=== PATIENT | female | born 1980 | race Caucasian/White ===

== ENCOUNTER 2020-05-20 09:33 | Outpatient (REF) | payer OTHER, SELFPAY ==
[2020-05-20 09:56] LABS: COVID-19 Test Negative (Negative); IDNOW Serial# 55D5AD1C
== END 2020-05-20 09:34 | disposition home or self-care (01) ==
LOC: HO.EMPCOV 09:33
PROVIDERS: PCP Internal Medicine; Visit Provider Internal Medicine
DX: Z20.828 Contact with and (suspected) exposure to other viral communicable diseases (principal)
CPT/HCPCS: 87635; C9803

== ENCOUNTER 2020-08-03 09:58 | Outpatient (REF) | payer OTHER, SELFPAY ==
[2020-08-03 10:17] LABS: COVID-19 Test Negative (Negative)
== END 2020-08-03 09:59 | disposition home or self-care (01) ==
LOC: HO.EMPCOV 09:58
PROVIDERS: Visit Provider Internal Medicine
DX: Z20.822 Contact with and (suspected) exposure to COVID-19 (principal)
CPT/HCPCS: 36415; 87635; C9803

== ENCOUNTER 2020-12-11 11:00 | Emergency (ER) | payer BC, SELFPAY ==
[2020-12-11 11:22] VITALS: BP 132/82; PULSE 112; RESP 16; TEMP 39.5; O2SAT 98; BMI 22.6
--- NOTE | 2020-12-11 11:26 | ED.GENADULT ---
HPI - General Adult General Chief complaint: General Medical Stated complaint: ?Lyme Disease Time Seen by Provider: 12/11/20 11:05 Source: patient Mode of arrival: ambulatory Limitations: no limitations History of Present Illness HPI narrative: 40-year-old female who presents emergency department for evaluation of fever, chills, dizziness, nausea and a bull's-eye lesion on her left buttocks. 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 The patient did not find a tick on her body. She states that since Saturday (5 days prior to evaluation) she has been experiencing fever, chills, myalgias and arthralgias. She states that she is having pain from her neck all the way to her tailbone. She has had fever ranging from 101-1 103? F. she states that she has had persistent nausea and has vomited once. The patient's noted able thigh lesion on the patient's left buttocks this morning. The patient denied sore throat, chest pain, shortness of breath, cough, frequency, urgency or dysuria. Related Data Previous Rx's Medication Instructions Recorded doxycycline hyclate 100 mg PO Q12H 21 Days #42 tab 12/11/20 ondansetron 4 mg PO Q6-8H PRN #14 tab 12/11/20 Allergies Allergy/AdvReac Type Severity Reaction Status Date / Time No Known Allergies Allergy Unverified 03/24/20 19:14 [No Known Allergies*] Review of Systems Review of Systems: Yes all other systems are reviewed and are negative [facility] Past Medical History [facility] Narrative: Past medical history: Anxiety. Past surgical history: [place] teeth. 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 She denies tobacco use. She drinks 1 glass of wine daily. She denies drug use. Medical History Anxiety Social History Social History Advance Directives: No Advance Directives Information Provided: No Patient : No Physical Exam Vital Signs: Vital Signs: Last Vital Signs Temp 100.4 F 12/11/20 12:28 Pulse 95 12/11/20 12:28 Resp 16 12/11/20 12:28 BP 118/77 12/11/20 12:28 Pulse Ox 99 12/11/20 12:28 Body Mass Index 22.6 Const: General: cooperative and healthy appearing; No in distress Orientation/consciousness: oriented to person and oriented to place HENMT: Head: Yes normal to inspection Ears: hearing grossly normal bilaterally General nose exam: Normal external nose present Eyes: General: appearance normal, both eyes and all related structures Neck: Neck: Yes normal visual inspection and Yes full ROM Chest: Chest palpation & inspection: normal inspection of the chest Resp: Effort & Inspection: normal respiratory effort Auscultation: clear to auscultation bilaterally, no crackles, no rales, no rhonchi and no wheezes Cardio: Rate: tachycardic Rhythm: regular rhythm Heart sounds: S1 normal heart sound present, S2 normal heart sound present and no murmurs GI: Inspection: Yes normal to inspection Palpation (GI): Soft to palpation and Tenderness to palpation present (GI) in the epigastrum ([id number]) Auscultation: normal bowel sounds Skin: Other: Patient's skin is very warm to the touch . She is diaphoretic. There is a bull's-eye lesion noted on the patient's left buttocks area. No other lesions noted. Neuro: General: oriented to person and oriented to place Cognition (Neuro): normal cognition Motor exam (neuro): 5/5 motor strength present throughout Extrem: General: Yes normal to inspection Psych: Appearance: grossly normal Affect: normal affect Thought process: Normal thought process present Thought content: Normal thought content present Course Course Course Narrative: 40-year-old female who presents emergency department for evaluation of fever, chills, myalgias, arthralgias, nausea and Bull's eye llesion on her left buttocks area. Vital signs in the emergency department feel that she was febrile with a temperature of a 103.1? and tachycardic with a pulse of 112. The patient did have Bull's eye lesion noted on her scan. Patient's presentation is consistent with acute Lyme disease. I did order a tick-borne molecular panel, CBC and comprehensive metabolic panel on the patient. Patient was treated with doxycycline 100 mg orally and ibuprofen 600 mg orally. I also believe the patient is very dehydrated has not been able to keep up with her sensible fluid loss from her fevers therefore she was ordered to get normal saline IV x2 L and Zofran 4 mg IV for her nausea. . with The patient will be discharged home with a prescription for doxycycline 100 mg twice a day for 21 days. She was advised to take Tylenol and ibuprofen for fever. Medical Decision Making Lab Data Result diagrams: 12/11/20 11:45 12/11/20 11:45 Labs: Lab Results 12/11/20 12/11/20 Range/Units 11:45 11:45 WBC 6.4 (4.8-10.8) X10*3/uL RBC 4.22 (4.20-5.50) X10*6/uL Hgb 12.7 (12.0-16.0) g/dl Hct 38.5 (37-47) % MCV 91.2 (80-98) fL MCH 30.1 (27.0-33.0) pg MCHC 33.0 (31.0-35.0) g/dl RDW 13.2 (11.0-16.0) % Plt Count 190 (160-400) X10*3/uL MPV 9.0 L (9.4-12.3) fL Immature Gran % (Auto) 0.3 (0.0-0.4) % Neut % (Auto) 86.9 H (45-73) % Lymph % (Auto) 7.4 L (20-40) % [place] % (Auto) 5.2 (2-11) % Eos % (Auto) 0.0 (0-4) % Baso % (Auto) 0.2 (0-2) % Lymph # (Auto) 0.5 L (1.2-4.9) X10*3/uL [place] # (Auto) 0.3 (0.1-1.2) X10*3/uL Eos # (Auto) 0.0 (0.0-0.4) X10*3/uL Baso # (Auto) 0.0 (0.0-0.2) X10*3/uL Abs Immat Gran (auto) 0.02 (0.00-0.03) X10*3/uL Absolute Neuts (auto) 5.6 (2.0-8.3) X10*3/uL Absolute Nucleated RBC 0.000 (0.0-0.012) X10*3/uL Nucleated RBC % (auto) 0.0 (0.0-0.2) /100WBC Smear Tech's Comments VERIFIED Sodium 138 (135-145) mmol/L Potassium 4.0 (3.3-5.1) mmol/L Chloride 102 (96-108) mmol/L Carbon Dioxide 26 (22-29) mmol/L Anion Gap 14 (12-20) BUN 7 L (9-16) mg/dL Creatinine 0.66 (0.5-1.4) mg/dL Estim Creat Clear Calc 103.9 Estimated GFR > 60 Random Glucose 98 (60-115) mg/dL Calcium 8.6 (8.4-10.2) mg/dL Total Bilirubin 0.7 (0.0-1.0) mg/dL AST 58 H (5-31) U/L ALT 88 H (0-31) U/L Alkaline Phosphatase 134 H (39-117) U/L Total Protein 6.3 L (6.5-8.0) g/dL Albumin 3.7 (3.5-5.0) g/dL Discharge Plan Discharge Clinical Impression: Acute Lyme disease, Acute dehydration Fever Qualifiers: Encounter type: initial encounter Instructions: Lyme Disease (ED) Additional Instructions: Your laboratory evaluation was unremarkable except for slight elevation in your AST, ALT and alkaline phosphatase (58, 88 and 137). This is probably related to your dehydration however sometimes Anaplasma can cause a bump in your liver function test. Do not drink alcohol. Do not take Tylenol. You should have repeat liver function test after you complete your doxycycline. I ordered a tick-borne molecular panel which include Lyme disease, Anaplasma, Babesia, Erlichosis and Borrellia. These tests may take 1-2 weeks to come back. Take doxycycline 100 mg twice a day for 21 days. I want you to complete the 21 day course even if the Lyme test is negative Take Zofran (ondansetron) ODT 4 mg, 1 pill dissolved in your mouth every 8 hours as needed for nausea and vomiting. Take ibuprofen 200 mg pills, 3 pills every 6 hours as needed for pain. Follow-up with your doctor in 2 days. Please return to the emergency department if your symptoms get worse or if you develop any symptoms that are concerning to you. Prescriptions: New ondansetron 4 mg tablet,disintegrating 4 mg PO Q6-8H PRN (Reason: nausea and vomiting) Qty: 14 RF: 0 doxycycline hyclate 100 mg tablet 100 mg PO Q12H 21 Days Qty: 42 RF: 0
[2020-12-11] MEDS: Ibuprofen 600 MG TABLET PO (11:47)
[2020-12-11] MEDS: 0.9 % Sodium Chloride 1,000 ML 999 ML IV ×2 (11:49→12:35)
[2020-12-11] MEDS: ondansetron HCL 4 MG/2 ML VIAL IVPUSH (11:55)
[2020-12-11 12:00] LABS: Basophils Percent Auto 0.2 % (0-2); Hematocrit 38.5 % (37-47); Hemoglobin 12.7 g/dl (12.0-16.0); Imm Gran Abs Auto 0.02 X10*3/uL (0.00-0.03); Imm Gran Pct Auto 0.3 % (0.0-0.4); Lymphocytes Absolute Auto 0.5 X10*3/uL (1.2-4.9); Lymphocytes Percent Auto 7.4 % (20-40); MANUAL DIFF FLAG SCAN; Mean Corpuscular Hemoglobin 30.1 pg (27.0-33.0); Mean Corpuscular Volume 91.2 fL (80-98); Monocytes Absolute Auto 0.3 X10*3/uL (0.1-1.2); Monocytes Percent Auto 5.2 % (2-11); Neutrophils Absolute Auto 5.6 X10*3/uL (2.0-8.3); Neutrophils Percent Auto 86.9 % (45-73); Platelet Count 190 X10*3/uL (160-400); Red Blood Count 4.22 X10*6/uL (4.20-5.50); Red Cell Distribution Width 13.2 % (11.0-16.0); SCAN SMEAR FLAG 1; White Blood Count 6.4 X10*3/uL (4.8-10.8)
[2020-12-11 12:17] LABS: SLIDE REVIEW VERIFIED
[2020-12-11 12:28] VITALS: BP 118/77; PULSE 95; RESP 16; TEMP 38; O2SAT 99
[2020-12-11 12:35] LABS: Alanine Aminotransferase 88 U/L (0-31); Albumin Level 3.7 g/dL (3.5-5.0); Alkaline Phosphatase 134 U/L (39-117); Anion Gap 14 (12-20); Aspartate Amino Transferase 58 U/L (5-31); Bilirubin Total 0.7 mg/dL (0.0-1.0); Blood Urea Nitrogen 7 mg/dL (9-16); Calcium 8.6 mg/dL (8.4-10.2); Carbon Dioxide 26 mmol/L (22-29); Chloride 102 mmol/L (96-108); Creatinine Clr Calc Pharmacy 103.9; Estimated Glomerular Filt Rate > 60; Glucose Random 98 mg/dL (60-115); Sodium 138 mmol/L (135-145); Total Protein 6.3 g/dL (6.5-8.0)
[2020-12-11 13:01] VITALS: BP 130/81; PULSE 98; O2SAT 97
[2020-12-12 18:12] LABS: A. Phagocytphilium DNA,RT-PCR NOT DETECTED (NOT DETECTED); Babesia Microti DNA, RT-PCR NOT DETECTED (NOT DETECTED); Borrelia Miyamotoi,DNA RT-PCR NOT DETECTED (NOT DETECTED); E.Chaffeensis DNA RT-PCR NOT DETECTED (NOT DETECTED); Lyme(Borrelia ssp)DNA RT-PCR NOT DETECTED (NOT DETECTED); Source-Tick borne disease EDTA
== END 2020-12-11 13:03 | disposition home or self-care (01) ==
PROVIDERS: Emergency Provider Emergency Medicine Emergency Medical Services; PCP Internal Medicine
DX: A69.20 Lyme disease, unspecified (principal); E86.0 Dehydration; R11.0 Nausea
CPT/HCPCS: 36415; 80053; 85025; 87798; 87801; 96361; 96374; 99284; J2405

== ENCOUNTER 2020-12-19 13:22 | Emergency (ER) | payer BC, SELFPAY ==
--- NOTE | ~2020-12-19 | CT_ITS ---
EXAMINATION: CT HEAD WITHOUT CONTRAST (STROKE PROTOCOL) CLINICAL INFORMATION: Stroke protocol. Right facial numbness. COMPARISON: None TECHNIQUE: Contiguous axial imaging was performed from the skull base to vertex without intravenous administration of contrast. This CT examination was performed using dose optimization techniques as appropriate, variously including the following: *Automated exposure control *Adjustment of mA and/or kV according to patient size (this includes techniques or standardized protocols for targeted exams where dose is matched to indication/reason for exam; i.e. extremities or head) *Use of iterative reconstruction technique DLP: 643 mGy-cm FINDINGS: There is no intracranial hemorrhage, hematoma, or extra-axial fluid collection. The ventricles are normal in size. There is no hydrocephalus, edema, or mass effect. The guevara-white matter differentiation appears symmetric. There is no acute infarct or mass lesion. The calvarium appears intact. There is no pneumocephalus or orbital emphysema. The visualized sinuses and middle ears and mastoid air cells show no significant mucosal thickening. There are no air-fluid levels. CT/CT head for stroke IMPRESSION: No acute intracranial pathology. This critical result was discussed with Dr. Mik Delgado at 1:40 p.M. It was ascertained that the content and urgency of the report was understood at the time of direct communication.
--- NOTE | 2020-12-19 13:26 | ECG_ITS ---
Test Reason : STROKE SYMPTOMS Blood Pressure : / mmHG Vent. Rate : 091 BPM Atrial Rate : 091 BPM P-R Int : 170 ms QRS Dur : 108 ms QT Int : 420 ms P-R-T Axes : 068 063 063 degrees QTc Int : 516 ms Normal sinus rhythm Possible Left atrial enlargement Incomplete right bundle branch block Prolonged QT Abnormal ECG No previous ECGs available Referred By: Demetrius Pete Electronically Signed By:SHIMA MANZANO
[2020-12-19 13:38] VITALS: BP 152/86; PULSE 87; RESP 18; TEMP 36.6; O2SAT 100; BMI 21.7
[2020-12-19 13:44] LABS: Glucose, Whole Blood 119 mg/dL (60-115)
[2020-12-19] MEDS: LORazepam 2 MG/ML VIAL 1 MG IVPUSH (14:00)
[2020-12-19 14:14] LABS: MANUAL DIFF FLAG NO
[2020-12-19 14:18] LABS: Basophils Percent Auto 0.4 % (0-2); Eosinophils Absolute Auto 0.1 X10*3/uL (0.0-0.4); Eosinophils Percent Auto 0.5 % (0-4); Hematocrit 43.7 % (37-47); Hemoglobin 14.7 g/dl (12.0-16.0); Imm Gran Abs Auto 0.12 X10*3/uL (0.00-0.03); Imm Gran Pct Auto 1.3 % (0.0-0.4); Lymphocytes Absolute Auto 2.7 X10*3/uL (1.2-4.9); Lymphocytes Percent Auto 29.5 % (20-40); Mean Corpuscular HGB Conc 33.6 g/dl (31.0-35.0); Mean Corpuscular Hemoglobin 30.1 pg (27.0-33.0); Mean Corpuscular Volume 89.5 fL (80-98); Mean Platelet Volume 8.6 fL (9.4-12.3); Monocytes Absolute Auto 0.5 X10*3/uL (0.1-1.2); Monocytes Percent Auto 5.9 % (2-11); Neutrophils Absolute Auto 5.8 X10*3/uL (2.0-8.3); Neutrophils Percent Auto 62.4 % (45-73); Platelet Count 627 X10*3/uL (160-400); Red Blood Count 4.88 X10*6/uL (4.20-5.50); Red Cell Distribution Width 13.2 % (11.0-16.0); White Blood Count 9.2 X10*3/uL (4.8-10.8)
[2020-12-19 14:25] LABS: INTERNATIONAL NORM RATIO 1.1 (0.9-1.1); Prothrombin Time 12.9 SEC (10.8-13.0)
[2020-12-19 14:27] LABS: Partial Thromboplastin Time 35.6 SEC (24.1-38.0)
[2020-12-19 14:33] LABS: Stroke Lab Use COMPLETE
[2020-12-19 14:52] LABS: Troponin-I High Sensitivity < 3.5 ng/L (<3.5-17.0)
[2020-12-19 15:02] VITALS: BP 140/88; PULSE 82; RESP 16; O2SAT 99
--- NOTE | 2020-12-19 15:05 | PC.NURSE ---
Patient is more relaxed, alert, and able to speak without difficulty. This is a significant improvement than when patient arrived.
[2020-12-19 15:27] LABS: Alanine Aminotransferase 25 U/L (0-31); Albumin Level 4.3 g/dL (3.5-5.0); Alkaline Phosphatase 103 U/L (39-117); Anion Gap 19 (12-20); Aspartate Amino Transferase 20 U/L (5-31); Bilirubin Direct 0.2 mg/dL (0.0-0.5); Bilirubin Total 0.3 mg/dL (0.0-1.0); Blood Urea Nitrogen 13 mg/dL (9-16); Calcium 9.3 mg/dL (8.4-10.2); Carbon Dioxide 20 mmol/L (22-29); Chloride 105 mmol/L (96-108); Creatinine Clr Calc Pharmacy 94.9; Estimated Glomerular Filt Rate > 60; Glucose Random 128 mg/dL (60-115); Magnesium 2.2 mg/dL (1.6-2.6); Phosphorus 1.2 mg/dL (2.7-4.5); Potassium 4.2 mmol/L (3.3-5.1); Sodium 140 mmol/L (135-145); Total Protein 7.4 g/dL (6.5-8.0)
--- NOTE | 2020-12-19 15:49 | ED.GENADULT ---
HPI - General Adult General Chief complaint: General Medical Stated complaint: WEAKNESS/ FACIAL DROOP Time Seen by Provider: 12/19/20 13:26 Source: patient and EMS Mode of arrival: EMS Limitations: no limitations Related Data Previous Rx's Medication Instructions Recorded doxycycline hyclate 100 mg PO Q12H 21 Days #42 tab 12/11/20 ondansetron 4 mg PO Q6-8H PRN #14 tab 12/11/20 lorazepam [Ativan] 1 mg PO TID PRN #10 tab 12/19/20 Allergies Allergy/AdvReac Type Severity Reaction Status Date / Time No Known Allergies Allergy Unverified 03/24/20 19:14 [No Known Allergies*] [facility] Past Medical History Medical History (Updated 12/19/20 @ 16:14 by Demetrius Pete MD) Anxiety Lyme disease Social History Social History Patient Tobacco Use Status: Never used Tobacco Use of substances other than those prescribed or required for medical reasons: No Advance Directives: No Advance Directives Information Provided: No Physical Exam Vital Signs: Vital Signs: Last Vital Signs Temp 98 F 12/19/20 13:38 Pulse 82 12/19/20 15:02 Resp 16 12/19/20 15:02 BP 140/88 H 12/19/20 15:02 Pulse Ox 99 12/19/20 15:02 Body Mass Index 21.7 Medical Decision Making Lab Data Result diagrams: 12/19/20 13:55 12/19/20 13:55 Labs: Lab Results 12/19/20 12/19/20 12/19/20 Range/Units 13:40 13:55 13:55 WBC 9.2 (4.8-10.8) X10*3/uL RBC 4.88 (4.20-5.50) X10*6/uL Hgb 14.7 (12.0-16.0) g/dl Hct 43.7 (37-47) % MCV 89.5 (80-98) fL MCH 30.1 (27.0-33.0) pg MCHC 33.6 (31.0-35.0) g/dl RDW 13.2 (11.0-16.0) % Plt Count 627 H D (160-400) X10*3/uL MPV 8.6 L (9.4-12.3) fL Immature Gran % (Auto) 1.3 H (0.0-0.4) % Neut % (Auto) 62.4 (45-73) % Lymph % (Auto) 29.5 (20-40) % [place] % (Auto) 5.9 (2-11) % Eos % (Auto) 0.5 (0-4) % Baso % (Auto) 0.4 (0-2) % Lymph # (Auto) 2.7 (1.2-4.9) X10*3/uL [place] # (Auto) 0.5 (0.1-1.2) X10*3/uL Eos # (Auto) 0.1 (0.0-0.4) X10*3/uL Baso # (Auto) 0.0 (0.0-0.2) X10*3/uL Abs Immat Gran (auto) 0.12 H (0.00-0.03) X10*3/uL Absolute Neuts (auto) 5.8 (2.0-8.3) X10*3/uL Absolute Nucleated RBC 0.000 (0.0-0.012) X10*3/uL Nucleated RBC % (auto) 0.0 (0.0-0.2) /100WBC PT 12.9 (10.8-13.0) SEC INR 1.1 (0.9-1.1) APTT 35.6 (24.1-38.0) SEC Sodium (135-145) mmol/L Potassium (3.3-5.1) mmol/L Chloride (96-108) mmol/L Carbon Dioxide (22-29) mmol/L Anion Gap (12-20) BUN (9-16) mg/dL Creatinine (0.5-1.4) mg/dL Estim Creat Clear Calc Estimated GFR POC Glucose 119 H (60-115) mg/dL Random Glucose (60-115) mg/dL Calcium (8.4-10.2) mg/dL Phosphorus (2.7-4.5) mg/dL Magnesium (1.6-2.6) mg/dL Total Bilirubin (0.0-1.0) mg/dL Direct Bilirubin (0.0-0.5) mg/dL AST (5-31) U/L ALT (0-31) U/L Alkaline Phosphatase (39-117) U/L Total Creatine Kinase (26-140) U/L Troponin I High Sens (<3.5-17.0) ng/L Total Protein (6.5-8.0) g/dL Albumin (3.5-5.0) g/dL 12/19/20 12/19/20 Range/Units 13:55 13:55 WBC (4.8-10.8) X10*3/uL RBC (4.20-5.50) X10*6/uL Hgb (12.0-16.0) g/dl Hct (37-47) % MCV (80-98) fL MCH (27.0-33.0) pg MCHC (31.0-35.0) g/dl RDW (11.0-16.0) % Plt Count (160-400) X10*3/uL MPV (9.4-12.3) fL Immature Gran % (Auto) (0.0-0.4) % Neut % (Auto) (45-73) % Lymph % (Auto) (20-40) % [place] % (Auto) (2-11) % Eos % (Auto) (0-4) % Baso % (Auto) (0-2) % Lymph # (Auto) (1.2-4.9) X10*3/uL [place] # (Auto) (0.1-1.2) X10*3/uL Eos # (Auto) (0.0-0.4) X10*3/uL Baso # (Auto) (0.0-0.2) X10*3/uL Abs Immat Gran (auto) (0.00-0.03) X10*3/uL Absolute Neuts (auto) (2.0-8.3) X10*3/uL Absolute Nucleated RBC (0.0-0.012) X10*3/uL Nucleated RBC % (auto) (0.0-0.2) /100WBC PT (10.8-13.0) SEC INR (0.9-1.1) APTT (24.1-38.0) SEC Sodium 140 (135-145) mmol/L Potassium 4.2 (3.3-5.1) mmol/L Chloride 105 (96-108) mmol/L Carbon Dioxide 20 L (22-29) mmol/L Anion Gap 19 (12-20) BUN 13 D (9-16) mg/dL Creatinine 0.75 (0.5-1.4) mg/dL Estim Creat Clear Calc 94.9 Estimated GFR > 60 POC Glucose (60-115) mg/dL Random Glucose 128 H (60-115) mg/dL Calcium 9.3 D (8.4-10.2) mg/dL Phosphorus 1.2 L (2.7-4.5) mg/dL Magnesium 2.2 (1.6-2.6) mg/dL Total Bilirubin 0.3 (0.0-1.0) mg/dL Direct Bilirubin 0.2 (0.0-0.5) mg/dL AST 20 D (5-31) U/L ALT 25 (0-31) U/L Alkaline Phosphatase 103 D (39-117) U/L Total Creatine Kinase 49 (26-140) U/L Troponin I High Sens < 3.5 (<3.5-17.0) ng/L Total Protein 7.4 (6.5-8.0) g/dL Albumin 4.3 (3.5-5.0) g/dL Discharge Plan Discharge Clinical Impression: Lozada's palsy, Acute hyperventilation syndrome Patient Disposition: Home, Self-Care Instructions: Lozada Palsy (ED), Hyperventilation (ED) Additional Instructions: Your presentation was consistent with hyperventilation syndrome. You received Ativan (lorazepam) 1 mg IV which improved her symptoms. Your laboratory evaluation was unremarkable. The CT scan of your head was normal. 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 This is caused by Lyme disease which is being treated with doxycycline. You received dexamethasone 10 mg IV. Start the prednisone as prescribed by the urgent care clinic tomorrow morning. If you start to feel numbness in your arms or legs again he feel like you are having another hyperventilation attack, take Ativan (lorazepam) 1 mg every 6 hours as needed. This medication is a benzodiazepine which can be addicting. If your concerned about addiction do not get this medication filled or you can ask the pharmacist for less pills than prescribed. When your at the pharmacy by the natural to her eyedrops to use in your right eye, 2 drops every hour while awake. Purchase a cup eye patch that he can wear over the right eye at night so to not scratch her cornea. Follow-up with your doctor in 2 days. Please return to the emergency department if your symptoms get worse or if you develop any symptoms that are concerning to you. Prescriptions: New lorazepam [Ativan] 1 mg tablet 1 mg PO TID PRN (Reason: anxiety) Qty: 10 RF: 0 No Action ondansetron 4 mg tablet,disintegrating 4 mg PO Q6-8H PRN (Reason: nausea and vomiting) Qty: 14 RF: 0 doxycycline hyclate 100 mg tablet 100 mg PO Q12H 21 Days Qty: 42 RF: 0
[2020-12-19 16:25] VITALS: BP 137/83; PULSE 84; RESP 16; O2SAT 97
--- NOTE | 2020-12-19 16:36 | PC.NURSE ---
Patient peripheral iv removed in both arms and pressure bandages applied. discharge instructions given to pt who verbalized understanding and denies any questions. Pt is ambulatory to exit in no distress with spouse.
== END 2020-12-19 16:38 | disposition home or self-care (01) ==
PROVIDERS: Emergency Provider Emergency Medicine Emergency Medical Services; PCP Internal Medicine
DX: G51.0 Bell's palsy (principal); F45.8 Other somatoform disorders; Z86.19 Personal history of other infectious and parasitic diseases
CPT/HCPCS: 36415; 70450; 80048; 80076; 82550; 82947; 83735; 84100; 84484; 85025; 85610; 85730; 93005; 96374; 96375; 99284; J1100; J2060

== ENCOUNTER → 2020-12-23 10:18 | Outpatient (BNVA) | payer SELFPAY | PROVIDERS: PCP Internal Medicine; Visit Provider Internal Medicine | DX: Z02.79 Encounter for issue of other medical certificate (principal) ==

== ENCOUNTER 2022-04-16 10:24 | Outpatient (REF) | payer BC, SELFPAY ==
--- NOTE | ~2022-04-16 | XR_ITS ---
EXAMINATION: XR CERVICAL SPINE CLINICAL INFORMATION: Neck pain COMPARISON: None TECHNIQUE: 3 views of the cervical spine were obtained. FINDINGS: Bone alignment is normal. No fracture or dislocation is seen. There is mild disc space narrowing and degenerative spondylosis at C5-C6. Prevertebral soft tissues are normal. XR/XR cervical spine 2V IMPRESSION: Mild degenerative changes at C5-C6.
== END 2022-04-16 10:25 | disposition home or self-care (01) ==
LOC: HO.XRAY 10:24
PROVIDERS: PCP Internal Medicine; Visit Provider Psychiatry & Neurology Neurology
DX: M54.2 Cervicalgia (principal)
CPT/HCPCS: 72040

== ENCOUNTER 2022-05-09 09:49 | Day surgery (SDC) | payer BC, SELFPAY ==
--- NOTE | ~2022-05-09 | FL_ITS ---
PROCEDURE: XR LUMBAR PUNCTURE CLINICAL INFORMATION: Seizure. ?Lyme disease. COMPARISON: None TECHNIQUE/FINDINGS: Procedure and risks and benefits including bleeding, infection and headache were discussed with the patient and informed consent was obtained. The patient was positioned in the prone position. The back was prepped and draped in the usual sterile fashion. The skin and soft tissues were anesthetized with 1% lidocaine plain. Using fluoroscopic guidance and a 22-gauge spinal needle, access to the spinal canal at the L3-L4 interlaminar level was obtained. Opening pressure was 12 cm of water. 8 mL of clear CSF fluid was removed and sent for diagnostic studies as requested by the ordering physician. There was no complication. FLUOROSCOPY TIME: 0.3 minutes DOSE: 6.4 mGy. DAP: 0.6 Gy-cm2 SAVED FLUOROSCOPIC IMAGE: 1 FL/FL guided lumbar puncture LP IMPRESSION: Fluoroscopy-guided lumbar puncture.
[2022-05-09 10:07] LABS: MANUAL DIFF FLAG NO
[2022-05-09 10:11] VITALS: BMI 19.7
[2022-05-09 10:11] LABS: Basophils Percent Auto 0.5 % (0-2); Eosinophils Percent Auto 0.3 % (0-4); Hematocrit 43.2 % (37.0-47.0); Hemoglobin 14.2 g/dl (12.0-16.0); Imm Gran Abs Auto 0.02 X10*3/uL (0.00-0.03); Imm Gran Pct Auto 0.3 % (0.0-0.4); Lymphocytes Absolute Auto 0.4 X10*3/uL (1.2-4.9); Lymphocytes Percent Auto 5.7 % (20-40); Mean Corpuscular HGB Conc 32.9 g/dl (31.0-35.0); Mean Corpuscular Hemoglobin 30.3 pg (27.0-33.0); Mean Corpuscular Volume 92.3 fL (80.0-98.0); Mean Platelet Volume 8.9 fL (9.4-12.3); Monocytes Absolute Auto 0.7 X10*3/uL (0.1-1.2); Monocytes Percent Auto 11.8 % (2-11); Neutrophils Percent Auto 81.4 % (45-73); Platelet Count 201 X10*3/uL (160-400); Red Blood Count 4.68 X10*6/uL (4.20-5.50); White Blood Count 6.2 X10*3/uL (4.8-10.8)
[2022-05-09 10:16] LABS: INTERNATIONAL NORM RATIO 1.1 (0.9-1.1); Prothrombin Time 12.2 SEC (10.0-13.1)
[2022-05-09 10:18] LABS: Partial Thromboplastin Time 34.4 SEC (26.0-36.4)
[2022-05-09 10:44] LABS: UPreg QC Valid YES; Urine Pregnancy NEGATIVE (NEGATIVE)
[2022-05-09 12:25] VITALS: BP 142/85; PULSE 86; RESP 15; O2SAT 97
[2022-05-09 12:40] VITALS: BP 141/91; PULSE 86; RESP 16; O2SAT 97
[2022-05-09 13:10] VITALS: BP 144/89; PULSE 85; RESP 16; O2SAT 98
[2022-05-09 13:19] LABS: CSF Appearance Clear, Colorless; CSF Tube # 1
[2022-05-09 13:29] LABS: Glucose CSF 55 mg/dL; Total Protein CSF 36.3 mg/dL (15-45)
[2022-05-09 13:40] VITALS: BP 145/85; PULSE 91; RESP 18; O2SAT 100
[2022-05-09 14:10] VITALS: BP 151/89; PULSE 88; RESP 12; O2SAT 100
[2022-05-09 14:18] LABS: Appearance CSF CLEAR; CSF Tube # 4; Color CSF COLORLESS; Red Blood Cell CSF 0 MM*3; White Blood Cell CSF 0 MM*3
[2022-05-09 14:32] LABS: Cryptococcus neoformans/gattii Not Detected (Not Detect.); Enterovirus Not Detected (Not Detect.); Escherichia coli K1 Not Detected (Not Detect.); Haemophilus influenzae Not Detected (Not Detect.); Herpes simplex virus 1 Not Detected (Not Detect.); Herpes simplex virus 2 Not Detected (Not Detect.); Human herpesvirus 6 Not Detected (Not Detect.); Human parechovirus Not Detected (Not Detect.); Listeria monocytogenes Not Detected (Not Detect.); Neisseria meningitidis Not Detected (Not Detect.); Streptococcus agalactiae Not Detected (Not Detect.); Streptococcus pneumoniae Not Detected (Not Detect.); Varicella zoster virus Not Detected (Not Detect.)
[2022-05-10 19:47] LABS: Lyme (B. burgdorferi) PCR NOT DETECTED (NOT DETECTED)
== END 2022-05-09 15:30 | disposition home or self-care (01) ==
PROVIDERS: Psychiatry & Neurology Neurology; Radiology Diagnostic Radiology; PCP Internal Medicine; Visit Provider Radiology Diagnostic Radiology
PROC: 009U3ZZ Drainage of Spinal Canal, Percutaneous Approach (ICD-10-PCS; CPT 62270; principal; 2022-05-09 11:00)
DX: R56.9 Unspecified convulsions (principal); A69.20 Lyme disease, unspecified; F41.1 Generalized anxiety disorder; Z79.899 Other long term (current) drug therapy; Z88.8 Allergy status to other drugs, medicaments and biological substances
CPT/HCPCS: 36415; 62328; 81025; 82945; 84157; 85025; 85610; 85730; 87015; 87070; 87205; 87476; 87483; 89051

== ENCOUNTER → 2022-07-19 15:39 | Outpatient (BNVA) | payer BC, SELFPAY | PROVIDERS: PCP Internal Medicine; Visit Provider Psychiatry & Neurology Neurology | DX: R56.9 Unspecified convulsions (principal); M54.2 Cervicalgia; G43.109 Migraine with aura, not intractable, without status migrainosus ==

== ENCOUNTER 2022-07-27 10:18 | Outpatient (REF) | payer BC, SELFPAY ==
--- NOTE | ~2022-07-27 | MR_ITS ---
MR CERVICAL SPINE WITHOUT IV CONTRAST CLINICAL INFORMATION: Cervicalgia. COMPARISON: None available. TECHNIQUE: MRI of the cervical spine was obtained using routine sequences without contrast. FINDINGS: Cervical alignment is maintained. The vertebral body heights are preserved. There is mild disc volume loss at C5-C6. The remaining disc volumes are maintained. There is no bone marrow edema. There are no acute fractures. Craniocervical junction is unremarkable. The partially imaged posterior fossa is unremarkable. Cervical arterial flow voids are maintained. No significant extra spinal soft tissue findings. No cord signal changes accounting for artifact. C2-C3: Normal. C3-C4: Normal. C4-C5: Slight annular disc bulge without central canal stenosis. No foraminal stenosis. C5-C6: There is a broad-based central disc extrusion that results in mild to moderate central canal stenosis and mild flattening of the cervical cord. A left lateral disc protrusion at this level that is in part disc osteophyte results in moderate left-sided foraminal stenosis. C6-C7: Small annular disc bulge minimally indents the ventral thecal sac. No foraminal stenosis. C7-T1: Disc contour is normal. No central canal stenosis and no foraminal stenosis. MR/MR cervical spine wo con IMPRESSION: - At C5-C6, there is a broad-based central disc extrusion that results in mild to moderate central canal stenosis and mild flattening of the cervical cord. A left lateral disc protrusion at this level that is in part disc osteophyte results in moderate left-sided foraminal stenosis. - Additional mild spondylitic changes throughout the cervical spine as described.
== END 2022-07-27 10:19 | disposition home or self-care (01) ==
LOC: HO.MRI 10:18
PROVIDERS: PCP Internal Medicine; Visit Provider Psychiatry & Neurology Neurology
DX: M54.2 Cervicalgia (principal)
CPT/HCPCS: 72141

== ENCOUNTER 2022-11-28 12:00 | Outpatient (RCR) | payer BC, SELFPAY ==
[2022-08-21 13:59] VITALS: BP 169/94; PULSE 78; O2SAT 100
== END 2022-11-28 13:26 | disposition home or self-care (01) ==
LOC: HO.PT 12:00
PROVIDERS: PCP Internal Medicine; Visit Provider Nurse Practitioner
DX: M54.2 Cervicalgia (principal)
CPT/HCPCS: 97012; 97014; 97035; 97110; 97112; 97140; 97162; 97530

== ENCOUNTER 2022-12-29 11:23 | Outpatient (REF) | payer BC, SELFPAY ==
[2022-12-29 13:19] LABS: MANUAL DIFF FLAG NO
[2022-12-29 13:21] LABS: Basophils Percent Auto 0.4 % (0-2); Eosinophils Absolute Auto 0.1 X10*3/uL (0.0-0.4); Eosinophils Percent Auto 1.1 % (0-4); Hematocrit 45.1 % (37.0-47.0); Hemoglobin 14.6 g/dl (12.0-16.0); Imm Gran Abs Auto 0.03 X10*3/uL (0.00-0.03); Imm Gran Pct Auto 0.4 % (0.0-0.4); Lymphocytes Percent Auto 27.1 % (20-40); Mean Corpuscular HGB Conc 32.4 g/dl (31.0-35.0); Mean Corpuscular Hemoglobin 29.9 pg (27.0-33.0); Mean Corpuscular Volume 92.2 fL (80.0-98.0); Mean Platelet Volume 9.5 fL (9.4-12.3); Monocytes Absolute Auto 0.4 X10*3/uL (0.1-1.2); Monocytes Percent Auto 5.5 % (2-11); Neutrophils Absolute Auto 4.8 x10*3/uL (2.0-8.3); Neutrophils Percent Auto 65.5 % (45-73); Platelet Count 294 X10*3/uL (160-400); Red Blood Count 4.89 X10*6/uL (4.20-5.50); Red Cell Distribution Width 13.3 % (11.0-16.0); White Blood Count 7.4 X10*3/uL (4.8-10.8)
[2022-12-29 13:34] LABS: Alanine Aminotransferase 13 U/L (0-31); Albumin Level 4.5 g/dL (3.5-5.0); Alkaline Phosphatase 82 U/L (39-117); Aspartate Amino Transferase 19 U/L (5-31); Bilirubin Direct 0.2 mg/dL (0.0-0.5); Bilirubin Total 0.7 mg/dL (0.0-1.0); Total Protein 7.4 g/dL (6.5-8.0)
== END 2022-12-29 11:24 | disposition home or self-care (01) ==
LOC: HO.HMGCLDS 11:23
PROVIDERS: PCP Internal Medicine; Visit Provider Dermatology
DX: B35.1 Tinea unguium (principal)
CPT/HCPCS: 36415; 80076; 85025

== ENCOUNTER 2023-06-05 15:00 | Outpatient (RCR) | payer BC, SELFPAY | END 2023-12-03 14:41 | disposition home or self-care (01) | LOC: HO.OT 15:00 | PROVIDERS: PCP Internal Medicine; Visit Provider Orthopaedic Surgery | DX: Z98.890 Other specified postprocedural states (principal) | CPT/HCPCS: 97033; 97110; 97166 ==

== ENCOUNTER 2023-08-01 09:49 | Outpatient (REF) | payer BC, SELFPAY ==
[2023-08-01 09:59] LABS: MANUAL DIFF FLAG NO
[2023-08-01 10:52] LABS: Basophils Percent Auto 0.5 % (0-2); Eosinophils Absolute Auto 0.1 X10*3/uL (0.0-0.4); Eosinophils Percent Auto 0.8 % (0-4); Hematocrit 44.2 % (37.0-47.0); Imm Gran Abs Auto 0.02 X10*3/uL (0.00-0.03); Imm Gran Pct Auto 0.3 % (0.0-0.4); Lymphocytes Percent Auto 25.4 % (20-40); Mean Corpuscular HGB Conc 31.7 g/dl (31.0-35.0); Mean Corpuscular Hemoglobin 29.7 pg (27.0-33.0); Mean Corpuscular Volume 93.6 fL (80.0-98.0); Mean Platelet Volume 9.4 fL (9.4-12.3); Monocytes Absolute Auto 0.5 X10*3/uL (0.1-1.2); Monocytes Percent Auto 6.7 % (2-11); Neutrophils Absolute Auto 5.2 x10*3/uL (2.0-8.3); Neutrophils Percent Auto 66.3 % (45-73); Platelet Count 252 X10*3/uL (160-400); Red Blood Count 4.72 X10*6/uL (4.20-5.50); Red Cell Distribution Width 12.8 % (11.0-16.0); White Blood Count 7.8 X10*3/uL (4.8-10.8)
[2023-08-01 11:24] LABS: Alanine Aminotransferase 12 U/L (0-31); Albumin Level 4.2 g/dL (3.5-5.0); Alkaline Phosphatase 78 U/L (39-117); Aspartate Amino Transferase 15 U/L (5-31); Bilirubin Direct 0.2 mg/dL (0.0-0.5); Bilirubin Total 0.3 mg/dL (0.0-1.0); Total Protein 7.2 g/dL (6.5-8.0)
== END 2023-08-01 09:50 | disposition home or self-care (01) ==
LOC: HO.LAB 09:49
PROVIDERS: Visit Provider Dermatology
DX: B35.1 Tinea unguium (principal)
CPT/HCPCS: 36415; 80076; 85025

== ENCOUNTER → 2023-12-03 14:36 | Outpatient (RCR) | payer BC, SELFPAY | END | disposition home or self-care (01) | LOC: HO.OT 12-11 08:24 | PROVIDERS: PCP Internal Medicine; Visit Provider Orthopaedic Surgery | DX: S63.591D Other specified sprain of right wrist, subsequent encounter (principal) | CPT/HCPCS: 29125; 97033; 97035; 97110; 97140; 97165; 97530; 97760 ==

== ENCOUNTER 2024-04-25 09:38 | Outpatient (AMB) | payer BC, SELFPAY ==
[2024-04-25 09:59] VITALS: BP 122/80; PULSE 70; TEMP 36.6; O2SAT 97; BMI 22.6
--- NOTE | 2024-04-25 09:59 | MHC.OFFWIV ---
Intake Vital Signs 04/25/24 09:59 Height 5 ft 6 in Weight 140 lb BMI 22.6 BP 122/80 Pulse 70 Pulse Source Pulse Oximeter Temp 97.8 F Temp Source Oral Pulse Oximetry (%) 97 Oxygen Delivery Method Room Air Intake Visit Reasons: Vertigo Patient Tobacco Use Status: Never used Tobacco Allergies bupropion [From Wellbutrin] Allergy (Severe, Verified 07/19/22 15:49) Seizure wellbuterin Allergy (Intermediate, Uncoded 04/16/22 08:11) Seizure HPI HPI Comments History of Present Illness Details Patient is a 43yo F who presents to office with concern vertigo She is currently under management by neuro for chronic lyme (nerve pain and headaches) 3 weeks ago started on cymbalta by neurologist and had nausea which has improved since then Has had head imaging in recent past without significant abnormalities She states hx of vertigo in past after URI illness and improved with rest and zofran (never had to use melizine) Of note she had cobid 3 weeks ago She has had linger congestion since but otherwise feeling better Yesterday did yoga and had one short episode of dizziness (room spinning) Thought was okay but in the middle of the night + onset At rest + nausea and headache Worsening with movement + room spinning No syncope, HT or LOC + vomiting; has used zofran in the past with good relief PFSH Medical History Anxiety Lyme disease Neck pain Surgical History [place] teeth removed Family History Mother Heart disease Father Lung disease, chronic obstructive Social History (Updated 07/19/22 @ 15:55 by Britney Newman) Alcohol intake: current Alcohol intake frequency: holidays/special occasions only Patient Tobacco Use Status: Never used Tobacco Review of Systems Const Denies chills, Denies fever(s) and Reports headache(s) Eyes Denies diplopia ENT Reports vertigo, Reports dizziness, Denies otalgia, Reports headache(s) and Reports nasal congestion Card Denies chest pain, Denies syncope, Denies rapid heart rate and Denies dyspnea Resp Denies cough and Denies dyspnea GI Denies abdominal pain, Reports nausea and Reports vomiting Musc Denies arthralgias Skin/Breast Denies rash Neuro Denies confusion, Reports vertigo, Reports dizziness, Denies syncope, Reports headache(s) and Denies paresthesias Psych Denies confusion Physical Exam Vital Signs: Last Vital Signs Temp 97.8 F 04/25/24 09:59 Pulse 70 04/25/24 09:59 BP 122/80 04/25/24 09:59 Pulse Ox 97 04/25/24 09:59 Oxygen Delivery Method Room Air 04/25/24 09:59 BMI result Body Mass Index 22.6 General: Non-toxic, NAD. Speaking full sentences. Skin: Warm dry throughout Eye: PERRL, EOMI without vertical or rotary nystagmus HENT: Airway patent. Uvula midline. No pharyngeal erythema or edema. No BUSINESS EMPLOYMENT SPECIALIST. Bilateral canals clear. TM non-erythematous, non-bulging. No TM perforation or hemotympanum noted. Respiratory: CTA bilaterally. No wheezes, rales or rhonchi Cardiac: RRR. No murmur Neurology: A/O x 3. CN 2-12 grossly intact. No aphasia or facial droop. Finger to nose tracing equal. Negative pronator drift. Equal strength. Psych: Good mood and affect Const General: No confusion Orientation/consciousness: No confusion Neuro General: No confusion Assessment & Plan Assessment & Plan (1) Vertigo: Code(s): R42 - Dizziness and giddiness Plan: Patient seen and evaluated. No neurological deficit on exam She has had similar events in past and onset during yoga after URI 3 weeks ago Zofran and meclizine ordered Discussed warning signs that warrant ER evaluation Pt not driving and will be monitored at home by family Patient gave verbal understanding and had no additional questions or concerns at time of discharge All questions answered Medications: New ondansetron 4 mg PO Q8H PRN 20 tabs 0RF nausea and vomiting meclizine 12.5 mg PO TID PRN 20 tabs 0RF dizziness Coding Level of Care Code Est Pt Level 3 (85858) Diagnoses Vertigo R42
== END 2024-04-25 10:27 | disposition home or self-care (01) ==
PROVIDERS: PCP Internal Medicine; Visit Provider Physician Assistant
DX: R42 Dizziness and giddiness (principal)

== ENCOUNTER → 2024-04-25 09:38 | Outpatient (BNVA) | payer BC, SELFPAY | PROVIDERS: PCP Internal Medicine ==

== ENCOUNTER 2024-08-03 09:15 | Outpatient (AMB) | payer BC, SELFPAY ==
--- NOTE | 2024-08-03 09:26 | A.OFFVIS_ITS ---
Vital Signs 08/03/24 09:27 Height 5 ft 6 in Weight 151 lb 2 oz BMI 24.4 BP 120/72 Blood Pressure Location Lt brachial Position Sitting Pulse 89 Pulse Source Pulse Oximeter Pulse Oximetry (%) 98 Oxygen Delivery Method Room Air Intake Visit Reasons: Follow Up Intake Note: patient looking to get a sleep study, rheum consult and nerve pain as gotten worse since last seen Allergies bupropion [From Wellbutrin] Allergy (Severe, Verified 08/03/24 09:30) Seizure wellbuterin Allergy (Intermediate, Uncoded 04/16/22 08:11) Seizure Medication List - Last Reconciled 08/03/24 by Vidhya Epstein, LATANYA clotrimazole 10 mg mucous membrane .Five times per day 7 days cyclobenzaprine 5 mg PO DAILY PRN dexamethasone 4 mg PO TID duloxetine 30 mg PO DAILY gabapentin 300 mg PO TID magnesium glycinate 100 mg PO TID magnesium oxide 400 mg PO DAILY meclizine 12.5 mg PO TID PRN mupirocin 2% 1 appl topical TID 5 days ondansetron 4 mg PO Q8H PRN permethrin 5% 1 appl topical Q14D 2 doses propranolol ER 120 mg PO DAILY riboflavin (vitamin B2) 100 mg PO DAILY HPI Comments Details: 44 y/o female to reestablish care for follow up of neuralgias and migraine. Patient was last seen in this office by Dr. Lomeli in 07/27/2022. In the interim, she had been followed by Dr. Verma at [facility], until he left that practice. 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 She was treated with a course of doxycycline at that time. Since she has had right facial neuralgias. Then 2021, she had 2 seizure episodes, which were thought to be due to another bout of acute Lyme infection. She was treated with another course of doxycycline. Brain MRI w/wo, LP-CSF-CSF Lyme PCR at the time was unremarkable. Seizures were managed with levetiracetam 750 mg p.o. b.i.d., which she has since been weaned off of. She was also taken off of bupropion, as it was thought it may have contributed to seizure activity. Since however she has had ongoing right facial and right sided neuralgias, paresthesias and episodes of weakness, as well as migraine headache. She has also had bouts of vertigo, which have increased in intensity and duration more recently. She is also having sleep difficulties. She developed nerve pain following a seizure in 2021. She has right occipital, right neck pinching squeezing sensation, which radiates into the anterior neck into her tongue as a tingling sensation, sometimes into the right ear as a pulling sensation. She also has constatnt burning pain in the right trochlear region distribution. She has had new episodes where the tingling moves into her right chest region. When this is worse, may see a right facial droop. She does have known cervical disc herniations. In Jun 2024, she has a had a burning rash over right SI joint a/w worsening of sciatica type pain. Saw PCP, who did not feel this was HSV/VZV. Now, notes hse was started on dexamethasone prior to rash appearing. She is also prone to headaches- will have 1-2 weeks with headcahe then 1-2 weeks w/o headache.. Has right sided tightness at the anglican sometimes a/w flare-up of her nerve pain, photophobia, phonophobia, nausea- more with the tightness in her neck/throat, irritability, concentration difficulties, activity intolerance. She has positional external spinning vertigo- triggered by doing yoga. She uses meclizine and zofran prn. Has never done vestibular PT. Current tx: Propranolol ER 120mg- also for supine HTN. Riboflavin 400mg qam Mag 400mg qhs Cyclobenzaprine 5mg as needed- can help at times Duloxetine 30mg- started a few months bk- has helped her mood Gabapentin- dulls the pain, but affects her concentration and focus. Naproxen 440mg/500mg at onset of headache. Previous trials: She has had some benefot from right supraorbital and right occipital-cervical steroid injections. She had cervical Botox injections- caused neck weakness- and was not helpful. Sumatriptan 25mg- ineffective. She has never tried amitriptyline, topiramate. She also endorses snoring, excessive daytime sleepiness, sleep difficulties. She is interested in undergoing a HST further evaluate. She is sleeping 10-11 hours per day when she is not in pain. On days when she is not in pain, she can be physically active- as long as she is not bouncing. 05/09/2022, LP showed normal opening pressure of 12 cm H2O, normal CSF studies, negative CSF Lyme PCR. 07/27/2022,MR/MR cervical spine wo con - At C5-C6, there is a broad-based central disc extrusion that resultsin mild to moderate central canal stenosis and mild flattening of thecervical cord. A left lateral disc protrusion at this level that is inpart disc osteophyte results in moderate left-sided foraminal stenosis. - Additional mild spondylitic changes throughout the cervical spine 04/28/2022, brain MRI w/wo contrast, at [facility]: ?Normal MRI of the brain without evidence of an epileptic focus.? Small left nasopharynx Aracelis submucosal T2 hyperintense lesion likely a simple mucous retention cysts. 07/19/2022, HPI per Dr. Lomeli: Mar she was at home , her heard her cry out and found her having generalized tonic clonic movements , gazing towards the right, had fallen off the chair , unresponsive lasting less than a minute. She was drowsy and confused after that. She was awake in 20 min but was very tired. It was around 10-11pm and she was working on her computer. she denies urinary incontinence , tongue biting. she has h/o TMJ tension headaches and since this episode her headaches are almost everyday. In the ER she was loaded with keppra and is on keppra 750mg bid , CT head was normal , routine EEG was normal, her wellbutrin was stopped as it can lower seizure threshold and discharged.she also reports neck pain on her right side since then. she had neck pain intermittently for many years now. she reports that it was a rough week due to her work and her kids , was sleep deprived . In February 2022- she recalls another episode while working on the computer , she felt down and was confused after that - but not witnessed - 4pm at work. 1 1/2 years ago she had Lyme disease - meningitis ? radiculitis- had bells palsy , headaches neck pain. 3 nights ago she started with severe right neck pain , she went to [facility] - says its similar to when she had the lyme ,weird sensation in her right eye, tongue, tingling and numbness in her right fingers and leg.she was treated with toradol Her anxiety have worsened in the past 2 weeks . She reports daily headaches for past 2 weeks - with light and noise sensitivity with nausea, pressure. she has neck pain and tongue tingling . she has an appointment with her behavioral health nurse for reviewing medications. [facility] Medical History (Updated 08/03/24 @ 17:49 by LATANYA Martinez) Depression Rosacea Neck pain Lyme disease Anxiety Surgical History [place] teeth removed Family History Mother Heart disease Father Lung disease, chronic obstructive Social History (Updated 07/19/22 @ 15:55 by Britney Newman) Alcohol intake: current Alcohol intake frequency: holidays/special occasions only Patient Tobacco Use Status: Never used Tobacco Physical Exam Vital Signs: Last Vital Signs Pulse 89 08/03/24 09:27 BP 120/72 08/03/24 09:27 Pulse Ox 98 08/03/24 09:27 Oxygen Delivery Method Room Air 08/03/24 09:27 BMI result Body Mass Index 24.4 Const General: cooperative and no acute distress Orientation/consciousness: patient oriented x3 Resp Effort & Inspection: normal respiratory effort and able to speak in complete sentences Neuro General: patient oriented x3 Cranial nerves: Yes CN's II-XII intact bilaterally Cognition (Neuro): normal cognition Psych Appearance: grossly normal Mental Status: mental status grossly normal Speech and movement: Normal speech and movement present Affect: normal affect Attitude: cooperative Assessment & Plan Assessment & Plan (1) Chronic migraine with aura: Code(s): G43.109 - Migraine with aura, not intractable, without status migrainosus Category: Medical (2) Cervicalgia: Code(s): M54.2 - Cervicalgia Category: Medical (3) Vertigo: Code(s): R42 - Dizziness and giddiness Category: Medical (4) Snoring: Code(s): R06.83 - Snoring Category: Medical (5) Hypersomnia: Code(s): G47.10 - Hypersomnia, unspecified Category: Medical (6) Sleep difficulties: Code(s): G47.9 - Sleep disorder, unspecified Category: Medical Plan For right facial and right-sided paresthesias: Start carbamazepine ER 100 mg p.o. b.i.d. Then in 1 month, CBC, CMP, carbamazepine level We will request pain management consult for trial of right trochlear region nerve block. For vertigo: Will request vestibular eval and treat For sleep difficulties: Patient is advised to undergo HST to assess for sleep apnea. [place] Sleepiness scale- 10. For acute headache treatment: Trial Sumatriptan 100mg tab, 1/2 - 1 tab (50-100mg) at onset of headache, may repeat in 2 hours. Max of 2 tabs (200mg) per 24 hours. May take sumatriptan with OTC Tylenol 650-1,000mg every 4-6 hours, Ibuprofen (liquid gels) 600mg every 6 hours, or Naproxen (liquid gels) 440mg q 12 hrs prn. Potential adverse effects of triptans, include but are not limited to nausea, fatigue, chest tightness/tingling (usually passes within a few minutes), medication overuse headaches. Previous acute migraine medication trials: Sumatriptan 25 mg ineffective Acute migraine medication contraindications: None other For headache prevention medication: Continue magnesium 400 mg q.h.s. Continue propranolol ER 120 mg daily Continue duloxetine 30 mg daily Continue gabapentin- would not increase as it has already negatively affecting her cognition. Start Emgality 120mg/ml auto-injection: Loading dose: 240mg (2 120mg/ml auto-injections) via subcutaneous injection in 2 different sites). Then 30 days after loading dose, start Maintenance dose: 120mg (120mg/ml autoinjector) subcutaneous injection every month. Important considerations: * Emgality will likely require insurance prior authorization prior to receiving it from the pharmacy. * Potential side effects include allergic reaction and injection site reactions. * Emgality injection training educational video is available to view on [email or web address] * Store Emgality in the refrigerator in it's original packaging in order to protect from light. * Remove Emgality at least 1 hour prior to taking the injection. * Emgality can be left out of the fridge for?up to 7 days at a temperature not above 86?F. If either of these conditions are exceeded, then Emgality must be thrown away. * Once Emgality has been stored out of refrigeration, do not place it back in the refrigerator. Previous migraine prevention medication trials: None other Migraine prevention medication contraindications: Would avoid topiramate due to risk for worsening paresthesias. Would avoid adding a TCA in setting of history of seizure activity and patient already on duloxetine. Future considerations, weaning off gabapentin Orders: Orders Carbamazepine Tegretol Today G40.909 - Epilepsy, unspecified, not intractable, without status epilepticus, G43.109 - Migraine with aura, not intractable, without status migrainosus, M54.2 - Cervicalgia Comprehensive Met. 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 To be followed by maintenance dose of 120 mg subcu q.month. 240 mg (2 mL) subcut ONCE 30 days 2 mL 0RF Coding Level of Care Code Est Pt Level 4 (65185) Diagnoses Chronic migraine with aura G43.109 Cervicalgia M54.2 Vertigo R42 Snoring R06.83 Hypersomnia G47.10 Sleep difficulties G47.9
[2024-08-03 09:27] VITALS: BP 120/72; PULSE 89; O2SAT 98; BMI 24.4
--- OUTSIDE RECORDS SUMMARY | 2024-08-03 13:37 | XMS_ITS | Clinical Summary ---
Author Organization [facility] Address [address] [place] [address] Care Team Providers Care Supervisor [employer] Name Role Phone Deisy Dennis MD Primary Care Provider Unavailable Aaliyah Rodriguez MD Unavailable Unavailab le Allergies No known active allergies Social History Tobacco Use Types Packs/Day Years Used Date Smoking Tobacco: Never Smokeless Tobacco: Never Alcohol Use Standard Drinks/Week Comments Yes 0 (1 standard drink = 0.6 oz pur e alcohol) 1-2 drinks per week Sex Assigned at Date Recorded Not on file Plan of Treatment Health Maintenance Due Date Last Done Comments Covid-19 Vaccine (#1) 1978 DTAP/TDAP/TD (1 - Tdap) 1997 CHOLESTEROL SCREENING 1998 CERVICAL CANCER SCREENING 1999 BASELINE HEALTH EXAM 40-64 2018 MAMMOGRAM 2018 INFLUENZA (#1) 2024 BMI CHECK/ADVISE 07/08/2024 PNEUMOCOCCAL VACCINE FOR HIGH RISK PATIENTS (#1) 05/23 Care Teams Supervisor [employer] Relationship Specialty Start Date End Date Paulina-Deisy Pittman MD PCP - General Internal Medicine 01/26/16 Aaliyah Rodriguez MD Internal Medicine 01/26/16
--- OUTSIDE RECORDS SUMMARY | 2024-08-03 13:37 | XMS_ITS | Clinical Summary ---
Author Organization [facility] Address [phone] [facility] [place] [address] Care Team Providers Care Candle Pourer Name Role Phone Deisy Dennis MD Primary Care Prov ider Allergies Active Allergy Reactions Criticality Noted Date Comments Adhesive Tape-Silicones 05/22/2020 Medications Medication Sig Dispensed Refills Start Date End Date Status vit,[id number] (PRENATABS RX) 29 mg iron- 1 mg Tab daily. Active busPIRone (BUSPAR) 10 MG tablet Take 10 mg by mouth 3 (three) times a day. Active doxycycline hyclate (DORYX) 100 MG tablet Take 100 mg by mouth 2 (two) times a day. Active buPROPion (WELLBUTRIN SR) 200 MG SR 12 hr tablet Take 200 mg by mouth 2 (two) times a day. Active Active Problems No known active problems Social History Tobacco Use Types Packs/Day Years Used Date Smoking Tobacco: Never Smokeless Tobacco: Never Alcohol Use Standard Drinks/Week Comments Yes 0 (1 standard drink = 0.6 oz pur e alcohol) Education Answer Date Recorded Are you interested in more education? Not on marilou e 11/02/2022 Are you concerned about learning? Not on file 11/02/2022 No 11/02/2022 No 11/02/2022 Digital Access Answer Date Recorded No 11/30/2022 No 11/30/2022 No 11/30/2022 Reliable internet access at home? Not on file 11/30/2022 Device with a working camera? Not on file Sex and Gender Information Value Date Recorded Sex Assigned at Not on file Gender Identity Not on file Sexual Orientation Not on file Last Filed Vital Signs Vital Sign Reading Time Taken Comments Blood Pressure 136/82 12/19/2020 10:23 AM EDT Pulse 115 12/19/2020 10:23 AM EDT Temperature 36.4 ??C (97.6 ??F) 12/19/2020 10:23 AM E DT Respiratory Rate 16 12/19/2020 10:23 AM EDT Oxygen Saturation 99% 12/19/2020 10:23 AM EDT Inhaled Oxygen Concentration - - Weight 54.4 kg (120 lb) 12/19/2020 10:23 AM EDT Height 167.6 cm (5' 6 ) 12/19/2020 10:23 AM EDT Body Mass Index 19.37 12/19/2020 10:23 AM EDT Plan of Treatment Health Maintenance Due Date Last Done Comments LIPID PANEL 1978 DEPRESSION SCREENING 1990 HEPATITIS B SCREENING 1996 HEPATITIS C SCREENING 1996 HIV ONE-TIME SCREENING (18-65 YEARS) 1996 HEPATITIS B VACCINES (1 of 3 - 19+ 3-dose series) 1997 PAP SMEAR 1999 MAMMOGRAM 2018 COLOGUARD 2023 COLONOSCOPY 2023 COLORECTAL CANCER SCREENING 2023 FIT TEST 2023 FOBT 2023 SIGMOIDOSCOPY 2023 VIRTUAL COLONOSCOPY 2023 INFLUENZA VACCINE (#1) 2024 , 04/10/2019, 04/25/2018, Additional history exists COVID-19 VACCINE ( season) 2024 07/14/2020, 06/23/2020 Adult Td,Tdap Booster 08/20/2028 08/20/2018 SMOKING STATUS SCREENING (Once After 26 Yrs) Completed 12/19/2020 HEPATITIS A VACCINES Aged Out No long er eligible based on patient's age to complete this topic HIB VACCINES Aged Out No longer eligi ble based on patient's age to complete this topic MENINGOCOCCAL VACCINES (ACWY) Aged Out No longer eligible based on patient's age to complete this topic PNEUMOCOCCAL VACCINES (0-49 years) Aged Out No longer eligible based on patient's age to complete this topic Medical Devices Not on file Care Teams Candle Pourer Relationship Specialty Start Date End Date Deisy Dennis MD [address] [place] [phone] PCP - General Internal Medicine 05/22/20 Additional Source Comments The information contained in this document represents components of the legal health record. It is not the complete legal health record.[facility]
== END 2024-08-03 10:48 | disposition home or self-care (01) ==
PROVIDERS: PCP Internal Medicine; Visit Provider Nurse Practitioner Family
DX: G43.109 Migraine with aura, not intractable, without status migrainosus (principal); M54.2 Cervicalgia; R42 Dizziness and giddiness; R06.83 Snoring; G47.10 Hypersomnia, unspecified; G47.9 Sleep disorder, unspecified
CPT/HCPCS: 99214

== ENCOUNTER 2024-08-28 10:10 | Outpatient (AMB) | payer BC, SELFPAY ==
--- NOTE | 2024-08-28 10:11 | A.OFFVIS_ITS ---
Vital Signs 08/28/24 10:12 Height 5 ft 6 in Weight 154 lb BMI 24.9 BP 122/82 Blood Pressure Location Lt brachial Position Sitting Respiration 16 Pulse 80 Pulse Source Pulse Oximeter Pulse Oximetry (%) 99 Oxygen Delivery Method Room Air Intake Visit Reasons: Migraine with aura, not intractable Physician Neonatology Required: No Ginner Helper: Ginner Helper Present Accompanied by: Roderick Phillips Allergies bupropion [From Wellbutrin] Allergy (Severe, Verified 08/28/24 10:13) Seizure Medication List - Last Reconciled 08/28/24 by Zoey Frost LPN carbamazepine ER 100 mg PO BID 30 days cyclobenzaprine 5 mg PO DAILY PRN duloxetine 30 mg PO DAILY gabapentin 300 mg PO TID galcanezumab-gnlm (Emgality Pen) 240 mg (2 mL) subcut ONCE 30 days magnesium oxide 400 mg PO DAILY meclizine 12.5 mg PO TID PRN mupirocin 2% 1 appl topical TID 5 days ondansetron 4 mg PO Q8H PRN propranolol ER 120 mg PO DAILY riboflavin (vitamin B2) 100 mg PO DAILY sumatriptan succinate 50 - 100 mg orally at onset of headache, may repeat in 2 hrs PRN; max 2 tabs per day or 4 tabs/week (may take with naproxen) 30 days HPI HPI Migraine with aura, not intractable: Details: History of Present Illness The patient is a 44-year-old female presenting with chronic facial and headache pain. This began after a Lyme infection in 2019, treated with doxycycline, with symptoms recrudescing in 2021, resulting in two seizure episodes and continued facial neuralgia. [facility] and she reports ongoing right-sided neuralgias and migraines, with recent exacerbation of vertigo and migraine intensity. She experiences migraines 1-2 weeks of each month that are accompanied by photophobia, phonophobia, and nausea and are attempting relief with meclizine, yoga, and positional changes. Following her seizures, she has struggled with sleep, enduring consistent neck pain and a notable squeezing sensation radiating anteriorly, with additional associated sensations involving the ear and tongue. Evaluations, including a 2022 MRI, identified disc herniation and stenosis in the cervical spine. Her sciatica continues bilaterally. Neurological treatment has recently included magnesium, propranolol, and Emgality, which provided some initial relief, but cold exposure intensifies her headaches. Despite current pharmaceutical regimens, including cyclobenzaprine, duloxetine, gabapentin, and naproxen, her symptom management requires ongoing evaluation. Pain Description - Chronic right-sided facial pain initiating post-2020 Lyme infection - Migraine headaches occur 1-2 weeks per month, concentrated on the right rastafari - Pain associated with photophobia, phonophobia, nausea - Persistent right occipital and neck pain radiating to the mouth and tongue with squeezing sensation - Ear tugging and tongue tingling noted - Sciatica-linked pain in the right sacroiliac joint - Headache and eye symptoms intensified during cold exposure - Relieved by meclizine, yoga, and positional manoeuvres; worsened by cold Physical Exam Appears afebrile. Alert and oriented. Mood and affect appropriate. Follows and participates in conversation appropriately. Respiratory effort is unlabored. Able to transition from sit to stand unassisted. Ambulates with bilaterally normal heel strike and toe off. Able to stand and walk on toes and heels. Results - Imaging: MRI (2022) indicates broad-based C5-6 disc herniation, mild to moderate temporal stenosis, left lateral disc perfusion, disc-osteophyte complex, moderate left-sided foramina stenosis, mild spondylotic changes in cervical spine Pain Management - Affect: Noted headache and eye symptoms increased with cold exposure; impacts work and thought clarity - Analgesia: Using cyclobenzaprine, duloxetine, gabapentin, naproxen, propranolol, magnesium, and Emgality; current pain levels vary from 1-4/10 - Adverse Effects: Reports tolerability concerns with sumatriptan - Activities of Daily Living: Pain affects functionality; impairs work as a PA, especially during exacerbations - Aberrant Drug Related Behaviors: None reported [facility] Medical History (Updated 09/01/24 @ 14:11 by Marck Orantes MD) Depression Rosacea Neck pain Lyme disease Anxiety Surgical History Aydlett teeth removed Family History Mother Heart disease Father Lung disease, chronic obstructive Social History (Updated 07/19/22 @ 15:55 by Britney Newman) Alcohol intake: current Alcohol intake frequency: holidays/special occasions only Patient Tobacco Use Status: Never used Tobacco Physical Exam Vital Signs: Last Vital Signs Pulse 80 08/28/24 10:12 Resp 16 08/28/24 10:12 BP 122/82 08/28/24 10:12 Pulse Ox 99 08/28/24 10:12 Oxygen Delivery Method Room Air 08/28/24 10:12 BMI result Body Mass Index 24.9 Office Procedures Nerve Block Details: Right supraorbital, supratrochlear, greater occipital nerve blocks After obtaining written consent, pre-procedure blood pressure and heart rate were stable and recorded in the nursing record. The patient was in the sitting position. The skin overlying the target supraorbital and supratrochlear nerve was prepped with alcohol. A 27 gauge 1.5 in needle was used. The needle was placed on the right supraorbital nerve and supratrochlear nerves. Aspiration was negative for heme and synovial fluid. 0.5 cc of 0.5% bupivacaine was used for each nerve. The skin was cleansed and hemostasis was ensured. Then the needle was advanced to the right LIO and 2 mL bupivacaine 0.5% was injected.The patient tolerated the procedure well and no complications were encountered. Following the procedure the patient's vital signs were stable. The patient was discharged home in good condition with post-procedural instructions. Time Out: Immediately prior to the procedure, the following was verbally confirmed that there is a signed consent form and that the correct patient, planned procedure, site and side are consistent with documentation and that necessary equipment and/or blood products are available prior to the start of the case. 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 Repetition of blocks could be monthly. Cervical medial branch PNS is a future possibility if neck pain persists. I advised maintaining her medication regime as we monitor responses and directed scheduling assistance for subsequent procedures. Reassessment is set for one month. Patient was informed and verbally consented to the use of an ambient scribe for clinic note documentation during this visit. Discussion Notes During the visit, I discussed the potential and rationale for nerve blocks, citing their role in managing chronic facial pain. I clarified procedural d etails, avoiding steroids on the face to prevent adverse side effects such as skin atrophy and scarring. I highlighted the opportunity for repetitive monthly nerve blocks if beneficial, especially during symptom-prone colder months and advised continued medication as prescribed by her neurologist. I mentioned peripheral nerve stimulation as a possible future step for her neck pain pending response evaluation. The patient was instructed on scheduling further interventions in alignment with pain flares and was receptive to treatment approach. Patient Instructions - Continue current medications as prescribed. - Monitor symptoms and schedule monthly nerve blocks if effective. - Return for follow-up in 1 month. - Use meclizine, yoga, and positional changes for managing vertigo. - Contact our office for worsening symptoms or questions about procedures. Coding Level of Care Code New Pt Level 4 (88329) Diagnoses 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 Chronic migraine with aura G43.109 Neck pain M54.2 Headache R51.9 CPT Codes Nerve Block - Nerve Block 8: [id number] Peripheral Nerve Block ([id number]) Nerve Block - CPT: 45388-Yqtazqa Occipital ([id number])
[2024-08-28 10:12] VITALS: BP 122/82; PULSE 80; RESP 16; O2SAT 99; BMI 24.9
--- OUTSIDE RECORDS SUMMARY | 2024-08-28 10:53 | XMS_ITS | Clinical Summary ---
Author Organization [facility] Address [phone] Formerly [facility] [email or web address] [address] Care Team Providers Care Dry Goods Inspector Name Role Phone Deisy Dennis MD Primary Care Prov ider Allergies Active Allergy Reactions Criticality Noted Date Comments Adhesive Tape-Silicones 05/22/2020 Medications Medication Sig Dispensed Refills Start Date End Date Status vit,[id number] (PRENATABS RX) 29 mg iron- 1 mg [...] Medical Devices Not on file Care Teams Dry Goods Inspector Relationship Specialty Start Date End Date Deisy Dennis MD [address] [place] [id number] PCP - General Internal Medicine 05/22/20 Additional Source Comments The information contained in this document represents components of the legal health record. It is not the complete legal health record.[facility]
--- OUTSIDE RECORDS SUMMARY | 2024-08-28 10:53 | XMS_ITS | Clinical Summary ---
Author Organization [facility] Address [address] [place] [address] Care Team Providers Care Plating Tank Operator Apprentice Name Role Phone Deisy Dennis MD Primary [...] HIGH RISK PATIENTS (#1) 05/23 Care Teams Plating Tank Operator Apprentice Relationship Specialty Start Date End Date Paulina-Deisy Pittman MD PCP - General Internal Medicine 01/26/16 Aaliyah Rodriguez MD Internal Medicine 01/26/16
--- OUTSIDE RECORDS SUMMARY | 2024-08-28 10:54 | XMS_ITS | Data Portability ---
Author Organization [facility], Main Office Address [address] [place] [address] Care Team Providers Care Senior Vice President Name Role Phone KARON NICK Branch Rental Manager GEOVANNY SANTORO Urologist [phone] GABY TRUJILLO Primary Care Provider BETTIE MIRANDA Referring Provider [phone] Assessment No assessment recorded. Plan of Treatment Reminders Order Date Submit Date Provider Last Modified By Organization Details Last Modified Time Details Appointments TELEHE ALTH15 2024 02:45P Elmo TRUJILLO MD Not available Not available Not available Lab bacter ial vagino sis + vagini tis panel, vagina l 2023 024 CHERRI [facility], [address], [place], [address], 06/24/2024 12:06:19 RPR (rapid plasma reagin ), serum 2023 024 CHERRI [facility], [address] [place], [address], 06/18/2024 10:06:17 CBC w/ auto diff 2023 024 CHERRI [facility], [address] [place], [address], 06/18/2024 10:06:13 BMP, serum or plasma 2023 024 CHERRI [facility], [address] [place], [address], 06/18/2024 10:06:14 TSH, ultra- sensit america, serum 2023 024 CHERRI [facility], [address], [place], [address], 06/18/2024 10:06:19 HIV 1 + 2, meanin gful use set 2023 024 [facility], [address] [facility], [facility] [address], [place], [address], 06/18/2024 10:06:19 vitami n B12, serum 2023 024 CHERRI [facility], [address], [place], [address], 06/18/2024 10:06:22 folate , serum 2023 024 CHERRI [facility], [address], [place], [address], 06/18/2024 10:06:16 erythr ocyte sedime ntatio n rate by dony gren method 2023 024 CHERRI [facility], [address], [place], [address], 06/18/2024 10:06:21 lipid panel, serum 2023 024 CHERRI [facility], [address], [place], [address], 06/18/2024 10:06:15 vitami n D, 25-hyd fabienne, total, serum 2023 024 [facility], [address] [facility], [facility] [address], [place], [address], 06/18/2024 10:06:18 Hepati tis C IgG Ab, qual, serum 2023 024 [facility], [address] [facility], [address], [place], [address], 06/18/2024 10:06:15 Referral psychi atrist referr al - Medica tion consul tation with Joel Lovett MD 2023 024 [email or web address] Joel Lovett MD, [address] [facility], [place], [address], 05/21/2024 09:51:[address] referr al 2023 024 [facility], [address] [place], [address], 04/21/2024 14:47:25 Procedures colono scopy screen ing (PROC) 2023 024 [email or web address] In-Office Order, Internal Use Only DO Not Attach Compendium DO Not Attach Compendium, Do Not Delete/merge, [id number] 04/23/2024 14:16:13 Surgeries None record ed. Imaging None record ed. Medication Orders flucon azole 200 mg tablet 2023 024 CHERRI [facility], [address] [place], [address], 06/19/2024 15:40:31 Metrog el Vagina l 0.75 % (37.5 mg/5 gram) 2023 024 [email or web address] [facility], [address] [place], [address], 06/19/2024 15:41:16 duloxe gudelia 30 mg capsul e,felipe yed releas e 2023 024 [facility], [address] [place], [address], 04/23/2024 12:43:57 duloxe gudelia 30 mg capsul e,felipe yed releas e 2023 024 [email or web address] [facility], [address] [facility] [address], [facility], [place], [address], 04/28/2024 08:40:06 Patient TargetsNo targets recorded. Patient Instructions Encounter Date Encounter Id Patient Instructions Last Modified By Organization Details Last Modified Time 04/02/2024 [id number] learning about stress pmadden Not available 04/02/2024 14:10:58 Mental Health Information pmadden Not available 04/02/2024 14:10:58 Patient will follow up and keep appointment as scheduled. 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) [address] [facility], [place], [address], 06/18/2024 10:06:13 06/16/20 24 06/17/2024 CBC WITH DIFFE RENTI AL/PL ATELE T RBC 4.95 x10e6 /uL 3.77-5 .28 normal Not Available [facility] ([facility]) [address] [facility], [place], [address], 06/18/2024 10:06:13 06/16/20 24 06/17/2024 CBC WITH DIFFE RENTI AL/PL ATELE T hemoglobin 14.9 g/dL 11.1-1 5.9 normal Not Available [facility] ([facility]) [address] [facility], [place], [address], 06/18/2024 10:06:13 06/16/20 24 06/17/2024 CBC WITH DIFFE RENTI AL/PL ATELE T hematocrit 46.4 % 34.0-4 6.6 normal Not Available [facility] ([facility]) [address] [place], [address], 06/18/2024 10:06:13 06/16/20 24 06/17/2024 CBC WITH DIFFE RENTI AL/PL ATELE T MCV 94 fL 79-97 normal Not Available [facility] ([facility]) [address] [place], [address], 06/18/2024 10:06:13 06/16/20 24 06/17/2024 CBC WITH DIFFE RENTI AL/PL ATELE T MCH 30.1 pg 26.6-3 3.0 normal Not Available [facility] ([facility]) [address] [place], [address], 06/18/2024 10:06:13 06/16/20 24 06/17/2024 CBC WITH DIFFE RENTI AL/PL ATELE T MCHC 32.1 g/dL 31.5-3 5.7 normal Not Available [facility] ([facility]) [address] [facility], [place], [address], 06/18/2024 10:06:13 06/16/20 24 06/17/2024 CBC WITH DIFFE RENTI AL/PL ATELE T RDW 12.8 % 11.7-1 5.4 Not Available [facility] ([facility]) [address] [facility], [place], [address], 06/18/2024 10:06:13 06/16/20 24 06/17/2024 CBC WITH DIFFE RENTI AL/PL ATELE T platelets 284 x10e3 /uL 150-45 0 normal Not Available [facility] ([facility]) [address] [facility], [place], [address], 06/18/2024 10:06:13 06/16/20 24 06/17/2024 CBC WITH DIFFE RENTI AL/PL ATELE T neutrophils 68 % not estab. normal Not Available [facility] ([facility]) [address] [facility], [place], [address], 06/18/2024 10:06:13 06/16/20 24 06/17/2024 CBC WITH DIFFE RENTI AL/PL ATELE T lymphs 21 % not estab. normal Not Available [facility] ([facility]) [address] [facility], [place], [address], 06/18/2024 10:06:13 06/16/20 24 06/17/2024 CBC WITH DIFFE RENTI AL/PL ATELE T monocytes 9 % not estab. normal Not Available [facility] ([facility]) [address] [place], [address], 06/18/2024 10:06:13 06/16/20 24 06/17/2024 CBC WITH DIFFE RENTI AL/PL ATELE T eos 1 % not estab. normal Not Available [facility] ([facility]) [address] [place], [address], 06/18/2024 10:06:13 06/16/20 24 06/17/2024 CBC WITH DIFFE RENTI AL/PL ATELE T basos 1 % not estab. normal Not Available [facility] ([facility]) [address] [facility], [place], [address], 06/18/2024 10:06:13 06/16/20 24 06/17/2024 CBC WITH DIFFE RENTI AL/PL ATELE T immature cells [employer] Not Available [facility] ([facility]) [address] [facility], [place], [address], 06/18/2024 10:06:13 06/16/20 24 06/17/2024 CBC WITH DIFFE RENTI AL/PL ATELE T neutrophils (absolute) 2.9 x10e3 /uL 1.4-7. 0 normal Not Available [facility] ([facility]) [address] [facility], [place], [address], 06/18/2024 10:06:13 06/16/20 24 06/17/2024 CBC WITH DIFFE RENTI AL/PL ATELE T lymphs (absolute) 0.9 x10e3 /uL 0.7-3. 1 normal Not Available [facility] ([facility]) [address] [facility], [place], [address], 06/18/2024 10:06:13 06/16/20 24 06/17/2024 CBC WITH DIFFE RENTI AL/PL ATELE T monocytes(ab solute) 0.4 x10e3 /uL 0.1-0. 9 normal Not Available [facility] ([facility]) [address] [place], [address], 06/18/2024 10:06:13 06/16/20 24 06/17/2024 CBC WITH DIFFE RENTI AL/PL ATELE T eos (absolute) 0.1 x10e3 /uL 0.0-0. 4 normal Not Available [facility] ([facility]) [address] [facility], [place], [address], 06/18/2024 10:06:13 06/16/20 24 06/17/2024 CBC WITH DIFFE RENTI AL/PL ATELE T baso (absolute) 0.0 x10e3 /uL 0.0-0. 2 normal Not Available [facility] ([facility]) [address] [facility], [place], [address], 06/18/2024 10:06:13 06/16/20 24 06/17/2024 CBC WITH DIFFE RENTI AL/PL ATELE T immature granulocytes 0 % not estab. Not Available [facility] ([facility]) [address] [facility], [place], [address], 06/18/2024 10:06:13 06/16/20 24 06/17/2024 CBC WITH DIFFE RENTI AL/PL ATELE T immature grans (abs) 0.0 x10e3 /uL 0.0-0. 1 Not Available [facility] ([facility]) [address] [facility], [place], [address], 06/18/2024 10:06:13 06/16/20 24 06/17/2024 CBC WITH DIFFE RENTI AL/PL ATELE T NRBC [employer] Not Available [facility] ([facility]) [address] [place], [address], 06/18/2024 10:06:13 06/16/20 24 06/17/2024 CBC WITH DIFFE RENTI AL/PL ATELE T hematology comments: [employer] Not Available [facility] ([facility]) [address] [place], [address], 06/18/2024 10:06:13 06/16/20 24 06/18/2024 BASIC METAB OLIC PANEL (8) glucose 101 mg/dL 70-99 above high normal Not Available [facility] ([facility]) [address] [place], [address], 06/18/2024 10:06:14 06/16/20 24 06/18/2024 BASIC METAB OLIC PANEL (8) BUN 15 mg/dL 6-24 normal Not Available [facility] ([facility]) [address] [facility] [place], [address], 06/18/2024 10:06:14 06/16/20 24 06/18/2024 BASIC METAB OLIC PANEL (8) creatinine 0.74 mg/dL 0.57-1 .00 normal Not Available [facility] ([facility]) [address] [facility] [place], [address], 06/18/2024 10:06:14 06/16/20 24 06/18/2024 BASIC METAB OLIC PANEL (8) eGFR 101 mL/mi n/1.7 3 >59 normal Not Available [facility] ([facility]) [address] [facility], [place], [address], 06/18/2024 10:06:14 06/16/20 24 06/18/2024 BASIC METAB OLIC PANEL (8) BUN/creatini ne ratio 20 9-23 normal Not Available [facility] ([facility]) [address] [facility], [place], [address], 06/18/2024 10:06:14 06/16/20 24 06/18/2024 BASIC METAB OLIC PANEL (8) sodium 140 mmol/ L 134-14 4 normal Not Available [facility] ([facility]) [address] [facility] [place], [address], 06/18/2024 10:06:14 06/16/20 24 06/18/2024 BASIC METAB OLIC PANEL (8) potassium 4.2 mmol/ L 3.5-5. 2 normal Not Available [facility] ([facility]) [address] [place], [address], 06/18/2024 10:06:14 06/16/20 24 06/18/2024 BASIC METAB OLIC PANEL (8) chloride 100 mmol/ L 96-106 normal Not Available [facility] ([facility]) [address] [facility] [place], [address], 06/18/2024 10:06:14 06/16/20 24 06/18/2024 BASIC METAB OLIC PANEL (8) carbon dioxide, total 27 mmol/ L 20-29 normal Not Available [facility] ([facility]) [address] [facility] [place], [address], 06/18/2024 10:06:14 06/16/20 24 06/18/2024 BASIC METAB OLIC PANEL (8) calcium 9.1 mg/dL 8.7-10 .2 normal Not Available [facility] ([facility]) [address] [facility] [place], [address], 06/18/2024 10:06:14 06/16/20 24 06/18/2024 LIPID PANEL cholesterol, total 150 mg/dL 100-19 9 normal Not Available [facility] ([facility]) [address] [facility] [place], [address], 06/18/2024 10:06:15 06/16/20 24 06/18/2024 LIPID PANEL triglyceride s 103 mg/dL 0-149 normal Not Available [facility] ([facility]) [address] [facility] [place], [address], 06/18/2024 10:06:15 06/16/20 24 06/18/2024 LIPID PANEL HDL cholesterol 55 mg/dL >39 normal Not Available [facility]) [address] [facility] [place], [address], 06/18/2024 10:06:15 06/16/20 24 06/18/2024 LIPID PANEL VLDL cholesterol robyn 19 mg/dL 5-40 Not Available [facility] ([facility]) [address] [facility] [place], [address], 06/18/2024 10:06:15 06/16/20 24 06/18/2024 LIPID PANEL LDL chol calc ([facility]) 76 mg/dL 0-99 Not Available [facility]) [address] [facility], [place], [address], 06/18/2024 10:06:15 06/16/20 24 06/18/2024 LIPID PANEL LDL calc comment: [employer] Not Available [facility]) [address] [facility], [place], [address], 06/18/2024 10:06:15 06/16/20 24 06/18/2024 HCV ANTIB JOSE DE JESUS RFX TO QUANT PCR HCV Ab Non Reacti ve non reacti ve Not Available [facility] ([facility]) [address] [facility], [place], [address], 06/18/2024 10:06:15 06/16/20 24 06/18/2024 HCV ANTIB JOSE DE JESUS RFX TO QUANT PCR interpretati on: Commen t Not infec facundo with HCV unles s early or acute infec tion is suspe cted (whic h may be delay ed in an immun ocomp romis ed indiv idual ), or other evide nce exist s to indic ate HCV infec tion. Not Available [facility] ([facility]) [address] [facility], [place], [address], 06/18/2024 10:06:15 06/16/20 24 06/17/2024 FOLAT E (FOLI C ACID) , SERUM folate (folic acid), serum 16.7 NG/mL >3.0 normal A serum folat e blake ntrat ion of less than 3.1 ng/mL is consi dered to repre sent clini robyn defic iency . Not Available [facility] ([facility]) [address] [facility], [place], [address], 06/18/2024 10:06:16 06/16/20 24 06/17/2024 RPR, RFX QN RPR/C ONFIR M TP RPR Non Reacti ve non reacti ve Not Available [facility] ([facility]) [address] [facility], [place], [address], 06/18/2024 10:06:17 06/16/20 24 06/17/2024 VITAM IN D, 25-HY DROXY vitamin D, 25-hydroxy 48.8 NG/mL 30.0-1 00.0 Vitam in D defic iency has been defin ed by the Insti tute of Medic ine and an Endoc rine Socie ty pract ice guide line as a level of serum 25-OH vitam in D less than 20 ng/mL (1,2) . The Endoc rine Socie ty went on to furth er defin e vitam in D insuf ficie ncy as a level betwe en 21 and 29 ng/mL (2). 1. IOM (Inst itute of Medic ine). 2009. Todd ry refer ence intak es for calci um and D. Wilberto cleaning [place]: The Natio nal [facility] Press . 2. Mayank cano MF, Michelle courtney [place], Marcus off-F errar i HUERTA, et al. Evalu ation , treat ment, and preve ntion of vitam in D defic iency : an Endoc rine Socie ty clini robyn pract ice guide line. JCEM. 2010; 96(7) :1911 -30. Not Available [facility] ([facility]) [address] [facility], [place], [address], 06/18/2024 10:06:18 06/16/20 24 06/17/2024 HIV AB/P2 4 AG WITH REFLE X HIV Ab/P24 Ag screen Non Reacti ve non reacti ve HIV-1 /HIV- 2 antib odies and HIV-1 p24 antig en were NOT detec facundo. There is no labor atory evide nce of HIV infec tion. HIV Negat ameriac Not Available [facility] ([facility]) [address] [facility], [place], [address], 06/18/2024 10:06:19 06/16/20 24 06/18/2024 TSH RFX ON ABNOR MAL TO FREE T4 TSH 1.180 uIU/m L 0.450- 4.500 normal Not Available [facility] ([facility]) [address] [facility], [place], [address], 06/18/2024 10:06:19 06/16/20 24 06/17/2024 SEDIM ENTAT ION RATE- WESTE RGREN sedimentatio n rate-westerg allison 9 mm/HR 0-32 normal Not Available [facility] ([facility]) [address] [facility], [place], [address], 06/18/2024 10:06:21 06/16/20 24 06/17/2024 VITAM IN B12 vitamin B12 578 pg/mL 232-12 45 normal Not Available [facility] ([facility]) [address] [facility], [place], [address], 06/18/2024 10:06:22 06/19/20 24 06/20/2024 NUSWA B BV SRI+C AND6+ CT/GC /T... atopobium vaginae Low - 0 score Not Available [facility] ([facility]) [address] [facility], [place], [address], 06/24/2024 12:06:19 06/19/20 24 06/20/2024 NUSWA B BV SRI+C AND6+ CT/GC /T... bvab 2 Low - 0 score Not Available [facility] ([facility]) [address] [place], [address], 06/24/2024 12:06:19 06/19/20 24 06/20/2024 NUSWA B BV SRI+C AND6+ CT/GC /T... megasphaera 1 Low - 0 score Calcu late total score by jackie esquivel the 3 indiv idual bacte rial vagin osjennifer (BV) kristine r score s toget her. Total score is inter prete d as follo ws: Total score 0-1: Indic ates the absen ce of BV. Total score 2: Indet ermin ate for BV. Addit ional clini robyn data shoul d be evalu ated to estab riky a diagn osis. Total score 3-6: Indic ates the prese nce of BV. Not Available [facility] ([facility]) [address] [facility], [place], [address], 06/24/2024 12:06:19 06/19/2006/20/2024 NUSWA B BV SRI+C AND6+ CT/GC /T... nilton albicans, SRI Negati ve negati ve Not Available [facility] ([facility]) [address] [facility], [place], [address], 06/24/2024 12:06:19 06/19/2006/20/2024 NUSWA B BV SRI+C AND6+ CT/GC /T... nilton glabrata, SRI Negati ve negati ve Not Available [facility] ([facility]) [address] [facility], [place], [address], 06/24/2024 12:06:19 06/19/2006/20/2024 NUSWA B BV SRI+C AND6+ CT/GC /T... C parapsilosis /tropicalis Negati ve negati ve This assay does not diffe renti ate C. tropi calis and C. parap ajit is. Not Available [facility] ([facility]) [address] [place], [address], 06/24/2024 12:06:19 06/19/2006/20/2024 NUSWA B BV SRI+C AND6+ CT/GC /T... nilton lusitaniae, SRI Negati ve negati ve Not Available [facility] ([facility]) [address] [place], [address], 06/24/2024 12:06:19 06/19/2006/20/2024 NUSWA B BV SRI+C AND6+ CT/GC /T... nilton krusei, SRI Negati ve negati ve Not Available [facility] ([facility]) [address] [place], [address], 06/24/2024 12:06:19 06/19/2006/21/2024 NUSWA B BV SRI+C AND6+ CT/GC /T... hsv 1 SRI Negati ve negati ve Not Available [facility] ([facility]) [address] [place], [address], 06/24/2024 12:06:19 06/19/2006/21/2024 NUSWA B BV SRI+C AND6+ CT/GC /T... hsv 2 SRI Negati ve negati ve Not Available [facility] ([facility]) [address] [place], [address], 06/24/2024 12:06:19 06/19/2006/24/2024 NUSWA B BV SRI+C AND6+ CT/GC /T... trich vag by SRI Negati ve negati ve Not Available [facility] ([facility]) [address] [place], [address], 06/24/2024 12:06:19 06/19/2006/24/2024 NUSWA B BV SRI+C AND6+ CT/GC /T... chlamydia trachomatis, SRI Negati ve negati ve Not Available [facility] ([facility]) [address] [place], [address], 06/24/2024 12:06:19 06/19/2006/24/2024 NUSWA B BV SRI+C AND6+ CT/GC /T... neisseria gonorrhoeae, SRI Negati ve negati ve Not Available [facility] ([facility]) [address] [place], [address], 06/24/2024 12:06:19 Result Notes None recorded. Problems Name Problem SNOMED Code Status Onset Date Resolution Date Notes Provider Name and Address Organization Details Recorded Time Allergic rhinitis 04710130 Completed 201001/19/2014 RECORDED 10/28/19 11 1:57PM BY FER ANTHONY MA, ANNOTATI ON/ADDEN DUM Not Available [facility] 4 15:27:43 Backache [id number] Completed 201201/19/2014 IMPRESSI ON: CHRONIC, MILD. MAY PURSUE CHIRO CARE. NO RED FLAG SXS OF CONCERN. ; RECORDED 10/24/19 13 9:14AM BY RIANNA CHAVIRA MA, ANNOTATI ON/ADDEN DUM Not Available [facility] 4 15:27:44 Contrace ption care manageme nt Completed 201101/19/2014 IMPRESSI ON: PT TO CONSIDER CHANGING TO LOWER DOSE HORMONE PILL. WILL LET ME KNOW, HAPPY TO FAX TO THE PHARMACY FOR HER.; RECORDED 02/08/20 12 10:43AM BY YAZMIN GAMBLE MA, ANNOTATI ON/ADDEN DUM Not Available [facility] 4 15:27:44 Dysuria [id number] Completed 201101/19/2014 RECORDED 02/08/20 12 10:43AM BY YAZMIN GAMBLE MA, ANNOTATI ON/ADDEN DUM Yvette bernabe [facility] 8 14:01:36 Follow-u p encounte r Completed 201201/19/2014 RECORDED 03/05/20 13 8:58AM BY YAZMIN GAMBLE MA, ANNOTATI ON/ADDEN DUM Not Available [facility] 4 15:27:44 Malaise and fatigue [id number] Completed 10/31/2017 Yvette bernabe [facility] 8 14:01:24 Malaise and fatigue [id number] Completed 201101/19/2014 IMPRESSI ON: DOING WELL ON MEDICATI ON. WILL TRY TO TAKE IN THE AMS TO AVOID EARLY DAY H/. ALSO DOING BETTER WITH REG EXERCISE WHICH I ENCOURAG ED HER TO CONTINUE . WILL TOUCH BASE IN THE NEXT 3-4 MONTHS RE PROGRESS .; RECORDED 02/08/20 12 10:43AM BY YAZMIN GAMBLE MA, ANNOTATI ON/ADDEN DUM Yvette bernabe, [facility] 8 14:01:24 Influenz a vaccine needed [id number] Completed 200701/19/2014 RECORDED 05/26/20 08 9:46AM BY NEIL COOPER, OFFICE VISIT Not Available [facility] 4 15:27:44 General examinat ion of patient Completed 200801/19/2014 RESOLVED DATE: 11/23/19 09; RECORDED 11/23/19 09 2:02PM BY TARA ANTHONY, TIFFANIE ON/ADDEN DUM Not Available [facility] 4 15:27:44 Well child [id number] Completed 201101/19/2014 RECORDED 02/08/20 12 10:43AM BY YAZMIN GAMBLE MA, ANNOTATI ON/ADDEN DUM Not Available [facility] 4 15:27:45 Psychoge orly headache [id number] Completed 200801/19/2014 RECORDED 11/23/19 09 2:02PM BY TARA ANTHONY, MEGANATI ON/ADDEN DUM Not Available [facility] 4 15:27:45 Hyperlip idemia [id number] Completed 201101/19/2014 RECORDED 02/08/20 12 11:23AM BY ALFREDO LOAIZA PA-C, MEGANATI ON/ADDEN DUM Not Available [facility] 4 15:27:45 Neck pain [id number] Completed 10/31/2017 Kiki bernabe [facility] 1 15:24:44 Administ ration of bacteria l and viral vaccine Completed 200701/19/2014 RECORDED 06/02/20 08 11:14AM BY LATANYA PATIÑO, HISTORIC AL SUMMARY Not Available [facility] 4 15:27:45 Non-neop lastic nevus [id number] Completed 201201/19/2014 STORY: MAINLY OVER BACK, FOLLOWED BY RU MATA DERM ANNUALLY .; RECORDED 10/24/19 13 9:14AM BY RIANNA CHAVIRA MA, ANNOTATI ON/ADDEN DUM Not Available [facility] 4 15:27:45 Patient status finding [id number] Completed 201201/19/2014 RECORDED 05/21/20 13 2:38PM BY YAZMIN GAMBLE MA, ANNOTATI ON/ADDEN DUM Yvette bernabe MA - [facility] 8 14:01:20 Noninfla mmatory disorder of the vagina 53312982 Completed 201101/19/2014 IMPRESSI ON: UNLIKELY STD, [place] TOPICALL Y FOR YEAST, IF POSITIVE FOR GARDNERE LLA WILL CALL AND TREAT, ALREADY TOOK 2 DIFLUCAN ; RECORDED 02/08/20 12 10:43AM BY YAZMIN GAMBLE MA, ANNOTATI ON/ADDEN DUM Not Available [facility] 4 15:27:46 Atypical squamous cells of undeterm ined signific ance on vaginal Papanico laou smear 353071360 Completed 201101/19/2014 RECORDED 02/08/20 12 10:42AM BY YAZMIN GAMBLE MA, ANNOTATI ON/ADDEN DUM Not Available [facility] 4 15:27:46 Cellulit is of digit 69373112 Completed 201201/19/2014 IMPRESSI ON: START ABX, WARM SOAKS, IBU FOR DAY AND PAIN MED AT NIGHT. MONITOR CLOSELY, CALL OFFICE FOR WORSENIN G/PRN; RECORDED 03/05/20 13 8:58AM BY YAZMIN GAMBLE MA, ANNOTATI ON/ADDEN DUM Not Available [facility] 4 15:27:46 Adult health examinat ion Completed 201201/19/2014 RECORDED 05/21/20 13 2:38PM BY YAZMIN GAMBLE MA, ANNOTATI ON/ADDEN DUM Not Available [facility] 4 15:27:46 Seborrhe ic dermatit is 32603127 Completed 201201/19/2014 RECORDED 07/30/19 13 1:17AM BY FER ANTHONY MA, ANNOTATI ON/ADDEN DUM Not Available [facility] 4 15:27:46 Breast finding [id number] Completed 200801/19/2014 RECORDED 02/09/20 09 9:10AM BY FER ANTHONY MA, ANNOTATI ON/ADDEN DUM Not Available [facility] 4 15:27:46 Administ ration of diphther ia, pertussi s, and tetanus vaccine Completed 201201/19/2014 RECORDED 03/05/20 13 8:58AM BY YAZMIN GAMBLE MA, TIFFANIE ON/ADDEN DUM Not Available [facility] 4 15:27:46 Temporom andibula r joint disorder 67223966 Active Rachel Kohler MA null, [facility] 1 09:34:16 Urinary tract infectio us disease 25943140 Completed 10/31/2017 Yvette bernabe, [facility] 8 14:01:39 Allergic rhinitis 36655390 Completed 201002/15/2014 RECORDED 10/28/19 11 1:57PM BY FER ANTHONY MA, ANNOTATI ON/ADDEN DUM Not Available [facility] 4 06:27:20 Anxiety state 986697734 Completed 201302/15/2014 IMPRESSI ON: NEVER TRIED SERTRALI NE WILL START AT 25MG AND INCREASE TO 50MG; RECORDED 12/19/19 14 2:56PM BY YAZMIN GAMBLE MA, ANNOTATI ON/ADDEN DUM GABY TRUJILLO MD [address] [facility] [address], [place], [address] , [facility] 4 17:46:47 Backache [id number] Completed 201202/15/2014 IMPRESSI ON: CHRONIC, MILD. MAY PURSUE CHIRO CARE. NO RED FLAG SXS OF CONCERN. ; RECORDED 10/24/19 13 9:14AM BY RIANNA CHAVIRA MA, ANNOTATI ON/ADDEN DUM Not Available [facility] 4 06:27:20 Contact dermatit is 80849132 [facility] 09:34:16 Contrace ption care manageme nt Completed 201102/15/2014 IMPRESSI ON: PT TO CONSIDER CHANGING TO LOWER DOSE HORMONE PILL. WILL LET ME KNOW, HAPPY TO FAX TO THE PHARMACY FOR HER.; RECORDED 02/08/20 12 10:43AM BY YAZMIN GAMBLE MA, ANNOTATI ON/ADDEN DUM Not Available [facility] 4 06:27:20 Dysuria 26093454 Completed 201102/15/2014 RECORDED 02/08/20 12 10:43AM BY YAZMIN GAMBLE MA, ANNOTATI ON/ADDEN DUM [facility] 8 14:01:36 Follow-u p encounte r Completed 201202/15/2014 RECORDED 03/05/20 13 8:58AM BY YAZMIN GAMBLE MA, ANNOTATI ON/ADDEN DUM Not Available [facility] 4 06:27:21 Influenz a vaccine needed [id number] 06 Completed 200702/15/2014 RECORDED 05/26/20 08 9:46AM BY NEIL COOPER, OFFICE VISIT Not Available [facility] 4 06:27:21 General examinat ion of patient Completed 200802/15/2014 RESOLVED DATE: 11/23/19 09; RECORDED 11/23/19 09 2:02PM BY TARA ANTHONY, MEGANATI ON/ADDEN DUM Not Available [facility] 4 06:27:21 Well child 163881708 Completed 201102/15/2014 RECORDED 02/08/20 12 10:43AM BY YAZMIN GAMBLE MA, ANNOTATI ON/ADDEN DUM Not Available [facility] 4 06:27:21 Psychoge orly headache 79963972 Completed 200802/15/2014 RECORDED 11/23/19 09 2:02PM BY MEGAN GALINDOATI ON/ADDEN DUM Not Available [facility] 4 06:27:21 Hyperlip idemia 26355166 Completed 201102/15/2014 RECORDED 02/08/20 12 11:23AM BY ALFREDO LOAIZA PA-C, ANNOTATI ON/ADDEN DUM Not Available [facility] 4 06:27:21 Neck pain 84599392 Completed 201302/15/2014 IMPRESSI ON: CHRONIC, PT IS INTEREST ED IN PT, SHE WILL MAKE APPT; RECORDED 12/19/19 14 2:56PM BY YAZMIN GAMBLE MA, TIFFANIE ON/ADDEN DUM Kiki bernabe MA [facility] 1 15:24:44 Administ ration of bacteria l and viral vaccine Completed 200702/15/2014 RECORDED 06/02/20 08 11:14AM BY LASHAE WARNER, LATANYA, HISTORIC AL SUMMARY Not Available [facility] 4 06:27:21 Non-neop lastic nevus 680690450 Completed 201202/15/2014 STORY: MAINLY OVER BACK, FOLLOWED BY RU MATA DERM ANNUALLY .; RECORDED 10/24/19 13 9:14AM BY RIANNA CHAVIRA MA, TIFFANIE ON/ADDEN DUM Not Available [facility] 4 06:27:21 Patient status finding [id number] Completed 10/31/2017 Yvette bernabe [facility] 8 14:01:20 Noninfla mmatory disorder of the vagina 33187461 Completed 201102/15/2014 IMPRESSI ON: UNLIKELY STD, TX TOPICALL Y FOR YEAST, IF POSITIVE FOR GARDNERE LLA WILL CALL AND TREAT, ALREADY TOOK 2 DIFLUCAN ; RECORDED 02/08/20 12 10:43AM BY YAZMIN GAMBLE MA, ANNOTATI ON/ADDEN DUM Not Available [facility] 4 06:27:21 Otitis media 30641168 Completed 10/31/2017 Yvette Bigby MA null, [facility] 8 14:01:32 Atypical squamous cells of undeterm ined signific ance on vaginal Papanico laou smear 312509003 Completed 201102/15/2014 RECORDED 02/08/20 12 10:42AM BY YAZMIN GAMBLE MA, TIFFANIE ON/ADDEN DUM Not Available [facility] 4 06:27:21 Cellulit is of digit 89941567 Completed 201202/15/2014 IMPRESSI ON: START ABX, WARM SOAKS, IBU FOR DAY AND PAIN MED AT NIGHT. MONITOR CLOSELY, CALL OFFICE FOR WORSENIN G/PRN; RECORDED 03/05/20 13 8:58AM BY YAZMIN GAMBLE MA, TIFFANIE ON/ADDEN DUM Not Available [facility] 4 06:27:21 Adult health examinat ion Completed 201202/15/2014 RECORDED 05/21/20 13 2:38PM BY YAZMIN GAMBLE MA, TIFFANIE ON/ADDEN DUM Not Available [facility] 4 06:27:21 Seborrhe ic dermatit is 62388352 Completed 201202/15/2014 RECORDED 07/30/19 13 1:17AM BY FER ANTHONY MA, TIFFANIE ON/ADDEN DUM Not Available [facility] 4 06:27:21 Breast finding 632013333 Completed 200802/15/2014 RECORDED 02/09/20 09 9:10AM BY FER ANTHONY MA, TIFFANIE ON/ADDEN DUM Not Available [facility] 4 06:27:21 Administ ration of diphther ia, pertussi s, and tetanus vaccine Completed 201202/15/2014 RECORDED 03/05/20 13 8:58AM BY YAZMIN GAMBLE MA, TIFFANIE ON/ADDEN DUM Not Available [facility] 4 06:27:21 Urinary tract infectio us disease 74612026 Completed 201302/15/2014 RECORDED 12/19/19 14 2:56PM BY YAZMIN GAMBLE MA, ANNOTATI ON/ADDEN DUM Yvette bernabe, [facility] 8 14:01:39 Dysuria 03692459 Completed 10/31/2017 Yvette bernabe, [facility] 8 14:01:36 Anxiety 40977759 Active RADHA Diop, [facility] 1 09:34:16 Otitis externa 3050228 Completed 10/31/2017 Yvette bernabe, [facility] 8 14:01:43 Acute vaginiti s 80086560 Completed 04/22/2024 Santino Herman [facility] [address], [place], [address] , [facility] 4 15:40:42 Suspecte d COVID-19 924980837 Completed 12/14/2020 Removal Reason: Problem added by user [email or web address] from the COVID-19 watch flag Silva Mcguire [facility], [facility] 1 11:41:37 Neck pain 84041842 Active 2020 Kiki boyle [facility] 1 15:24:44 Seizure disorder 775961903 Active 2022 Nova Cavazos [facility] 3 00:22:31 Elevated blood-pr essure reading without diagnosi s of hyperten chi 359994857 Completed 202204/23/2024 GABY TRUJILLO MD [address], [place], [address] , [facility] 4 10:42:18 Chronic pain syndrome 746269467 Active 2023 aJc Rabago PA-C [address], [place], [address] , [facility] 4 14:14:36 Major depressi ve disorder 124139369 Active 2023 Jac Rabago PA-C [address], [place], [address] , [facility] 4 14:14:51 History of Lyme disease 170585015 Active 2023 Jac Rabago PA-C [address], [place], [address] , [facility] 4 14:16:35 Vitamin D deficien cy 84150714 Active 2023 GABY TRUJILLO MD [address], [place], [address] , [facility] 4 10:41:52 Candidia sis of vagina 08775971 Active 2023 WILL Rasmussen [address] [facility] [address], [place], [address] , [facility] 4 15:39:31 Acute vaginiti s 97548723 Active 2023 WILL Rasmussen [address], [place], [address] , [facility] 4 15:40:42 Candidia sis of mouth 67975813 Active 2023 WILL Rasmussen [address] [facility] [address], [place], [address] , [facility] 4 15:57:51 Problem Notes None recorded. Procedures Surgical History Date Name Laterality Status Provider Name and Address Organization Details Recorded Time 3 injection of facet joint completed Kacy Salamanca [facility] 02/01/2023 11:39:25 4 Date of Last Pap Smear completed Rachel Kohler MA [facility] 04/01/2014 12:57:30 Imaging Results None recorded. Procedure Notes None recorded. Medical Equipment None Reported. Allergies Allergen ID Allergen Name Allergen Category Reaction Reaction Severity Criticality Documentation Date Start Date Code Code System Note Provider Name and Address Organization Details Recorded Time 07426 Wellbutri n medicatio n seizure severe unabletoasse ss 04/03/20222021 79703 RxNorm belie celestino to have contr ibute d to new onset grand mal seizu re - if other cause found , this charles rgy can be d/c Gertrude Mcdaniels RN [facility], [place] - [facility] 2 14:59:40 Medications Name Sig Start Date Stop Date Status Note LastModified by Organization Details LastModified Time neomycin/ polymyxin /hc 1 % soln 09/20 completed Not Available Not Available Not Available ketoconaz ole 2 % sham 09/20 completed Not Available Not Available Not Available fluconazo le 150 mg tabs 09/20 completed Not Available Not Available Not Available hyophen 81.6 mg tabs 09/20 completed Not Available Not Available Not Available cyclobenz aprine hcl 10 mg tabs 09/20 completed Not Available Not Available Not Available naltrexon e hcl 50 mg tabs 09/20 completed Not Available Not Available Not Available clomiphen e citrate 50 mg tabs 09/20 completed Not Available Not Available Not Available fluconazo le 100 mg tabs 09/20 completed Not Available Not Available Not Available nitrofura ntoin macrocrys tals 100 mg caps 09/20 completed Not Available Not Available Not Available cyclobenz aprine 10 mg tablet Take 1 tablet as needed by oral route at bedtime for 30 days. 07/13 completed Not Available Not Available Not Available dicloxaci llin 500 mg capsule 10/31 completed Not Available Not Available Not Available clotrimaz ole 10 mg brandi active Not Available Not Available Not Available neomycin- polymyxin -hydrocor t 3.5 mg/mL-10, 000 unit/mL-1 % ear solution 09/20 completed Not Available Not Available Not Available doxycycli ne hyclate 100 mg capsule 1 CAPSULE BY MOUTH 2 TIMES A DAY,X21 DAYS 07/13 completed Not Available Not Available Not Available ketoconaz ole 2 % shampoo SHAMPOO 2-3 TIMES A WEEK FOR MAINTENA NCE. active Not Available Not Available No t Available tizanidin e 2 mg tablet Take 1 tablet twice a day by oral route as needed for 15 days. 04/02 completed Not Available Not Available Not Available Prenatabs Rx 29 mg iron-1 mg tablet TAKE 1 TABLET BY MOUTH EVERY DAY 12/25 completed Not Available Not Available Not Available azithromy kristian 250 mg tablet 10/31 completed Not Available Not Available Not Available fluconazo le 150 mg tablet PLEASE SEE ATTACHED FOR DETAILED DIRECTIO NS 04/02 completed Not Available Not Available Not Available citalopra m 10 mg tablet DAILY 11/05 completed RECORDED 11/06/19 14 2:47PM BY RACHEL KOHLER, ANNOTATI ON/MEGHNA AMARO; Not Available Not Available Not Available fluconazo le 200 mg tablet Take 1 tablet every day by oral route as directed for 7 days. active Not Available Not Available No t Available atovaquon e 250 mg-progua nil 100 mg tablet active Not Available Not Available No t Available metronida zole 0.75 % (37.5 mg/5 gram) vaginal gel Insert 1 applicat orful every day by vaginal route as directed for 5 days. active Not Available Not Available No t Available prednison e 20 mg tablet Take 3 tablets by oral route. 12/27 completed 1 po qd Not Available Not Available Not Available sertralin e 100 mg tablet DAILY 2013 active RECORDED 12/20/19 14 12:14PM BY KIKI Sanchez MD, OFFICE VISIT; Not Available Not Available Not Available permethri n 5 % topical cream PLEASE SEE ATTACHED FOR DETAILED DIRECTIO NS 04/02 completed Not Available Not Available Not Available meclizine 12.5 mg tablet as needed active Not Available Not Available No t Available ciproflox acin 250 mg tablet BID 05/31 completed RECORDED 11/06/19 14 2:44PM BY EMILY Elmore MD, MEDICATI ON AUTO-JUNI CTIVATIO N; Not Available Not Available Not Available ciproflox acin 500 mg tablet active Not Available Not Available No t Available sulfameth oxazole 800 mg-trimet hoprim 160 mg tablet TWO TIMES DAILY active Not Available Not Available No t Available BuSpar 5 mg tablet Take 1 tablet every day by oral route. 04/03 completed Not Available Not Available Not Available bupropion HCl SR 100 mg tablet,12 hr sustained -release TAKE 2 TABLETS BY MOUTH EVERY DAY 12/26 completed Not Available Not Available Not Available Macrobid 100 mg capsule NEEDED active RECORDED 11/06/19 14 2:47PM BY RACHEL KOHLER ANNOTMERVIN ON/MEGHNA AMARO;SHE GOT IT FROM HER UROLOGIS T Not Available Not Available Not Available terconazo le 80 mg vaginal supposito ry active Not Available Not Available Not Available terbinafi ne HCl 250 mg tablet TAKE ONE TABLET BY MOUTH ONCE DAILY FOR 90 DAYS. REPEAT LABS IN 6 WEEKS. 04/02 completed Not Available Not Available Not Available amoxicill in 875 mg tablet BID 12/29 completed RECORDED 01/02/20 14 3:45PM BY KIKI Sanchez MD, MEDICATI ON AUTO-JUNI CTIVATIO N; Not Available Not Available Not Available benzonata te 100 mg capsule TAKE 1 CAPSULE BY MOUTH 2 TIMES A DAY NEEDED FOR COUGH 04/02 completed Not Available Not Available Not Available rizatript an 10 mg disintegr ating tablet TAKE 1 TABLET BY MOUTH EVERY DAY 04/02 completed Not Available Not Available Not Available doxycycli ne monohydra te 100 mg capsule 100 mg twice a day by oral route. 06/02 completed Not Available Not Available Not Available cephalexi n 500 mg capsule 2 TIMES PER DAY 10/30 completed RECORDED 10/31/19 13 1:52PM BY ALFREDO LOAIZA, PAChiaraC, MEDICATI ON AUTO-JUNI CTIVATIO N; Not Available Not Available Not Available erythromy kristian 5 mg/gram (0.5 %) eye ointment APPLY 1 CM RIBBON INTO THE LOWER CONJUNCT IVAL SAC(S) IN THE AFFECTED EYE(S) BY OPHTHALM IC ROUTE 3 TIMES PER DAY 10/31 completed Not Available Not Available Not Available nitrofura ntoin macrocrys ben 100 mg capsule active Not Available Not Available Not Available dexametha sone 4 mg tablet Take 1 tablet 3 times a day by oral route for 6 days. 06/19 completed Not Available Not Available Not Available buspirone 10 mg tablet TAKE 1 TABLET BY MOUTH THREE TIMES A DAY 04/02 completed Not Available Not Available Not Available olopatadi ne 0.1 % eye drops BID 11/19 completed RECORDED 12/28/19 10 11:48AM BY ALFREDO LOAIZA PA-C, MEDICATI ON AUTO-JUNI CTIVATIO N;ONE DROP IN BOTH EYES AT LEAST 6 HOURS APART. Not Available Not Available Not Available indometha kristian 25 mg capsule Take 1 capsule as needed by oral route for 10 days. 04/02 completed Not Available Not Available Not Available gabapenti n 300 mg capsule 3 CAPSULE BY MOUTH TWICE A DAY active Not Available Not Available No t Available sertralin e 25 mg tablet Take 1 tablet every day by oral route as directed for 30 days. 12/14 completed Not Available Not Available Not Available levetirac etam 750 mg tablet Take 1 tablet twice a day by oral route for 90 days. 07/13 completed Not Available Not Available Not Available mupirocin 2 % topical ointment 1 APPL TOPICALL Y 3 TIMES A DAY FOR CELLULIT IS FOR 5 DAYS 04/02 completed Not Available Not Available Not Available gabapenti n 100 mg capsule TAKE 1-3 CAPSULES BY MOUTH DAILY AT BEDTIME 11/16 completed Not Available Not Available Not Available propranol ol ER 120 mg capsule,2 4 hr,extend ed release TAKE 1 CAPSULE BY MOUTH EVERY DAY active Not Available Not Available No t Available lorazepam 1 mg tablet Take 1 tablet 3 times a day by oral route as needed for 3 days. 12/25 completed prn Not Available Not Available Not Available ondansetr on 4 mg disintegr ating tablet TAKE ONE TABLET BY MOUTH EVERY 6-8 HOURS NEEDED FOR NAUSEA AND VOMITING active Not Available Not Available No t Available sertralin e 50 mg tablet DAILY active Not Available Not Available Not Available metronida zole 0.75 % topical gel active Not Available Not Available Not Available doxycycli ne hyclate 100 mg tablet Take 1 tablet twice a day by oral route. 12/25 completed Not Available Not Available Not Available Ortho Tri-Cycle n (28) 0.18 mg(7)/0.2 15 mg(7)/0.2 5 mg(7)-35 mcg tablet DAILY 02/08 completed RECORDED 02/09/20 09 10:19AM BY FER ANTHONY MA, OFFICE VISIT; Not Available Not Available Not Available buspirone 15 mg tablet TAKE 1 TABLET BY MOUTH EVERY DAY IN THE MORNING 04/02 completed Not Available Not Available Not Available oxycodone 5 mg tablet TAKE 1 TABLET BY MOUTH EVERY 4 HOURS NEEDED FOR SEVERE PAIN 04/02 completed Not Available Not Available Not Available bupropion HCl SR 200 mg tablet,12 hr sustained -release Take 1 tablet every day by oral route. 06/19 completed Not Available Not Available Not Available azithromy kristian 500 mg tablet active Not Available Not Available No t Available Ortho Tri-Cycle n LO (28) 0.18 mg/0.215 mg/0.25 mg-25 mcg tablet DAILY 02/07 completed RECORDED 02/08/20 12 10:45AM BY YAZMIN GAMBLE MA, OFFICE VISIT; Not Available Not Available Not Available cyclobenz aprine 5 mg tablet TAKE 1 TABLET BY MOUTH EVERY DAY WITH SUPPER - rare prn active Not Available Not Available No t Available bupropion HCl XL 300 mg 24 hr tablet, extended release Take 1 tablet every day by oral route. 04/03 completed Not Available Not Available Not Available duloxetin e 30 mg capsule,d elayed release TAKE 1 CAPSULE BY MOUTH EVERY DAY active Not Available Not Available No t Available biotin one po daily 12/14 completed Not Available Not Available Not Available riboflavi n (vitamin B2) 400 mg 1 po qd active Not Available Not Available No t Available Vitamin D active Not Available Not Nelda ilable Not Available 2 tabs daily po 12/14 completed Not Available Not Available Not Available fexofenad ine NEEDED 09/30 completed RECORDED 10/01/19 12 9:37AM BY TIFFANIE CHOW ON/MEGHNA AMARO; Not Available Not Available Not Available Calcium + D take 1 tab daily po 12/25 completed Not Available Not Available Not Available Culturell e Digestive Health 10 billion cell-200 mg sprinkle capsule 1 capsule every day by oral route. 12/25 completed Not Available Not Available Not Available cranberry extract 200 mg capsule DAILY active RECORDED 11/06/19 14 2:47PM BY TIFFANIE DIOP ON/ADDEN DUM; Not Available Not Available Not Available DHA 200 mg capsule Take 1 capsule every day by oral route as directed . 12/14 completed Not Available Not Available Not Available Sofia Allergy 60 mg tablet DAILY active RECORDED 11/06/19 14 2:47PM BY TIFFANIE DIOP ON/ADDEN DUM; Not Available Not Available Not Available magnesium 400 mg (as magnesium oxide) capsule Take 1 capsule every day by oral route. active Not Available Not Available No t Available Vicodin 5 mg-300 mg tablet EVERY 6 HOURS NEEDED 10/30 completed RECORDED 10/31/19 13 1:52PM BY ALFREDO LOAIZA PA-C, MEDICATI ON AUTO-JUNI CTIVATIO N; Not Available Not Available Not Available d-mannose oral powder Take 2 g every day by oral route. 09/20 completed Not Available Not Available Not Available Fluzone 45 mcg (15 mcg x 3)/0.5 mL intramusc ular suspensio n active Not Available Not Available Not Available Flucelvax Quad (PF) 60 mcg (15 mcg x 4)/0.5 mL IM syringe 10/31 completed Not Available Not Available Not Available Flowflex COVID-19 Antigen Home Test kit FOLLOW INSTRUCT IONS INCLUDED WITH THE PACKAGE. 11/16 completed Not Available Not Available Not Available Vitals Date Recorded Body height Body mass index (BMI) Body weight Oxygen saturation Oxygen saturation in Arterial blood by Pulse oximetry Heart rate Body temperature Systolic blood pressure Diastolic blood pressure Provider Name and Address Organization Details Last Updated DateTime 4 170.18 cm 22.3 kg/m2 05182.2 2 g 99 % 99 % 72 /min 98 [degF] 123 mm[Hg] 73 mm[Hg] Rachel Kohler MA [facility] 4 13:26:10 Date Recorded Body height Body mass index (BMI) Body weight Oxygen saturation Oxygen saturation in Arterial blood by Pulse oximetry Heart rate Body temperature Systolic blood pressure Diastolic blood pressure Provider Name and Address Organization Details Last Updated DateTime 4 170.18 cm 21.7 kg/m2 32358.5 5 g 99 % 99 % 67 /min 97.6 [degF] 112 mm[Hg] 67 mm[Hg] Rachel Kohler MA [facility] 4 10:30:23 Date Recorded Body height Body mass index (BMI) Body weight Heart rate Oxygen saturation Oxygen saturation in Arterial blood by Pulse oximetry Body temperature Systolic blood pressure Diastolic blood pressure Provider Name and Address Organization Details Last Updated DateTime 4 170.18 cm 21.9 kg/m2 56936.9 3 g 62 /min 100 % 100 % 97.8 [degF] 107 mm[Hg] 68 mm[Hg] Chandra mackay MA [facility] 4 09:43:03 Date Recorded Body height Body mass index (BMI) Body weight Heart rate Oxygen saturation Oxygen saturation in Arterial blood by Pulse oximetry Body temperature Systolic blood pressure Diastolic blood pressure Provider Name and Address Organization Details Last Updated DateTime 4 170.18 cm 22.7 kg/m2 54503.8 9 g 76 /min 98 % 98 % 98.3 [degF] 125 mm[Hg] 74 mm[Hg] Danielle Novoa MA [facility] 4 09:46:42 Date Recorded Body height Body mass index (BMI) Body weight Oxygen saturation Oxygen saturation in Arterial blood by Pulse oximetry Heart rate Body temperature Systolic blood pressure Diastolic blood pressure Provider Name and Address Organization Details Last Updated DateTime 4 170.18 cm 22.7 kg/m2 91101.8 9 g 100 % 100 % 75 /min 98.3 [degF] 126 mm[Hg] 80 mm[Hg] Rachel Kohler MA [facility] 4 15:30:03 Social History Question Answer Notes LastModified by Organizat ion Details LastModified Time Tobacco Smoking Status Never Smoker RADHA Diop [facility] 02/18/2014 13:45:04 Do You Have An Advance Directive? No [email or web address] Information not available 05/11/2022 What Is Your Level Of Alcohol Consumption? Occasional [email or web address] Information not available 02/18/2014 Animal Exposure? Yes Information not available 05/11/2022 Do You Wear A Helmet When Biking? Yes [email or web address] Information not available 05/11/2022 Is Blood Transfusion Acceptable In An Emergency? Yes Information not available 04/01/2014 What Is Your Level Of Caffeine Consumption? Occasional Every Other Day, Coffee X 1 Information not available 09/20/2016 How Much Tobacco Do You Chew? None Information not available 04/01/2014 Are You Currently Employed? Yes [email or web address] Information not available 02/18/2014 What Type Of Diet Are You Following? REGULAR [email or web address] Information not available 02/18/2014 Which Illicit Or Recreational Drugs Have You Used? 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 No [email or web address] Information not available 05/11/2022 How Many Days In The Past Year Have You Had A Heavy Drinking Consumption (4+ Female, 5+ Male)? 10 [email or web address] Information not available 05/11/2022 Are There Any Guns Present In Your Home? No [email or web address] Information not available 05/11/2022 What Is Your Home Situation? Other [email or web address] Information not available 05/11/2022 Legally Blind In One Or Both Eyes? No [email or web address] Information not available 05/11/2022 Do You Take Precautions To Prevent Distracted Driving? Yes [email or web address] Information not available 04/23/2024 How Often Do You Need To Have Someone Help You When You Read Instructions, Pamphlets, Or Other Written Material From Your Doctor Or Pharmacy? Never Information not available 09/20/2016 Have You Served In The ? No Information not available 09/20/2016 Marital Status Domestic Partner [email or web address] Information not available 05/11/2022 Total Number Of Stairs In Home 14 [email or web address] Information not available 05/11/2022 How Many Children Do You Have? 2 Information not available 06/19/2024 Do You Use Protection During Sex? No Information not available 04/01/2014 Difficulty Reading? No [email or web address] Information not available 05/11/2022 What Is Your Relationship Status? Clayton snider Information not available 06/19/2024 Seat Belts Used Routinely Yes [email or web address] Information not available 05/11/2022 Are You Sexually Active? Yes [email or web address] Information not available 04/01/2014 Are You Passively Exposed To Smoke? No Information not available 09/20/2016 How Much Tobacco Do You Smoke? No Information not available 09/20/2016 What Types Of Sporting Activities Do You Participate In? Running, Hiking, Kayaking, Rock Climbing [email or web address] Information not available 05/11/2022 Do You Use Any Illicit Or Recreational Drugs? No [email or web address] Information not available 05/11/2022 Do You Use Sunscreen Routinely? Yes [email or web address] Information not available 02/18/2014 Sex: Unknown Functional Status Question Answer Note LastModified by Organizat ion Details LastModified Time Do you have difficulty walking or climbing stairs? No Information not available 05/11/2022 Difficulty driving at night? No [email or web address] Information not available 05/11/2022 Are you able to walk? YESWOREST [email or web address] Information not available 08/10/2022 Are you able to care for yourself? Yes [email or web address] Information not available 02/18/2014 Do you have difficulty dressing or bathing? No [email or web address] Information not available 05/11/2022 What is your exercise level? Moderate treadmill 1-2/week Information not available 09/20/2016 Mental Status Question Answer Note LastModified by Organization D etails LastModified Time Do you have difficulty concentrating, remembering or making decisions? Yes [email or web address] Information no t available 05/11/2022 Family History Relationship Description Onset Age of this Age Resolved Age Notes LastModified by Organization Details LastModified Time Maternal Grandmother Hypertensive disorder [email or web address] Not available 2014 10:22:50 Maternal Grandmother Obesity 75 abolcun Not available 2014 10:22:50 Maternal Grandmother Diabetes mellitus 70 75 abolcun Not available 2014 10:22:50 Father Alcohol abuse 40 [email or web address] Not available 2014 10:22:50 Father Anxiety disorder [email or web address] Not available 2016 11:39:58 Father Interstitial lung disease Not available 09:46:25 Father Cerebrovascu lar accident [email or web address] Not available 10:32:40 Mother Heart disease 65 [email or web address] Not available 2014 10:22:50 Mother Myocardial infarction [email or web address] Not available 10/2021 09:46:25 Mother Coronary atherosclero sis [email or web address] Not available 05/11 09:46:25 Brother Obesity [email or web address] Not available 09/20/2016 11:40:32 Sister Obesity [email or web address] Not available 0 09/20/2016 11:40:35 Medical History Condition Response Gout N Other N Kidney Stones N Blood Diseases N Hyperthyroidism N Breast Cancer N Hypothyroidism N Lung Disease N Depression Y COPD N Defects or Inherited Disease N Anesthesia Complications N Headaches/Migraines Y Anxiety Disorder Y Varicose Veins N Obesity N Vision or Eye Problems N Arthritis N Head Injury/Concussion N Infertility N Polyps N Congenital Anomalies N Acid Reflux (GERD) N Cancer N Stroke N ADHD N Endometriosis N High Cholesterol N Liver Disease N Fibromyalgia N Kidney Disease N Heart Problems N Ear or Hearing Problems N Hospitalizations N Thyroid Problems N GI Problems N Acne N Eating Disorder N Skin Problems Y Anemia N Constipation N Bladder Problems Y Mental Illness N Diabetes N Ovarian Cancer N Blood Transfusions N Seizures/Epilepsy N Tuberculosis N AIDS/HIV N Congestive Heart Failure (CHF) N Eczema N Abuse/Domestic Violence N Diverticulitis N Asthma N Allergies Y Reflux/GERD N Hepatitis N Pulmonary Embolism N Hypertension N Chicken Pox N Autism Spectrum Disorder (ASD) N Osteoporosis N Gynecological History Statement/Question Response Abnormal Pap Y Flow Light 03/08/2014 STIs/STDs N HPV Vaccine N Duration of Flow (days) 3 Age at Menarche 10 Current Control Method None Age at First Child 35 Frequency of Cycle (Q days) 21 Sexually Active? Y Menses Monthly N Date of Last Pap Smear 07/08/2013 Sexual Problems? Y LMP Unknown Desired Control Method N/A Obstetrics History GPAL:G 1 P 1 0 0 1 Type Value Full Term 1 Living 1 Total 1 Immunizations Vaccine Type Date Status Note Provider Nam e and Address Organization Details Recorded Time Influenza, high-dose, trivalent, PF 4 completed Not Available [facility] 12/19/2020 20:02:54 Influenza, split virus, trivalent, preservative 6 completed Gertrude Mcdaniels RN null, [facility] 04/03/2022 15:18:11 COVID-19, mRNA, LNP-S, PF, 30 mcg/0.3 mL dose 1 completed Rianna Chavira MA null, [facility] 04/11/2022 12:54:47 Influenza, split virus, quadrivalent, preservative 1 completed RADHA Diop, [facility] 06/19/2021 14:49:17 COVID-19, mRNA, LNP-S, PF, 30 mcg/0.3 mL dose 0 completed RADHA Diop, [facility] 06/19/2021 14:50:39 COVID-19, mRNA, LNP-S, PF, 30 mcg/0.3 mL dose 1 completed RADHA Diop, [facility] 06/19/2021 14:51:22 Influenza, MDCK, quadrivalent, PF 7 completed Gertrude Mcdaniels RN null, [facility] 04/03/2022 15:18:10 Influenza, split virus, quadrivalent, PF 8 completed Gertrude Mcdaniels RN null, [facility] 04/03/2022 15:18:10 Influenza, split virus, quadrivalent, PF 9 completed Gertrude Mcdaniels RN null, [facility] 04/03/2022 15:18:10 Influenza, split virus, quadrivalent, PF 1 completed Gertrude Mcdaniels RN null, [facility] 04/03/2022 15:18:10 Tdap 9 completed Gertrude Mcdaniels RN null, [facility] 04/03/2022 15:18:10 Influenza, split virus, quadrivalent, PF 0 completed Gertrude Mcdaniels RN null, [facility] 04/03/2022 15:18:11 Influenza, split virus, quadrivalent, PF 2 completed Rachel Kohler RADHA bernabe, [facility] 08/10/2022 10:14:13 influenza, unspecified formulation 2 completed Rachel Kohler RADHA bernabe, [facility] 08/10/2022 10:20:47 COVID-19, mRNA, LNP-S, bivalent, PF, 50 mcg/0.5 mL or 25mcg/0.25 mL dose 3 completed RADHA Jansen, [facility] 11/16/2022 11:24:09 COVID-19, mRNA, LNP-S, PF, prasanth-sucrose, 30 mcg/0.3 mL 4 completed Rachel Kohler RADHA bernabe, [facility] 04/02/2024 13:26:29 COVID-19, mRNA, LNP-S, PF, 50 mcg/0.5 mL 3 completed Rachel Kohler RADHA florecita, [facility] 04/02/2024 13:26:29 Influenza, split virus, quadrivalent, PF 3 completed RADHA Diop, [facility] 04/02/2024 13:26:29 Influenza, split virus, trivalent, PF 4 completed RADHA Jansen, [facility] 05/26/2024 09:46:11 Tdap 6 completed Not Available [facility] 12/19/2020 20:02:54 Influenza, split virus, trivalent, preservative 8 completed Not Available [facility] 12/19/2020 20:02:54 Tdap 3 completed Not Available [facility] 12/19/2020 20:02:54 Influenza, split virus, trivalent, preservative 3 completed Not Available [facility] 12/19/2020 20:02:54 Past Encounters Encounter ID Performer Location Encounter Start Date Encounter Closed Date Diagnosis/Indication Diagnosis SNOMED-CT Code Diagnosis ICD10 Code Diagnosis Note [id number] [facility] [address] [facility],[address] [place] [address] 12/30/2006 00:00:00 [id number] [facility] [address] [facility],[address] [place] [address] 05/06/2007 00:00:00 [id number] [facility] [address] [facility],[address] [place] [address] 05/20/2007 00:00:00 [id number] [facility] [address] [facility],[address] [place] [address] 05/26/2008 00:00:00 [id number] [facility] [address] [facility],[address] [place] [address] 11/22/2008 00:00:00 [id number] [facility] [address] [facility],[address] [place] [address] 02/08/2009 00:00:00 [id number] [facility] [address] [facility],[address] [place] [address] 07/28/2009 00:00:00 [id number] [facility] [address] [facility],[address] [place] [address] 10/20/2009 00:00:00 [id number] [facility] [address] [facility],[address] [place] [address] 01/28/2010 00:00:00 [id number] [facility] [address] [facility],[address] [place] [address] 10/27/2010 00:00:00 [id number] [facility] [address] [facility],[address] [place] [address] 11/28/2010 00:00:00 [id number] [facility] [address] [facility],[address] [place], [place] [address] 02/08/2012 00:00:00 [id number] [facility] [address] [facility],[address] [place], [place] [address] 10/23/2012 00:00:00 [id number] [facility] [address] [facility],[address] [place], [place] [address] 11/05/2013 00:00:00 [id number] [facility] [address] [place] [address],[address] [place], [place] [address] 12/19/2013 00:00:00 [id number] Main Office [address] [address] [place] [address] 02/18/2014 13:31:24 02/18/2014 14:23:02 Urinary tract infectious disease [id number] see hx multiple UTI's, unclear if there could be an element of interstiti al cystitis. Pt green et up appt [facility] urologist, hydrate, void after intercours e and gather her urine culture and sensitivit ies so she can show to urology to help if going to go on preventive med. PT to call if feels more ill, if any abdominal pain needs to do a test, no concern now for ectopic Dysuria [id number] Tiki McCoy Main Office [address] [address] [place] [address] 04/01/2014 12:52:55 04/01/2014 13:38:04 Adult health examination [id number] pap smear is utd, pt is active, eats well, pt will start a one a day vitamin. Urinary tr act infectious disease 39311294 having workup for recurrent UTI, stresse to pt hydration is so important, followup with urology Anxiety 65847887 pt feel s so well on zoloft 50mg, it really helpps, has sexual side effects, pt is trying to get so will not change to wellbutrin . Pt will call civil design specialist and discuss meds for anxiety [id number] Eber Leger Main Office [address] [address] [place] [address] 10/14/2014 10:12:14 10/14/2014 11:06:31 Neck pain 95801170 chronic problem and looking for a referral to a specialist . Otitis externa 7998351 p marianne on the left. Currently no signs of infection. Possible eustachion tube dysfunctio n. Already using a nasal spray and has Sudafed at home. The symptoms are manageable and she wanted to be sure that she had cleared the infection. [id number] Kiki Chet boyle Main Office [address] [facility] [address] [place] [address] 09/20/2016 11:00:09 09/20/2016 12:06:43 Adult health examination 804255865 Z00.00 HM UTD, flu vaccine in march, TDAP in 2015, pap UTD. Doing well. Anxiety 46353266 F41.9 Mild anxiety disorder, JERICA shows mild anxiety. Discussed sertraline which is safe with breastfeed ing, she is still a bit uncomforta ble with taking it while breastfeed ing. She would like the prescripti on and will call back for f/u in 1 month for recheck if she does decide to start med. SSRIs discussed with patient. Impacted cerumen 6114040 6 H61.22 Left, lavaged. [id number] Carol Johnson Main Office [address] [facility] [address] [place] [address] 12/14/2020 15:02:43 12/14/2020 15:56:04 Suspected Lyme disease 602549869 Z03.89 Pt appears to have lyme disease clinically , although test neg in ED, will repeat tests in 2 week, finish doxycyclin e . Rest, hydration, call if not continuing to improve, ED if worse with back pain or headache. Labs today Spasm of m uscle of lower back [id number] 0536249 M62.830 Rest, try flexeril, call or ED if acutely worse or focal neuro sx. Likely muscle spasm [id number] Main Office [address] [facility] [address] [place] [address] 12/26/2020 09:29:27 12/26/2020 10:11:22 Lyme disease 78134599 A69.20 Pt has been taking doxycyclin e and is finally starting to improve; will continue for another week. 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 Mild neck discomfort , back pain better. 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 will refer to PT for therapy to help with muscle tension HUERTA and pt to come in for a PE in a month with /Nova Neck pain 71481244 M54.2 see above [id number] Nova Cavazos Main Office [address] [place] [address] 04/03/2022 14:32:14 04/03/2022 15:13:13 [id number] Nova Masoncelia Main Office [address] [place] [address] 04/11/2022 09:14:26 04/11/2022 14:07:10 Seizure disorder 899944322 G40.909 New onset, see discharge summary. Pt is on Keppra 750 mg bid, no further seizures. She has followup with neurology at the seizure clinic on 05/22/22 and will get a second opinion with Dr Lomeli on Saturday. An MRI has been ordered by seizure clinic and pt is waiting for a date. EEG was normal in the hospital but may need longer one, TBD by neuro. Call if any breakthrou gh seizures, stay off wellbutrin . Call or ED if any changes. Shw ill need to be cleared by neurology for RTW and driving. Fatigue 18802013 R53.83 feeling achy in neck with fatigue? lyme again, will do testing for this. Discussed possibilit y positive might be related to old lyme from last year, pt wants to do test. Might be related to side effect coming off of wellbutrin and stress. Anxiety 00851313 F41.9 Huerta med prescriber Dee Ocampo, has appt upcoming to discuss meds. Suggested counseling . [id number] Onva Dirk Main Office [address] [place] [address] 05/11/2022 09:45:56 05/11/2022 15:50:55 Seizure disorder 548773674 G40.909 New onset Pt is on Keppra 750 mg bid, no further seizures. She had followup with neurology at the seizure clinic on 05/22/22 and had a second opinion An MRI has been ordered by seizure clinic and pt is waiting for a date. EEG was normal in the hospital but may need longer one, TBD by neuro. Call if any breakthrou gh seizures, stay off wellbutrin . Call or ED if any changes. She will need to be cleared by neurology for RTW and driving. History of Lyme disease 175047075 Z86.19 ? new infection vs reactivati on, put on doxycyclin e, has followup planned Neuralgia 73251434 M79.2 Korey try adding at night, call if not helping [id number] Nova Dirk Main Office [address] [place] [address] 07/13/2022 13:48:30 07/13/2022 15:14:10 Headache 97857577 R51.9 on gabapentin 300 mg tid, will be getting right occipital nerve injection soon, has in person visit with headache specialist at in 2 weeks. Neck pain 90473839 M54.2 Try PT consider MRI if not better. Short term followup Stretching an heat, meds as listed Seizure disorder 3302282 02 G40.909 Pt is off Keppra 750 mg bid, no further seizures. She had followup with neurology at the seizure clinic on 05/22/22 and had a second opinion. Awaiting notes. An MRI has been ordered by seizure clinic and pt is waiting for a date. She will need to be cleared by neurology for RTW and driving. [id number] Carol Johnson Main Office [address] [address] 08/10/2022 10:05:49 08/10/2022 11:41:46 Adult health examination 810871792 Z00.00 Pt in good general health. He sees the dentist and will see eye provider to followup on eye pain. HCM screenings up to date, Tdap up to date, had covid and flu vaccines Diet is balanced, see history for lifestyle choices Anxiety state 811167142 F41.1 ok on current meds, will check into counseling /family counseling , likely needs to be on additional meds other than buspar Neck pain 48683190 M54.2 MRi done bulging disc C5-6, could consider EDSI with [facility], starting PT next week for this Seizure disorder 2608135 02 G40.909 Pt is off Keppra 750 mg bid, no further seizures. She had followup with neurology at the seizure clinic on 05/22/22 and had a second opinion. Awaiting notes. An MRI has been ordered by seizure clinic and pt is waiting for a date. She will need to be cleared by neurology for driving, will likely resume in 2 months Cervico-oc cipital neuralgia 40266823 M54.81 will be getting injection through [facility] Major depr essive disorder 996027225 F32.9 see above, doing will try tapping, try to reach out for counseling and kids evaluation at school History of Lyme disease 070112740 Z86.19 Treated for this x2 , has been discharged from infectious disease provider. Pain of right eye 175417 6242 33758 H57.11 Due to ongoing pain , will have her see opthamolog y [id number] Nova Cavazos Main Office [address] [facility] [address] [facility] [place] [address] 09/07/2022 10:03:40 09/10/2022 10:43:56 Essential hypertension 24659946 I10 Pt likely has some hypertensi on now, she will start treatment and monitor BP, call with readings next week Chronic da rolly headache 6436372637 00167 R51.9 Headache since seizure disorder, has had negative imaging and only temporary relief with otc meds. ? if this is related to blood pressure. She had some occipital nerve injections which were of limited help. Pain of right eye 306915 7665 27315 H57.11 Has continued posterior eye pain with negative evaluation s, Elevated blood-pressure reading without diagnosis of hypertension 335856508 R03.0 Pt does not have a history of HTN but readings lately elevated consistent ly. She would like to try BB to see if this helps for BP and possibly headache prevention . Will monitor her blood pressure and symptoms closely Neck pain 76702343 M54.2 Acute pain with elevate blood pressure, pt is concerned about a issue with blood vessels in the head and neck causing the triad of neck pain, headache and eye pain. Will do CTA of head and neck [id number] Nova Cavazos Main Office [address] [place] [address] 11/16/2022 10:48:45 11/16/2022 14:56:30 Chronic daily headache 4470319724 19706 R51.9 better now with BB, will continue Pain of right eye 716037 0928 93463 H57.11 eye pain better, nomral exams Neck pain 03816892 M54.2 Having EDSI upcoming, better. We were going to do a CTA of head and neck but she decided against it for now. Call if anyworseni ng. 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 WE will check U/A and culture and treat per results. PT. is advised to increase hydration. [id number] Jac Rabago PA-C Main Office [address] [place] [address] 04/02/2024 13:12:50 04/02/2024 14:15:22 Chronic pain syndrome 923450730 G89.4 chronic pain - huerta, R eye, back, RLE - fol by neuro - cont f/u c them, had mri, pending repeat lumbar punctureco nt gbn as dirsee below Major depr essive disorder 856008360 F32.1 mod dep on phq - ? has psychosoma tic c/o aboveconsi cathy trial of duloxetine - start c 30mg qd - if tolerates but no sig improvemen t then increase to 60mg qd History of Lyme disease 900190553 Z86.2021 - had meningitis - [facility] - seen by ID, never seen by rheum = will get eval Anxiety 51120316 F41.9 stopped buspar acutely recently - was rx'd by [facility] - discharged , no longer sees themsee aboveno see therapist - consider it [id number] GABY TRUJILLO MD Main Office [address] [facility] [address] [facility] [address] 04/23/2024 10:23:44 04/23/2024 11:10:41 Chronic pain syndrome 690566133 G89.4 - pt has chronic headaches and has right sided eye pain- MRI of the brain and orbit 02/2024: No acute intracrani al pathology or abnormal enhancemen t.- lumbar puncture completed -> negative- pt has been following with neurology, last seen on 02/06/2024> please note that patient does not follow-up consistent ly, per patient sees as needed - c/w duloxetine ER 30mg and gabapentin 900mg BID (pt stopped herself on this medication ) Major depr essive disorder 926431643 F32.1 - PHQ-9 score of 13- pt was started on duloxetine ER 30mg QD -> there has been improvemen t on the medication , will hold increase at this time until memory testing is done- concerned that memory problems and inattentio n are more due to depression and anxiety- pt referred to psychiatry - denies SI/HI- maribel esquivel provided History of Lyme disease 376415453 Z86. - pt has been referred to infectious disease Anxiety 54427545 F41.9 - JERICA-7 score of 14- pt stopped buspar- pt was previously following with psych- pt is currently on duloxetine 30mg QD and propanolol ER 120mg> has noticed some improvemen t with the duloxetine (started on 04/02/2024) > not change at this time- maribel esquivel provided- RTC in 4 weeks Seizure disorder 3226652 02 G40.909 - occurred 2 years ago while on the wellbutrin - after seizures patient developed chronic pain- pt is currently off all seizures meds, was on keppra 750mg BID Adult heal th examination [id number] Z00.00 Health Maintenanc e FemaleA) Patient was counseled on healthy diet, exercise and nutrition due to BMI of 21.7 B) ScreeningL ast Mammogram: start at age 50 stop at 72Date: 01/14/2024 Result: BIRADS-2Ne xt: 01/2025 Last Pap smear: start at age 21 to age 65Date: Results : ???Next: pt had it this year, will request Last Colonoscop y: start at age 45-75Date: Result: Next: ordered Last DEXA scan:Date: due at 63Result: ??? C) Vaccines:I nfluenza: 03/31/2024T dAP: 08/20/2018Z oren: due at 69UBW50: due at 55BXIX22: due at 13RIP31:PC V15:COVID: 06/23/2020 , 07/14/2020, 04/05/2021, 10/08/2022, 04/11/2023, 03/31/2024 D) Routine blood work orderedE) Updated patient's history RTC in one year for annual exam or sooner if any acute complaints Screening for malignant neoplasm of cervix 252991919 Z12.4 Screening for malignant neoplasm of colon 567961902 Z12.11 Fatigue 75557809 R53.83 Hyperlipidemia 46518573 E78.5 HIV screening 204824230 Z11.4 Hepatitis C screening 41 4274967 Z11.59 Vitamin D deficiency 347 39142 E55.9 Memory impairment 209407 006 R41.3 - pt concerned about her memory loss- has spoke to neurology about this however per patient her concerns were dismissed- MRI completed and was normal- blood work ordered- feel as symptoms are more due to mood/anxie ty compoment- RTC in 3 weeks for memory impairment Venereal d isease screening 375060184 Z11.3 Z72.89 F03.90 [id number] GABY TRUJILLO MD Main Office [address] [facility] [place]N [address] 05/16/2024 09:35:35 05/16/2024 10:04:05 Memory impairment [id number] R41.3 - 6CIT score of 2 and MOCA score of 25- at this time patient overall did well on her testing and will not require further neuropsych testing- has spoke to neurology about this however per patient her concerns were dismissed- blood work ordered, not yet completed- feel as symptoms are more due to mood/anxie ty compoment which are improving on duloxetine Chronic pain syndrome 37 0462737 G89.4 - pt has chronic headaches and has right sided eye pain- MRI of the brain and orbit 02/2024: No acute intracrani al pathology or abnormal enhancemen t.- lumbar puncture completed -> negative- pt has been following with neurology, last seen on 02/06/2024> please note that patient does not follow-up consistent ly, per patient sees as needed - c/w duloxetine ER 30mg> for now will hold gabapentin 900mg BID as patient titrated herself off and overall is doing better Major depr essive disorder 055929443 F32.1 - pt was started on duloxetine ER 30mg QD -> there has been improvemen t on the medication , will hold increase at this time until memory testing is done- concerned that memory problems and inattentio n are more due to depression and anxiety- pt referred to psychiatry - denies SI/HI- maribel roman [id number] Deana Rabago PA-C Main Office [address] [facility] [address] [facility] [place] [address] 05/26/2024 09:27:32 05/26/2024 10:15:01 Localized eruption of skin 036426307 R21 Non infectious rash, ore looking like possibly inflammato ry in nature and is now resolving. Pt. has planned bone marrow procedure. NO contraindi cation is present to proceed in terms of this rash. [id number] WILL Rasmussen Main Office [address] [facility] [address] [facility] [place] [address] 06/19/2024 15:18:59 06/19/2024 15:53:24 Candidiasis of vagina 92159909 B37.31 will tx with fluconazol e once daily x 7 days due to vaginitis and thrush. She declined pelvic exam today as she has her 2 children with her. She self swabbed for vaginitis. Acute vaginitis 68842164 N76.0 metrogel as directed x 5 days, will confirm via vaginitis swab Candidiasis of mouth 797 34755 B37.0 has been using clotrimazo le troches with some relief but sx continue Health Concerns Section Related Observation LastModified by Organization Detai ls LastModified Time None Recorded Concern Status LastModified by Organization Details LastModified Time None Recorded Advance Directives Directive N: Payers Encounter Date Sequence Insurance Name Policy Number Policy Garcia Covered Member ID Garcia Member ID Guarantor Name 04/02/2024 1 [place] [id number] Clayton Slaughterest [id number] Tania Rivest 04/23/2024 1 [place] [id number] Clayton Bellamy Rivest [id number] Tania Rivest 05/16/2024 1 [place] [id number] Clayton Bellamy Rivest [id number] Tania Rivest 05/26/2024 1 [place] [id number] lCayton Bellamy Rivest [id number] Tania Rivest 06/19/2024 1 [place] [id number] Clayton Bellamy Rivest [id number] Tania Esquivel Notes Date Note Type Note Provider Name and Address Organization Details Recorded Time 04/02/2024 text/html Pt is currently dealing with right eye pain,right scalp,back pain and down right leg. 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 reviewed last neuro note 8..24 - printed/handed to pt Jac Rabago PA-C [address] [address], [place], [address], [facility] 04/02/2024 14:17:19 04/23/2024 text/html Tania Esquivel is a 43 year old F who presented to the clinic for her annual exam. Complaints: memory problems, inattention Is not using ASA.OTC/Herbal supplements use: magnesium, b2, bone, vitamin D Gynecologic HistoryPatient's last menstrual period was about two week agoMenstrual cycle lasts 3 days, without spotting/clothsMenstru al cycle: irregularSexually active: yesContraception: noneDenies cysts, stds, fibroids, abnormal pap smear Obstetric HistoryGravida: 2Para: 2AB: 0Livin (vaginal)Complications : hemorrhage Drug use: neverEtoh use: will drink more heavily in some time, currently not drinkingtobacco use: neverspf/derm: Dental: every yearEye: every 6 months (wears eye glasses)Diet: tries to limit meatActivity: none GABY TRUJILLO MD [address], [address], [facility] 04/23/2024 12:53:26 05/16/2024 text/html Tania Esquivel is a 43 year old F who presented to the clinic concerns of memory loss. Patient has been having this problem for a few months now. Pt does follow with neurology however per patient not taking concerns seriously. Based on patient's evaluation from 04/23/2024 believe memory problems are more likely due to uncontrolled mood. GABY TRUJILLO MD [address], [address], [facility] 05/16/2024 11:04:13 05/26/2024 text/html 44 year old fema le with past h/o Lymes disease and chronic pain syndrome c/o inflammation in her sacrum and R. SI area ongoing for few weeks. Now reports several day onset of flat erythematous rash in the same area that is affected by pain and inflammation. Pt took pictures of rash when appeared initially and was deep red, irregular confluent patches in the R. upper buttock/sacral area. Today rash is still there but is faint and sensitive to touch only. Pt. denies fever, chills, vesicular presentation. Deana Rabago PA-C [address] [address], [place], [address], [facility] 05/26/2024 10:29:45 06/19/2024 text/html Generic HPI TemplateReported bypatient.Notes:Patikamran leavitt was on dexamethasone for SI joint pain. Developed thrush and is taking clotrimazole but she also has sx of vaginitis now, itching, discharge. denies urinary sx. Santino Herman [facility] [address] [address], [place], [address], [facility] 06/19/2024 15:58:29 OBGyn Episode No OBEpisode recorded.
== END 2024-08-28 10:40 | disposition home or self-care (01) ==
PROVIDERS: PCP Internal Medicine; Referring Provider Nurse Practitioner Family; Visit Provider Internal Medicine
DX: H49.10 Fourth [trochlear] nerve palsy, unspecified eye (principal); G43.109 Migraine with aura, not intractable, without status migrainosus; M54.2 Cervicalgia; R51.9 Headache, unspecified
CPT/HCPCS: 64400; 64405; 99204

== ENCOUNTER → 2024-08-28 10:10 | Outpatient (BNVA) | payer BC, SELFPAY | PROVIDERS: PCP Internal Medicine; Referring Provider Nurse Practitioner Family; Visit Provider Internal Medicine | DX: G43.109 Migraine with aura, not intractable, without status migrainosus (principal); M54.2 Cervicalgia; H49.10 Fourth [trochlear] nerve palsy, unspecified eye | CPT/HCPCS: 64400; 64405; J0665 ==

== ENCOUNTER 2024-09-01 12:34 | Outpatient (REF) | payer BC, SELFPAY ==
[2024-09-01 12:44] LABS: MANUAL DIFF FLAG NO
[2024-09-01 13:00] LABS: Basophils Absolute Auto 0.1 X10*3/uL (0.0-0.2); Basophils Percent Auto 0.5 % (0-2); Eosinophils Absolute Auto 0.1 X10*3/uL (0.0-0.4); Eosinophils Percent Auto 1.3 % (0-4); Hematocrit 43.8 % (37.0-47.0); Hemoglobin 14.6 g/dl (12.0-16.0); Imm Gran Abs Auto 0.04 X10*3/uL (0.00-0.03); Imm Gran Pct Auto 0.4 % (0.0-0.4); Lymphocytes Absolute Auto 2.5 X10*3/uL (1.2-4.9); Lymphocytes Percent Auto 24.5 % (20-40); Mean Corpuscular HGB Conc 33.3 g/dl (31.0-35.0); Mean Corpuscular Hemoglobin 30.4 pg (27.0-33.0); Mean Corpuscular Volume 91.1 fL (80.0-98.0); Mean Platelet Volume 8.9 fL (9.4-12.3); Monocytes Absolute Auto 0.6 X10*3/uL (0.1-1.2); Neutrophils Absolute Auto 6.8 x10*3/uL (2.0-8.3); Neutrophils Percent Auto 67.3 % (45-73); Platelet Count 261 X10*3/uL (160-400); Red Blood Count 4.81 X10*6/uL (4.20-5.50); Red Cell Distribution Width 12.8 % (11.0-16.0); White Blood Count 10.1 X10*3/uL (4.8-10.8)
[2024-09-01 13:31] LABS: Carbamazepine Tegretol 4.1 mcg/mL (5.0-12.0)
[2024-09-01 13:35] LABS: Alanine Aminotransferase 16 U/L (0-31); Albumin Level 4.2 g/dL (3.5-5.0); Alkaline Phosphatase 111 U/L (39-117); Anion Gap 11 (12-20); Aspartate Amino Transferase 23 U/L (5-31); Bilirubin Total 0.2 mg/dL (0.0-1.0); Blood Urea Nitrogen 17 mg/dL (9-16); Calcium 8.9 mg/dL (8.4-10.2); Carbon Dioxide 28 mmol/L (22-29); Chloride 104 mmol/L (96-108); Estimated Glomerular Filt Rate > 60; Glucose Random 110 mg/dL (60-115); Potassium 4.2 mmol/L (3.3-5.1); Sodium 139 mmol/L (135-145); Total Protein 7.7 g/dL (6.5-8.0)
--- OUTSIDE RECORDS SUMMARY | 2024-09-01 15:15 | XMS_ITS | Encounter Summary ---
Author Organization [facility]ly [facility] Address [address] [place] [address] Care Team Providers Care Operator And Truck Driver Name Role Phone Deisy Dennis MD Primary Care Provider Unavailable Aaliyah Rodriguez MD Unavailable Unavailab le Encounter Details Date Type Department Care Team Description 02/20/2016 Release of Information Medical Records [address] [place] [id number] Abstract, Provider Social History Tobacco Use Types Packs/Day Years Used Date Smoking Tobacco: Never Alcohol Use Standard Drinks/Week Comments Yes 0 (1 standard drink = 0.6 oz pur e alcohol) 1-2 drinks per week Sex Assigned at Date Recorded Not on file documented as of this encounter Plan of Treatment Not on file documented as of this encounter Visit Diagnoses Not on filedocumented in this encounter Care Teams Operator And Truck Driver Relationship Specialty Start Date End Date Deisy Dennis MD PCP - General Internal Medicine 01/26/16 Aaliyah Rodriguez MD Internal Medicine 01/26/16 documented as of this encounter
--- OUTSIDE RECORDS SUMMARY | 2024-09-01 15:15 | XMS_ITS | Data Portability ---
Author Organization [facility], Main Office Address [address] [facility] [address] [place] [id number] Care Team Providers Care Lot Technician Name Role Phone KARON NICK International Representative GEOVANNY SANTORO Urologist [phone] GABY TRUJILLO Primary Care Provider BETTIE MIRANDA Referring Provider [phone] Assessment No assessment recorded. Plan of Treatment Reminders Order Date Submit Date Provider Last Modified By Organization Details Last Modified Time Details Appointments TELEHE ALTH15 2024 10:00A Elmo TRUJILLO MD Not available Not available Not available Lab bacter ial vagino sis + vagini tis panel, vagina l 2023 024 [facility] (Centralized Electronic Ordering - All Locations), Patient Can Go To The Location Of Their Choice, [id number] 06/24/2024 12:06:19 RPR (rapid plasma reagin ), serum 2023 024 [facility], [address] [place], [address], 06/18/2024 10:06:17 CBC w/ auto diff 2023 024 [facility], [address] [place], [address], 06/18/2024 10:06:13 BMP, serum or plasma 2023 024 [facility], [address] [place], [address], 06/18/2024 10:06:14 TSH, ultra- sensit america, serum 2023 [facility], [address], [place], [address], 06/18/2024 10:06:19 HIV 1 + 2, meanin gful use set 2023 [facility] (Centralized Electronic Ordering - All Locations), Patient Can Go To The Location Of Their Choice, 06/18/2024 10:06:19 vitami n B12, serum 2023 [facility], [address], [place], [address], 06/18/2024 10:06:22 folate , serum 2023 [facility], [address], [place], [address], 06/18/2024 10:06:16 erythr ocyte sedime ntatio n rate by dony gren method 2023 024 [facility], [address], [place], [address], 06/18/2024 10:06:21 lipid panel, serum 2023 [facility], [address], [place], [address], 06/18/2024 10:06:15 vitami n D, 25-hyd fabienne, total, serum 2023 [facility] (Centralized Electronic Ordering - All Locations), Patient Can Go To The Location Of Their Choice, 06/18/2024 10:06:18 Hepati tis C IgG Ab, qual, serum 2023 024 [facility] (Centralized Electronic Ordering - All Locations), Patient Can Go To The Location Of Their Choice, 06/18/2024 10:06:15 Referral psychi atrist referr al - Medica tion consul tation with Joel Lovett MD 2023 024 dee Lovett MD, [address] [place], [address], 05/21/2024 09:51:[address] referr al 2023 024 [facility], [address] [place], [address], 04/21/2024 14:47:25 Procedures colono scopy screen ing (PROC) 2023 024 In-Office Order, Internal Use Only DO Not Attach Compendium DO Not Attach Compendium, Do Not Delete/merge, [id number] 04/23/2024 14:16:13 Surgeries None record ed. Imaging None record ed. Medication Orders flucon azole 200 mg tablet 2023 024 [id number], [address] [place], [address], 06/19/2024 15:40:31 Metrog el Vagina l 0.75 % (37.5 mg/5 gram) 2023 024 [email or web address] [facility], [address] [place], [address], 06/19/2024 15:41:16 duloxe gudelia 30 mg capsul e,felipe yed releas e 2023 024 [facility], [address] [place], [address], 04/23/2024 12:43:57 duloxe gudelia 30 mg capsul e,felipe yed releas e 2023 024 [email or web address] [facility], [address] [facility] [place], [address], 04/28/2024 08:40:06 Patient TargetsNo targets recorded. Patient Instructions Encounter Date Encounter Id Patient Instructions Last Modified By Organization Details Last Modified Time 04/02/2024 [id number] learning about stress pmadden Not available 04/02/2024 14:10:58 Mental Health Information pmadden Not available 04/02/2024 14:10:58 Patient will follow up and keep appointment as scheduled. pmadden Not available 04/02/2024 13:58:03 04/23/2024 [id number] medical record request* Not available 05/04/2024 10:33:33 HIV testing: car e instructions Not available 04/23/2024 11:00:30 learning about stress Not available 04/23/2024 11:00:30 Mental Health Information Not available 04/23/2024 11:00:31 epilepsy: care instructions Not available 04/23/2024 11:00:31 05/16/2024 [id number] Preventing Depression From Coming Back: Care Instructions Not available 05/16/2024 10:00:50 06/19/2024 [id number] To call or retur n for worsening or concerns [email or web address] Not available 06/19/2024 15:43:27 Reason for Referral Pre [employer] Referral for History of Lyme disease Referring [...] 3.4-10 .8 normal Not Available [facility] ([facility]) [address] [facility], [place], [address], 06/18/2024 10:06:13 06/16/20 24 06/17/2024 CBC WITH DIFFE RENTI AL/PL ATELE T RBC 4.95 x10e6 /uL 3.77-5 .28 normal Not Available [facility] ([facility]) [address] [facility], [place], [address], 06/18/2024 10:06:13 06/16/20 24 06/17/2024 CBC WITH DIFFE RENTI AL/PL ATELE T hemoglobin 14.9 g/dL 11.1-1 5.9 normal Not Available [facility] ([facility]) [address] [place], [address], 06/18/2024 10:06:13 06/16/20 24 06/17/2024 CBC WITH DIFFE RENTI AL/PL ATELE T hematocrit 46.4 % 34.0-4 6.6 normal Not Available [facility] ([facility]) [address] [facility], [place], [address], 06/18/2024 10:06:13 06/16/20 24 06/17/2024 CBC WITH DIFFE RENTI AL/PL ATELE T MCV 94 fL 79-97 normal Not Available [facility] ([facility]) [address] [place], [address], 06/18/2024 10:06:13 06/16/20 24 06/17/2024 CBC WITH DIFFE RENTI AL/PL ATELE T MCH 30.1 pg 26.6-3 3.0 normal Not Available [facility] ([facility]) [address] [place], [address], 06/18/2024 10:06:13 06/16/20 24 06/17/2024 CBC WITH DIFFE RENTI AL/PL ATELE T MCHC 32.1 g/dL 31.5-3 5.7 normal Not Available [facility] ([facility]) [address] [place], [address], 06/18/2024 10:06:13 06/16/20 24 06/17/2024 CBC WITH DIFFE RENTI AL/PL ATELE T RDW 12.8 % 11.7-1 5.4 Not Available [facility] ([facility]) [address] [facility], [place], [address], 06/18/2024 10:06:13 06/16/20 24 06/17/2024 CBC WITH DIFFE RENTI AL/PL ATELE T platelets 284 x10e3 /uL 150-45 0 normal Not Available [facility] ([facility]) [address] [facility], [place], [address], 06/18/2024 10:06:13 06/16/20 24 06/17/2024 CBC WITH DIFFE RENTI AL/PL ATELE T neutrophils 68 % not estab. normal Not Available [facility] ([facility]) [address] [facility], [place], [address], 06/18/2024 10:06:13 06/16/20 24 06/17/2024 CBC WITH DIFFE RENTI AL/PL ATELE T lymphs 21 % not estab. normal Not Available [facility] ([facility]) [address] [facility], [place], [address], 06/18/2024 10:06:13 06/16/20 24 06/17/2024 CBC WITH DIFFE RENTI AL/PL ATELE T monocytes 9 % not estab. normal Not Available [facility] ([facility]) [address] [facility], [place], [address], 06/18/2024 10:06:13 06/16/20 24 06/17/2024 CBC WITH DIFFE RENTI AL/PL ATELE T eos 1 % not estab. normal Not Available [facility] ([facility]) [address] [facility], [place], [address], 06/18/2024 10:06:13 06/16/20 24 06/17/2024 CBC WITH DIFFE RENTI AL/PL ATELE T basos 1 % not estab. normal Not Available [facility] ([facility]) [address] [place], [address], 06/18/2024 10:06:13 06/16/20 24 06/17/2024 CBC WITH DIFFE RENTI AL/PL ATELE T immature cells SECOND WATCH SERGEANT Not Available [facility]) [address] [place], [address], 06/18/2024 10:06:13 06/16/20 24 06/17/2024 CBC WITH DIFFE RENTI AL/PL ATELE T neutrophils (absolute) 2.9 x10e3 /uL 1.4-7. 0 normal Not Available [facility] ([facility]) [address] [place], [address], 06/18/2024 10:06:13 06/16/20 24 06/17/2024 CBC WITH DIFFE RENTI AL/PL ATELE T lymphs (absolute) 0.9 x10e3 /uL 0.7-3. 1 normal Not Available [facility] ([facility]) [address] [place], [address], 06/18/2024 10:06:13 06/16/20 24 06/17/2024 CBC WITH DIFFE RENTI AL/PL ATELE T monocytes(ab solute) 0.4 x10e3 /uL 0.1-0. 9 normal Not Available [facility] ([facility]) [address] [place], [address], 06/18/2024 10:06:13 06/16/20 24 06/17/2024 CBC WITH DIFFE RENTI AL/PL ATELE T eos (absolute) 0.1 x10e3 /uL 0.0-0. 4 normal Not Available [facility] ([facility]) [address] [place], [address], 06/18/2024 10:06:13 06/16/20 24 06/17/2024 CBC WITH DIFFE RENTI AL/PL ATELE T baso (absolute) 0.0 x10e3 /uL 0.0-0. 2 normal Not Available [facility] ([facility]) [address] [facility], [place], [address], 06/18/2024 10:06:13 06/16/20 24 06/17/2024 CBC WITH DIFFE RENTI AL/PL ATELE T immature granulocytes 0 % not estab. Not Available [facility] ([facility]) [address] [facility], [place], [address], 06/18/2024 10:06:13 06/16/20 24 06/17/2024 CBC WITH DIFFE RENTI AL/PL ATELE T immature grans (abs) 0.0 x10e3 /uL 0.0-0. 1 Not Available [facility] ([facility]) [address] [facility], [place], [address], 06/18/2024 10:06:13 06/16/20 24 06/17/2024 CBC WITH DIFFE RENTI AL/PL ATELE T NRBC SECOND WATCH SERGEANT Not Available [facility] ([facility]) [address] [facility], [place], [address], 06/18/2024 10:06:13 06/16/20 24 06/17/2024 CBC WITH DIFFE RENTI AL/PL ATELE T hematology comments: SECOND WATCH SERGEANT Not Available [facility] ([facility]) [address] [facility], [place], [address], 06/18/2024 10:06:13 06/16/20 24 06/18/2024 BASIC METAB OLIC PANEL (8) glucose 101 mg/dL 70-99 above high normal Not Available [facility] ([facility]) [address] [place], [address], 06/18/2024 10:06:14 12/10/20 24 06/18/2024 BASIC METAB OLIC PANEL (8) BUN 15 mg/dL 6-24 normal Not Available [facility] ([facility]) [address] [place], [address], 06/18/2024 10:06:14 06/16/20 24 06/18/2024 BASIC METAB OLIC PANEL (8) creatinine 0.74 mg/dL 0.57-1 .00 normal Not Available [facility] ([facility]) [address] [place], [address], 06/18/2024 10:06:14 06/16/20 24 06/18/2024 BASIC METAB OLIC PANEL (8) eGFR 101 mL/mi n/1.7 3 >59 normal Not Available [facility] ([facility]) [address] [facility], [place], [address], 06/18/2024 10:06:14 06/16/20 24 06/18/2024 BASIC METAB OLIC PANEL (8) BUN/creatini ne ratio 20 9-23 normal Not Available [facility] ([facility]) [address] [place], [address], 06/18/2024 10:06:14 06/16/20 24 06/18/2024 BASIC METAB OLIC PANEL (8) sodium 140 mmol/ L 134-14 4 normal Not Available [facility] ([facility]) [address] [place], [address], 06/18/2024 10:06:14 06/16/20 24 06/18/2024 BASIC METAB OLIC PANEL (8) potassium 4.2 mmol/ L 3.5-5. 2 normal Not Available [facility] ([facility]) [address] [place], [address], 06/18/2024 10:06:14 06/16/20 24 06/18/2024 BASIC METAB OLIC PANEL (8) chloride 100 mmol/ L 96-106 normal Not Available [facility] ([facility]) [address] [place], [address], 06/18/2024 10:06:14 06/16/20 24 06/18/2024 BASIC METAB OLIC PANEL (8) carbon dioxide, total 27 mmol/ L 20-29 normal Not Available [facility] ([facility]) [address] [place], [address], 06/18/2024 10:06:14 06/16/20 24 06/18/2024 BASIC METAB OLIC PANEL (8) calcium 9.1 mg/dL 8.7-10 .2 normal Not Available [facility] ([facility]) [address] [place], [address], 06/18/2024 10:06:14 06/16/20 24 06/18/2024 LIPID PANEL cholesterol, total 150 mg/dL 100-19 9 normal Not Available [facility] ([facility]) [address] [place], [address], 06/18/2024 10:06:15 06/16/20 24 06/18/2024 LIPID PANEL triglyceride s 103 mg/dL 0-149 normal Not Available [facility] ([facility]) [address] [place], [address], 06/18/2024 10:06:15 06/16/20 24 06/18/2024 LIPID PANEL HDL cholesterol 55 mg/dL >39 normal Not Available [facility]) [address] [place], [address], 06/18/2024 10:06:15 06/16/20 24 06/18/2024 LIPID PANEL VLDL cholesterol robyn 19 mg/dL 5-40 Not Available [facility] ([facility]) [address] [place], [address], 06/18/2024 10:06:15 06/16/20 24 06/18/2024 LIPID PANEL LDL chol calc ([facility]) 76 mg/dL 0-99 Not Available [facility]) [address] [facility], [place], [address], 06/18/2024 10:06:15 06/16/20 24 06/18/2024 LIPID PANEL LDL calc comment: SECOND WATCH SERGEANT Not Available [facility] ([facility]) [address] [facility], [place], [address], 06/18/2024 10:06:15 06/16/20 24 06/18/2024 HCV ANTIB JOSE DE JESUS RFX TO QUANT PCR HCV Ab Non Reacti ve non reacti ve Not Available [facility] ([facility]) [address] [facility], [place], [address], 06/18/2024 10:06:15 06/16/20 24 06/18/2024 HCV ANTIB [...] HCV infec tion. Not Available [facility] ([facility]) [address] [facility], [place], [address], 06/18/2024 10:06:15 06/16/20 24 06/17/2024 FOLAT E (FOLI C ACID) , SERUM folate (folic acid), serum 16.7 NG/mL >3.0 normal A serum folat e blake ntrat ion of less than 3.1 ng/mL is consi dered to repre sent clini robyn defic iency . Not Available [facility] ([facility]) [address] [facility], [place], [address], 06/18/2024 10:06:16 06/16/20 24 06/17/2024 RPR, RFX QN RPR/C ONFIR M TP RPR Non Reacti ve non reacti ve Not Available [facility] ([facility]) [address] [facility], [place], [address], 06/18/2024 10:06:17 06/16/20 24 06/17/2024 VITAM IN [...] 1. IOM (Inst itute of Medic ine). 2010. Dieta ry refer ence intak es for calci um and D. Wilberto cleaning [place]: [facility] . 2. Mayank cano MF, Michelle courtney [place], Marcus off-F errar i HUERTA, et al. Evalu ation , treat ment, and preve ntion of vitam in D defic iency : an Endoc rine Socie ty clini robyn pract ice guide line. JCEM. 2010; 96(7) :1911 -30. Not Available [facility] ([facility]) [address] [facility], [place], [address], 06/18/2024 10:06:18 06/16/20 24 06/17/2024 HIV AB/P2 4 AG WITH REFLE X HIV Ab/P24 Ag screen Non Reacti ve non reacti ve HIV-1 /HIV- 2 antib odies and HIV-1 p24 antig en were NOT detec facundo. There is no labor atory evide nce of HIV infec tion. HIV Negat america Not Available [facility] ([facility]) [address] [facility], [place], [address], 06/18/2024 10:06:19 06/16/20 24 06/18/2024 TSH RFX ON ABNOR MAL TO FREE T4 TSH 1.180 uIU/m L 0.450- 4.500 normal Not Available [facility] ([facility]) [address] [facility], [place], [address], 06/18/2024 10:06:19 06/16/20 24 06/17/2024 SEDIM ENTAT ION RATE- WESTE RGREN sedimentatio n rate-westerg allison 9 mm/HR 0-32 normal Not Available [facility] ([facility]) [address] [facility], [place], [address], 06/18/2024 10:06:21 06/16/20 24 06/17/2024 VITAM IN B12 vitamin B12 578 pg/mL 232-12 45 normal Not Available [facility] ([facility]) [address] [facility], [place], [address], 06/18/2024 10:06:22 06/19/20 24 06/20/2024 NUSWA B BV SRI+C AND6+ CT/GC /T... atopobium vaginae Low - 0 score Not Available [facility] ([facility]) [address] [facility], [place], [address], 06/24/2024 12:06:19 06/19/20 24 06/20/2024 NUSWA B BV SRI+C AND6+ CT/GC /T... bvab 2 Low - 0 score Not Available [facility] ([facility]) [address] [place], [address], 06/24/2024 12:06:19 06/19/20 24 06/20/2024 NUSWA B BV SRI+C AND6+ CT/GC /T... megasphaera 1 Low - 0 score Calcu late total score by jackie esquivel the 3 indiv idual bacte rial vagin osis (BV) marke r score s toget her. Total score is inter prete d as follo ws: Total score 0-1: Indic ates the absen ce of BV. Total score 2: Indet ositoin ate for BV. Addit ional clini robyn data alejandrinaul d be evalu ated to marco a stoddard. Total score 3-6: Indic ates the prese nce of BV. Not Available [facility] ([facility]) [address] [place], [address], 06/24/2024 12:06:19 06/19/20 24 06/20/2024 NUSWA B BV SRI+C AND6+ CT/GC /T... nilton albicans, SRI Negati ve negati ve Not Available [facility] ([facility]) [address] [place], [address], 06/24/2024 12:06:19 06/19/20 24 06/20/2024 NUSWA B BV SRI+C AND6+ CT/GC /T... nilton glabrata, SRI Negati ve negati ve Not Available [facility] ([facility]) [address] [place], [address], 06/24/2024 12:06:19 06/19/20 24 06/20/2024 NUSWA B BV SRI+C AND6+ CT/GC /T... C parapsilosis /tropicalis Negati ve negati ve This assay does not diffe renti ate C. tropi calis and C. parap ajit is. Not Available [facility] ([facility]) [address] [place], [address], 06/24/2024 12:06:19 06/19/20 24 06/20/2024 NUSWA B BV SRI+C AND6+ CT/GC /T... nilton lusitaniae, SRI Negati ve negati ve Not Available [facility] ([facility]) [address] [place], [address], 06/24/2024 12:06:19 06/19/20 24 06/20/2024 NUSWA B BV SRI+C AND6+ CT/GC /T... nilton krusei, SRI Negati ve negati ve Not Available [facility] ([facility]) [address] [place], [address], 06/24/2024 12:06:19 06/19/20 24 06/21/2024 NUSWA B BV SRI+C AND6+ CT/GC /T... hsv 1 SRI Negati ve negati ve Not Available [facility] ([facility]) [address] [place], [address], 06/24/2024 12:06:19 06/19/2006/21/2024 NUSWA B BV SRI+C AND6+ CT/GC /T... hsv 2 SRI Negati ve negati ve Not Available [facility] ([facility]) [address] [place], [address], 06/24/2024 12:06:19 06/19/20 24 06/24/2024 NUSWA B BV SRI+C AND6+ CT/GC /T... trich vag by SRI Negati ve negati ve Not Available [facility] ([facility]) [address] [place], [address], 06/24/2024 12:06:19 06/19/20 24 06/24/2024 NUSWA B BV SRI+C AND6+ CT/GC /T... chlamydia trachomatis, SRI Negati ve negati ve Not Available [facility] ([facility]) [address] [place], [address], 06/24/2024 12:06:19 06/19/20 24 06/24/2024 NUSWA B BV SRI+C AND6+ CT/GC /T... neisseria gonorrhoeae, SRI Negati ve negati ve Not Available [facility] ([facility]) [address] [place], [address], 06/24/2024 12:06:19 Result Notes None recorded. Problems Name Problem SNOMED Code Status Onset Date Resolution Date Notes Provider Name and Address Organization Details Recorded Time Allergic rhinitis 69577949 Completed 201001/19/2014 RECORDED 10/28/19 11 1:57PM BY FER ANTHONY MA, ANNOTATI ON/ADDEN DUM Not Available [facility] 4 15:27:43 Backache [id number] Completed 201201/19/2014 IMPRESSI ON: CHRONIC, MILD. MAY PURSUE CHIRO CARE. NO RED FLAG SXS OF CONCERN. ; RECORDED 10/24/19 13 9:14AM BY RIANNA CHAVIRA MA, ANNOTATI ON/ADDEN DUM Not Available [facility] 4 15:27:44 Contrace ption care manageme nt Completed 201101/19/2014 IMPRESSI ON: PT TO CONSIDER CHANGING TO LOWER DOSE HORMONE PILL. WILL LET ME KNOW, HAPPY TO FAX TO THE PHARMACY FOR HER.; RECORDED 02/08/20 12 10:43AM BY YAZMIN GAMBLE MA, ANNOTATI ON/ADDEN DUM Not Available [facility] 4 15:27:44 Dysuria [id number] Completed 201101/19/2014 RECORDED 02/08/20 12 10:43AM BY YAZMIN GAMBLE MA, ANNOTATI ON/ADDEN DUM Yvette bernabe [facility] 8 14:01:36 Follow-u p encounte r Completed 201201/19/2014 RECORDED 03/05/20 13 8:58AM BY YAZMIN GAMBLE MA, ANNOTATI ON/ADDEN DUM Not Available [facility] 4 15:27:44 Malaise and fatigue [id number] [facility] Malaise and fatigue 597073288 Completed 201101/19/2014 IMPRESSI ON: DOING WELL ON MEDICATI ON. WILL TRY TO TAKE IN THE AMS TO AVOID EARLY DAY H/. ALSO DOING BETTER WITH REG EXERCISE WHICH I ENCOURAG ED HER TO CONTINUE . WILL TOUCH BASE IN THE NEXT 3-4 MONTHS RE PROGRESS .; RECORDED 02/08/20 12 10:43AM BY YAZMIN GAMBLE MA, TIFFANIE ON/ADDEN DUM Yvette bernabe [facility] 8 14:01:24 Influenz a vaccine needed [id number] 06 Completed 200701/19/2014 RECORDED 05/26/20 08 9:46AM BY NEIL COOPER, OFFICE VISIT Not Available [facility] 4 15:27:44 General examinat ion of patient Completed 200801/19/2014 RESOLVED DATE: 11/23/19 09; RECORDED 11/23/19 09 2:02PM BY TARA ANTHONY, TIFFANIE ON/ADDEN DUM Not Available [facility] 4 15:27:44 Well child [id number] Completed 201101/19/2014 RECORDED 02/08/20 12 10:43AM BY YAZMIN GAMBLE MA, TIFFANIE ON/ADDEN DUM Not Available [facility] 4 15:27:45 Psychoge orly headache [id number] Completed 200801/19/2014 RECORDED 11/23/19 09 2:02PM BY TIFFANIE GALINDO ON/ADDEN DUM Not Available [facility] 4 15:27:45 Hyperlip idemia 44264453 Completed 201101/19/2014 RECORDED 02/08/20 12 11:23AM BY ALFREDO LOAIZA PA-C, TIFFANIE ON/ADDEN DUM Not Available [facility] 4 15:27:45 Neck pain [id number] Completed 10/31/2017 Kiki bernabe [facility] 1 15:24:44 Administ ration of bacteria l and viral vaccine Completed 200701/19/2014 RECORDED 06/02/20 08 11:14AM BY LATANYA PATIÑO, HISTORIC AL SUMMARY Not Available [facility] 4 15:27:45 Non-neop lastic nevus [id number] Completed 201201/19/2014 STORY: MAINLY OVER BACK, FOLLOWED BY NEW ADOLFO DERM ANNUALLY .; RECORDED 10/24/19 13 9:14AM BY RIANNA CHAVIRA MA, ANNOTATI ON/ADDEN DUM Not Available [facility] 4 15:27:45 Patient status finding [id number] Completed 201201/19/2014 RECORDED 05/21/20 13 2:38PM BY YAZMIN GAMBLE MA, ANNOTATI ON/ADDEN DUM Yvette bernabe MA [facility] 8 14:01:20 Noninfla mmatory disorder of the vagina [id number] Completed 201101/19/2014 IMPRESSI ON: UNLIKELY STD, TX TOPICALL Y FOR YEAST, IF POSITIVE FOR GARDNERE LLA WILL CALL AND TREAT, ALREADY TOOK 2 DIFLUCAN ; RECORDED 02/08/20 12 10:43AM BY YAZMIN GAMBLE MA, TIFFANIE ON/ADDEN DUM Not Available [facility] 4 15:27:46 Atypical squamous cells of undeterm ined signific ance on vaginal Papanico laou smear [id number] Completed 201101/19/2014 RECORDED 02/08/20 12 10:42AM BY YAZMIN GAMBLE MA, ANNOTATI ON/ADDEN DUM Not Available [facility] 4 15:27:46 Cellulit is of digit [id number] Completed 201201/19/2014 IMPRESSI ON: START ABX, WARM SOAKS, IBU FOR DAY AND PAIN MED AT NIGHT. MONITOR CLOSELY, CALL OFFICE FOR WORSENIN G/PRN; RECORDED 03/05/20 13 8:58AM BY YAZMIN GAMBLE MA, ANNOTATI ON/ADDEN DUM Not Available [facility] 4 15:27:46 Adult health examinat ion Completed 201201/19/2014 RECORDED 05/21/20 13 2:38PM BY YAZMIN GAMBLE MA, ANNOTATI ON/ADDEN DUM Not Available [facility] 4 15:27:46 Seborrhe ic dermatit is [id number] Completed 201201/19/2014 RECORDED 07/30/19 13 1:17AM BY FER ANTHONY MA, ANNOTATI ON/ADDEN DUM Not Available [facility] 4 15:27:46 Breast finding [id number] Completed 200801/19/2014 RECORDED 02/09/20 09 9:10AM BY FER ANTHONY MA, ANNOTATI ON/ADDEN DUM Not Available [facility] 4 15:27:46 Administ ration of diphther ia, pertussi s, and tetanus vaccine Completed 201201/19/2014 RECORDED 03/05/20 13 8:58AM BY YAZMIN GAMBLE MA, ANNOTATI ON/ADDEN DUM Not Available [facility] 4 15:27:46 Temporom andibula r joint disorder 98304793 Active RADHA Diop, [facility] 1 09:34:16 Urinary tract infectio us disease [id number] Completed 10/31/2017 Yvette bernabe, [facility] 8 14:01:39 Allergic rhinitis [id number] Completed 201002/15/2014 RECORDED 10/28/19 11 1:57PM BY FER ANTHONY MA, ANNOTATI ON/ADDEN DUM Not Available [facility] 4 06:27:20 Anxiety state [id number] Completed 201302/15/2014 IMPRESSI ON: NEVER TRIED SERTRALI NE WILL START AT 25MG AND INCREASE TO 50MG; RECORDED 12/19/19 14 2:56PM BY YAZMIN GAMBLE MA, ANNOTATI ON/ADDEN DUM GABY TRUJILLO MD [address], [place], [address] , [facility] [place] 4 17:46:47 Backache 859940550 Completed 201202/15/2014 IMPRESSI ON: CHRONIC, MILD. MAY PURSUE CHIRO CARE. NO RED FLAG SXS OF CONCERN. ; RECORDED 10/24/19 13 9:14AM BY RIANNA CHAVIRA MA, ANNOTATI ON/ADDEN DUM Not Available [facility] 4 06:27:20 Contact dermatit is 06931306 Active RADHA Diop, [facility] 1 09:34:16 Contrace ption care manageme nt Completed 201102/15/2014 IMPRESSI ON: PT TO CONSIDER CHANGING TO LOWER DOSE HORMONE PILL. WILL LET ME KNOW, HAPPY TO FAX TO THE PHARMACY FOR HER.; RECORDED 02/08/20 12 10:43AM BY YAZMIN GAMBLE MA, TIFFANIE ON/ADDEN DUM Not Available [facility] 4 06:27:20 Dysuria 96442489 Completed 201102/15/2014 RECORDED 02/08/20 12 10:43AM BY YAZMIN GAMBLE MA, ANNOTATI ON/ADDEN DUM Yvette bernabe, [facility] 8 14:01:36 Follow-u p encounte r Completed 201202/15/2014 RECORDED 03/05/20 13 8:58AM BY YAZMIN GAMBLE MA, ANNOTATI ON/ADDEN DUM Not Available [facility] 4 06:27:21 Influenz a vaccine needed [id number] 06 Completed 200702/15/2014 RECORDED 05/26/20 08 9:46AM BY NEIL COOPER, OFFICE VISIT Not Available [facility] 4 06:27:21 General examinat ion of patient Completed 200802/15/2014 RESOLVED DATE: 11/23/19 09; RECORDED 11/23/19 09 2:02PM BY TIFFANIE GALINDO ON/ADDEN DUM Not Available [facility] 4 06:27:21 Well child 398946900 Completed 201102/15/2014 RECORDED 02/08/20 12 10:43AM BY YAZMIN GAMBLE MA, ANNOTATI ON/ADDEN DUM Not Available [facility] 4 06:27:21 Psychoge orly headache 50063458 Completed 200802/15/2014 RECORDED 11/23/19 09 2:02PM BY TIFFANIE GALINDO ON/ADDEN DUM Not Available [facility] 4 06:27:21 Hyperlip idemia 48562269 Completed 201102/15/2014 RECORDED 02/08/20 12 11:23AM BY ALFREDO LOAIZA PA-C, MEGANATI ON/ADDEN DUM Not Available [facility] 4 06:27:21 Neck pain 84231658 Completed 201302/15/2014 IMPRESSI ON: CHRONIC, PT IS INTEREST ED IN PT, SHE WILL MAKE APPT; RECORDED 12/19/19 14 2:56PM BY YAZMIN GAMBLE MA, TIFFANIE ON/ADDEN DUM Kiki Chet bernabe [facility] 1 15:24:44 Administ ration of bacteria l and viral vaccine Completed 200702/15/2014 RECORDED 06/02/20 08 11:14AM BY LASHAE WARNER, [employer] SALES REPRESENTATIVE, HISTORIC AL SUMMARY Not Available [facility] 4 06:27:21 Non-neop lastic nevus 417167071 Completed 201202/15/2014 STORY: MAINLY OVER BACK, FOLLOWED BY [facility] ADOLFO DERM ANNUALLY .; RECORDED 10/24/19 13 9:14AM BY RIANNA CHAVIRA MA, TIFFANIE ON/ADDEN DUM Not Available [facility] 4 06:27:21 Patient status finding [id number] Completed 10/31/2017 Yvette bernabe [facility] 8 14:01:20 Noninfla mmatory disorder of the vagina 87891336 Completed 201102/15/2014 IMPRESSI ON: UNLIKELY STD, TX TOPICALL Y FOR YEAST, IF POSITIVE FOR GARDNERE LLA WILL CALL AND TREAT, ALREADY TOOK 2 DIFLUCAN ; RECORDED 02/08/20 12 10:43AM BY YAZMIN GAMBLE MA, ANNOTATI ON/ADDEN DUM Not Available [facility] 4 06:27:21 Otitis media 54611962 Completed 10/31/2017 Yvette bernabe [facility] 8 14:01:32 Atypical squamous cells of undeterm ined signific ance on vaginal Papanico laou smear 713023145 Completed 201102/15/2014 RECORDED 02/08/20 12 10:42AM BY YAZMIN GAMBLE MA, TIFFANIE ON/ADDEN DUM Not Available [facility] 4 06:27:21 Cellulit is of digit 34754713 Completed 201202/15/2014 IMPRESSI ON: START ABX, WARM SOAKS, IBU FOR DAY AND PAIN MED AT NIGHT. MONITOR CLOSELY, CALL OFFICE FOR WORSENIN G/PRN; RECORDED 03/05/20 13 8:58AM BY YAZMIN GAMBLE MA, TIFFANIE ON/ADDEN DUM Not Available [facility] 4 06:27:21 Adult health examinat ion Completed 201202/15/2014 RECORDED 05/21/20 13 2:38PM BY YAZMIN GAMBLE MA, TIFFANIE ON/ADDEN DUM Not Available [facility] 4 06:27:21 Seborrhe ic dermatit is 76333636 Completed 201202/15/2014 RECORDED 07/30/19 13 1:17AM BY FER ANTHONY MA, TIFFANIE ON/ADDEN DUM Not Available [facility] 4 06:27:21 Breast finding 584679106 Completed 200802/15/2014 RECORDED 02/09/20 09 9:10AM BY FER ANTHONY MA, MEGANATI ON/ADDEN DUM Not Available [facility] 4 06:27:21 Administ ration of diphther ia, pertussi s, and tetanus vaccine Completed 201202/15/2014 RECORDED 03/05/20 13 8:58AM BY YAZMIN GAMBLE MA, TIFFANIE ON/ADDEN DUM Not Available [facility] 4 06:27:21 Urinary tract infectio us disease 64248788 Completed 201302/15/2014 RECORDED 12/19/19 14 2:56PM BY YAZMIN GAMBLE MA, TIFFANIE ON/ADDEN DUM Yvette bernabe [place] - [facility] 8 14:01:39 Dysuria 65915154 Completed 10/31/2017 Yvette Yip MA null, [facility] 8 14:01:36 Anxiety 51736841 Active Rachel Kohler MA null, [facility] 1 09:34:16 Otitis externa 0066847 Completed 10/31/2017 Yvette Yip MA null, [facility] 8 14:01:43 Acute vaginiti s 30891507 Completed 04/22/2024 Santino Herman [facility] [address], [place], [address] , [facility] 4 15:40:42 Suspecte d COVID-19 929633236 Completed 12/14/2020 Removal Reason: Problem added by user [email or web address] 5 from the COVID-19 watch flag Silva Mcguire [facility], [facility] 1 11:41:37 Neck pain 54892127 Active 2020 Kiki boyle [facility], [facility] 1 15:24:44 Seizure disorder 806578003 Active 2022 Nova Cavazos [facility], [facility] 3 00:22:31 Elevated blood-pr essure reading without diagnosi s of hyperten chi 190702307 Completed 202204/23/2024 GABY TRUJILLO MD [address], [place], [address] , [facility] 4 10:42:18 Chronic pain syndrome 944868496 Active 2023 Jac Rabago PA-C [address], [place], [address] , [facility] 4 14:14:36 Major depressi ve disorder 157021465 Active 2023 Jac Rabago PA-C [address] [address], [place], [address] , [facility] 4 14:14:51 History of Lyme disease 519729121 Active 2023 Jac Rabago PA-C [address], [place], [address] , [facility] 4 14:16:35 Vitamin D deficien cy 07897595 Active 2023 GABY TRUJILLO MD [address], [place], [address] , [facility] 4 10:41:52 Candidia sis of vagina 72983088 Active 2023 Santino Herman [facility] [address] [address], [place], [address] , [facility] 4 15:39:31 Acute vaginiti s 35593652 Active 2023 Santino Herman [facility] [address], [place], [address] , [facility] 4 15:40:42 Candidia sis of mouth 34894415 Active 2023 Santino Herman [facility] [address] [address], [place], [address] , [facility] 4 15:57:51 Problem Notes None recorded. Procedures Surgical History Date Name Laterality Status Provider Name and Address Organization Details Recorded Time 3 injection of facet joint completed Kacy Salamanca [facility] 02/01/2023 11:39:25 4 Date of Last Pap Smear completed Rachel Kohler MA [facility] 04/01/2014 12:57:30 Imaging Results None recorded. Procedure Notes None recorded. Medical Equipment None Reported. Allergies Allergen ID Allergen Name Allergen Category Reaction Reaction Severity Criticality Documentation Date Start Date Code Code System Note Provider Name and Address Organization Details Recorded Time 17814 Wellbutri n medicatio n seizure severe unabletoasse ss 04/03/20222021 00980 RxNorm belie celestino to have contr ibute d to new onset grand mal seizu re - if other cause found , this charles rgy can be d/c Gertrude Mcdaniels RN [facility], [place] - [facility] 14:59:40 Medications Name Sig Start Date Stop [...] RECORDED 11/06/19 14 2:47PM BY RACHEL KOHLER ANNOTATI ON/CARMENLEONARDO PREM;SHE GOT IT FROM HER UROLOGIS T Not [...] RECORDED 10/31/19 13 1:52PM BY ALFREDO LOAIZA, PA-C, MEDICATI ON AUTO-JUNI CTIVATIO N; Not [...] TAKE 1 CAPSULE BY MOUTH EVERY DAY 2024 active Not Available Not Available Not Avai lable lorazepam 1 mg tablet Take 1 tablet [...] TAKE 1 CAPSULE BY MOUTH EVERY DAY 2024 active Not Available Not Available Not Avai lable biotin one po daily 12/14 completed Not Available Not Available Not Available riboflavi n (vitamin B2) 400 mg 1 po qd active Not Available Not Available No t Available Vitamin D active Not Available Not Nelda ilable Not Available 2 tabs daily po 12/14 completed Not Available Not Available Not Available fexofenad ine NEEDED 09/30 completed RECORDED 10/01/19 12 9:37AM BY TIFFANIE CHOW/MEGHNA AMARO; Not Available Not Available Not Available [...] Updated DateTime 4 170.18 cm 22.3 kg/m2 63288.2 2 g 99 % 99 % 72 /min 98 [degF] 123 mm[Hg] 73 mm[Hg] Rachel Kohler MA [facility] 4 13:26:10 Date Recorded Body height Body mass index (BMI) Body weight Oxygen saturation Oxygen saturation in Arterial blood by Pulse oximetry Heart rate Body temperature Systolic blood pressure Diastolic blood pressure Provider Name and Address Organization Details Last Updated DateTime 4 170.18 cm 21.7 kg/m2 89957.5 5 g 99 % 99 % 67 /min 97.6 [degF] 112 mm[Hg] 67 mm[Hg] Rachel Kohler MA [facility] 4 10:30:23 Date Recorded Body height Body mass index (BMI) Body weight Heart rate Oxygen saturation Oxygen saturation in Arterial blood by Pulse oximetry Body temperature Systolic blood pressure Diastolic blood pressure Provider Name and Address Organization Details Last Updated DateTime 4 170.18 cm 21.9 kg/m2 57979.9 3 g 62 /min 100 % 100 % 97.8 [degF] 107 mm[Hg] 68 mm[Hg] Chandra mackay MA [facility] 4 09:43:03 Date Recorded Body height Body mass index (BMI) Body weight Heart rate Oxygen saturation Oxygen saturation in Arterial blood by Pulse oximetry Body temperature Systolic blood pressure Diastolic blood pressure Provider Name and Address Organization Details Last Updated DateTime 4 170.18 cm 22.7 kg/m2 48660.8 9 g 76 /min 98 % 98 % 98.3 [degF] 125 mm[Hg] 74 mm[Hg] Danielle Novoa MA [facility] 4 09:46:42 Date Recorded Body height Body mass index (BMI) Body weight Oxygen saturation Oxygen saturation in Arterial blood by Pulse oximetry Heart rate Body temperature Systolic blood pressure Diastolic blood pressure Provider Name and Address Organization Details Last Updated DateTime 4 170.18 cm 22.7 kg/m2 29099.8 9 g 100 % 100 % 75 /min 98.3 [degF] 126 mm[Hg] 80 mm[Hg] Rachel Kohler MA [facility] 4 15:30:03 Social History Question Answer Notes LastModified by Organizat ion Details LastModified Time Tobacco Smoking Status Never Smoker RADHA Diop [facility] 02/18/2014 13:45:04 Do You Have An Advance Directive? No [email or web address] Information not available 05/11/2022 What Is Your Level Of Alcohol Consumption? Occasional Information not available 02/18/2014 Animal Exposure? Yes [email or web address] Information not available 05/11/2022 Do You Wear A Helmet When Biking? Yes [email or web address] Information not available 05/11/2022 Is Blood Transfusion Acceptable In An Emergency? Yes [email or web address] Information not available 04/01/2014 What Is Your Level Of Caffeine Consumption? Occasional Every Other Day, Coffee X 1 Information not available 09/20/2016 How Much Tobacco Do You Chew? None [email or web address] Information not available 04/01/2014 Are You Currently Employed? Yes [email or web address] Information not available 02/18/2014 What Type Of Diet Are You Following? REGULAR [email or web address] Information not available 02/18/2014 Which Illicit Or Recreational Drugs Have You Used? 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 No [email or web address] Information not available 05/11/2022 How Many Days In The Past Year Have You Had A Heavy Drinking Consumption (4+ Female, 5+ Male)? 10 [email or web address] Information not available 05/11/2022 Are There Any Guns Present In Your Home? No [email or web address] Information not available 05/11/2022 What Is Your Home Situation? Other [email or web address] Information not available 05/11/2022 Legally Blind In One Or Both Eyes? No [email or web address] Information not available 05/11/2022 Do You Take Precautions To Prevent Distracted Driving? Yes [email or web address] Information not available 04/23/2024 How Often Do You Need To Have Someone Help You When You Read Instructions, Pamphlets, Or Other Written Material From Your Doctor Or Pharmacy? Never Information not available 09/20/2016 Have You Served In The ? No Information not available 09/20/2016 Marital Status Domestic Partner Information not available 05/11/2022 Total Number Of Stairs In Home 14 [email or web address] Information not available 05/11/2022 How Many Children Do You Have? 2 Information not available 06/19/2024 Do You Use Protection During Sex? No [email or web address] Information not available 04/01/2014 Difficulty Reading? No [email or web address] Information not available 05/11/2022 What Is Your Relationship Status? Clayton snider Information not available 06/19/2024 Seat Belts Used Routinely Yes [email or web address] Information not available 05/11/2022 Are You Sexually Active? Yes [email or web address] Information not available 04/01/2014 Are You Passively Exposed To Smoke? No Information not available 09/20/2016 How Much Tobacco Do You Smoke? No Information not available 09/20/2016 What Types Of Sporting Activities Do You Participate In? Running, Hiking, Kayaking, Rock Climbing [email or web address] Information not available 05/11/2022 Do You Use Any Illicit Or Recreational Drugs? No [email or web address] Information not available 05/11/2022 Do You Use Sunscreen Routinely? Yes [email or web address] Information not available 02/18/2014 Sex: Unknown Functional Status Question Answer Note LastModified by Organizat ion Details LastModified Time Do you have difficulty walking or climbing stairs? No [email or web address] Information not available 05/11/2022 Difficulty driving at night? No [email or web address] Information not available 05/11/2022 Are you able to walk? YESWOREST [email or web address] Information not available 08/10/2022 Are you able to care for yourself? Yes [email or web address] Information not available 02/18/2014 Do you have difficulty dressing or bathing? No [email or web address] Information not available 05/11/2022 What is your exercise level? Moderate treadmill 1-2/week Information not available 09/20/2016 Mental Status Question Answer Note LastModified by Organization D etails LastModified Time Do you have difficulty concentrating, remembering or making decisions? Yes [email or web address] Information no t available 05/11/2022 Family History [...] available 2016 11:39:58 Father Interstitial lung disease [email or web address] Not available 09:46:25 Father Cerebrovascu lar accident [email or web address] Not available 10:32:40 Mother Heart disease 65 abolcun Not available 2014 10:22:50 Mother Myocardial infarction [email or web address] Not available 10/2021 09:46:25 Mother Coronary atherosclero sis [email or web address] Not available 05/11 09:46:25 Brother Obesity [email or web address] Not available 09/20/2016 11:40:32 Sister Obesity [email or web address] Not available 0 09/20/2016 11:40:35 Medical History Condition Response Other N Gout N Kidney Stones N Blood Diseases N Hyperthyroidism N Breast Cancer N Hypothyroidism N Lung Disease N COPD N Depression Y Defects or Inherited Disease N Anesthesia Complications N Headaches/Migraines Y Varicose Veins N Anxiety Disorder Y Obesity N Vision or Eye Problems N [...] N Bladder Problems Y Mental Illness N Ovarian Cancer N Diabetes N Blood Transfusions N Seizures/Epilepsy N Tuberculosis N AIDS/HIV N Congestive Heart Failure (CHF) N Eczema N Diverticulitis N Abuse/Domestic Violence N Asthma N Allergies Y Reflux/GERD N [...] high-dose, trivalent, PF 4 completed Not Available [facility] 12/19/2020 20:02:54 Influenza, split virus, trivalent, preservative 6 completed Gertrude Mcdaniels RN null, [facility] 04/03/2022 15:18:11 COVID-19, mRNA, LNP-S, PF, 30 mcg/0.3 mL dose 1 completed Rianna Chavira MA null, [facility] 04/11/2022 12:54:47 Influenza, split virus, quadrivalent, preservative 1 completed RADAH Diop, [facility] 06/19/2021 14:49:17 COVID-19, mRNA, LNP-S, PF, 30 mcg/0.3 mL dose 0 completed RADHA Diop, [facility] 06/19/2021 14:50:39 COVID-19, mRNA, LNP-S, PF, 30 mcg/0.3 mL dose 1 completed RADHA Diop, [facility] 06/19/2021 14:51:22 Influenza, MDCK, quadrivalent, PF 7 completed Gertrude Mcdaniels RN null, [facility] 04/03/2022 15:18:10 Influenza, split virus, quadrivalent, PF 8 completed Gertrude Mcdaniels RN null, [facility] 04/03/2022 15:18:10 Influenza, split virus, quadrivalent, PF 9 completed Gertrude Mcdaniels RN null, [facility] 04/03/2022 15:18:10 Influenza, split virus, quadrivalent, PF 1 completed Gertrude Mcdaniels RN null, [facility] 04/03/2022 15:18:10 Tdap 9 completed Gertrude Mcdaniels RN null, [facility] 04/03/2022 15:18:10 Influenza, split virus, quadrivalent, PF 0 completed Gertrude Mcdaniels RN null, [facility] 04/03/2022 15:18:11 Influenza, split virus, quadrivalent, PF 2 completed RADHA Diop, [facility] 08/10/2022 10:14:13 influenza, unspecified formulation 2 completed RADHA Diop, [facility] 08/10/2022 10:20:47 COVID-19, mRNA, LNP-S, bivalent, PF, 50 mcg/0.5 mL or 25mcg/0.25 mL dose 3 completed RADHA Jansen, [facility] 11/16/2022 11:24:09 COVID-19, mRNA, LNP-S, PF, prasanth-sucrose, 30 mcg/0.3 mL 4 completed RADHA Diop, [facility] 04/02/2024 13:26:29 COVID-19, mRNA, LNP-S, PF, 50 mcg/0.5 mL 3 completed RADHA Diop, [facility] 04/02/2024 13:26:29 Influenza, split virus, quadrivalent, PF 3 completed RADHA Diop, [facility] 04/02/2024 13:26:29 Influenza, split virus, trivalent, PF 4 completed RADHA Jansen, [facility] 05/26/2024 09:46:11 Tdap 6 completed Not Available [facility] 12/19/2020 20:02:54 Influenza, split virus, trivalent, preservative 8 completed Not Available [facility] 12/19/2020 20:02:54 Tdap 3 completed Not Available [facility] 12/19/2020 20:02:54 Influenza, split virus, trivalent, preservative 3 completed Not Available [facility] 12/19/2020 20:02:54 Past Encounters Encounter ID Performer Location Encounter Start Date Encounter Closed Date Diagnosis/Indication Diagnosis SNOMED-CT Code Diagnosis ICD10 Code Diagnosis Note [id number] [facility] erce [address] [place] [address] 12/30/2006 00:00:00 [id number] auto[facility] erce [address] [facility] [place] [address] 05/06/2007 00:00:00 [id number] [facility] erce [address] [facility] [place] [address] 05/20/2007 00:00:00 [id number] [facility] erce [address] [facility] [place] [address] 05/26/2008 00:00:00 [id number] [facility] [facility] [address] [facility] [place] [address] 11/22/2008 00:00:00 [id number] auto[employer] erce [address] [facility] [place] [address] 02/08/2009 00:00:00 [id number] auto[employer] erce [address] [facility] [place] [address] 07/28/2009 00:00:00 [id number] [employer] erce [address] [facility] [place] [address] 10/20/2009 00:00:00 [id number] auto[employer] erce [address] [facility] [place] [address] 01/28/2010 00:00:00 [id number] [employer] [facility]ce [address] [facility] [place] [address] 10/27/2010 00:00:00 [id number] auto[employer] erce [address] [facility] [place] [address] 11/28/2010 00:00:00 [id number] [facility] [address] [facility] [place]ita cal[place]ón, RADHA [address] 02/08/2012 00:00:00 [id number] [facility] [facility]ce [address] [facility] [place], [place] [address] 10/23/2012 00:00:00 [id number] [facility] erce [address] [facility] [place], [place] [address] 11/05/2013 00:00:00 [id number] [employer]ce [address] [facility] [place], [place] [address] 12/19/2013 00:00:00 [id number] Main Office [address] [place] [address] [place] [address] 02/18/2014 13:31:24 02/18/2014 14:23:02 Urinary tract infectious disease 37490855 see hx multiple UTI's, unclear if there could be an element of interstiti al cystitis. Pt green et up appt [facility] urologist, hydrate, void after intercours e and gather her urine culture and sensitivit ies so she can show to urology to help if going to go on preventive med. PT to call if feels more ill, if any abdominal pain needs to do a test, no concern now for ectopic Dysuria 02522715 [id number] Tiki Cortés Main Office [address] [address] [place] [address] 04/01/2014 12:52:55 04/01/2014 13:38:04 Adult health examination 947492129 pap smear is utd, pt is active, eats well, pt will start a one a day vitamin. Urinary tr act infectious disease 13959310 having workup for recurrent UTI, stresse to pt hydration is so important, followup with urology Anxiety 25346780 pt feel s so well on zoloft 50mg, it really helpps, has sexual side effects, pt is trying to get so will not change to wellbutrin . 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 Otitis externa 7052982 p marianne on the left. Currently no signs of infection. Possible eustachion tube dysfunctio n. Already using a nasal spray and has Sudafed at home. The symptoms are manageable and she wanted to be sure that she had cleared the infection. [id number] Kiki Chet boyle Main Office [address] [facility] [address] [place] [address] 09/20/2016 11:00:09 09/20/2016 12:06:43 Adult health examination 551828038 Z00.00 HM UTD, flu vaccine in march, TDAP in 2015, pap UTD. Doing well. Anxiety 25490666 F41.9 Mild anxiety disorder, EJRICA shows mild anxiety. Discussed sertraline which is safe with breastfeed ing, she is still a bit uncomforta ble with taking it while breastfeed ing. She would like the prescripti on and will call back for f/u in 1 month for recheck if she does decide to start med. SSRIs discussed with patient. Impacted cerumen 1884899 6 H61.22 Left, lavaged. [id number] Carolstaci Johnson Main Office [address] [facility] [address] [place] [address] 12/14/2020 15:02:43 12/14/2020 15:56:04 Suspected Lyme disease 720543626 Z03.89 Pt appears to have lyme disease clinically , although test neg in ED, will repeat tests in 2 week, finish doxycyclin e . Rest, hydration, call if not continuing to improve, ED if worse with back pain or headache. Labs today Spasm of m uscle of lower back [id number] M62.830 Rest, try flexeril, call or ED if acutely worse or focal neuro sx. Likely muscle spasm [id number] Main Office [address] [facility] [address] [place] [address] 12/26/2020 09:29:27 12/26/2020 10:11:22 Lyme disease 20322876 A69.20 Pt has been taking doxycyclin e and is finally starting to improve; will continue for another week. 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 Mild neck discomfort , back pain better. 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 will refer to PT for therapy to help with muscle tension HUERTA and pt to come in for a PE in a month with /Nova Neck pain 92907826 M54.2 see above [id number] Nova Mcgheeapefaheem Main Office [address] [place], [place] [address] 04/03/2022 14:32:14 04/03/2022 15:13:13 [id number] Nova Marlonustapent Main Office [address] [place], [place] [address] 04/11/2022 09:14:26 04/11/2022 14:07:10 Seizure disorder [id number] G40.909 New onset, see discharge summary. Pt [...] by neurology for RTW and driving. Fatigue 16165155 R53.83 feeling achy in neck with fatigue? lyme again, will do testing for this. Discussed possibilit y positive might be related to old lyme from last year, pt wants to do test. Might be related to side effect coming off of wellbutrin and stress. Anxiety 27484298 F41.9 Huerta med prescriber Dee Ocampo, has appt upcoming to discuss meds. Suggested counseling . [id number] Nova Dirk Main Office [address] [address] [place] [address] 05/11/2022 09:45:56 05/11/2022 15:50:55 Seizure disorder 086595182 G40.909 New onset Pt is on Keppra [...] RTW and driving. History of Lyme disease 177554021 Z86.19 ? new infection vs reactivati on, put on doxycyclin e, has followup planned Neuralgia 31789237 M79.2 Korey try adding at night, call if not helping [id number] Nova Masoncelia Main Office [address] [address] [facility] [place] [address] 07/13/2022 13:48:30 07/13/2022 15:14:10 Headache 50189705 R51.9 on gabapentin 300 mg tid, will be getting right occipital nerve injection soon, has in person visit with headache specialist at in 2 weeks. Neck pain 30365796 M54.2 Try PT consider MRI if not better. Short term followup Stretching an heat, meds as listed Seizure disorder 9399494 02 G40.909 Pt is off Keppra 750 mg bid, no further seizures. She had followup with neurology at the seizure clinic on 05/22/22 and had a second opinion. Awaiting notes. An MRI has been ordered by seizure clinic and pt is waiting for a date. She will need to be cleared by neurology for RTW and driving. [id number] Carol Johnson Main Office [address] [place] [address] 08/10/2022 10:05:49 08/10/2022 11:41:46 Adult health examination 096898755 Z00.00 Pt in good general health. He sees the dentist and will see eye provider to followup on eye pain. HCM screenings up to date, Tdap up to date, had covid and flu vaccines Diet is balanced, see history for lifestyle choices Anxiety state 621754637 F41.1 ok on current meds, will check into counseling /family counseling , likely needs to be on additional meds other than buspar Neck pain 24270344 M54.2 MRi done bulging disc C5-6, could consider EDSI with [facility], starting PT next week for this Seizure disorder 6255230 02 G40.909 Pt is off Keppra 750 [...] resume in 2 months Cervico-oc cipital neuralgia 59339340 M54.81 will be getting injection through [facility] Major depr essive disorder 467921565 F32.9 see above, doing will try tapping, try to reach out for counseling and kids evaluation at school History of Lyme disease 408667177 Z86.19 Treated for this x2 , has been discharged from infectious disease provider. Pain of right eye 220585 6045 59548 H57.11 Due to ongoing pain , will have her see opthamolog y [id number] Nova Cavazos Main Office [address] [facility] [address] [facility] [place] [address] 09/07/2022 10:03:40 09/10/2022 10:43:56 Essential hypertension 97592178 I10 Pt likely has some hypertensi on now, she will start treatment and monitor BP, call with readings next week Chronic da rolly headache 8037412989 17995 R51.9 Headache since seizure disorder, has had negative imaging and only temporary relief with otc meds. ? if this is related to blood pressure. She had some occipital nerve injections which were of limited help. Pain of right eye 104478 4151 83022 H57.11 Has continued posterior eye pain with negative evaluation s, Elevated blood-pressure reading without diagnosis of hypertension 456240876 R03.0 Pt does not have a history of HTN but readings lately elevated consistent ly. She would like to try BB to see if this helps for BP and possibly headache prevention . Will monitor her blood pressure and symptoms closely Neck pain 13671454 M54.2 Acute pain with elevate blood pressure, pt is concerned about a issue with blood vessels in the head and neck causing the triad of neck pain, headache and eye pain. Will do CTA of head and neck [id number] Nova Dirk Main Office [address] [place] [address] 11/16/2022 10:48:45 11/16/2022 14:56:30 Chronic daily headache 9296911063 97658 R51.9 better now with BB, will continue Pain of right eye 036741 1821 57283 H57.11 eye pain better, nomral exams Neck pain 69998485 M54.2 Having EDSI upcoming, better. We were going to do a CTA of head and neck but she decided against it for now. Call if anyworseni ng. Essential hypertension 28295222 I10 Pt doing well on current treatment with propranolo l, no changes, pulse > 60, BP good [id number] Deana Rabago PA-C [facility] [address] [place] [address] 12/10/2022 09:37:47 12/10/2022 10:52:51 Dysuria-frequency syndrome 3094361 R30.0 Pt with past h/o interstiti al cystitis. WE will check U/A and culture and treat per results. PT. is advised to increase hydration. [id number] Jac Rabago PA-C Main Office [address] [place] [address] 04/02/2024 13:12:50 04/02/2024 14:15:22 Chronic pain syndrome 404744372 G89.4 chronic pain - huerta, R eye, back, RLE - fol by neuro - cont f/u c them, had mri, pending repeat lumbar punctureco nt gbn as dirsee below Major depr essive disorder 082857398 F32.1 mod dep on phq - ? has psychosoma tic c/o aboveconsi cathy trial of duloxetine - start c 30mg qd - if tolerates but no sig improvemen t then increase to 60mg qd History of Lyme disease 800009062 Z86.2021 - had meningitis - [facility] - seen by ID, never seen by rheum = will get eval Anxiety 37894335 F41.9 stopped buspar acutely recently - was rx'd by [facility] - discharged , no longer sees themsee aboveno see therapist - consider it [id number] GABY TRUJILLO MD Main Office [address] [facility] [address] [place] [address] 04/23/2024 10:23:44 04/23/2024 11:10:41 Chronic pain syndrome 317729673 G89.4 - pt has chronic headaches and [...] this medication ) Major depr essive disorder 989918475 F32.1 - PHQ-9 score of 13- pt was started on duloxetine ER 30mg QD -> there has been improvemen t on the medication , will hold increase at this time until memory testing is done- concerned that memory problems and inattentio n are more due to depression and anxiety- pt referred to psychiatry - [facility] SI/HI- maribel esquivel provided History of Lyme disease 495183254 Z86. - pt has been referred to infectious disease Anxiety 08402911 F41.9 - JERICA-7 score of 14- pt stopped buspar- pt was previously following with psych- pt is currently on duloxetine 30mg QD and propanolol ER 120mg> has noticed some improvemen t with the duloxetine (started on 04/02/2024) > not change at this time- maribel esquivel provided- RTC in 4 weeks Seizure disorder 2473569 02 G40.909 - occurred 2 years ago while on the wellbutrin - after seizures patient developed chronic pain- pt is currently off all seizures meds, was on keppra 750mg BID Adult heal th examination 009642841 Z00.00 Health Maintenanc e FemaleA) Patient was [...] nfluenza: 03/31/2024T dAP: 08/20/2018Z oren: due at 97TUZ56: due at 16EATI87: due at 70HID21:PC V15:COVID: 06/23/2020 , 07/14/2020, 04/05/2021, 10/08/2022, 04/11/2023, 03/31/2024 D) Routine blood work orderedE) Updated patient's history RTC in one year for annual exam or sooner if any acute complaints Screening for malignant neoplasm of cervix 215328141 Z12.4 Screening for malignant neoplasm of colon 671974180 Z12.11 Fatigue 50043027 R53.83 Hyperlipidemia 69329459 E78.5 HIV screening 998650179 Z11.4 Hepatitis C screening 41 5710423 Z11.59 Vitamin D deficiency 347 18018 E55.9 Memory impairment 673492 006 R41.3 - pt concerned about her memory loss- has spoke to neurology about this however per patient her concerns were dismissed- MRI completed and was normal- blood work ordered- feel as symptoms are more due to mood/anxie ty compoment- RTC in 3 weeks for memory impairment Venereal d isease screening 100067706 Z11.3 Z72.89 F03.90 [id number] GABY TRUJILLO MD Main Office [address] [facility] [address] [facility] [place] [address] 05/16/2024 09:35:35 05/16/2024 10:04:05 Memory impairment 524633071 R41.3 - 6CIT score of 2 and [...] improving on duloxetine Chronic pain syndrome 37 0949976 G89.4 - pt has chronic headaches and [...] is doing better Major depr essive disorder 357423845 F32.1 - pt was started on duloxetine ER 30mg QD -> there has been improvemen t on the medication , will hold increase at this time until memory testing is done- concerned that memory problems and inattentio n are more due to depression and anxiety- pt referred to psychiatry - denies SI/HI- maribel roman [id number] Deana Rabago PA-C Main Office [address] [facility] [address] [place] [address] 05/26/2024 09:27:32 05/26/2024 10:15:01 Localized eruption of skin 468266102 R21 Non infectious rash, ore looking like possibly inflammato ry in nature and is now resolving. Pt. has planned bone marrow procedure. NO contraindi cation is present to proceed in terms of this rash. [id number] WILL Rasmussen Main Office [address] [facility] [address] [place] [address] 06/19/2024 15:18:59 06/19/2024 15:53:24 Candidiasis of vagina 65357302 B37.31 will tx with fluconazol e once daily x 7 days due to vaginitis and thrush. She declined pelvic exam today as she has her 2 children with her. She self swabbed for vaginitis. Acute vaginitis 95983449 N76.0 metrogel as directed x 5 days, will confirm via vaginitis swab Candidiasis of mouth 79 85755 B37.0 has been using clotrimazo le troches [...] Guarantor Name 04/02/2024 1 [place] [id number] Clayton Slaughterest [id number] 85 Tania Rivqasim 04/23/2024 1 [place] [id number] Clayton Slaughterest [id number] 85 Tania Rivest 05/16/2024 1 [place] [id number] Clayton Bellamy Rivest [id number] 85 Tania Rivest 05/26/2024 1 [place] [id number] Clayton Bellamy Rivest [id number] 85 Tania Rivest 06/19/2024 1 [place] [id number] Clayton Slaughterest [id number] 85 Tania Esquivel Notes Date Note Type [...] has made mistakes. reviewed last neuro note 8.1.24 - printed/handed to pt Jac Rabago PA-C [address] [address], [place], [address], [facility] 04/02/2024 14:17:19 04/23/2024 text/html Tania Esquivel is [...] limit meatActivity: none GABY TRUJILLO MD [address], [address], [facility] 04/23/2024 12:53:26 05/16/2024 text/html Tania Esquivel is [...] to uncontrolled mood. GABY TRUJILLO MD [address] [address], [place], [address], [facility] 05/16/2024 11:04:13 05/26/2024 text/html 44 year old [...] chills, vesicular presentation. Deana Rabago PA-C [address] [address], [place], [address], [facility] 05/26/2024 10:29:45 06/19/2024 text/html Generic HPI TemplateReported bypatient.Notes:Patien tree was on dexamethasone for SI joint pain. Developed thrush and is taking clotrimazole but she also has sx of vaginitis now, itching, discharge. denies urinary sx. Santino Herman, [facility] [address] [address], [place], [address], [facility] 06/19/2024 15:58:29 OBGyn Episode No OBEpisode recorded.
--- OUTSIDE RECORDS SUMMARY | 2024-09-01 15:15 | XMS_ITS | Clinical Summary ---
Author Organization [facility] Address [address] [place] [address] Care Team Providers Care Technical Applications Specialist Name Role Phone Deisy Dennis MD Primary [...] HIGH RISK PATIENTS (#1) 05/23 Care Teams Technical Applications Specialist Relationship Specialty Start Date End Date Paulina-Deisy Pittman MD PCP - General Internal Medicine 01/26/16 Aaliyah Rodriguez MD Internal Medicine 01/26/16
--- OUTSIDE RECORDS SUMMARY | 2024-09-01 15:15 | XMS_ITS | Encounter Summary ---
Author Organization [facility] Address [address] [place] [address] Care Team Providers Care Outdoor Pursuits Instructor Name Role Phone Deisy Dennis MD Primary Care Provider Unavailable Aaliyah Rodriguez MD Unavailable Unavailab le Encounter Details Date Type Department Care Team Description 04/10/2023 Orders Only Medical Records [address] [place] [id number] Abstract, Provider Social History Tobacco Use Types Packs/Day Years Used Date Smoking Tobacco: Never Smokeless Tobacco: Never Alcohol Use Standard Drinks/Week Comments Yes 0 (1 standard drink = 0.6 oz pur e alcohol) 1-2 drinks per week Sex Assigned at Date Recorded Not on file documented as of this encounter Plan of Treatment Not on file documented as of this encounter Procedures Procedure Name Priority Date/Time Associated Diagnosis Comments OUTSIDE PLAIN FILM Routine 03/20/2023 documented in this encounter Results * OUTSIDE PLAIN FILM (03/20/2023) Provider Abstract RADIOLOGY documented in this encounter Visit Diagnoses Not on filedocumented in this encounter Care Teams Outdoor Pursuits Instructor Relationship Specialty Start Date End Date Deisy Dennis MD PCP - General Internal Medicine 01/26/16 Aaliyah Rodriguez MD Internal Medicine 01/26/16 documented as of this encounter
--- OUTSIDE RECORDS SUMMARY | 2024-09-01 15:15 | XMS_ITS | Clinical Summary ---
Author Organization [facility] Address [phone] [facility] [place] [address] Care Team Providers Care Gas Engineer Name Role Phone Deisy Dennis MD Primary Care Prov ider Allergies Active Allergy Reactions Criticality Noted Date Comments Adhesive Tape-Silicones 05/22/2020 Medications Medication Sig Dispensed Refills Start Date End Date Status vit,twiq27-qbzg-kxrfa (PRENATABS RX) 29 mg iron- 1 mg [...] Medical Devices Not on file Care Teams Gas Engineer Relationship Specialty Start Date End Date Deisy Dennis MD [address] [place] [phone] PCP - General Internal Medicine 05/22/20 Additional Source Comments The information contained in this document represents components of the legal health record. It is not the complete legal health record.[facility]
== END 2024-09-01 12:35 | disposition home or self-care (01) ==
LOC: HO.LAB 12:34
PROVIDERS: PCP Student in an Organized Health Care Education/Training Program; Visit Provider Nurse Practitioner Family
DX: G43.109 Migraine with aura, not intractable, without status migrainosus (principal); M54.2 Cervicalgia; G40.909 Epilepsy, unspecified, not intractable, without status epilepticus
CPT/HCPCS: 36415; 80053; 80156; 85025

== ENCOUNTER 2024-09-21 09:31 | Outpatient (AMB) | payer BC, SELFPAY ==
[2024-09-21 09:46] VITALS: BP 132/64; PULSE 76; RESP 16; O2SAT 100; BMI 24.4
--- NOTE | 2024-09-21 09:46 | MHC.OFFVIS ---
Vital Signs 09/21/24 09:46 Height 5 ft 6 in Weight 151 lb BMI 24.4 BP 132/64 Blood Pressure Location Lt brachial Position Sitting Respiration 16 Pulse 76 Pulse Source Pulse Oximeter Pulse Oximetry (%) 100 Oxygen Delivery Method Room Air Intake Visit Reasons: 1 month fu Dog Handler Or Trainer Required: No Medical Detail Representative: Medical Detail Representative Present Accompanied by: Roderick Phillips Allergies bupropion [From Wellbutrin] Allergy (Severe, Verified 09/21/24 09:47) Seizure Medication List - Last Reconciled 09/21/24 by Zoey Frost LPN carbamazepine ER 100 mg PO BID 30 days cyclobenzaprine 5 mg PO DAILY PRN duloxetine 30 mg PO DAILY gabapentin 300 mg PO TID galcanezumab-gnlm (Emgality Pen) 240 mg (2 mL) subcut ONCE 30 days magnesium oxide 400 mg PO DAILY meclizine 12.5 mg PO TID PRN mupirocin 2% 1 appl topical TID 5 days ondansetron 4 mg PO Q8H PRN propranolol ER 120 mg PO DAILY riboflavin (vitamin B2) 100 mg PO DAILY sumatriptan succinate 50 - 100 mg orally at onset of headache, may repeat in 2 hrs PRN; max 2 tabs per day or 4 tabs/week (may take with naproxen) 30 days HPI HPI 1 month fu: Details: History of Present Illness The patient is a 44-year-old female presenting with a follow-up visit after a supraorbital and supratrochlear blocks with bupivacaine, conducted a month prior, for management of chronic migraines. The neuroplasty provided partial relief that lasted for several hours post-treatment, but the headache returned to baseline the following day, and she continues to experience severe headaches daily. To manage the pain, the patient utilizes sumatriptan almost daily. During the visit, the patient expressed interest in optimizing the effectiveness of nerve block placement to better target the headache area, specifically increasing numbness around the nerve sites while minimizing ocular involvement. The patient also reported symptoms suggestive of possible right sacroiliac joint pain and is currently undergoing treatment for right-sided pain related to neck issues, which might be contributing to her shoulder discomfort. Her ongoing medication regimen includes gabapentin, although feedback on its efficacy was not detailed. Pain Description - Onset and Timing: Daily migraines, worsens by end of day - Quality and Character: Severe and frequent, requiring daily sumatriptan - Primary Location: Head, specifically around the supraorbital and supratrochlear areas - Exacerbating Factors: Duration of the day and work-related stressors - Relieving Factors: Initial nerve block, sumatriptan, additional nerve anesthetics consideration - Areas of Radiation: Not explicitly detailed Physical Exam - Appears afebrile. - Alert and oriented. - Mood and affect appropriate. - Follows and participates in conversation appropriately. - Respiratory effort is unlabored. - Able to transition from sit to stand unassisted. - Ambulates with bilaterally normal heel strike and toe off. - Able to stand and walk on toes and heels. Results Pain Management - Affect: Patient reports constant sharma with debilitating migraine pain impacting daily function - Analgesia: Current medication includes sumatriptan almost daily and gabapentin, seeking further nerve block adjustments - Adverse Effects: No specific adverse effects discussed - Activities of Daily Living: Migraines significantly affect daily life; the patient attempts work and normal activities despite discomfort - Aberrant Drug-Related Behaviors: None reported [facility] Medical History (Updated 09/01/24 @ 14:11 by Marck Orantes MD) Depression Rosacea Neck pain Lyme disease Anxiety Surgical History Keatchie teeth removed Family History Mother Heart disease Father Lung disease, chronic obstructive Social History (Updated 07/19/22 @ 15:55 by Britney Newman) Alcohol intake: current Alcohol intake frequency: holidays/special occasions only Patient Tobacco Use Status: Never used Tobacco Physical Exam Vital Signs: Last Vital Signs Pulse 76 09/21/24 09:46 Resp 16 09/21/24 09:46 BP 132/64 09/21/24 09:46 Pulse Ox 100 09/21/24 09:46 Oxygen Delivery Method Room Air 09/21/24 09:46 BMI result Body Mass Index 24.4 Assessment & Plan Assessment & Plan (1) Headache: Code(s): R51.9 - Headache, unspecified Category: Medical (2) Benign paroxysmal vertigo, unspecified ear: Code(s): H81.10 - Benign paroxysmal vertigo, unspecified ear Category: Medical Plan Plan For the chronic migraines, I discussed repeating the nerve block procedure with potential adjustments to better target pain relief without affecting visual areas. The patient should monitor the effectiveness and note any patterns in the headache's occurrence. Sumatriptan usage was noted, and her medication regimen may need further evaluation. I briefly discussed emerging therapeutics for neuropathic pain, though not yet available. Regarding possible sacroiliac joint involvement and shoulder pain, I advised continuing physical therapy and will consider additional interventions based on response and future assessments of the patient's progress. Patient was informed and verbally consented to the use of an ambient scribe for clinic note documentation during this visit. Discussion Notes During this visit, I discussed with the patient the options and potential adjustments for repeated nerve blocks to address chronic migraine pain. We talked about the benefits and risks associated with modifying the procedure to achieve better numbness in the targeted areas. I also reviewed potential future options for neuropathic pain that may become available but are not currently approved. The patient agreed with our current plan and seemed to understand the need for ongoing evaluation. Patient Instructions - Continue current use of sumatriptan for migraine relief as needed. - Document occurrences and effectiveness of migraines and pain relief. - Attend all scheduled physical therapy sessions for the shoulder and possible sacroiliac joint pain. - Plan a follow-up visit in one month to assess pain management progress and consider further intervention options. - Consider alternative migraine therapies once they become available and approved. Coding Level of Care Code Est Pt Level 3 (42373) Diagnoses Headache R51.9 Benign paroxysmal vertigo, unspecified ear H81.10
== END 2024-09-21 09:57 | disposition home or self-care (01) ==
LOC: HO.PMC 09:32
PROVIDERS: PCP Internal Medicine; Visit Provider Internal Medicine
DX: R51.9 Headache, unspecified (principal); H81.10 Benign paroxysmal vertigo, unspecified ear
CPT/HCPCS: 99213

== ENCOUNTER → 2024-09-24 15:00 | Outpatient (REF) | payer BC, SELFPAY | LOC: HO.SL 15:00 | PROVIDERS: PCP Student in an Organized Health Care Education/Training Program; Visit Provider Nurse Practitioner Family | DX: R06.83 Snoring (principal); G47.10 Hypersomnia, unspecified; G47.9 Sleep disorder, unspecified | CPT/HCPCS: 95806 ==

== ENCOUNTER 2024-10-14 12:03 | Outpatient (RCR) | payer BC, SELFPAY ==
--- NOTE | 2024-09-01 11:15 | MHC.PT.EP ---
[facility] [place] Office [place] Office [place] Office [address] [place] [address] [phone] F: [phone] F: [phone] F: [phone] F: [phone] Physical Therapy Plan of Care Date of Evaluation: 08/31/24 Date of Surgery: Diagnosis: Benign paroxysmal vertigo, unspecified ear Vestibular eval Assessment: Pt is a pleasant and motivated 44yo F who presents to PT with dizziness. Upon assessment, pt tested negative for B posterior canal BPPV and B horizontal canal BPPV. She had mild increase in symptoms with smooth pursuit and VOR assessment. She had decreased balance with eyes closed on airex and (+) Fukada test. She scored on on DGI assessment. Her signs and symptoms may be consistent with vestibular hypofunction and may also have a cervicogenic component as well. She is an excellent candidate for skilled PT in order to address current impairments to maximize function and management of symptoms. She is recommended to be seen 2x/week for 4 weeks and will be reassessed Frequency and Duration: The patient will be seen 2x/week for 4 weeks Short Term Goals: Pt will be I with HEP to promote self management of symptoms Pt will demonstrate improvements in postural awareness throughout the day Pt will demonstrate ability to get in/out of bed without dizziness or instability [facility] Goals: Pt will ambulate > 100' with intermittent head turns without dizziness or instability safely and independently Pt will demonstrate ability to ascend/descend 1 flight of stairs with reciprocal pattern without UE support without dizziness or instability Pt will return to yoga routine without dizziness or instability Pt will demonstrate improvements in function as evidenced by improvement of DGI of at least 3 points Treatment Plan: Modalities to reduce pain, spasms and effusion. Manual therapy to restore motion and function. Therapeutic exercise to improve strength and flexibility. Neuromuscular re-education for posture and balance. Therapeutic activities to return to functional activities of daily living. Electronically signed by: Ana Chang, PT, DPT Please sign and return to therapist. Thank you for your referral.
--- NOTE | 2024-12-29 17:43 | MHC.PT.DC ---
[facility] [place] Office [place] Office [place] Office [address] Dunia Rey [address] [phone] F: [phone] F: [phone] F: [phone] F: [phone] Physical Therapy Discharge Report Diagnosis: Benign paroxysmal vertigo, unspecified ear Vestibular eval Date of Surgery: Date of Evaluation: 08/31/24 Date of Discharge: 12/29/24 Treatments to Date: 13 Cancellations to Date: No Shows to Date: Discharge Status: Discharge Summary: Pt was seen for skilled PT from 08/31/24-10/14/24. Her last attended appointment was 10/14/24. She cancelled her last scheduled PT appointment. She has been D/C from this PT POC Electronically signed by: Ana Chang, PT, DPT Please sign and return to therapist. Thank you for your referral.
== END 2024-12-29 17:42 | disposition home or self-care (01) ==
LOC: HO.PT 12:03
PROVIDERS: PCP Student in an Organized Health Care Education/Training Program; Visit Provider Nurse Practitioner Family
DX: H81.10 Benign paroxysmal vertigo, unspecified ear (principal)
CPT/HCPCS: 97110; 97112; 97140; 97161

== ENCOUNTER 2024-11-18 09:21 | Outpatient (AMB) | payer BC, SELFPAY ==
--- NOTE | 2024-11-18 09:22 | MHC.OFFVIS ---
Vital Signs 11/18/24 09:23 Height 5 ft 6 in Weight 146 lb BMI 23.6 BP 167/89 H Blood Pressure Location Lt brachial Position Sitting Respiration 16 Pulse 129 H Pulse Source Pulse Oximeter Pulse Oximetry (%) 100 Intake Visit Reasons: 1 MONTH FOLLOW UP/missed on 11/09 Tooling Supervisor Required: No Customer Account Coordinator: Customer Account Coordinator Present Accompanied by: Roderick Phillips Allergies bupropion [From Wellbutrin] Allergy (Severe, Verified 11/18/24 09:24) Seizure Medication List - Last Reconciled 11/18/24 by Zoey Frost LPN carbamazepine ER 200 mg PO BID cyclobenzaprine 5 mg PO DAILY PRN duloxetine 60 mg PO DAILY galcanezumab-gnlm (Emgality Pen) 120 mg subcut ONCE 30 days magnesium oxide 400 mg PO DAILY meclizine 12.5 mg PO TID PRN mupirocin 2% 1 appl topical TID 5 days ondansetron 4 mg PO Q8H PRN riboflavin (vitamin B2) 100 mg PO DAILY sumatriptan succinate 50 - 100 mg orally at onset of headache, may repeat in 2 hrs PRN; max 2 tabs per day or 4 tabs/week (may take with naproxen) 30 days HPI HPI 1 MONTH FOLLOW UP/missed on 11/09: Details: History of Present Illness The patient is a 44-year-old female presenting with chronic migraines. Previous interventions, including supraorbital and supertrochlear nerve blocks, have yielded some reduction in eye sensitivity, although migraines continue to persist, aggravated by bright lights. Recently, the patient encountered an episode of pink eye, compounding her symptoms. Concurrently, she reports chronic issues with the right sacroiliac joint following Lyme disease treatment, characterized by intermittent burning pain, inflammation, and sensitivity, especially after physical exertion like jogging. These symptoms have led to modified activity patterns and management through yoga and ice application. Pain Description - Onset and Timing: Intermittent - Quality and Character: Burning and sensitivity in the sacroiliac joint; reduced eye sensitivity yet persistent migraines - Primary Location: Right sacroiliac joint; eye discomfort - Areas of Radiation: Right buttock - Exacerbating Factors: Physical activity, bright lights - Relieving Factors: Yoga, ice packs, supraorbital nerve blocks - Interference: Affects daily function and eye sensitivity Physical Exam - Appears afebrile. - Alert and oriented. - Mood and affect appropriate. - Follows and participates in conversation appropriately. - Respiratory effort is unlabored. - Able to transition from sit to stand unassisted. - Ambulates with bilaterally normal heel strike and toe off. - Able to stand and walk on toes and heels. - Right SIJ TTP; provocation +ve Results Pain Management - Affect: Chronic migraines and sacroiliac joint pain affect daily activities and mood. - Analgesia: Supraorbital blocks have provided partial relief. - Adverse Effects: Previously experienced constipation with anti-migraine medication (Ubrelvy). - Activities of Daily Living: Jogging exacerbates sacroiliac pain; bright lights worsen migraines. - Aberrant Drug Related Behaviors: None reported. [facility] Medical History (Updated 11/18/24 @ 09:54 by Marck Orantes MD) Depression Rosacea Neck pain Lyme disease Anxiety Surgical History [place] teeth removed Family History Mother Heart disease Father Lung disease, chronic obstructive Social History (Updated 07/19/22 @ 15:[address] [facility]) Alcohol intake: current Alcohol intake frequency: holidays/special occasions only Patient Tobacco Use Status: Never used Tobacco Physical Exam Vital Signs: Last Vital Signs Pulse 129 H 11/18/24 09:23 Resp 16 11/18/24 09:23 BP 167/89 H 11/18/24 09:23 Pulse Ox 100 11/18/24 09:23 BMI result Body Mass Index 23.6 Office Procedures Nerve Block Details: Right supraorbital, supratrochlear nerve blocks After obtaining written consent, pre-procedure blood pressure and heart rate were stable and recorded in the nursing record. The patient was in the sitting position. The skin overlying the target supraorbital and supratrochlear nerve was prepped with alcohol. A 27 gauge 1.5 in needle was used. The needle was placed on the right supraorbital nerve and supratrochlear nerves. Aspiration was negative for heme and synovial fluid. 0.5 cc of 0.5% bupivacaine was used for each nerve. The skin was cleansed and hemostasis was ensured. The patient tolerated the procedure well and no complications were encountered. Following the procedure the patient's vital signs were stable. The patient was discharged home in good condition with post-procedural instructions. Time Out: Immediately prior to the procedure, the following was verbally confirmed that there is a signed consent form and that the correct patient, planned procedure, site and side are consistent with documentation and that necessary equipment and/or blood products are available prior to the start of the case. 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 - Scheduled follow-up for further diagnostic procedures and potential sacroiliac joint interventions. Patient was informed and verbally consented to the use of an ambient scribe for clinic note documentation during this visit. Discussion Notes I discussed with the patient the upcoming diagnostic injection for the right sacroiliac joint and explained its purpose to confirm the source of pain. We evaluated the potential benefits of the procedure against the minimal risks involved. The patient expressed interest in proceeding with this [id number] approach to determine the efficacy of injections in relieving her discomfort. Follow-up is scheduled for , and if the procedure doesn't alleviate pain, advanced imaging with an MRI may be considered. The nerve blocks administered today aim to address the migraine by reducing eye and head sensitivity, with the patient showing a clear understanding of the expected outcomes and signs of improvement to monitor. Patient Instructions - Return for scheduled follow-up on for the next step in sacroiliac joint evaluation. - Continue using yoga and ice packs as needed to manage joint pain. - Monitor migraine symptoms and report any changes. - Avoid activities that trigger migraines, like exposure to bright lights. - Contact healthcare provider if there is any worsening of pain or new symptoms occur. 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
[2024-11-18 09:23] VITALS: BP 167/89; PULSE 129; RESP 16; O2SAT 100; BMI 23.6
--- OUTSIDE RECORDS SUMMARY | 2024-11-18 09:53 | XMS_ITS | Encounter Summary ---
Author Organization [facility] Address [address] [place] [address] Care Team Providers Care Staff Development Manager Name Role Phone Deisy Dennis MD Primary Care Provider Unavailable Aaliyah Rodriguez MD Unavailable Unavailab le Encounter Details Date Type Department Care Team Description 02/20/2016 Release of Information Medical Records [address] [place] [id number] Abstract, Provider Social History Tobacco Use Types [...] on filedocumented in this encounter Care Teams Staff Development Manager Relationship Specialty Start Date End Date Deisy Dennis MD PCP - General Internal Medicine 01/26/16 Aaliyah Rodriguez MD Internal Medicine 01/26/16 documented as of this encounter
--- OUTSIDE RECORDS SUMMARY | 2024-11-18 09:53 | XMS_ITS | Data Portability ---
Author Organization [facility], Main Office Address [address] [place] [address] Care Team Providers Care Game Designer/Creative Director Name Role Phone KARON NICK Freelance Copywriter GEOVANNY SANTORO Urologist IVY SANDOVAL Primary Care Provider BETTIE ULLOA Referring Provider [phone] Assessment Encounter Date Assessment Date Assessment LastModified by Organization Details LastModified Time 09/22/2024 09/22/2024 This service was provided using telemedicine. Patient consented to telephone visit Patient was located in the [facility]. Provider was located in the office. No other persons participated in the telemedicine visit except for the patient unless otherwise indicated here. {{}} Total time of visit was 20 minutes. Not available 09/22/2024 08:51:39 Plan of Treatment Reminders Order Date Submit Date Provider Last Modified By Organization Details Last Modified Time Details Appointments FOLLOW UP 30MIN 2024 09:30A Elmo SANDOVAL MD Not available Not available Not available Lab bacterial vaginosis + vaginitis panel, vaginal 2023 024 CHERRI [facility] (Centralized Electronic Ordering - All Locations), Patient Can Go To The Location Of Their Choice, [id number] 06/24/2024 12:06:19 Referral vascular surgeon referral 2024 025 devora [facility], [address] , [place] [address], [place], [address], 11/04/2024 10:43:22 rheumatol ogist referral 2024 025 [facility], [address] , [place], [address], 10/09/2024 10:40:55 Procedures None recorded. Surgeries None recorded. Imaging None recorded. Medication Orders cephalexi n 500 mg capsule 2024 025 [email or web address] [facility], [address] , [facility], [place], [address], 10/21/2024 15:03:35 propranol ol ER 80 mg capsule,2 4 hr,extend ed release 2024 025 [email or web address] [facility], [address], [facility], [place], [address], 11/04/2024 14:26:25 duloxetin e 60 mg capsule,d elayed release 2024 025 [facility], [address], [facility], [place], [address], 09/22/2024 08:59:55 ondansetr on 4 mg disintegr ating tablet 2024 025 [facility], [address], [facility], [place], [address], 10/09/2024 05:01:09 atomoxeti ne 40 mg capsule 2024 025 [facility], [address], [facility], [place], [address], 10/15/2024 12:03:07 fluconazo le 200 mg tablet 2023 025 [facility], [address], [facility], [place], [address], 09/22/2024 08:29:27 Metrogel Vaginal 0.75 % (37.5 mg/5 gram) 2023 025 [facility], [address], [place], [address], 09/22/2024 08:31:12 Patient TargetsNo targets recorded. Patient Instructions Encounter Date Encounter Id Patient Instructions Last Modified By Organization Details Last Modified Time 05/16/2024 [id number] Preventing Depression From Coming Back: Care Instructions Not available 05/16/2024 10:00:50 06/19/2024 [id number] To call or retur n for worsening or concerns [email or web address] Not available 06/19/2024 15:43:27 09/22/2024 [id number] epilepsy: care instructions Not available 09/22/2024 08:57:37 learning about stress Not available 09/22/2024 08:57:37 Mental Health Information Not available 09/22/2024 08:57:37 10/08/2024 [id number] [email or web address]: care instructions [email or web address] Not available 10/21/2024 15:03:35 Medications (OTC , herbal therapies, supplements) reviewed and reconciled with patient and or caregiver, including potential side effects, drug interactions, instructions, and the consequences of not taking medication. Reviewed potential barriers to medication adherence, such as side effects from medication or cost of medication. [email or web address] Not available 10/09/2024 09:31:56 Reason for Referral Reference Library Assistant Referral for Raynaud's phenomenon Referring Physician: Jac Rabago, Internal Medicine, Encounter Date: 10/08/2024 Vascular Surgeon Referral fo r Chilblains Referring Physician: Jac Rabago, Internal Medicine, Encounter Date: 10/08/2024 Results Created Date Observation Date Name Description Value Unit Range Abnormal Flag Note LastModifiedBy Organization Detail LastModifiedTime 06/16/20 24 06/17/2024 CBC WITH DIFFE RENTI AL/PL ATELE T WBC 4.3 x10e3 /uL 3.4-10 .8 normal Not Available [facility] ([facility]) [address], [place], [address], 06/18/2024 10:06:13 06/16/20 24 06/17/2024 CBC WITH DIFFE RENTI AL/PL ATELE T RBC 4.95 x10e6 /uL 3.77-5 .28 normal Not Available [facility] ([facility]) [address], [place], [address], 06/18/2024 10:06:13 06/16/20 24 06/17/2024 CBC WITH DIFFE RENTI AL/PL ATELE T hemoglobin 14.9 g/dL 11.1-1 5.9 normal Not Available [facility] ([facility]) [address], [place], [address], 06/18/2024 10:06:13 06/16/20 24 06/17/2024 CBC WITH DIFFE RENTI AL/PL ATELE T hematocrit 46.4 % 34.0-4 6.6 normal Not Available [facility] ([facility]) [address] [place], [address], 06/18/2024 10:06:13 06/16/20 24 06/17/2024 CBC WITH DIFFE RENTI AL/PL ATELE T MCV 94 fL 79-97 normal Not Available [facility] ([facility]) [address] [place], [address], 06/18/2024 10:06:13 06/16/20 24 06/17/2024 CBC WITH DIFFE RENTI AL/PL ATELE T MCH 30.1 pg 26.6-3 3.0 normal Not Available [facility] ([facility]) [address] [place], [address], 06/18/2024 10:06:13 06/16/20 24 06/17/2024 CBC WITH DIFFE RENTI AL/PL ATELE T MCHC 32.1 g/dL 31.5-3 5.7 normal Not Available [facility] ([facility]) [address], [place], [address], 06/18/2024 10:06:13 06/16/20 24 06/17/2024 CBC WITH DIFFE RENTI AL/PL ATELE T RDW 12.8 % 11.7-1 5.4 Not Available [facility] ([facility]) [address], [place], [address], 06/18/2024 10:06:13 06/16/20 24 06/17/2024 CBC WITH DIFFE RENTI AL/PL ATELE T platelets 284 x10e3 /uL 150-45 0 normal Not Available [facility] ([facility]) [address], [place], [address], 06/18/2024 10:06:13 06/16/20 24 06/17/2024 CBC WITH DIFFE RENTI AL/PL ATELE T neutrophils 68 % not estab. normal Not Available [facility] ([facility]) [address], [place], [address], 06/18/2024 10:06:13 06/16/20 24 06/17/2024 CBC WITH DIFFE RENTI AL/PL ATELE T lymphs 21 % not estab. normal Not Available [facility] ([facility]) [address], [place], [address], 06/18/2024 10:06:13 06/16/20 24 06/17/2024 CBC WITH DIFFE RENTI AL/PL ATELE T monocytes 9 % not estab. normal Not Available [facility] ([facility]) [address], [place], [address], 06/18/2024 10:06:13 06/16/20 24 06/17/2024 CBC WITH DIFFE RENTI AL/PL ATELE T eos 1 % not estab. normal Not Available [facility] ([facility]) [address], [place], [address], 06/18/2024 10:06:13 06/16/20 24 06/17/2024 CBC WITH DIFFE RENTI AL/PL ATELE T basos 1 % not estab. normal Not Available [facility] ([facility]) [address], [place], [address], 06/18/2024 10:06:13 06/16/20 24 06/17/2024 CBC WITH DIFFE RENTI AL/PL ATELE T immature cells PASSENGER COACH DRIVER Not Available [facility] ([facility]) [address] [place], [address], 06/18/2024 10:06:13 06/16/20 24 06/17/2024 CBC WITH DIFFE RENTI AL/PL ATELE T neutrophils (absolute) 2.9 x10e3 /uL 1.4-7. 0 normal Not Available [facility] ([facility]) [address] [place], [address], 06/18/2024 10:06:13 06/16/20 24 06/17/2024 CBC WITH DIFFE RENTI AL/PL ATELE T lymphs (absolute) 0.9 x10e3 /uL 0.7-3. 1 normal Not Available [facility] ([facility]) [address] [place], [address], 06/18/2024 10:06:13 06/16/20 24 06/17/2024 CBC WITH DIFFE RENTI AL/PL ATELE T monocytes(ab solute) 0.4 x10e3 /uL 0.1-0. 9 normal Not Available [facility] ([facility]) [address] [place], [address], 06/18/2024 10:06:13 06/16/20 24 06/17/2024 CBC WITH DIFFE RENTI AL/PL ATELE T eos (absolute) 0.1 x10e3 /uL 0.0-0. 4 normal Not Available [facility] ([facility]) [address], [place], [address], 06/18/2024 10:06:13 06/16/20 24 06/17/2024 CBC WITH DIFFE RENTI AL/PL ATELE T baso (absolute) 0.0 x10e3 /uL 0.0-0. 2 normal Not Available [facility] ([facility]) [address], [place], [address], 06/18/2024 10:06:13 06/16/20 24 06/17/2024 CBC WITH DIFFE RENTI AL/PL ATELE T immature granulocytes 0 % not estab. Not Available [facility] ([facility]) [address], [place], [address], 06/18/2024 10:06:13 06/16/20 24 06/17/2024 CBC WITH DIFFE RENTI AL/PL ATELE T immature grans (abs) 0.0 x10e3 /uL 0.0-0. 1 Not Available [facility] ([facility]) [address], [place], [address], 06/18/2024 10:06:13 06/16/20 24 06/17/2024 CBC WITH DIFFE RENTI AL/PL ATELE T NRBC PASSENGER COACH DRIVER Not Available [facility] ([facility]) [address], [place], [address], 06/18/2024 10:06:13 06/16/20 24 06/17/2024 CBC WITH DIFFE RENTI AL/PL ATELE T hematology comments: PASSENGER COACH DRIVER Not Available [facility] ([facility]) [address], [place], [address], 06/18/2024 10:06:13 06/16/20 24 06/18/2024 BASIC METAB OLIC PANEL (8) glucose 101 mg/dL 70-99 above high normal Not Available [facility] ([facility]) [address], [place], [address], 06/18/2024 10:06:14 06/16/20 24 06/18/2024 BASIC METAB OLIC PANEL (8) BUN 15 mg/dL 6-24 normal Not Available [facility] ([facility]) [address], [place], [address], 06/18/2024 10:06:14 06/16/20 24 06/18/2024 BASIC METAB OLIC PANEL (8) creatinine 0.74 mg/dL 0.57-1 .00 normal Not Available [facility] ([facility]) [address], [place], [address], 06/18/2024 10:06:14 06/16/20 24 06/18/2024 BASIC METAB OLIC PANEL (8) eGFR 101 mL/mi n/1.7 3 >59 normal Not Available [facility] ([facility]) [address] [place], [address], 06/18/2024 10:06:14 06/16/20 24 06/18/2024 BASIC METAB OLIC PANEL (8) BUN/creatini ne ratio 20 9-23 normal Not Available [facility] ([facility]) [address] [place], [address], 06/18/2024 10:06:14 06/16/20 24 06/18/2024 BASIC METAB OLIC PANEL (8) sodium 140 mmol/ L 134-14 4 normal Not Available [facility] ([facility]) [address] [place], [address], 06/18/2024 10:06:14 06/16/20 24 06/18/2024 BASIC METAB OLIC PANEL (8) potassium 4.2 mmol/ L 3.5-5. 2 normal Not Available [facility] ([facility]) [address] [place], [address], 06/18/2024 10:06:14 06/16/20 24 06/18/2024 BASIC METAB OLIC PANEL (8) chloride 100 mmol/ L 96-106 normal Not Available [facility] ([facility]) [address] [place], [address], 06/18/2024 10:06:14 06/16/20 24 06/18/2024 BASIC METAB OLIC PANEL (8) carbon dioxide, total 27 mmol/ L 20-29 normal Not Available [facility] ([facility]) [address] [place], [address], 06/18/2024 10:06:14 06/16/20 24 06/18/2024 BASIC METAB OLIC PANEL (8) calcium 9.1 mg/dL 8.7-10 .2 normal Not Available [facility] ([facility]) [address] [place], [address], 06/18/2024 10:06:14 06/16/20 24 06/18/2024 LIPID PANEL cholesterol, total 150 mg/dL 100-19 9 normal Not Available [facility] ([facility]) [address] [place], [address], 06/18/2024 10:06:15 06/16/20 24 06/18/2024 LIPID PANEL triglyceride s 103 mg/dL 0-149 normal Not Available [facility] ([facility]) [address] [place], [address], 06/18/2024 10:06:15 06/16/20 24 06/18/2024 LIPID PANEL HDL cholesterol 55 mg/dL >39 normal Not Available [facility] ([facility]) [address] [place], [address], 06/18/2024 10:06:15 06/16/20 24 06/18/2024 LIPID PANEL VLDL cholesterol robyn 19 mg/dL 5-40 Not Available [facility] ([facility]) [address] [place], [address], 06/18/2024 10:06:15 06/16/20 24 06/18/2024 LIPID PANEL LDL chol calc ([facility]) 76 mg/dL 0-99 Not Available [facility] ([facility]) [address], [place], [address], 06/18/2024 10:06:15 06/16/20 24 06/18/2024 LIPID PANEL LDL calc comment: PASSENGER COACH DRIVER Not Available [facility] ([facility]) [address], [place], [address], 06/18/2024 10:06:15 06/16/20 24 06/18/2024 HCV ANTIB JOSE DE JESUS RFX TO QUANT PCR HCV Ab Non Reacti ve non reacti ve Not Available [facility] ([facility]) [address], [place], [address], 06/18/2024 10:06:15 06/16/20 24 06/18/2024 HCV ANTIB JOSE DE JESUS RFX TO QUANT PCR interpretati on: Commen t Not infec facundo with HCV unles s early or acute infec tion is suspe cted (whic h may be delay ed in an immun ocomp romis ed indiv idual ), or other evide nce exist s to indic ate HCV infec tion. Not Available [facility] ([facility]) [address], [place], [address], 06/18/2024 10:06:15 06/16/20 24 06/17/2024 FOLAT E (FOLI C ACID) , SERUM folate (folic acid), serum 16.7 NG/mL >3.0 normal A serum folat e blake ntrat ion of less than 3.1 ng/mL is consi dered to repre sent clini robyn defic iency . Not Available [facility] ([facility]) [address], [place], [address], 06/18/2024 10:06:16 06/16/20 24 06/17/2024 RPR, RFX QN RPR/C ONFIR M TP RPR Non Reacti ve non reacti ve Not Available [facility] ([facility]) [address], [place], [address], 06/18/2024 10:06:17 06/16/20 24 06/17/2024 VITAM IN [...] Medic ine). 2009. Todd ry refer ence dev es for calci um and D. Wilberto cleaning [place]: [facility] Press . 2. Mayank cano [place], Michelle courtney [place], Marcus off-F errar i HUERTA, et al. Evalu ation , treat ment, and preve ntion of vitam in D defic iency : an Endoc rine Socie ty clini robyn pract ice guide line. JCEM. 2010; 96(7) :1911 -30. Not Available [facility] ([facility]) [address], [place], [address], 06/18/2024 10:06:18 06/16/2006/17/2024 HIV AB/P2 4 AG WITH REFLE X HIV Ab/P24 Ag screen Non Reacti ve non reacti ve HIV-1 /HIV- 2 antib odies and HIV-1 p24 antig en were NOT detec facundo. There is no labor atory evide nce of HIV infec tion. HIV Negat [place] Not Available [facility] ([facility]) [address], [place], [address], 06/18/2024 10:06:19 06/16/20 24 06/18/2024 TSH RFX ON ABNOR MAL TO FREE T4 TSH 1.180 uIU/m L 0.450- 4.500 normal Not Available [facility] ([facility]) [address], [place], [address], 06/18/2024 10:06:19 06/16/20 24 06/17/2024 SEDIM ENTAT ION RATE- WESTE RGREN sedimentatio n rate-westerg allison 9 mm/HR 0-32 normal Not Available [facility] ([facility]) [address], [place], [address], 06/18/2024 10:06:21 06/16/20 24 06/17/2024 VITAM IN B12 vitamin B12 578 pg/mL 232-12 45 normal Not Available [facility] ([facility]) [address], [place], [address], 06/18/2024 10:06:22 06/19/20 24 06/20/2024 NUSWA B BV SRI+C AND6+ CT/GC /T... atopobium vaginae Low - 0 score Not Available [facility] ([facility]) [address], [place], [address], 06/24/2024 12:06:19 06/19/20 24 06/20/2024 NUSWA B BV SRI+C AND6+ CT/GC /T... bvab 2 Low - 0 score Not Available [facility] ([facility]) [address], [place], [address], 06/24/2024 12:06:19 06/19/20 24 06/20/2024 NUSWA B [...] prese nce of BV. Not Available [facility] ([facility]) [address], [place], [address], 06/24/2024 12:06:19 06/19/2006/20/2024 NUSWA B BV SRI+C AND6+ CT/GC /T... nilton albicans, SRI Negati ve negati ve Not Available [facility] ([facility]) [address], [place], [address], 06/24/2024 12:06:19 06/19/2006/20/2024 NUSWA B BV SRI+C AND6+ CT/GC /T... nilton glabrata, SRI Negati ve negati ve Not Available [facility] ([facility]) [address], [place], [address], 06/24/2024 12:06:19 06/19/2006/20/2024 NUSWA B BV SRI+C AND6+ CT/GC /T... C parapsilosis /tropicalis Negati ve negati ve This assay does not diffe renti ate C. tropi calis and C. parap jait is. Not Available [facility] ([facility]) [address], [place], [address], 06/24/2024 12:06:19 06/19/2006/20/2024 NUSWA B BV SRI+C AND6+ CT/GC /T... nilton lusitaniae, SRI Negati ve negati ve Not Available [facility] ([facility]) [address] [place], [address], 06/24/2024 12:06:19 06/19/2006/20/2024 NUSWA B BV SRI+C AND6+ CT/GC /T... nilton krusei, SRI Negati ve negati ve Not Available [facility] ([facility]) [address], [place], [address], 06/24/2024 12:06:19 06/19/2006/21/2024 NUSWA B BV SRI+C AND6+ CT/GC /T... hsv 1 SRI Negati ve negati ve Not Available [facility] ([facility]) [address] [place], [address], 06/24/2024 12:06:19 06/19/2006/21/2024 NUSWA B BV SRI+C AND6+ CT/GC /T... hsv 2 SRI Negati ve negati ve Not Available [facility] ([facility]) [address], [place], [address], 06/24/2024 12:06:19 06/19/20 24 06/24/2024 NUSWA B BV SRI+C AND6+ CT/GC /T... trich vag by SRI Negati ve negati ve Not Available [facility] ([facility]) [address] [place], [address], 06/24/2024 12:06:19 06/19/2006/24/2024 NUSWA B BV SRI+C AND6+ CT/GC /T... chlamydia trachomatis, SRI Negati ve negati ve Not Available [facility] ([facility]) [address] [place], [address], 06/24/2024 12:06:19 06/19/20 24 06/24/2024 NUSWA B BV SRI+C AND6+ CT/GC /T... neisseria gonorrhoeae, SRI Negati ve negati ve Not Available [facility] ([facility]) [address] [place], [address], 06/24/2024 12:06:19 Result Notes None recorded. Problems Name Problem SNOMED Code Status Onset Date Resolution Date Notes Provider Name and Address Organization Details Recorded Time Allergic rhinitis [id number] Completed 201001/19/2014 RECORDED 10/28/19 11 1:57PM BY FER ANTHONY MA, ANNOTATI ON/ADDEN DUM Not Available [facility] 4 15:27:43 Backache [id number] Completed 201201/19/2014 IMPRESSI ON: CHRONIC, MILD. MAY PURSUE CHIRO CARE. NO RED FLAG SXS OF CONCERN. ; RECORDED 10/24/19 13 9:14AM BY ZENAIDA MUIR MA, ANNOTATI ON/ADDEN DUM Not Available [facility] 4 15:27:44 Contrace ption care manageme nt Completed 201101/19/2014 IMPRESSI ON: PT TO CONSIDER CHANGING TO LOWER DOSE HORMONE PILL. WILL LET ME KNOW, HAPPY TO FAX TO THE PHARMACY FOR HER.; RECORDED 02/08/20 12 10:43AM BY YAZMIN GAMBLE MA, ANNOTATI ON/ADDEN DUM Not Available [facility] 4 15:27:44 Dysuria [id number] Completed 201101/19/2014 RECORDED 02/08/20 12 10:43AM BY YAZMIN GAMBLE MA, ANNOTATI ON/ADDEN DUM Yvette bernabe [facility] 8 14:01:36 Follow-u p encounte r Completed 201201/19/2014 RECORDED 03/05/20 13 8:58AM BY YAZMIN GAMBLE MA, ANNOTATI ON/ADDEN DUM Not Available [facility] 4 15:27:44 Malaise and fatigue [id number] Completed 10/31/2017 Yvette bernabe [facility] 8 14:01:24 Malaise and fatigue [id number] Completed 201101/19/2014 IMPRESSI ON: DOING WELL ON MEDICATI ON. WILL TRY TO TAKE IN THE AMS TO AVOID EARLY DAY H/. ALSO DOING BETTER WITH REG EXERCISE WHICH I ENCOURAG ED HER TO CONTINUE . WILL TOUCH BASE IN THE NEXT 3-4 MONTHS RE PROGRESS .; RECORDED 02/08/20 12 10:43AM BY YAZMIN GAMBLE MA, MEGANATI ON/ADDEN DUM Yvette bernabe, [facility] 8 14:01:24 Influenz a vaccine needed [id number] Completed 200701/19/2014 RECORDED 05/26/20 08 9:46AM BY NEIL COOPER, OFFICE VISIT Not Available [facility] 4 15:27:44 General examinat ion of patient Completed 200801/19/2014 RESOLVED DATE: 11/23/19 09; RECORDED 11/23/19 09 2:02PM BY TARA ANTHONY, TIFFANIE ON/ADDEN DUM Not Available [facility] 4 15:27:44 Well child [id number] Completed 201101/19/2014 RECORDED 02/08/20 12 10:43AM BY YAZMIN GAMBLE MA, ANNOTATI ON/ADDEN DUM Not Available [facility] 4 15:27:45 Psychoge orly headache [id number] Completed 200801/19/2014 RECORDED 11/23/19 09 2:02PM BY TARA ANTHONY, MEGANATI ON/ADDEN DUM Not Available [facility] 4 15:27:45 Hyperlip idemia [id number] Completed 201101/19/2014 RECORDED 02/08/20 12 11:23AM BY ALFREDO LOAIZA PA-C, MEGANATI ON/ADDEN DUM Not Available [facility] 4 15:27:45 Neck pain [id number] Completed 10/31/2017 Kiki bernabe [facility] 1 15:24:44 Administ ration of bacteria l and viral vaccine Completed 200701/19/2014 RECORDED 06/02/20 08 11:14AM BY LATANYA PATIÑO, HISTORIC AL SUMMARY Not Available [facility] 4 15:27:45 Non-neop lastic nevus [id number] Completed 201201/19/2014 STORY: MAINLY OVER BACK, FOLLOWED BY NEW ADOLFO DERM ANNUALLY .; RECORDED 10/24/19 13 9:14AM BY ZENAIDA MUIR MA, ANNOTATI ON/ADDEN DUM Not Available [facility] 4 15:27:45 Patient status finding [id number] Completed 201201/19/2014 RECORDED 05/21/20 13 2:38PM BY YAZMIN GAMBLE MA, ANNOTATI ON/ADDEN DUM Yvette bernabe MA - [facility] 8 14:01:20 Noninfla mmatory disorder of the vagina [id number] Completed 201101/19/2014 IMPRESSI ON: UNLIKELY STD, TX TOPICALL Y FOR YEAST, IF POSITIVE FOR GARDNERE LLA WILL CALL AND TREAT, ALREADY TOOK 2 DIFLUCAN ; RECORDED 02/08/20 12 10:43AM BY YAZMIN GAMBLE MA, ANNOTATI ON/ADDEN DUM Not Available [facility] 4 15:27:46 Atypical squamous cells of undeterm ined signific ance on vaginal Papanico laou smear [id number] Completed 201101/19/2014 RECORDED 02/08/20 12 10:42AM BY YAZMIN GAMBLE MA, ANNOTATI ON/ADDEN DUM Not Available [facility] 4 15:27:46 Cellulit is of digit 04100039 Completed 201201/19/2014 IMPRESSI ON: START ABX, WARM SOAKS, IBU FOR DAY AND PAIN MED AT NIGHT. MONITOR CLOSELY, CALL OFFICE FOR WORSENIN G/PRN; RECORDED 03/05/20 13 8:58AM BY YAZMIN GAMBLE MA, ANNOTATI ON/ADDEN DUM Not Available [facility] 4 15:27:46 Adult health examinat ion Completed 201201/19/2014 RECORDED 05/21/20 13 2:38PM BY YAZMIN GAMBLE MA, ANNOTATI ON/ADDEN DUM Not Available [facility] 4 15:27:46 Seborrhe ic dermatit is 68703056 Completed 201201/19/2014 RECORDED 07/30/19 13 1:17AM BY FER ANTHONY MA, ANNOTATI ON/ADDEN DUM Not Available [facility] 4 15:27:46 Breast finding [id number] Completed 200801/19/2014 RECORDED 02/09/20 09 9:10AM BY FER ANTHONY MA, ANNOTATI ON/ADDEN DUM Not Available [facility] 4 15:27:46 Administ ration of diphther ia, pertussi s, and tetanus vaccine Completed 201201/19/2014 RECORDED 03/05/20 13 8:58AM BY YAZMIN GAMBLE MA, ANNOTATI ON/ADDEN DUM Not Available [facility] 4 15:27:46 Temporom andibula r joint disorder 34616726 Active [facility] 1 09:34:16 Urinary tract infectio us disease 91308379 Completed 10/31/2017 Yvette Yip [facility], [facility] 8 14:01:39 Allergic rhinitis 63914045 Completed 201002/15/2014 RECORDED 10/28/19 11 1:57PM BY FER ANTHONY MA, ANNOTATI ON/ADDEN DUM Not Available [facility] 4 06:27:20 Anxiety state 318461977 Completed 201302/15/2014 IMPRESSI ON: NEVER TRIED SERTRALI NE WILL START AT 25MG AND INCREASE TO 50MG; RECORDED 12/19/19 14 2:56PM BY YAZMIN GAMBLE MA, ANNOTATI ON/ADDEN DUM IVY SANDOVAL MD [address], [place], [address] , [facility] 4 17:46:47 Backache 428502705 Completed 201202/15/2014 IMPRESSI ON: CHRONIC, MILD. MAY PURSUE CHIRO CARE. NO RED FLAG SXS OF CONCERN. ; RECORDED 10/24/19 13 9:14AM BY ZENAIDA MUIR MA, MEGANATI ON/ADDEN DUM Not Available [facility] 4 06:27:20 Contact dermatit is 54957321 Active Rachel Kohler MA [facility] 1 09:34:16 Contrace ption care manageme nt Completed 201102/15/2014 IMPRESSI ON: PT TO CONSIDER CHANGING TO LOWER DOSE HORMONE PILL. WILL LET ME KNOW, HAPPY TO FAX TO THE PHARMACY FOR HER.; RECORDED 02/08/20 12 10:43AM BY YAZMIN GAMBLE MA, TIFFANIE ON/ADDEN DUM Not Available [facility] 4 06:27:20 Dysuria 80868809 Completed 201102/15/2014 RECORDED 02/08/20 12 10:43AM BY YAZMIN GAMBLE MA, TIFFANIE ON/ADDEN DUM Yvette Yip MA [facility] 8 14:01:36 Follow-u p encounte r Completed 201202/15/2014 RECORDED 03/05/20 13 8:58AM BY YAZMIN GAMBLE MA, MEGANATI ON/ADDEN DUM Not Available [facility] 4 06:27:21 Influenz a vaccine needed [id number] 06 Completed 200702/15/2014 RECORDED 05/26/20 08 9:46AM BY NEIL COOPER, OFFICE VISIT Not Available [facility] 4 06:27:21 General examinat ion of patient Completed 200802/15/2014 RESOLVED DATE: 11/23/19 09; RECORDED 11/23/19 09 2:02PM BY TIFFANIE GALINDO ON/ADDEN DUM Not Available [facility] 4 06:27:21 Well child 336170296 Completed 201102/15/2014 RECORDED 02/08/20 12 10:43AM BY YAZMIN GAMBLE MA, ANNOTATI ON/ADDEN DUM Not Available [facility] 4 06:27:21 Psychoge orly headache 49171205 Completed 200802/15/2014 RECORDED 11/23/19 09 2:02PM BY MEGAN GALINDOATI ON/ADDEN DUM Not Available [facility] 4 06:27:21 Hyperlip idemia 85098078 Completed 201102/15/2014 RECORDED 02/08/20 12 11:23AM BY ALFREDO LOAIZA PA-C, ANNOTATI ON/ADDEN DUM Not Available [facility] 4 06:27:21 Neck pain 22783008 Completed 201302/15/2014 IMPRESSI ON: CHRONIC, PT IS INTEREST ED IN PT, SHE WILL MAKE APPT; RECORDED 12/19/19 14 2:56PM BY YAZMIN GAMBLE MA, TIFFANIE ON/ADDEN DUM Kiki bernabe [facility] 1 15:24:44 Administ ration of bacteria l and viral vaccine Completed 200702/15/2014 RECORDED 06/02/20 08 11:14AM BY LASHAE WARNER, LATANYA, HISTORIC AL SUMMARY Not Available [facility] 4 06:27:21 Non-neop lastic nevus 499003329 Completed 201202/15/2014 STORY: MAINLY OVER BACK, FOLLOWED BY RU ADOLFO DERM ANNUALLY .; RECORDED 10/24/19 13 9:14AM BY ZENAIDA MUIR MA, TIFFANIE ON/ADDEN DUM Not Available [facility] 4 06:27:21 Patient status finding [id number] Completed 10/31/2017 Yvette bernabe [facility] 8 14:01:20 Noninfla mmatory disorder of the vagina 27708776 Completed 201102/15/2014 IMPRESSI ON: UNLIKELY STD, TX TOPICALL Y FOR YEAST, IF POSITIVE FOR GARDNERE LLA WILL CALL AND TREAT, ALREADY TOOK 2 DIFLUCAN ; RECORDED 02/08/20 12 10:43AM BY YAZMIN GAMBLE MA, ANNOTATI ON/ADDEN DUM Not Available [facility] 4 06:27:21 Otitis media 25757252 Completed 10/31/2017 Yvette bernabe [facility] 8 14:01:32 Atypical squamous cells of undeterm ined signific ance on vaginal Papanico laou smear 200031916 Completed 201102/15/2014 RECORDED 02/08/20 12 10:42AM BY YAZMIN GAMBLE MA, TIFFANIE ON/ADDEN DUM Not Available [facility] 4 06:27:21 Cellulit is of digit 11954892 Completed 201202/15/2014 IMPRESSI ON: START ABX, WARM SOAKS, IBU FOR DAY AND PAIN MED AT NIGHT. MONITOR CLOSELY, CALL OFFICE FOR WORSENIN G/PRN; RECORDED 03/05/20 13 8:58AM BY YAZMIN GAMBLE MA, TIFFANIE ON/ADDEN DUM Not Available [facility] 4 06:27:21 Adult health examinat ion Completed 201202/15/2014 RECORDED 05/21/20 13 2:38PM BY YAZMIN GAMBLE MA, TIFFANIE ON/ADDEN DUM Not Available [facility] 4 06:27:21 Seborrhe ic dermatit is 86777628 Completed 201202/15/2014 RECORDED 07/30/19 13 1:17AM BY FER ANTHONY MA, TIFFANIE ON/ADDEN DUM Not Available [facility] 4 06:27:21 Breast finding [id number] Completed 200802/15/2014 RECORDED 02/09/20 09 9:10AM BY FER ANTHONY MA, ANNOTATI ON/ADDEN DUM Not Available [facility] 4 06:27:21 Administ ration of diphther ia, pertussi s, and tetanus vaccine Completed 201202/15/2014 RECORDED 03/05/20 13 8:58AM BY YAZMIN GAMBLE MA, ANNOTMERVIN ON/ADDEN DUM Not Available [facility] 4 06:27:21 Urinary tract infectio us disease 92929070 Completed 201302/15/2014 RECORDED 12/19/19 14 2:56PM BY YAZMIN GAMBLE MA, TIFFANIE ON/ADDEN DUM Yvette Bigby MA null, [facility] 8 14:01:39 Dysuria 41066800 Completed 10/31/2017 Yvette bernabe, [facility] 8 14:01:36 Anxiety 78549912 Active RADHA Diop, [facility] 1 09:34:16 Otitis externa 3778864 Completed 10/31/2017 Yvette bernabe, [facility] 8 14:01:43 Acute vaginiti s 90156264 Completed 04/22/2024 [facility]ino [facility] [address], [place], [address] , [facility] 4 15:40:42 Suspecte d COVID-19 629983237 Completed 12/14/2020 Removal Reason: Problem added by user [email or web address] 5 from the COVID-19 watch flag Silva [facility], [facility] 1 11:41:37 Neck pain 40408864 Active 2020 Kiki boyle [facility] 1 15:24:44 Seizure disorder 682897018 Active 2022 Nova Cavazos [facility] 3 00:22:31 Elevated blood-pr essure reading without diagnosi s of hyperten chi 898937317 Completed 202204/23/2024 IVY SANDOVAL MD [address], [place], [address] , [facility] 4 10:42:18 Chronic pain syndrome 228917471 Active 2023 Jac Rabago PA-C [address], [place], [address] , [facility] 4 14:14:36 Major depressi ve disorder 785142948 Active 2023 Jac Rabago PA-C [address], [place], [address] , [facility] 4 14:14:51 History of Lyme disease 673332614 Active 2023 Jac Rabago PA-C [address], [place], [address] , [facility] 4 14:16:35 Vitamin D deficien cy 10994955 Active 2023 IVY SANDOVAL MD [address], [place], [address] , [facility] 4 10:41:52 Candidia sis of vagina 88788070 Active 2023 WILL Rasmussen [address], [place], [address] , [facility] 4 15:39:31 Acute vaginiti s 35881792 Active 2023 WILL Rasmussen [address], [place], [address] , [facility] 4 15:40:42 Candidia sis of mouth 36799086 Active 2023 WILL Rasmussen [address], [place], [address] , [facility] 4 15:57:51 Problem Notes None recorded. Procedures Surgical History Date Name Laterality Status Provider Name and Address Organization Details Recorded Time 3 injection of facet joint completed Kacy Salamanca [facility] 02/01/2023 11:39:25 4 Date of Last Pap Smear completed Rachel Kohler MA [facility] 04/01/2014 12:57:30 Imaging Results None recorded. Procedure Notes None recorded. Medical Equipment None Reported. Allergies Allergen ID Allergen Name Allergen Category Reaction Reaction Severity Criticality Documentation Date Start Date Code Code System Note Provider Name and Address Organization Details Recorded Time 93358 Wellbutri n medicatio n seizure severe unabletoasse ss 04/03/20222021 48522 RxNorm belie celestino to have contr ibute d to new onset grand mal seizu re - if other cause found , this charles rgy can be d/c Gertrude Mcdaniels RN [facility] [place] - [facility] 2 14:59:40 Medications Name Sig Start Date [...] Not Available clotrimaz ole 10 mg brandi 09/22 completed Not Available Not Available Not Available neomycin- [...] 14 2:47PM BY RACHEL KOHLER, ANNOTATI ON/MEGHNA DUM; Not Available Not Available Not Available sumatript an 100 mg tablet PLEASE SEE ATTACHED FOR DETAILED DIRECTIO NS active Not Available Not Available No t Available fluconazo le 200 mg tablet Take 1 tablet every day by oral route as directed for 7 days. 09/22 completed Not Available Not Available Not Available atovaquon e 250 mg-progua nil 100 mg tablet active Not Available Not Available No t Available metronida zole 0.75 % (37.5 mg/5 gram) vaginal gel Insert 1 applicat orful every day by vaginal route as directed for 5 days. 09/22 completed Not Available Not Available Not Available prednison e 20 mg tablet Take [...] Available Not Available meclizine 12.5 mg tablet TAKE 1 TABLET BY MOUTH THREE TIMES A DAY NEEDED FOR DIZZINES S active Not Available Not Available No t Available ciproflox acin 250 mg tablet BID 05/31 completed RECORDED 11/06/19 14 2:44PM BY ANDREA Elmore MD, MEDICATI ON AUTO-JUNI CTIVATIO N; [...] active RECORDED 11/06/19 14 2:47PM BY RACHEL KOHLER, ANNOTATI ON/MEGHNA AMARO;SHE GOT IT FROM HER UROLOGIS [...] Not Available cephalexi n 500 mg capsule Take 1 capsule every 6 hours by oral route for 5 days. 10/20 completed Not Available Not Available Not Available erythromy [...] completed RECORDED 12/28/19 10 11:48AM BY ALFREDO LOAIZA, RACHAEL, MEDICATI ON AUTO-JUNI CTIVATIO N;ONE DROP IN BOTH EYES AT LEAST 6 HOURS APART. Not Available Not Available Not Available propranol ol ER 80 mg capsule,2 4 hr,extend ed release TAKE 1 CAPSULE BY MOUTH EVERY DAY 2024 active Not Available Not Available Not Avai lable indometha kristian 25 mg capsule Take 1 capsule as needed by oral route for 10 days. 04/02 completed Not Available Not Available Not Available gabapenti n 300 mg capsule 3 CAPSULE BY MOUTH TWICE A DAY 09/22 completed Not Available Not Available Not Available sertralin e 25 mg tablet Take [...] TAKE 1 CAPSULE BY MOUTH EVERY DAY 10/09 completed Not Available Not Available Not Available lorazepam 1 mg tablet Take 1 tablet 3 times a day by oral route as needed for 3 days. 12/25 completed prn Not Available Not Available Not Available ondansetr on 4 mg disintegr ating tablet Place 1 tablet every 8 hours by translin gual route as needed for 10 days, for dizzines s, motion sickness . 10/09 completed Not Available Not Available Not Available sertralin e 50 mg tablet DAILY active Not Available Not Available Not Available metronida zole 0.75 % topical gel 09/22 completed Not Available Not Available Not Available doxycycli ne hyclate 100 mg tablet Take 1 tablet twice a day by oral route. 12/25 completed Not Available Not Available Not Available Ortho Tri-Cycle n (28) 0.18 mg(7)/0.2 15mg(7)/0 .25 mg(7)-0.0 35 mg tablet DAILY 02/08 completed RECORDED 02/09/20 09 [...] VISIT; Not Available Not Available Not Available atomoxeti ne 40 mg capsule TAKE 1 CAPSULE BY MOUTH EVERY DAY 2024 active Not Available Not Available Not Avai lable cyclobenz aprine 5 mg tablet TAKE 1 [...] TAKE 1 CAPSULE BY MOUTH EVERY DAY 10/08 completed Not Available Not Available Not Available duloxetin e 60 mg capsule,d elayed release TAKE 1 CAPSULE BY MOUTH EVERY DAY FOR 90 DAYS active Not Available Not Available No t Available carbamaze pine ER 100 mg capsule,e xtended release [id number] r TAKE 1 CAPSULE ORALLY 2 TIMES A DAY FOR 30 DAYS active Not Available Not Available No t [...] RECORDED 10/01/19 12 9:37AM BY TIFFANIE CHOW ON/ADDEN DUM; Not Available Not Available Not Available Calcium [...] Not Available Not Available Not Available Fluzone 4039-8958 45 mcg (15 mcg x 3)/0.5 mL intramusc ular suspensio n active Not Available Not Available Not Available Flucelvax Quad 4185-2394 (PF) 60 mcg (15 mcg x 4)/0.5 mL IM syringe 10/31 completed Not Available Not Available Not Available Emgality Pen 120 mg/mL subcutane ous pen injector INJECT THE CONTENTS ONCE MONTHLY active Not Available Not Available No t Available Flowflex COVID-19 Antigen Home Test kit [...] Updated DateTime 4 170.18 cm 21.9 kg/m2 47725.9 3 g 62 /min 100 % 100 % 97.8 [degF] 107 mm[Hg] 68 mm[Hg] Chandra mackay MA [facility] 4 09:43:03 Date Recorded Body height Body mass index (BMI) Body weight Heart rate Oxygen saturation Oxygen saturation in Arterial blood by Pulse oximetry Body temperature Systolic blood pressure Diastolic blood pressure Provider Name and Address Organization Details Last Updated DateTime 4 170.18 cm 22.7 kg/m2 40744.8 9 g 76 /min 98 % 98 % 98.3 [degF] 125 mm[Hg] 74 mm[Hg] Danielle Novoa MA [facility] 4 09:46:42 Date Recorded Body height Body mass index (BMI) Body weight Oxygen saturation Oxygen saturation in Arterial blood by Pulse oximetry Heart rate Body temperature Systolic blood pressure Diastolic blood pressure Provider Name and Address Organization Details Last Updated DateTime 4 170.18 cm 22.7 kg/m2 51482.8 9 g 100 % 100 % 75 /min 98.3 [degF] 126 mm[Hg] 80 mm[Hg] Rachel Kohler MA [facility] 4 15:30:03 Date Recorded Body height Provider Name an d Address Organization Details Last Updated DateTime 09/22/2024 170.18 cm Rachel Kohler MA [facility] 09/22/2024 08:28:38 Date Recorded Body height Body mass index (BMI) Body weight Heart rate Oxygen saturation Oxygen saturation in Arterial blood by Pulse oximetry Body temperature Systolic blood pressure Diastolic blood pressure Provider Name and Address Organization Details Last Updated DateTime 5 170.18 cm 23 kg/m2 62091.0 8 g 72 /min 96 % 96 % 98.2 [degF] 121 mm[Hg] 74 mm[Hg] Briseida Nguyen LPN [facility] 5 15:09:49 Social History Question Answer Notes LastModified by Organizat ion Details LastModified Time Tobacco Smoking Status Never Smoker RADHA Diop, [facility] 02/18/2014 13:45:04 Do You Have An Advance Directive? No [email or web address] Information not available 05/11/2022 Animal Exposure? Yes Information not available 05/11/2022 Do You Wear A Helmet When Biking? Yes [email or web address] Information not available 05/11/2022 Is Blood Transfusion Acceptable In An Emergency? Yes Information not available 04/01/2014 What Is Your Level Of Caffeine Consumption? Occasional Every Other Day, Coffee X 1 Information not available 09/20/2016 How Much Tobacco Do You Chew? None [email or web address] Information not available 04/01/2014 What Type Of Diet Are You Following? REGULAR [email or web address] Information not available 02/18/2014 Which Illicit Or Recreational Drugs Have You Used? NONE Information not available 09/20/2016 Education Post Graduate [email or web address] Information not available 05/11/2022 Have There Been Any Changes To Your Family Or Social Situation? No [email or web address] Information not available 05/11/2022 How Many Days In The Past Year Have You Had A Heavy Drinking Consumption (4+ Female, 5+ Male)? 10 [email or web address] Information not available 05/11/2022 Are There Any Guns Present In Your Home? No [email or web address] Information not available 05/11/2022 What Is Your Home Situation? Other [email or web address] Information not available 05/11/2022 Legally Blind In One Or Both Eyes? No [email or web address] Information not available 05/11/2022 Do You Take Precautions To Prevent Distracted Driving? Yes [email or web address] Information not available 04/23/2024 How Often Do You Need To Have Someone Help You When You Read Instructions, Pamphlets, Or Other Written Material From Your Doctor Or Pharmacy? Never Information not available 09/20/2016 Have You Served In The ? No Information not available 09/20/2016 Marital Status Domestic Partner Information not available 05/11/2022 Total Number Of Stairs In Home 14 [email or web address] Information not available 05/11/2022 How Many Children Do You Have? 2 Information not available 06/19/2024 Do You Use Protection During Sex? No [email or web address] Information not available 04/01/2014 Difficulty Reading? No [email or web address] Information not available 05/11/2022 What Is Your Relationship Status? [place] Information not available 06/19/2024 Seat Belts Used Routinely Yes [email or web address] Information not available 05/11/2022 Are You Sexually Active? Yes [email or web address] Information not available 04/01/2014 Are You Passively Exposed To Smoke? No Information not available 09/20/2016 How Much Tobacco Do You Smoke? No Information not available 09/20/2016 What Types Of Sporting Activities Do You Participate In? Running, Hiking, Kayaking, Rock Climbing [email or web address] Information not available 05/11/2022 Do You Use Sunscreen Routinely? Yes [email or web address] Information not available 02/18/2014 Do You Have Difficulty Walking Or Climbing Stairs? No [email or web address] Information not available 05/11/2022 Sex: Unknown Functional Status Question Answer Note LastModified by Organizat ion Details LastModified Time Do you use any illicit or recreational drugs? No [email or web address] Information not available 05/11/2022 What is your level of alcohol consumption? Occasional Information not available 02/18/2014 Are you currently employed? Yes [email or web address] Information not available 02/18/2014 Difficulty driving at night? No [email or web address] Information not available 05/11/2022 Are you able to walk? YESWOREST [email or web address] Information not available 08/10/2022 Are you able to care for yourself? 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 No [email or web address] Information not available 05/11/2022 What is your exercise level? Moderate treadmill 1-2/week Information not available 09/20/2016 Mental Status Question Answer Note LastModified by Organization D etails LastModified Time Do you have difficulty concentrating, remembering or making decisions? Yes [email or web address] Information no t available 05/11/2022 Family History Relationship Description Onset Age of this Age Resolved Age Notes LastModified by Organization Details LastModified Time Maternal Grandmother Hypertensive disorder [email or web address] Not available 2014 10:22:50 Maternal Grandmother Obesity 75 abolcun Not available 2014 10:22:50 Maternal Grandmother Diabetes mellitus 70 75 abolcun Not available 2014 10:22:50 Father Harmful pattern of use of alcohol 40 abolcun Not available 2014 10:22:50 Father Anxiety disorder [email or web address] Not available 2016 11:39:58 Father Interstitial lung disease [email or web address] Not available 09:46:25 Father Cerebrovascu lar accident [email or web address] Not available 10:32:40 Mother Heart disease 65 abolcun Not available 2014 10:22:50 Mother Myocardial infarction [email or web address] Not available 10/2021 09:46:25 Mother Coronary atherosclero sis [email or web address] Not available 05/11 09:46:25 Brother Obesity [email or web address] Not available 09/20/2016 11:40:32 Sister Obesity [email or web address] Not available 0 09/20/2016 11:40:35 Medical History Condition Response Other N Gout N Kidney Stones N Blood Diseases N Hyperthyroidism N Breast Cancer N Depression Y COPD N Lung Disease N Hypothyroidism N Defects or Inherited Disease N Anesthesia Complications N Headaches/Migraines Y Varicose Veins N Anxiety Disorder Y Obesity N Vision or Eye Problems N Arthritis N Head Injury/Concussion N Polyps N Infertility N Congenital Anomalies N Acid Reflux (GERD) [...] high-dose, trivalent, PF 4 completed Not Available [facility] 12/19/2020 20:02:54 Influenza, split virus, trivalent, preservative 6 completed SARTHAK Ching, [facility] 04/03/2022 15:18:11 COVID-19, mRNA, LNP-S, PF, 30 mcg/0.3 mL dose 1 completed RADHA Rosa, [facility] 04/11/2022 12:54:47 Influenza, split virus, quadrivalent, preservative 1 completed RADHA Diop [facility] 06/19/2021 14:49:17 COVID-19, mRNA, LNP-S, PF, 30 mcg/0.3 mL dose 0 completed RADHA Diop [facility] 06/19/2021 14:50:39 COVID-19, mRNA, LNP-S, PF, 30 mcg/0.3 mL dose 1 [facility] 14:51:22 Influenza, MDCK, quadrivalent, PF 7 completed SARTHAK Ching, [facility] 04/03/2022 15:18:10 Influenza, split virus, quadrivalent, PF 8 completed Gertrude Mcdaniels RN null, [facility] 04/03/2022 15:18:10 Influenza, split virus, quadrivalent, PF 9 completed Gertrude Mcdaniels RN null, [facility] 04/03/2022 15:18:10 Influenza, split virus, quadrivalent, PF 1 completed Gertrude Mcdaniels RN null, [facility] 04/03/2022 15:18:10 Tdap 9 completed Gertrude Mcdaniels RN null, [facility] 04/03/2022 15:18:10 Influenza, split virus, quadrivalent, PF 0 completed Gertrude Mcdaniels RN null, [facility] 04/03/2022 15:18:11 Influenza, split virus, quadrivalent, PF 2 completed RADHA Diop, [facility] 08/10/2022 10:14:13 influenza, unspecified formulation 2 completed RADHA Diop, [facility] 08/10/2022 10:20:47 COVID-19, mRNA, LNP-S, bivalent, PF, 50 mcg/0.5 mL or 25mcg/0.25 mL dose 3 completed RADHA Jansen, [facility] 11/16/2022 11:24:09 COVID-19, mRNA, LNP-S, PF, prasanth-sucrose, 30 mcg/0.3 mL 4 completed RADHA Diop, [facility] 04/02/2024 13:26:29 COVID-19, mRNA, LNP-S, PF, 50 mcg/0.5 mL 3 completed RADHA Diop, [facility] 04/02/2024 13:26:29 Influenza, split virus, quadrivalent, PF 3 completed [facility] 04/02/[facility]24 13:26:29 Influenza, split virus, trivalent, PF 4 completed [facility] 05/26/2024 09:46:11 Tdap 6 completed Not Available [facility] 12/19/2020 20:02:54 Influenza, split virus, trivalent, preservative 8 completed Not Available [facility] 12/19/2020 20:02:54 Tdap 3 completed Not Available [facility] 12/19/2020 20:02:54 Influenza, split virus, trivalent, preservative 3 completed Not Available [facility] 12/19/2020 20:02:54 Past Encounters Encounter ID Performer Location Encounter Start Date Encounter Closed Date Diagnosis/Indication Diagnosis SNOMED-CT Code Diagnosis ICD10 Code Diagnosis Note [id number] [facility] er[facility] [address] [facility],[address] [place] [address] 12/30/2006 00:00:00 [id number] [employer]ce [address] [facility],[address] [place] [address] 05/06/2007 00:00:00 [id number] [employer]ce [address] [facility],[address] [place] [address] 05/20/2007 00:00:00 [id number] [employer]ce [address] [facility],[address] [place] [address] 05/26/2008 00:00:00 [id number] [employer] erce [address] [facility],[address] [place] [address] 11/22/2008 00:00:00 [id number] auto[employer] erce [address] [facility],[address] [place] [address] 02/08/2009 00:00:00 [id number] [employer]ce [address] [facility],[address] [place] [address] 07/28/2009 00:00:00 [id number] [employer] erce [address] [facility],[address] [place], [place] [address] 10/20/2009 00:00:00 [id number] [employer]ce [address] [facility],[address] [place], [place] [address] 01/28/2010 00:00:00 [id number] auto[employer] erce [address] [facility],[address] [place], [place] [address] 10/27/2010 00:00:00 [id number] auto[employer]ce [address] [facility],[address] [place], [place] [address] 11/28/2010 00:00:00 [id number] auto[employer] erce [address] [facility],[address] [place], [place] [address] 02/08/2012 00:00:00 [id number] auto[employer] erce [address] [facility],[address] [place], [place] [address] 10/23/2012 00:00:00 [id number] auto[employer] erce [address] [facility],[address] [place], [place] [address] 11/05/2013 00:00:00 [id number] auto[employer] erce [address] [facility],[address] [place], [place] [address] 12/19/2013 00:00:00 [id number] Kiki boyle MD Main Office [address] [facility] [address] [place] [address] 02/18/2014 13:31:24 02/18/2014 14:23:02 Urinary tract infectious disease 20004926 see hx multiple UTI's, unclear if there could be an element of interstiti al cystitis. Pt green et up appt [facility] urologist, hydrate, void after intercours e and gather her urine culture and sensitivit ies so she can show to urology to help if going to go on preventive med. PT to call if feels more ill, if any abdominal pain needs to do a test, no concern now for ectopic Dysuria 10107483 [id number] Kikialejo boyle MD Main Office [address] [place] [address] 04/01/2014 12:52:55 04/01/2014 13:38:04 Adult health examination 212315229 pap smear is utd, pt is active, eats well, pt will start a one a day vitamin. Urinary tr act infectious disease 21660025 having workup for recurrent UTI, stresse to pt hydration is so important, followup with urology Anxiety 25079502 pt feel s so well on zoloft 50mg, it really helpps, has sexual side effects, pt is trying to get so will not change to wellbutrin . Pt will call locket maker and discuss meds for anxiety [id number] Jamar Castle MD Main Office [address] [place] [address] 10/14/2014 10:12:14 10/14/2014 11:06:31 Neck pain 37142876 chronic problem and looking for a referral to a specialist . Otitis externa 5435685 p roblem on the left. Currently no signs of infection. Possible eustachion tube dysfunctio n. Already using a nasal spray and has Sudafed at home. The symptoms are manageable and she wanted to be sure that she had cleared the infection. [id number] WILL Rasmussen Main Office [address] [place] [address] 09/20/2016 11:00:09 09/20/2016 12:06:43 Adult health examination 912138228 Z00.00 HM UTD, flu vaccine in march, TDAP in 2015, pap UTD. Doing well. Anxiety 40221893 F41.9 Mild anxiety disorder, JERICA shows mild anxiety. Discussed sertraline which is safe with breastfeed ing, she is still a bit uncomforta ble with taking it while breastfeed ing. She would like the prescripti on and will call back for f/u in 1 month for recheck if she does decide to start med. SSRIs discussed with patient. Impacted cerumen 2194343 6 H61.22 Left, lavaged. [id number] Kiki boyle MD Main Office [address] [address] 12/14/2020 15:02:43 12/14/2020 15:56:04 Suspected Lyme disease 457294597 Z03.89 Pt appears to have lyme disease clinically , although test neg in ED, will repeat tests in 2 week, finish doxycyclin e . Rest, hydration, call if not continuing to improve, ED if worse with back pain or headache. Labs today Spasm of m uscle of lower back [id number] 8031583 M62.830 Rest, try flexeril, call or ED if acutely worse or focal neuro sx. Likely muscle spasm [id number] Kiki boyle MD Main Office [address] [facility] [address] [place] [address] 12/26/2020 09:29:27 12/26/2020 10:11:22 Lyme disease 37893468 A69.20 Pt has been taking doxycyclin e and is finally starting to improve; will continue for another week. 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 Mild neck discomfort , back pain better. 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 [address] [place] [address] 06/19/2021 09:26:28 06/19/2021 15:29:41 Fatigue 47695363 R53.83 see HPI for 4 years, check labs and have pt come in for a PE Tension-type headache 39 5619287 G44.209 will check sed rate due to transient (improved) left jain pain and throbbing, she has TMJ. will refer to PT for therapy to help with muscle tension HUERTA and pt to come in for a PE in a month with /Nova Neck pain 14384612 M54.2 see above [id number] Kiki boyle MD Main Office [address] [facility] [address] [place] [address] 04/03/2022 14:32:14 04/03/2022 15:13:13 [id number] Katy Lynn MD Main Office [address] [place] [address] 04/11/2022 09:14:26 04/11/2022 14:07:10 Seizure disorder 317867541 G40.909 New onset, see discharge summary. Pt [...] by neurology for RTW and driving. Fatigue 55262949 R53.83 feeling achy in neck with fatigue? lyme again, will do testing for this. Discussed possibilit y positive might be related to old lyme from last year, pt wants to do test. Might be related to side effect coming off of wellbutrin and stress. Anxiety 05507970 F41.9 Huerta med prescriber Dee Ocampo, has appt upcoming to discuss meds. Suggested counseling . [id number] Kiki boyle MD Main Office [address] [place] [address] 05/11/2022 09:45:56 05/11/2022 15:50:55 Seizure disorder 859518371 G40.909 New onset Pt is on Keppra [...] RTW and driving. History of Lyme disease 581884333 Z86.19 ? new infection vs reactivati on, put on doxycyclin e, has followup planned Neuralgia 83602425 M79.2 Korey try adding at night, call if not helping [id number] Kiki boyle MD Main Office [address] [address] 07/13/2022 13:48:30 07/13/2022 15:14:10 Headache 60904114 R51.9 on gabapentin 300 mg tid, will be getting right occipital nerve injection soon, has in person visit with headache specialist at in 2 weeks. Neck pain 32223917 M54.2 Try PT consider MRI if not better. Short term followup Stretching an heat, meds as listed Seizure disorder 5460837 02 G40.909 Pt is off Keppra 750 mg bid, no further seizures. She had followup with neurology at the seizure clinic on 05/22/22 and had a second opinion. Awaiting notes. An MRI has been ordered by seizure clinic and pt is waiting for a date. She will need to be cleared by neurology for RTW and driving. [id number] Kiki boyle MD Main Office [address] [address] 08/10/2022 10:05:49 08/10/2022 11:41:46 Adult health examination 379210258 Z00.00 Pt in good general health. He sees the dentist and will see eye provider to followup on eye pain. HCM screenings up to date, Tdap up to date, had covid and flu vaccines Diet is balanced, see history for lifestyle choices Anxiety state 445704172 F41.1 ok on current meds, will check into counseling /family counseling , likely needs to be on additional meds other than buspar Neck pain 70812671 M54.2 MRi done bulging disc C5-6, could consider EDSI with [facility], starting PT next week for this Seizure disorder 9491118 02 G40.909 Pt is off Keppra 750 [...] resume in 2 months Cervico-oc cipital neuralgia 73508203 M54.81 will be getting injection through BS Major depr essive disorder 280270291 F32.9 see above, doing will try tapping, try to reach out for counseling and kids evaluation at school History of Lyme disease 687249373 Z86.19 Treated for this x2 , has been discharged from infectious disease provider. Pain of right eye 365633 7954 99643 H57.11 Due to ongoing pain , will have her see opthamolog y [id number] Nova dominique [employer]EN[employer]IVER Main Office [address] [place] [address] 09/07/2022 10:03:40 09/10/2022 10:43:56 Essential hypertension 75303849 I10 Pt likely has some hypertensi on now, she will start treatment and monitor BP, call with readings next week Chronic da rolly headache 6046042216 09526 R51.9 Headache since seizure disorder, has had negative imaging and only temporary relief with otc meds. ? if this is related to blood pressure. She had some occipital nerve injections which were of limited help. Pain of right eye 496356 3331 50354 H57.11 Has continued posterior eye pain with negative evaluation s, Elevated blood-pressure reading without diagnosis of hypertension 420251893 R03.0 Pt does not have a history of HTN but readings lately elevated consistent ly. She would like to try BB to see if this helps for BP and possibly headache prevention . Will monitor her blood pressure and symptoms closely Neck pain 77817849 M54.2 Acute pain with elevate blood pressure, pt is concerned about a issue with blood vessels in the head and neck causing the triad of neck pain, headache and eye pain. Will do CTA of head and neck [id number] Nova dominique NP Main Office [address] [place] [address] 11/16/2022 10:48:45 11/16/2022 14:56:30 Chronic daily headache 4400205180 79680 R51.9 better now with BB, will continue Pain of right eye 111386 5196 64015 H57.11 eye pain better, nomral exams Neck pain 41228884 M54.2 Having EDSI upcoming, better. We were going to do a CTA of head and neck but she decided against it for now. Call if anyworseni ng. Essential hypertension 70923802 I10 Pt doing well on current treatment with propranolo l, no changes, pulse > 60, BP good [id number] Katy Lynn MD [facility] [address] 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 WE will check U/A and culture and treat per results. PT. is advised to increase hydration. [id number] Andrea Montana MD Main Office [address] [facility] [address] [facility] [place] [address] 04/02/2024 13:12:50 04/02/2024 14:15:22 Chronic pain syndrome 175849684 G89.4 chronic pain - huerta, R eye, back, RLE - fol by neuro - cont f/u c them, had mri, pending repeat lumbar punctureco nt gbn as dirsee below Major depr essive disorder 884373021 F32.1 mod dep on phq - ? has psychosoma tic c/o aboveconsi cathy trial of duloxetine - start c 30mg qd - if tolerates but no sig improvemen t then increase to 60mg qd History of Lyme disease 149758304 Z86.19 2021 - had meningitis - [facility] - seen by ID, never seen by rheum = will get eval Anxiety 20449696 F41.9 stopped buspar acutely recently - was rx'd by [facility] - discharged , no longer sees themsee aboveno see therapist - consider it [id number] IVY SANDOVAL MD Main Office [address] [facility] [address] [facility] [place], [place] [address] 04/23/2024 10:23:44 04/23/2024 11:10:41 Chronic pain syndrome 755743882 G89.4 - pt has chronic headaches and [...] this medication ) Major depr essive disorder 800068135 F32.1 - PHQ-9 score of 13- pt was started on duloxetine ER 30mg QD -> there has been improvemen t on the medication , will hold increase at this time until memory testing is done- concerned that memory problems and inattentio n are more due to depression and anxiety- pt referred to psychiatry - denies SI/HI- maribel esquivel provided History of Lyme disease 379964512 Z86.19 - pt has been referred to infectious disease Anxiety 78558051 F41.9 - JERICA-7 score of 14- pt stopped buspar- pt was previously following with psych- pt is currently on duloxetine 30mg QD and propanolol ER 120mg> has noticed some improvemen t with the duloxetine (started on 04/02/2024) > not change at this time- maribel esquivel provided- RTC in 4 weeks Seizure disorder 3635216 02 G40.909 - occurred 2 years ago while on the wellbutrin - after seizures patient developed chronic pain- pt is currently off all seizures meds, was on keppra 750mg BID Adult heal th examination 401929988 Z00.00 Health Maintenanc e FemaleA) Patient was [...] nfluenza: 03/31/2024T dAP: 08/20/2018Z oren: due at 95BEV12: due at 09UFMR86: due at 44PIJ12:PC V15:COVID: 06/23/2020 , 07/14/2020, 04/05/2021, 10/08/2022, 04/11/2023, 03/31/2024 D) Routine blood work orderedE) Updated patient's history RTC in one year for annual exam or sooner if any acute complaints Screening for malignant neoplasm of cervix 299648138 Z12.4 Screening for malignant neoplasm of colon 955266824 Z12.11 Fatigue 79263579 R53.83 Hyperlipidemia 20159994 E78.5 HIV screening 903199710 Z11.4 Hepatitis C screening 41 2730436 Z11.59 Vitamin D deficiency 347 33743 E55.9 Memory impairment 722544 006 R41.3 - pt concerned about her memory loss- has spoke to neurology about this however per patient her concerns were dismissed- MRI completed and was normal- blood work ordered- feel as symptoms are more due to mood/anxie ty compoment- RTC in 3 weeks for memory impairment Venereal d isease screening 691740052 Z11.3 Z72.89 F03.90 [id number] IVY SANDOVAL MD Main Office [address] [address] 05/16/2024 09:35:35 05/16/2024 10:04:05 Memory impairment 471607989 R41.3 - 6CIT score of 2 and [...] improving on duloxetine Chronic pain syndrome 37 0856958 G89.4 - pt has chronic headaches and [...] is doing better Major depr essive disorder 100229973 F32.1 - pt was started on duloxetine ER 30mg QD -> there has been improvemen t on the medication , will hold increase at this time until memory testing is done- concerned that memory problems and inattentio n are more due to depression and anxiety- pt referred to psychiatry - denies SI/HI- maribel esquivel provided [id number] Andrea Montana MD Main Office [address] [facility] [address] [facility] [place] [address] 05/26/2024 09:27:32 05/26/2024 10:15:01 Localized eruption of skin 914302614 R21 Non infectious rash, ore looking like possibly inflammato ry in nature and is now resolving. Pt. has planned bone marrow procedure. NO contraindi cation is present to proceed in terms of this rash. [id number] Jamar Castle MD Main Office [address] [facility] [address] [facility] [place] [address] 06/19/2024 15:18:59 06/19/2024 15:53:24 Candidiasis of vagina 08036822 B37.31 will tx with fluconazol e once daily x 7 days due to vaginitis and thrush. She declined pelvic exam today as she has her 2 children with her. She self swabbed for vaginitis. Acute vaginitis 54907772 N76.0 metrogel as directed x 5 days, will confirm via vaginitis swab Candidiasis of mouth 797 69314 B37.0 has been using clotrimazo le troches with some relief but sx continue [id number] IVY SANDOVAL MD Main Office [address] [place] [address] 09/22/2024 08:06:00 09/22/2024 09:00:52 Chronic pain syndrome 456518982 G89.4 - pt has chronic headaches and has right sided eye pain- MRI of the brain and orbit 02/2024: No acute intracrani al pathology or abnormal enhancemen t.- lumbar puncture completed -> negative- pt has been following with neurology, last seen on 02/06/2024> please note that patient does not follow-up consistent ly, per patient sees as needed - pt is also following with pain management , last seen on 08/28/2024- pt has weaned off gabapentin 900mg BID (done herself)- increased duloxetine ER 30mg to 60mg QD Major depr essive disorder 061561503 F32.1 - PHQ-9 score of 13 (done at previous visit)- as duloxetine is helping increased to 60mg QD- concerned that memory problems and inattentio n are more due to depression and anxiety- pt referred to psychiatry , florencia mckeon- denies SI/HI- counsellin alvin provided Anxiety 66006895 F41.9 - JERICA-7 score of 14 (done at last visit)- pt stopped buspar- pt was previously following with psych- increased duloxetine to 60mg- due to uncontroll ed migraines for now will continue with propanolol ER 120mg- counsellin g provided Seizure disorder 5572741 02 G40.909 - occurred 2 years ago while on the wellbutrin - after seizures patient developed chronic pain- pt is currently off all seizures meds, was on keppra 750mg BID Migraine without aura 56 209924 G43.009 - pt has started vestibular therapy to help with this- has been following with neurology: given sumatripta n 100mg QD- pt will take zofran as needed for nausea and vomiting Attention deficit hyperactivity disorder, 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 SE of sumatripta n and propanolol causing Raynauds - advised to f/u c neurosee below re: rheum evalmeanwh ile, rec slow taper off propanolol - lower dose to 80mg, and use sumatripta n sparinglyi f no sig help c reduction of sxs, could consider low dose amlodipine to help c raynauds - but await rheum input Raynaud's phenomenon 266 688866 I73.00 see above - will get rheum eval Essential hypertension 18576320 I10 for migraines above - lowering dose from 120mg ER to 80mg ER Paronychia of toe 798322 002 L03.031 ? has this as wellwill rx c keflexreco mmend probiotics while on abx Chilblains 03556015 T69. 1XXA ? has this - will get vascular eval Health Concerns Section Related Observation LastModified by Organization Detai ls LastModified Time None Recorded Concern Status LastModified by Organization Details LastModified Time None Recorded Advance Directives Directive N: Payers Encounter Date Sequence Insurance Name Policy Number Policy Garcia Covered Member ID Garcia Member ID Guarantor Name 05/16/2024 1 [place] [id number] Clayton Slaughterest [id number] Tania Rivest 05/26/2024 1 [place] [id number] Clayton Bellamy Rivest [id number] Tania Rivest 06/19/2024 1 [place] [id number] Clayton Bellamy Rivest [id number] Tania Rivest 09/22/2024 1 [place] [id number] Clayton Bellamy Rivest [id number] Tania Rivest 10/08/2024 1 [place] [id number] Clayton Slaughterest [id number] Tania Esquivel Notes Date Note Type Note Provider Name and Address Organization Details Recorded Time 05/16/2024 text/html Tania Esquivel is a 43 year old F who presented to the clinic concerns of memory loss. Patient has been having this problem for a few months now. Pt does follow with neurology however per patient not taking concerns seriously. Based on patient's evaluation from 04/23/2024 believe memory problems are more likely due to uncontrolled mood. IVY SANDOVAL MD [address] [address], [place], [address], [facility] 05/16/2024 11:04:13 05/26/2024 text/html 44 year old [...] chills, vesicular presentation. Deana Rabago PA-C [address] [address], [place], [address], [facility] 05/26/2024 10:29:45 06/19/2024 text/html Generic HPI TemplateReported bypatient.Notes:Patien t was on dexamethasone for SI joint pain. Developed thrush and is taking clotrimazole but she also has sx of vaginitis now, itching, discharge. denies urinary sx. WILL Rasmussen [address] [address], [place], [address], [facility] 06/19/2024 15:58:29 09/22/2024 text/html Anxiety/Depressi onRepo rted bypatient.Severity:den ies suicidal ideations; able to maintain relationships; does not interfere with activities of daily living Duration:stablizing Onset/Timing:still present Context:no major life stressors Modifying Factors:counselling; medications as directed Associated Symptoms:denies homicidal ideations; no significant weight gain; no significant weight loss; no visual/auditory hallucinations; no delusions; no shortness of breath; no anxiety; no crying spells; no panic; no isolation; sleeping well; appetite good; energy good; no apathy; maintaining functionality;emotiona l lability;high irritability Tania Esquivel is a 44 F who was seen over TH for discussion on anxiety and depression. Pt was recently seen by [facility] psychiatry (one-time program). Some other updates:> pt is currently looking for a psychiatrist to be able to do adult testing for ADHD> will be starting behavioral therapy within the next week> continues to follow pain management, getting nerve blocks for facial pain IVY SANDOVAL MD [address] [address], [place], [phone], [facility] 09/22/2024 09:00:22 10/08/2024 text/html pt experiencing a burning pain, hands and feet and right big toe nail is coming off. rev chart - h/o chronic pain, fol by [facility] - used to take gbn, now on duloxetine she c/o cold toes, wears wool socks - noticed increased pain over past few weeks - she wonders if d/t sumatriptan -- looked up on epocrates - does have SE of Raynaud'slooked up propanolol on epocrates - it also has SE of Raynaud's Carol bernabe [place] - [facility] 10/21/2024 15:03:39 OBGyn Episode No OBEpisode recorded.
== END 2024-11-18 09:52 | disposition home or self-care (01) ==
LOC: HO.PMC 09:22
PROVIDERS: PCP Internal Medicine; Visit Provider Internal Medicine
DX: R51.9 Headache, unspecified (principal); H49.10 Fourth [trochlear] nerve palsy, unspecified eye; M53.3 Sacrococcygeal disorders, not elsewhere classified
CPT/HCPCS: 99214

== ENCOUNTER 2024-12-17 06:14 | Outpatient (REF) | payer BC, SELFPAY ==
--- NOTE | ~2024-12-17 | FL_ITS ---
EXAMINATION: FL GUIDANCE ONLY HISTORY: M53.3 - Sacrococcygeal disorders, not elsewhere classified COMPARISON: None available. TECHNIQUE: Fluoroscopy time: Less than 0.1 minute. Cumulative Dose: 1.02 mGy. DAP: 0.73713 mGym2 Images: 2. FINDINGS: AP and lateral fluoroscopic spot films of the right hemipelvis demonstrate a needle in the region of the sacroiliac joint. FL/FL guidance in treatment room IMPRESSION: Fluoroscopy during procedure. Please see procedure report for additional information. Electronically signed by: Rio Ohara MD 12/17/2024 03:01 PM EDT
--- OUTSIDE RECORDS SUMMARY | 2024-12-17 06:17 | XMS_ITS | Data Portability ---
Author Organization [facility], Main Office Address [address] [place] [address] Care Team Providers Care Bioinformatics Assistant Name Role Phone KARON NICK Senior Ui Software Engineer GEOVANNY SANTORO Urologist IVY SANDOVAL Primary Care Provider BETTIE ULLOA Referring Provider Assessment Encounter Date Assessment Date Assessment LastModified by Organization Details LastModified Time 09/22/2024 09/22/2024 This service was provided using telemedicine. Patient consented to telephone visit Patient was located in the [facility]. Provider was located in the office. No other persons participated in the telemedicine visit except for the patient unless otherwise indicated here. Total time of visit was 20 minutes. [...] Go To The Location Of Their Choice, [id number] 06/24/2024 12:06:19 Referral vascular surgeon referral 2024 025 [email or web address] [facility], [address] , [facility] [address], [place], [address], 11/04/2024 10:43:22 rheumatol ogist referral 2024 025 [facility], [address] , [place], [address], 10/09/2024 10:40:55 Procedures None recorded. Surgeries None recorded. Imaging None recorded. Medication Orders cephalexi n 500 mg capsule 2024 025 [email or web address] [facility] #1230, [address], [facility], [place], [address], 10/21/2024 15:03:35 propranol ol ER 80 mg capsule,2 4 hr,extend ed release 2024 025 [email or web address] [facility] #1230, [address], [facility], [place], [address], 11/04/2024 14:26:25 duloxetin e 60 mg capsule,d elayed release 2024 025 [facility] #1230, [address], [facility], [place], [address], 09/22/2024 08:59:55 ondansetr on 4 mg disintegr ating tablet 2024 025 [facility]acy #1230, [address] , [facility], [place], [address], 10/09/2024 05:01:09 atomoxeti ne 40 mg capsule 2024 025 [facility] #1230, [address], [facility], [place], [address], 10/15/2024 12:03:07 fluconazo le 200 mg tablet 2023 025 [facility]1230, [address] , [facility], [place], [address], 09/22/2024 08:29:27 Metrogel Vaginal 0.75 % (37.5 mg/5 gram) 2023 025 [facility], [address] [facility], [place], [address], 09/22/2024 08:31:12 Patient TargetsNo targets recorded. Patient Instructions Encounter Date Encounter Id Patient Instructions Last Modified By Organization Details Last Modified Time 05/16/2024 [id number] Preventing Depression From Coming Back: Care Instructions Not available 05/16/2024 10:00:50 06/19/2024 [id number] To call or retur n for worsening or concerns [email or web address] Not available 06/19/2024 15:43:27 09/22/2024 [id number] epilepsy: care instructions Not available 09/22/2024 08:57:37 learning about stress Not available 09/22/2024 08:57:37 Mental Health Information Not available 09/22/2024 08:57:37 10/08/2024 [id number] paronychia: care instructions [email or web address] Not available 10/21/2024 15:03:35 Medications (OTC , herbal therapies, supplements) reviewed and reconciled with patient and or caregiver, including potential side effects, drug interactions, instructions, and the consequences of not taking medication. Reviewed potential barriers to medication adherence, such as side effects from medication or cost of medication. [email or web address] Not available 10/09/2024 09:31:56 Reason for Referral Nuclear Technologist Referral for Raynaud's phenomenon Referring Physician: Jac [...] /uL 3.4-10 .8 normal Not Available [facility] ([facility]) [address], [place], [address], 06/18/2024 10:06:13 06/16/20 24 06/17/2024 CBC WITH DIFFE RENTI AL/PL ATELE T RBC 4.95 x10e6 /uL 3.77-5 .28 normal Not Available [facility] ([facility] [address] [facility], [place], [address], 06/18/2024 10:06:13 06/16/20 24 06/17/2024 CBC WITH DIFFE RENTI AL/PL ATELE T hemoglobin 14.9 g/dL 11.1-1 5.9 normal Not Available [facility] ([facility] [address] [facility], [place], [address], 06/18/2024 10:06:13 06/16/20 24 06/17/2024 CBC WITH DIFFE RENTI AL/PL ATELE T hematocrit 46.4 % 34.0-4 6.6 normal Not Available [facility] ([facility] [address] [facility], [place], [address], 06/18/2024 10:06:13 06/16/20 24 06/17/2024 CBC WITH DIFFE RENTI AL/PL ATELE T MCV 94 fL 79-97 normal Not Available [facility] ([facility] [address] [facility], [place], [address], 06/18/2024 10:06:13 06/16/20 24 06/17/2024 CBC WITH DIFFE RENTI AL/PL ATELE T MCH 30.1 pg 26.6-3 3.0 normal Not Available [facility] ([facility] [address] [facility], [place], [address], 06/18/2024 10:06:13 06/16/20 24 06/17/2024 CBC WITH DIFFE RENTI AL/PL ATELE T MCHC 32.1 g/dL 31.5-3 5.7 normal Not Available [facility] ([facility] [address] [facility] [address], [place], [address], 06/18/2024 10:06:13 06/16/20 24 06/17/2024 CBC WITH DIFFE RENTI AL/PL ATELE T RDW 12.8 % 11.7-1 5.4 Not Available [facility] ([facility] [address] [facility], [place], [address], 06/18/2024 10:06:13 06/16/20 24 06/17/2024 CBC WITH DIFFE RENTI AL/PL ATELE T platelets 284 x10e3 /uL 150-45 0 normal Not Available [facility] ([facility] [address] [facility], [place], [address], 06/18/2024 10:06:13 06/16/20 24 06/17/2024 CBC WITH DIFFE RENTI AL/PL ATELE T neutrophils 68 % not estab. normal Not Available [facility] ([facility] [address] [facility], [place], [address], 06/18/2024 10:06:13 06/16/20 24 06/17/2024 CBC WITH DIFFE RENTI AL/PL ATELE T lymphs 21 % not estab. normal Not Available [facility] [address] [facility], [place], [address], 06/18/2024 10:06:13 06/16/20 24 06/17/2024 CBC WITH DIFFE RENTI AL/PL ATELE T monocytes 9 % not estab. normal Not Available [facility] ([facility] [address] [facility], [place], [address], 06/18/2024 10:06:13 06/16/20 24 06/17/2024 CBC WITH DIFFE RENTI AL/PL ATELE T eos 1 % not estab. normal Not Available [facility] ([facility] [address] [facility] [address], [place], [address], 06/18/2024 10:06:13 06/16/20 24 06/17/2024 CBC WITH DIFFE RENTI AL/PL ATELE T basos 1 % not estab. normal Not Available [facility] [address] [facility], [place], [address], 06/18/2024 10:06:13 06/16/20 24 06/17/2024 CBC WITH DIFFE RENTI AL/PL ATELE T immature cells CHILD & ADOLESCENT PSYCHIATRIST Not Available [facility] [address] [place], [address], 06/18/2024 10:06:13 06/16/20 24 06/17/2024 CBC WITH DIFFE RENTI AL/PL ATELE T neutrophils (absolute) 2.9 x10e3 /uL 1.4-7. 0 normal Not Available [facility] [address] [place], [address], 06/18/2024 10:06:13 06/16/20 24 06/17/2024 CBC WITH DIFFE RENTI AL/PL ATELE T lymphs (absolute) 0.9 x10e3 /uL 0.7-3. 1 normal Not Available [facility] ([facility] [address] [place], [address], 06/18/2024 10:06:13 06/16/20 24 06/17/2024 CBC WITH DIFFE RENTI AL/PL ATELE T monocytes(ab solute) 0.4 x10e3 /uL 0.1-0. 9 normal Not Available [facility] ([facility] [address] [place], [address], 06/18/2024 10:06:13 06/16/20 24 06/17/2024 CBC WITH DIFFE RENTI AL/PL ATELE T eos (absolute) 0.1 x10e3 /uL 0.0-0. 4 normal Not Available [facility] [address] [facility] [place], [address], 06/18/2024 10:06:13 06/16/20 24 06/17/2024 CBC WITH DIFFE RENTI AL/PL ATELE T baso (absolute) 0.0 x10e3 /uL 0.0-0. 2 normal Not Available [facility] ([facility] [address] [facility], [place], [address], 06/18/2024 10:06:13 06/16/20 24 06/17/2024 CBC WITH DIFFE RENTI AL/PL ATELE T immature granulocytes 0 % not estab. Not Available [facility] [address] [facility], [place], [address], 06/18/2024 10:06:13 06/16/20 24 06/17/2024 CBC WITH DIFFE RENTI AL/PL ATELE T immature grans (abs) 0.0 x10e3 /uL 0.0-0. 1 Not Available [facility] ([facility] [address] [facility], [place], [address], 06/18/2024 10:06:13 06/16/20 24 06/17/2024 CBC WITH DIFFE RENTI AL/PL ATELE T NRBC CHILD & ADOLESCENT PSYCHIATRIST Not Available [facility] [address] [facility], [place], [address], 06/18/2024 10:06:13 06/16/20 24 06/17/2024 CBC WITH DIFFE RENTI AL/PL ATELE T hematology comments: CHILD & ADOLESCENT PSYCHIATRIST Not Available [facility] [address] [facility], [place], [address], 06/18/2024 10:06:13 06/16/20 24 06/18/2024 BASIC METAB OLIC PANEL (8) glucose 101 mg/dL 70-99 above high normal Not Available [facility] [address] [facility], [place], [address], 06/18/2024 10:06:14 06/16/20 24 06/18/2024 BASIC METAB OLIC PANEL (8) BUN 15 mg/dL 6-24 normal Not Available [facility] ([facility] [address] [place], [address], 06/18/2024 10:06:14 06/16/20 24 06/18/2024 BASIC METAB OLIC PANEL (8) creatinine 0.74 mg/dL 0.57-1 .00 normal Not Available [facility] ([facility] [address] [facility], [address], 06/18/2024 10:06:14 06/16/20 24 06/18/2024 BASIC METAB OLIC PANEL (8) eGFR 101 mL/mi n/1.7 3 >59 normal Not Available [facility] [address] [place], [address], 06/18/2024 10:06:14 06/16/20 24 06/18/2024 BASIC METAB OLIC PANEL (8) BUN/creatini ne ratio 20 9-23 normal Not Available [facility] [address] [place], [address], 06/18/2024 10:06:14 06/16/20 24 06/18/2024 BASIC METAB OLIC PANEL (8) sodium 140 mmol/ L 134-14 4 normal Not Available [facility] [address] [place], [address], 06/18/2024 10:06:14 06/16/20 24 06/18/2024 BASIC METAB OLIC PANEL (8) potassium 4.2 mmol/ L 3.5-5. 2 normal Not Available [facility] ([facility] [address] [facility], [address], 06/18/2024 10:06:14 06/16/20 24 06/18/2024 BASIC METAB OLIC PANEL (8) chloride 100 mmol/ L 96-106 normal Not Available [facility] [address] [facility], [address], 06/18/2024 10:06:14 06/16/20 24 06/18/2024 BASIC METAB OLIC PANEL (8) carbon dioxide, total 27 mmol/ L 20-29 normal Not Available [facility] ([facility] [address] [facility], [address], 06/18/2024 10:06:14 06/16/20 24 06/18/2024 BASIC METAB OLIC PANEL (8) calcium 9.1 mg/dL 8.7-10 .2 normal Not Available [facility] [address] [facility] [place], [address], 06/18/2024 10:06:14 06/16/20 24 06/18/2024 LIPID PANEL cholesterol, total 150 mg/dL 100-19 9 normal Not Available [facility] [address] [facility], [address], 06/18/2024 10:06:15 06/16/20 24 06/18/2024 LIPID PANEL triglyceride s 103 mg/dL 0-149 normal Not Available [facility] [address] [facility], [address], 06/18/2024 10:06:15 06/16/20 24 06/18/2024 LIPID PANEL HDL cholesterol 55 mg/dL >39 normal Not Available [facility] [address] [facility], [address], 06/18/2024 10:06:15 06/16/20 24 06/18/2024 LIPID PANEL VLDL cholesterol robyn 19 mg/dL 5-40 Not Available [facility] [address] [facility], [address], 06/18/2024 10:06:15 06/16/20 24 06/18/2024 LIPID PANEL LDL chol calc ([facility]) 76 mg/dL 0-99 Not Available [facility] [address] [facility], [place], [address], 06/18/2024 10:06:15 06/16/20 24 06/18/2024 LIPID PANEL LDL calc comment: CHILD & ADOLESCENT PSYCHIATRIST Not Available [facility] [address] [facility] [address] [address], [place], [address], 06/18/2024 10:06:15 06/16/20 24 06/18/2024 HCV ANTIB JOSE DE JESUS RFX TO QUANT PCR HCV Ab Non Reacti ve non reacti ve Not Available [facility] [address] [facility], [place], [address], 06/18/2024 10:06:15 06/16/20 24 06/18/2024 HCV ANTIB JOSE DE JESUS RFX TO QUANT PCR interpretati on: Commen t Not infec facundo with HCV unles s early or acute infec tion is suspe cted (whic h may be delay ed in an immun ocomp romis ed indiv idual ), or other evide nce exist s to indic ate HCV infec tion. Not Available [facility] [address] [facility] [address], [place], [address], 06/18/2024 10:06:15 06/16/20 24 06/17/2024 FOLAT E (FOLI C ACID) , SERUM folate (folic acid), serum 16.7 NG/mL >3.0 normal A serum folat e blake ntrat ion of less than 3.1 ng/mL is consi dered to repre sent clini robyn defic iency . Not Available [facility] [address] [facility] [address], [place], [address], 06/18/2024 10:06:16 06/16/20 24 06/17/2024 RPR, RFX QN RPR/C ONFIR M TP RPR Non Reacti ve non reacti ve Not Available [facility] [address] [facility] [address], [place], [address], 06/18/2024 10:06:17 06/16/20 24 06/17/2024 VITAM IN [...] IOM (Inst itute of Medic ine). 2010. Todd ry refer ence dev es for calci um and D. Wilberto cleaning [place]: [facility] . 2. Mayank cano MF, Michelle ey [place], Marcus off-F errar i HUERTA, et al. Evalu ation , treat ment, and preve ntion of vitam in D defic iency : an Endoc rine Socie ty clini robyn pract ice guide line. JCEM. 2010; 96(7) :1911 -30. Not Available [facility] ([facility] [address] [facility] [address], [place], [address], 06/18/2024 10:06:18 06/16/20 24 06/17/2024 HIV AB/P2 4 AG WITH REFLE X HIV Ab/P24 Ag screen Non Reacti ve non reacti ve HIV-1 /HIV- 2 antib odies and HIV-1 p24 antig en were NOT detec facundo. There is no labor atory evide nce of HIV infec tion. HIV Negat amer[place] Not Available [facility] ([facility] [address] [facility] [address], [place], [address], 06/18/2024 10:06:19 06/16/20 24 06/18/2024 TSH RFX ON ABNOR MAL TO FREE T4 TSH 1.180 uIU/m L 0.450- 4.500 normal Not Available [facility] [address] [facility] [address], [place], [address], 06/18/2024 10:06:19 06/16/20 24 06/17/2024 SEDIM ENTAT ION RATE- WESTE RGREN sedimentatio n rate-westerg allison 9 mm/HR 0-32 normal Not Available [facility] [address] [facility] [address], [place], [address], 06/18/2024 10:06:21 06/16/20 24 06/17/2024 VITAM IN B12 vitamin B12 578 pg/mL 232-12 45 normal Not Available [facility] [address] [facility] [address], [place], [address], 06/18/2024 10:06:22 06/19/20 24 06/20/2024 NUSWA B BV SRI+C AND6+ CT/GC /T... atopobium vaginae Low - 0 score Not Available [facility] [address] [facility] [address], [place], [address], 06/24/2024 12:06:19 06/19/20 24 06/20/2024 NUSWA B BV SRI+C AND6+ CT/GC /T... bvab 2 Low - 0 score Not Available [facility] [address] [place], [address], 06/24/2024 12:06:19 06/19/20 24 06/20/2024 NUSWA B [...] for BV. Addit ional clini robyn data denise d be evalu ated to estab rikykeke song osis. Total score 3-6: Indic ates the prese nce of BV. Not Available [facility] [address] [place], [address], 06/24/2024 12:06:19 06/19/20 24 06/20/2024 NUSWA B BV SRI+C AND6+ CT/GC /T... nilton albicans, SRI Negati ve negati ve Not Available [facility] ([facility] [address] [place], [address], 06/24/2024 12:06:19 06/19/2006/20/2024 NUSWA B BV SRI+C AND6+ CT/GC /T... nilton glabrata, SRI Negati ve negati ve Not Available [facility] [address] [place], [address], 06/24/2024 12:06:19 06/19/20 24 06/20/2024 NUSWA B BV SRI+C AND6+ CT/GC /T... C parapsilosis /tropicalis Negati ve negati ve This assay does not diffe renti ate C. tropi calis and C. parap ajit is. Not Available [facility] ([facility] [address] [place], [address], 06/24/2024 12:06:19 06/19/20 24 06/20/2024 NUSWA B BV SRI+C AND6+ CT/GC /T... nilton lusitaniae, SRI Negati ve negati ve Not Available [facility] [address] [place], [address], 06/24/2024 12:06:19 1206/20/2024 NUSWA B BV SRI+C AND6+ CT/GC /T... nilton krusei, SRI Negati ve negati ve Not Available [facility] [address] [place], [address], 06/24/2024 12:06:19 06/19/2006/21/2024 NUSWA B BV SRI+C AND6+ CT/GC /T... hsv 1 SRI Negati ve negati ve Not Available [facility] [address] [place], [address], 06/24/2024 12:06:19 06/19/2006/21/2024 NUSWA B BV SRI+C AND6+ CT/GC /T... hsv 2 SRI Negati ve negati ve Not Available [facility] [address] [place], [address], 06/24/2024 12:06:19 06/19/20 24 06/24/2024 NUSWA B BV SRI+C AND6+ CT/GC /T... trich vag by SRI Negati ve negati ve Not Available [facility] [address] [place], [address], 06/24/2024 12:06:19 06/19/2006/24/2024 NUSWA B BV SRI+C AND6+ CT/GC /T... chlamydia trachomatis, SRI Negati ve negati ve Not Available [facility] [address] [place], [address], 06/24/2024 12:06:19 06/19/2006/24/2024 NUSWA B BV SRI+C AND6+ CT/GC /T... neisseria gonorrhoeae, SRI Negati ve negati ve Not Available [facility] [address] [place], [address], 06/24/2024 12:06:19 Result Notes None recorded. Problems Name Problem SNOMED Code Status Onset Date Resolution Date Notes Provider Name and Address Organization Details Recorded Time Allergic rhinitis 41949375 Completed 201001/19/2014 RECORDED 10/28/19 11 1:57PM BY FER ANTHONY MA, ANNOTATI ON/ADDEN DUM Not Available [facility] 4 15:27:43 Backache [id number] Completed 201201/19/2014 IMPRESSI ON: CHRONIC, MILD. MAY PURSUE CHIRO CARE. NO RED FLAG SXS OF CONCERN. ; RECORDED 10/24/19 13 9:14AM BY ZENAIDA MIUR MA, ANNOTATI ON/ADDEN DUM Not Available [facility] 4 15:27:44 Contrace ption care manageme nt Completed 201101/19/2014 IMPRESSI ON: PT TO CONSIDER CHANGING TO LOWER DOSE HORMONE PILL. WILL LET ME KNOW, HAPPY TO FAX TO THE PHARMACY FOR HER.; RECORDED 02/08/20 12 10:43AM BY YAZMIN GAMBLE MA, ANNOTATI ON/ADDEN DUM Not Available [facility] 4 15:27:44 Dysuria [id number] Completed 201101/19/2014 RECORDED 02/08/20 12 10:43AM BY YAZMIN GAMBLE MA, ANNOTATI ON/ADDEN DUM Yvette bernabe [facility] 8 14:01:36 Follow-u p encounte r Completed 201201/19/2014 RECORDED 03/05/20 13 8:58AM BY YAZMIN GAMBLE MA, ANNOTATI ON/ADDEN DUM Not Available [facility] 4 15:27:44 Malaise and fatigue [id number] Completed 10/31/2017 Yvette bernabe [facility] 8 14:01:24 Malaise and fatigue 867542913 Completed 201101/19/2014 IMPRESSI ON: DOING WELL ON MEDICATI ON. WILL TRY TO TAKE IN THE AMS TO AVOID EARLY DAY H/. ALSO DOING BETTER WITH REG EXERCISE WHICH I ENCOURAG ED HER TO CONTINUE . WILL TOUCH BASE IN THE NEXT 3-4 MONTHS RE PROGRESS .; RECORDED 02/08/20 12 10:43AM BY YAZMIN GAMBLE MA, MEGANATI ON/ADDEN DUM Yvette bernabe, [facility] 8 14:01:24 Influenz a vaccine needed [id number] 06 Completed 200701/19/2014 RECORDED 05/26/20 08 9:46AM BY NEIL COOPER, OFFICE VISIT Not Available [facility] 4 15:27:44 General examinat ion of patient Completed 200801/19/2014 RESOLVED DATE: 11/23/19 09; RECORDED 11/23/19 09 2:02PM BY TARA ANTHONY, TIFFANIE ON/ADDEN DUM Not Available [facility] 4 15:27:44 Well child [id number] Completed 201101/19/2014 RECORDED 02/08/20 12 10:43AM BY YAZMIN GAMBLE MA, TIFFANIE ON/ADDEN DUM Not Available [facility] 4 15:27:45 Psychoge orly headache [id number] Completed 200801/19/2014 RECORDED 11/23/19 09 2:02PM BY TARA ANTHONY, TIFFANIE ON/ADDEN DUM Not Available [facility] 4 15:27:45 Hyperlip idemia 62547945 Completed 201101/19/2014 RECORDED 02/08/20 12 11:23AM BY ALFREDO LOAIZA, PAOpal, TIFFANIE ON/ADDEN DUM Not Available [facility] 4 15:27:45 Neck pain 36374989 Completed 10/31/2017 Kiki bernabe [facility] 1 15:24:44 Administ ration of bacteria l and viral vaccine Completed 200701/19/2014 RECORDED 06/02/20 08 11:14AM BY CYNDEE PATIÑOP, HISTORIC AL SUMMARY Not Available [facility] 4 15:27:45 Non-neop lastic nevus [id number] Completed 201201/19/2014 STORY: MAINLY OVER BACK, FOLLOWED BY MELROSE DERM ANNUALLY .; RECORDED 10/24/19 13 9:14AM BY ZENAIDA MUIR MA, MEGANATI ON/ADDEN DUM Not Available [facility] 4 15:27:45 Patient status finding [id number] Completed 201201/19/2014 RECORDED 05/21/20 13 2:38PM BY YAZMIN GAMBLE MA, TIFFANIE ON/ADDEN DUM Yvette bernabe MA - [facility] 8 14:01:20 Noninfla mmatory disorder of the vagina [id number] Completed 201101/19/2014 IMPRESSI ON: UNLIKELY STD, TX TOPICALL Y FOR YEAST, IF POSITIVE FOR GARDNERE LLA WILL CALL AND TREAT, ALREADY TOOK 2 DIFLUCAN ; RECORDED 02/08/20 12 10:43AM BY YAZMIN GAMBLE MA, TIFFANIE ON/ADDEN DUM Not Available [facility] 4 15:27:46 Atypical squamous cells of undeterm ined signific ance on vaginal Papanico laou smear [id number] Completed 201101/19/2014 RECORDED 02/08/20 12 10:42AM BY YAZMIN GAMBLE MA, ANNOTATI ON/ADDEN DUM Not Available [facility] 4 15:27:46 Cellulit is of digit [id number] Completed 201201/19/2014 IMPRESSI ON: START ABX, WARM SOAKS, IBU FOR DAY AND PAIN MED AT NIGHT. MONITOR CLOSELY, CALL OFFICE FOR WORSENIN G/PRN; RECORDED 03/05/20 13 8:58AM BY YAZMIN GAMBLE MA, ANNOTATI ON/ADDEN DUM Not Available [facility] 4 15:27:46 Adult health examinat ion Completed 201201/19/2014 RECORDED 05/21/20 13 2:38PM BY YAZMIN GAMBLE MA, ANNOTATI ON/ADDEN DUM Not Available [facility] 4 15:27:46 Seborrhe ic dermatit is [id number] Completed 201201/19/2014 RECORDED 07/30/19 13 1:17AM BY FER ANTHONY MA, ANNOTATI ON/ADDEN DUM Not Available [facility] 4 15:27:46 Breast finding [id number] Completed 200801/19/2014 RECORDED 02/09/20 09 9:10AM BY FER ANTHONY MA, ANNOTATI ON/ADDEN DUM Not Available [facility] 4 15:27:46 Administ ration of diphther ia, pertussi s, and tetanus vaccine Completed 201201/19/2014 RECORDED 03/05/20 13 8:58AM BY YAZMIN GAMBLE MA, ANNOTATI ON/ADDEN DUM Not Available [facility] 4 15:27:46 Temporom andibula r joint disorder 64083162 Active Rachel Kohler MA [facility], [facility] 1 09:34:16 Urinary tract infectio us disease 36182760 Completed 10/31/2017 Yvette bernabe, [facility] 8 14:01:39 Allergic rhinitis 10956286 Completed 201002/15/2014 RECORDED 10/28/19 11 1:57PM BY FER ANTHONY MA, ANNOTATI ON/ADDEN DUM Not Available [facility] 4 06:27:20 Anxiety state 395356865 Completed 201302/15/2014 IMPRESSI ON: NEVER TRIED SERTRALI NE WILL START AT 25MG AND INCREASE TO 50MG; RECORDED 12/19/19 14 2:56PM BY YAZMIN GAMBLE MA, ANNOTATI ON/ADDEN DUM IVY SANDOVAL MD [address] [facility] [address], [place], [address] , [facility] 4 17:46:47 Backache [id number] Completed 201202/15/2014 IMPRESSI ON: CHRONIC, MILD. MAY PURSUE CHIRO CARE. NO RED FLAG SXS OF CONCERN. ; RECORDED 10/24/19 13 9:14AM BY ZENAIDA MUIR MA, ANNOTATI ON/ADDEN DUM Not Available [facility] 4 06:27:20 Contact dermatit is [id number] Active RADHA Diop, [facility] 1 09:34:16 Contrace ption care manageme nt Completed 201102/15/2014 IMPRESSI ON: PT TO CONSIDER CHANGING TO LOWER DOSE HORMONE PILL. WILL LET ME KNOW, HAPPY TO FAX TO THE PHARMACY FOR HER.; RECORDED 02/08/20 12 10:43AM BY YAZMIN GAMBLE MA, TIFFANIE ON/ADDEN DUM Not Available [facility] 4 06:27:20 Dysuria 49554781 Completed 201102/15/2014 RECORDED 02/08/20 12 10:43AM BY YAZMIN GAMBLE MA, TIFFANIE ON/ADDEN DUM Yvette bernabe, [facility] 8 14:01:36 Follow-u p encounte r Completed 201202/15/2014 RECORDED 03/05/20 13 8:58AM BY YAZMIN GAMBLE MA, TIFFANIE ON/ADDEN DUM Not Available [facility] 4 06:27:21 Influenz a vaccine needed [id number] 06 Completed 200702/15/2014 RECORDED 05/26/20 08 9:46AM BY NEIL COOPER, OFFICE VISIT Not Available [facility] 4 06:27:21 General examinat ion of patient Completed 200802/15/2014 RESOLVED DATE: 11/23/19 09; RECORDED 11/23/19 09 2:02PM BY TIFFANIE GALINDO ON/ADDEN DUM Not Available [facility] 4 06:27:21 Well child 215891623 Completed 201102/15/2014 RECORDED 02/08/20 12 10:43AM BY YAZMIN GAMBLE MA, TIFFANIE ON/ADDEN DUM Not Available [facility] 4 06:27:21 Psychoge orly headache 57444513 Completed 200802/15/2014 RECORDED 11/23/19 09 2:02PM BY TARA RAJ, ANNOTATI ON/ADDEN DUM Not Available [facility] 4 06:27:21 Hyperlip idemia 77880488 Completed 201102/15/2014 RECORDED 02/08/20 12 11:23AM BY ALFREDO LOAIZA PA-C, ANNOTATI ON/ADDEN DUM Not Available [facility] 4 06:27:21 Neck pain 81615129 Completed 201302/15/2014 IMPRESSI ON: CHRONIC, PT IS INTEREST ED IN PT, SHE WILL MAKE APPT; RECORDED 12/19/19 14 2:56PM BY YAZMIN GAMBLE MA, MEGANATI ON/ADDEN DUM Kiki bernabe [facility] 1 15:24:44 Administ ration of bacteria l and viral vaccine Completed 200702/15/2014 RECORDED 06/02/20 08 11:14AM BY LASHAE WARNER, LATANYA, HISTORIC AL SUMMARY Not Available [facility] 4 06:27:21 Non-neop lastic nevus 973434483 Completed 201202/15/2014 STORY: MAINLY OVER BACK, FOLLOWED BY NEW ADOLFO DERM ANNUALLY .; RECORDED 10/24/19 13 9:14AM BY ZENAIDA MUIR MA, ANNOTATI ON/ADDEN DUM Not Available [facility] 4 06:27:21 Patient status finding 870859304 Completed 10/31/2017 Yvette bernabe [facility] 8 14:01:20 Noninfla mmatory disorder of the vagina 37116881 Completed 201102/15/2014 IMPRESSI ON: UNLIKELY STD, TX TOPICALL Y FOR YEAST, IF POSITIVE FOR GARDNERE LLA WILL CALL AND TREAT, ALREADY TOOK 2 DIFLUCAN ; RECORDED 02/08/20 12 10:43AM BY YAZMIN GAMBLE MA, ANNOTATI ON/ADDEN DUM Not Available [facility] 4 06:27:21 Otitis media 50215806 Completed 10/31/2017 Yvette bernabe [facility] 8 14:01:32 Atypical squamous cells of undeterm ined signific ance on vaginal Papanico laou smear 573198183 Completed 201102/15/2014 RECORDED 02/08/20 12 10:42AM BY YAZMIN GAMBLE MA, ANNOTATI ON/ADDEN DUM Not Available [facility] 4 06:27:21 Cellulit is of digit 43779186 Completed 201202/15/2014 IMPRESSI ON: START ABX, WARM SOAKS, IBU FOR DAY AND PAIN MED AT NIGHT. MONITOR CLOSELY, CALL OFFICE FOR WORSENIN G/PRN; RECORDED 03/05/20 13 8:58AM BY YAZMIN GAMBLE MA, TIFFANIE ON/ADDEN DUM Not Available [facility] 4 06:27:21 Adult health examinat ion Completed 201202/15/2014 RECORDED 05/21/20 13 2:38PM BY YAZMIN GAMBLE MA, TIFFANIE ON/ADDEN DUM Not Available [facility] 4 06:27:21 Seborrhe ic dermatit is 17712258 Completed 201202/15/2014 RECORDED 07/30/19 13 1:17AM BY FER ANTHONY MA, TIFFANIE ON/ADDEN DUM Not Available [facility] 4 06:27:21 Breast finding 925473157 Completed 200802/15/2014 RECORDED 02/09/20 09 9:10AM BY FER ANTHONY MA, ANNOTATI ON/ADDEN DUM Not Available [facility] 4 06:27:21 Administ ration of diphther ia, pertussi s, and tetanus vaccine Completed 201202/15/2014 RECORDED 03/05/20 13 8:58AM BY YAZMIN GAMBLE MA, ANNOTMERVIN ON/ADDEN DUM Not Available [facility] 4 06:27:21 Urinary tract infectio us disease 12777764 Completed 201302/15/2014 RECORDED 12/19/19 14 2:56PM BY YAZMIN GAMBLE MA, TIFFANIE ON/ADDEN DUM Yvette Bigby MA null, [facility] 8 14:01:39 Dysuria 82980966 Completed 10/31/2017 Yvette bernabe, [facility] 8 14:01:36 Anxiety 95913501 Active RADHA Diop, [facility] 1 09:34:16 Otitis externa 6078083 Completed 10/31/2017 Yvette bernabe, [facility] 8 14:01:43 Acute vaginiti s 12404168 Completed 04/22/2024 Santino Herman [facility] [address] [facility] [address], [place], [address] , [facility] 4 15:40:42 Suspecte d COVID-19 157133273 Completed 12/14/2020 Removal Reason: Problem added by user [email or web address] from the COVID-19 watch flag Silva Mcguire null, [facility] 1 11:41:37 Neck pain 56169172 Active 2020 Kiki boyel null, [facility] 1 15:24:44 Seizure disorder 795189883 Active 2022 [facility] Cav[facility], [facility] 3 00:22:31 Elevated blood-pr essure reading without diagnosi s of hyperten chi 094735144 Completed 202204/23/2024 IVY SANDOVAL MD [address], [place], [address] , [facility] 4 10:42:18 Chronic pain syndrome 357766720 Active 2023 Jac Rabago PA-C [address], [place], [address] , [facility] 4 14:14:36 Major depressi ve disorder 794413480 Active 2023 Jac Rabago PA-C [address] [facility] [address], [place], [address] , [facility] 4 14:14:51 History of Lyme disease 711606579 Active 2023 Jac Rabago PA-C [address] [facility] [address], [place], [address] , [facility] 4 14:16:35 Vitamin D deficien cy 15617051 Active 2023 IVY SANDOVAL MD [address] [facility] [address], [place], [address] , [facility] 4 10:41:52 Candidia sis of vagina 81013858 Active 2023 WILL Rasmussen [address] [facility] [address], [place], [address] , [facility] 4 15:39:31 Acute vaginiti s 38962994 Active 2023 WILL Rasmussen [address] [facility] [address], [place], [address] , [facility] 4 15:40:42 Candidia sis of mouth 71105180 Active 2023 WILL Rasmussen [address] [facility] [address], [place], [address] , [facility] 4 15:57:51 Raynaud' s disease 218481000 Active 2024 IVY SANDOVAL MD [address] [facility] [address], [place], [address] , [facility] 5 06:54:21 Problem Notes None recorded. Procedures Surgical History Date Name Laterality Status Provider Name and Address Organization Details Recorded Time 3 injection of facet joint completed Kacy Salamanca [facility] 02/01/2023 11:39:25 4 Date of Last Pap Smear completed Rachel Kohler MA [facility] 04/01/2014 12:57:30 Imaging Results None recorded. Procedure Notes None recorded. Medical Equipment None Reported. Allergies Allergen ID Allergen Name Allergen Category Reaction Reaction Severity Criticality Documentation Date Start Date Code Code System Note Provider Name and Address Organization Details Recorded Time 51583 Wellbutri n medicatio n seizure severe unabletoasse ss 04/03/20222021 18769 RxNorm belie celestino to have contr ibute d to new onset grand mal seizu re - if other cause found , this charles rgy can be d/c Gertrude Mcdaniels RN [facility], [facility] 14:59:40 Medications Name Sig Start Date [...] shampoo SHAMPOO 2-3 TIMES A WEEK FOR BRANDI FREITAS. active Not Available Not Available No t [...] 11/05 completed RECORDED 11/06/19 14 2:47PM BY TIFFANIE DIOP ON/MEGHNA AMARO; Not Available Not Available Not Available sumatript [...] Not Available Not Available No t Available nifedipin e ER 30 mg tablet,ex tended release TAKE 1 TABLET BY MOUTH EVERY DAY FOR 30 DAYS active Not Available [...] RECORDED 11/06/19 14 2:47PM BY R[facility] KOHLER [facility] ON/MEGHNA AMARO;SHE GOT IT FROM HER UROLOGIS [...] pine ER 100 mg capsule,e xtended release [id number] r TAKE 2 CAPSULES BY MOUTH TWICE A DAY (SPOKE TO ) active Not Available Not Available No t [...] Not Available Not Available Not Available Fluzone [id number] 45 mcg (15 mcg x 3)/0.5 mL intramusc ular suspensio n active Not Available Not Available Not Available Flucelvax Quad (PF) 60 mcg (15 mcg x 4)/0.5 mL IM syringe 10/31 completed Not Available Not Available Not Available Emgality Pen 120 mg/mL subcutane ous pen injector INJECT THE CONTENTS OF ONE PEN ONCE MONTHLY active Not Available Not Available No t Available Ubrelvy 50 mg tablet TAKE 1 TABLET BY MOUTH DAILY,MA Y REPEAT DOSE IN 2 HOURS, DO NOT EXCEED 2 DOSES IN 24 HOURS active Not Available Not Available No t Available Flowflex COVID-19 Antigen Home Test kit FOLLOW INSTRUCT IONS INCLUDED WITH THE PACKAGE. 11/16 completed Not Available Not Available Not Available Vitals Date Recorded Body height Provider Name an d Address Organization Details Last Updated DateTime 09/22/2024 170.18 cm Rachel Kohler MA [facility] 09/22/2024 08:28:38 Date Recorded Body height Body mass index (BMI) Body weight Heart rate Oxygen saturation Oxygen saturation in Arterial blood by Pulse oximetry Body temperature Systolic blood pressure Diastolic blood pressure Provider Name and Address Organization Details Last Updated DateTime 5 170.18 cm 23 kg/m2 71203.0 8 g 72 /min 96 % 96 % 98.2 [degF] 121 mm[Hg] 74 mm[Hg] Briseida Nguyen LPN [facility] 5 15:09:49 Date Recorded Body height Body mass index (BMI) Body weight Heart rate Oxygen saturation Oxygen saturation in Arterial blood by Pulse oximetry Body temperature Systolic blood pressure Diastolic blood pressure Provider Name and Address Organization Details Last Updated DateTime 4 170.18 cm 21.9 kg/m2 76977.9 3 g 62 /min 100 % 100 % 97.8 [degF] 107 mm[Hg] 68 mm[Hg] Chandra mackay MA [facility] 4 09:43:03 Date Recorded Body height Body mass index (BMI) Body weight Heart rate Oxygen saturation Oxygen saturation in Arterial blood by Pulse oximetry Body temperature Systolic blood pressure Diastolic blood pressure Provider Name and Address Organization Details Last Updated DateTime 4 170.18 cm 22.7 kg/m2 48162.8 9 g 76 /min 98 % 98 % 98.3 [degF] 125 mm[Hg] 74 mm[Hg] Danielle Novoa MA [facility] 4 09:46:42 Date Recorded Body height Body mass index (BMI) Body weight Oxygen saturation Oxygen saturation in Arterial blood by Pulse oximetry Heart rate Body temperature Systolic blood pressure Diastolic blood pressure Provider Name and Address Organization Details Last Updated DateTime 4 170.18 cm 22.7 kg/m2 73065.8 9 g 100 % 100 % 75 /min 98.3 [degF] 126 mm[Hg] 80 mm[Hg] Rachel Kohler MA [facility] 4 15:30:03 Social History Question Answer Notes LastModified by Organizat ion Details LastModified Time Tobacco Smoking Status Never Smoker Rachel Kohler MA [facility] 02/18/2014 13:45:04 Do You Have An Advance Directive? No [email or web address] Information not available 05/11/2022 Animal Exposure? Yes [email or web address] Information not available 05/11/2022 Do You Wear A Helmet When Biking? Yes [email or web address] Information not available 05/11/2022 Is Blood Transfusion Acceptable In An Emergency? Yes [email or web address] Information not available 04/01/2014 What Is Your Level Of Caffeine Consumption? Occasional Every Other Day, Coffee X 1 Information not available 09/20/2016 How Much Tobacco Do You Chew? None [email or web address] Information not available 04/01/2014 What Type Of Diet Are You Following? REGULAR [email or web address] Information not available 02/18/2014 Which Illicit Or Recreational Drugs Have You Used? NONE Information not available 09/20/2016 Education Post Graduate [email or web address] Information not available 05/11/2022 Have There Been Any Changes To Your Family Or Social Situation? No [email or web address] Information not available 05/11/2022 How Many Days In The Past Year Have You Had A Heavy Drinking Consumption (4+ Female, 5+ Male)? 10 [email or web address] Information not available 05/11/2022 Are There Any Guns Present In Your Home? No [email or web address] Information not available 05/11/2022 What Is Your Home Situation? Other [email or web address] Information not available 05/11/2022 Legally Blind In One Or Both Eyes? No [email or web address] Information not available 05/11/2022 Do You Take Precautions To Prevent Distracted Driving? Yes [email or web address] Information not available 04/23/2024 How Often Do You Need To Have Someone Help You When You Read Instructions, Pamphlets, Or Other Written Material From Your Doctor Or Pharmacy? Never Information not available 09/20/2016 Have You Served In The ? No Information not available 09/20/2016 Marital Status Domestic Partner [email or web address] Information not available 05/11/2022 Total Number Of Stairs In Home 14 [email or web address] Information not available 05/11/2022 How Many Children Do You Have? 2 Information not available 06/19/2024 Do You Use Protection During Sex? No [email or web address] Information not available 04/01/2014 Difficulty Reading? No [email or web address] Information not available 05/11/2022 What Is Your Relationship Status? [place] Information not available 06/19/2024 Seat Belts Used Routinely Yes [email or web address] Information not available 05/11/2022 Are You Sexually Active? Yes [email or web address] Information not available 04/01/2014 Are You Passively Exposed To Smoke? No Information not available 09/20/2016 How Much Tobacco Do You Smoke? No Information not available 09/20/2016 What Types Of Sporting Activities Do You Participate In? Running, Hiking, Kayaking, Rock Climbing [email or web address] Information not available 05/11/2022 Do You Use Sunscreen Routinely? Yes [email or web address] Information not available 02/18/2014 Do You Have Difficulty Walking Or Climbing Stairs? No [email or web address] Information not available 05/11/2022 Sex: Unknown Functional Status Question Answer Note LastModified by Organizat ion Details LastModified Time Do you use any illicit or recreational drugs? No [email or web address] Information not available 05/11/2022 What is your level of alcohol consumption? Occasional [email or web address] Information not available 02/18/2014 Are you currently employed? Yes [email or web address] Information not available 02/18/2014 Difficulty driving at night? No [email or web address] Information not available 05/11/2022 Are you able to walk? YESWOREST [email or web address] Information not available 08/10/2022 Are you able to care for yourself? 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 No [email or web address] Information not available 05/11/2022 What is your exercise level? Moderate treadmill 1-2/week Information not available 09/20/2016 Mental Status Question Answer Note LastModified by Organization D etails LastModified Time Do you have difficulty concentrating, remembering or making decisions? Yes [email or web address] Information no t available 05/11/2022 Family History [...] available 2016 11:39:58 Father Interstitial lung disease [email or web address] Not available 09:46:25 Father Cerebrovascu lar accident [email or web address] Not available 10:32:40 Mother Heart disease 65 abolcun Not available 2014 10:22:50 Mother Myocardial infarction [email or web address] Not available 10/2021 09:46:25 Mother Coronary atherosclero sis [email or web address] Not available 05/11 09:46:25 Brother Obesity [email or web address] [...] high-dose, trivalent, PF 4 completed Not Available [facility] 12/19/2020 20:02:54 Influenza, split virus, trivalent, preservative 6 completed SARTHAK Ching, [facility] 04/03/2022 15:18:11 COVID-19, mRNA, LNP-S, PF, 30 mcg/0.3 mL dose 1 completed RADHA Rosa, [facility] 04/11/2022 12:54:47 Influenza, split virus, quadrivalent, preservative 1 completed RADHA Diop, [facility] 06/19/2021 14:49:17 COVID-19, mRNA, LNP-S, PF, 30 mcg/0.3 mL dose 0 completed Rachel Kohler MA null, [facility] 06/19/2021 14:50:39 COVID-19, mRNA, LNP-S, PF, 30 mcg/0.3 mL dose 1 completed Rachel Kohler MA null, [facility] 06/19/2021 14:51:22 Influenza, MDCK, quadrivalent, PF 7 completed Gertrude Mcdaniels RN null, [facility] 04/03/2022 15:18:10 Influenza, split virus, quadrivalent, PF 8 completed Gertrude Mcdaniels RN null, [facility] 04/03/2022 15:18:10 Influenza, split virus, quadrivalent, PF 9 completed Gertrude Mcdaniels RN null, [facility] 04/03/2022 15:18:10 Influenza, split virus, quadrivalent, PF 1 completed Gertrude Mcdaniels RN null, [facility] 04/03/2022 15:18:10 Tdap 9 completed Gertrude Mcdaniels RN null, [facility] 04/03/2022 15:18:10 Influenza, split virus, quadrivalent, PF 0 completed Gertrude Mcdaniels RN null, [facility] 04/03/2022 15:18:11 Influenza, split virus, quadrivalent, PF 2 completed RADHA Diop, [facility] 08/10/2022 10:14:13 influenza, unspecified formulation 2 completed RADHA Diop, [facility] 08/10/2022 10:20:47 COVID-19, mRNA, LNP-S, bivalent, PF, 50 mcg/0.5 mL or 25mcg/0.25 mL dose 3 completed RADHA Jansen, [facility] 11/16/2022 11:24:09 COVID-19, mRNA, LNP-S, PF, prasanth-sucrose, 30 mcg/0.3 mL 4 completed RADHA Diop, [facility] 04/02/2024 13:26:29 COVID-19, mRNA, LNP-S, PF, 50 mcg/0.5 mL 3 completed RADHA Diop, [facility] 04/02/2024 13:26:29 Influenza, split virus, quadrivalent, PF 3 completed RADHA Diop, [facility] 04/02/2024 13:26:29 Influenza, split virus, trivalent, PF 4 completed RADHA Jansen, [facility] 05/26/2024 09:46:11 Tdap 6 completed Not Available [facility] 12/19/2020 20:02:54 Influenza, split virus, trivalent, preservative 8 completed Not Available [facility] 12/19/2020 20:02:54 Tdap 3 completed Not Available [facility] 12/19/2020 20:02:54 Influenza, split virus, trivalent, preservative 3 completed Not Available [facility] 12/19/2020 20:02:54 Past Encounters Encounter ID Performer Location Encounter Start Date Encounter Closed Date Diagnosis/Indication Diagnosis SNOMED-CT Code Diagnosis ICD10 Code Diagnosis Note [id number] auto[facility]Comm erce [address] [facility] [place] [address] 12/30/2006 00:00:00 [id number] auto[facility]Comm erce [address] [facility] [place] [address] 05/06/2007 00:00:00 [id number] autoEComm erce [address] [facility] [place] [address] 05/20/2007 00:00:00 [id number] autoEComm erce [address] [place] [address] 05/26/2008 00:00:00 [id number] autoEComm erce [address] [place] [address] 11/22/2008 00:00:00 [id number] autoEComm erce [address] [facility] [address] [place] [address] 02/08/2009 00:00:00 [id number] auto[facility] erce [address] [place] [address] 07/28/2009 00:00:00 [id number] auto[facility]Comm erce [address] [facility] [place] [address] 10/20/2009 00:00:00 [id number] autoEComm erce [address] [facility] [place] [address] 01/28/2010 00:00:00 [id number] autoEComm erce [address] [facility] [place] [address] 10/27/2010 00:00:00 [id number] autoEComm erce [address] [facility] [place] [address] 11/28/2010 00:00:00 [id number] autoEComm erce [address] [facility] [place] [address] 02/08/2012 00:00:00 [id number] autoEComm erce [address] [facility] [place] [address] 10/23/2012 00:00:00 [id number] autoEComm erce [address] [facility] [place] [address] 11/05/2013 00:00:00 [id number] autoEComm erce [address] [facility] [place] [address] 12/19/2013 00:00:00 [id number] Kiki boyle MD Main Office [address] [place] [address] 02/18/2014 13:31:24 02/18/2014 14:23:02 Urinary tract infectious disease 14206575 see hx multiple UTI's, unclear if there could be an element of interstiti al cystitis. Pt green et up appt [facility] urologist, hydrate, void after intercours e and gather her urine culture and sensitivit ies so she can show to urology to help if going to go on preventive med. PT to call if feels more ill, if any abdominal pain needs to do a test, no concern now for ectopic Dysuria 71029711 [id number] Kiki boyle MD Main Office [address] [address] 04/01/2014 12:52:55 04/01/2014 13:38:04 Adult health examination 377733477 pap smear is utd, pt is active, eats well, pt will start a one a day vitamin. Urinary tr act infectious disease 59623141 having workup for recurrent UTI, stresse to pt hydration is so important, followup with urology Anxiety 87644492 pt feel s so well on zoloft 50mg, it really helpps, has sexual side effects, pt is trying to get so will not change to wellbutrin . Pt will call business mail entry clerk and discuss meds for anxiety [id number] Jamar Castle MD Main Office [address] [address] 10/14/2014 10:12:14 10/14/2014 11:06:31 Neck pain 02082784 chronic problem and looking for a referral to a specialist . Otitis externa 3268525 p roblem on the left. Currently no signs of infection. Possible eustachion tube dysfunctio n. Already using a nasal spray and has Sudafed at home. The symptoms are manageable and she wanted to be sure that she had cleared the infection. [id number] WILL Rasmussen Main Office [address] [address] 09/20/2016 11:00:09 09/20/2016 12:06:43 Adult health examination 380497583 Z00.00 HM UTD, flu vaccine in march, TDAP in 2016, pap UTD. Doing well. Anxiety 58000348 F41.9 Mild anxiety disorder, JERICA shows mild anxiety. Discussed sertraline which is safe with breastfeed ing, she is still a bit uncomforta ble with taking it while breastfeed ing. She would like the prescripti on and will call back for f/u in 1 month for recheck if she does decide to start med. SSRIs discussed with patient. Impacted cerumen 7217886 6 H61.22 Left, lavaged. [id number] Kiki boyle MD Main Office [address] [facility] [place] [address] [facility] [place] [address] 12/14/2020 15:02:43 12/14/2020 15:56:04 Suspected Lyme disease 055628338 Z03.89 Pt appears to have lyme disease clinically , although test neg in ED, will repeat tests in 2 week, finish doxycyclin e . Rest, hydration, call if not continuing to improve, ED if worse with back pain or headache. Labs today Spasm of m uscle of lower back [id number] 8255770 M62.830 Rest, try flexeril, call or ED if acutely worse or focal neuro sx. Likely muscle spasm [id number] Kiki boyle MD Main Office [address] [facility] [place] [address] [facility] [place] [address] 12/26/2020 09:29:27 12/26/2020 10:11:22 Lyme disease 45666522 A69.20 Pt has been taking doxycyclin e and is finally starting to improve; will continue for another week. 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 Mild neck discomfort , back pain better. 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 will refer to PT for therapy to help with muscle tension HUERTA and pt to come in for a PE in a month with /Nova Neck pain [id number] M54.2 see above [id number] Kiki boyle MD Main Office [address] [facility] [place] [address] [place] [address] 04/03/2022 14:32:14 04/03/2022 15:13:13 [id number] Katy Lynn MD Main Office [address] [facility] [place] [address] [place] [address] 04/11/2022 09:14:26 04/11/2022 14:07:10 Seizure disorder [id number] G40.909 New onset, see discharge summary. Pt [...] by neurology for RTW and driving. Fatigue 47889357 R53.83 feeling achy in neck with fatigue? lyme again, will do testing for this. Discussed possibilit y positive might be related to old lyme from last year, pt wants to do test. Might be related to side effect coming off of wellbutrin and stress. Anxiety 61165067 F41.9 [facility] med prescriber Dee Ocampo, has appt upcoming to discuss meds. Suggested counseling . [id number] Kiki boyle MD Main Office [address] [facility] [place] [address] [facility] [place] [address] 05/11/2022 09:45:56 05/11/2022 15:50:55 Seizure disorder 237635166 G40.909 New onset Pt is on Keppra [...] RTW and driving. History of Lyme disease 625905134 Z86.19 ? new infection vs reactivati on, put on doxycyclin e, has followup planned Neuralgia 98549816 M79.2 Korey try adding at night, call if not helping [id number] Kiki boyle MD Main Office [address] [facility] [place] [address] [place] [address] 07/13/2022 13:48:30 07/13/2022 15:14:10 Headache 26931701 R51.9 on gabapentin 300 mg tid, will be getting right occipital nerve injection soon, has in person visit with headache specialist at in 2 weeks. Neck pain 70155168 M54.2 Try PT consider MRI if not better. Short term followup Stretching an heat, meds as listed Seizure disorder 6624532 02 G40.909 Pt is off Keppra 750 mg bid, no further seizures. She had followup with neurology at the seizure clinic on 05/22/22 and had a second opinion. Awaiting notes. An MRI has been ordered by seizure clinic and pt is waiting for a date. She will need to be cleared by neurology for RTW and driving. [id number] Kiki boyle MD Main Office [address] [facility] [place] [address] [place] [address] 08/10/2022 10:05:49 08/10/2022 11:41:46 Adult health examination 504214758 Z00.00 Pt in good general health. He sees the dentist and will see eye provider to followup on eye pain. HCM screenings up to date, Tdap up to date, had covid and flu vaccines Diet is balanced, see history for lifestyle choices Anxiety state 775930484 F41.1 ok on current meds, will check into counseling /family counseling , likely needs to be on additional meds other than buspar Neck pain 67112903 M54.2 MRi done bulging disc C5-6, could consider EDSI with [facility], starting PT next week for this Seizure disorder 7015412 02 G40.909 Pt is off Keppra 750 [...] resume in 2 months Cervico-oc cipital neuralgia 54001765 M54.81 will be getting injection through [facility] Major depr essive disorder 354575984 F32.9 see above, doing will try tapping, try to reach out for counseling and kids evaluation at school History of Lyme disease 455813646 Z86.19 Treated for this x2 , has been discharged from infectious disease provider. Pain of right eye 958949 6562 09186 H57.11 Due to ongoing pain , will have her see opthamolog y [id number] Nova Cavazos us, CHILD & ADOLESCENT PSYCHIATRIST Main Office [address] [facility] [place], [place] [address] 09/07/2022 10:03:40 09/10/2022 10:43:56 Essential hypertension 88347930 I10 Pt likely has some hypertensi on now, she will start treatment and monitor BP, call with readings next week Chronic da rolly headache [id number] 55513 R51.9 Headache since seizure disorder, has had negative imaging and only temporary relief with otc meds. ? if this is related to blood pressure. She had some occipital nerve injections which were of limited help. Pain of right eye 042432 1302 55622 H57.11 Has continued posterior eye pain with negative evaluation s, Elevated blood-pressure reading without diagnosis of hypertension 436170150 R03.0 Pt does not have a history of HTN but readings lately elevated consistent ly. She would like to try BB to see if this helps for BP and possibly headache prevention . Will monitor her blood pressure and symptoms closely Neck pain 23999427 M54.2 Acute pain with elevate blood pressure, pt is concerned about a issue with blood vessels in the head and neck causing the triad of neck pain, headache and eye pain. Will do CTA of head and neck [id number] Nova dominique, CHILD & ADOLESCENT PSYCHIATRIST Main Office [address] [place] [address] 11/16/2022 10:48:45 11/16/2022 14:56:30 Chronic daily headache 3253936777 72807 R51.9 better now with BB, will continue Pain of right eye 806584 4940 58856 H57.11 eye pain better, nomral exams Neck pain 42246193 M54.2 Having EDSI upcoming, better. We were going to do a CTA of head and neck but she decided against it for now. Call if anyworseni ng. Essential hypertension 11594613 I10 Pt doing well on current treatment with propranolo l, no changes, pulse > 60, BP good [id number] Katy Lynn MD [facility] [address] [place] [address] 12/10/2022 09:37:47 12/10/2022 10:52:51 Dysuria-frequency syndrome 6308958 R30.0 Pt with past h/o interstiti al cystitis. WE will check U/A and culture and treat per results. PT. is advised to increase hydration. [id number] Andrea Montana MD Main Office [address] [place] [address] 04/02/2024 13:12:50 04/02/2024 14:15:22 Chronic pain syndrome 979135016 G89.4 chronic pain - huerta, R eye, back, RLE - fol by neuro - cont f/u c them, had mri, pending repeat lumbar punctureco nt gbn as dirsee below Major depr essive disorder 941982628 F32.1 mod dep on phq - ? has psychosoma tic c/o aboveconsi cathy trial of duloxetine - start c 30mg qd - if tolerates but no sig improvemen t then increase to 60mg qd History of Lyme disease 560099804 Z86.19 2021 - had meningitis - [facility] - seen by ID, never seen by rheum = will get eval Anxiety 16971264 F41.9 stopped buspar acutely recently - was rx'd by [facility] - discharged , no longer sees themsee aboveno see therapist - consider it [id number] IVY SANDOVAL MD Main Office [address] [facility] [address] [facility] [place], [place] [address] 04/23/2024 10:23:44 04/23/2024 11:10:41 Chronic pain syndrome 110171931 G89.4 - pt has chronic headaches and [...] this medication ) Major depr essive disorder 010748053 F32.1 - PHQ-9 score of 13- pt was started on duloxetine ER 30mg QD -> there has been improvemen t on the medication , will hold increase at this time until memory testing is done- concerned that memory problems and inattentio n are more due to depression and anxiety- pt referred to psychiatry - denies SI/HI- maribel esquivel provided History of Lyme disease 742164631 Z86.19 - pt has been referred to infectious disease Anxiety 32187273 F41.9 - JERICA-7 score of 14- pt stopped buspar- pt was previously following with psych- pt is currently on duloxetine 30mg QD and propanolol ER 120mg> has noticed some improvemen t with the duloxetine (started on 04/02/2024) > not change at this time- maribel esquivel provided- RTC in 4 weeks Seizure disorder 4506218 02 G40.909 - occurred 2 years ago while on the wellbutrin - after seizures patient developed chronic pain- pt is currently off all seizures meds, was on keppra 750mg BID Adult heal th examination 566357169 Z00.00 Health Maintenanc e FemaleA) Patient was [...] nfluenza: 03/31/2024T dAP: 08/20/2018Z oren: due at 24BIE22: due at 86QYUX80: due at 13YTF50:PC V15:COVID: 06/23/2020 , 07/14/2020, 04/05/2021, 10/08/2022, 04/11/2023, 03/31/2024 D) Routine blood work orderedE) Updated patient's history RTC in one year for annual exam or sooner if any acute complaints Screening for malignant neoplasm of cervix 570161093 Z12.4 Screening for malignant neoplasm of colon 216472959 Z12.11 Fatigue 08943106 R53.83 Hyperlipidemia 32060431 E78.5 HIV screening 130837824 Z11.4 Hepatitis C screening 41 0769148 Z11.59 Vitamin D deficiency 347 77490 E55.9 Memory impairment 769659 006 R41.3 - pt concerned about her memory loss- has spoke to neurology about this however per patient her concerns were dismissed- MRI completed and was normal- blood work ordered- feel as symptoms are more due to mood/anxie ty compoment- RTC in 3 weeks for memory impairment Venereal d isease screening 974394611 Z11.3 Z72.89 F03.90 [id number] IVY SANDOVAL MD Main Office [address] [place] [address] 05/16/2024 09:35:35 05/16/2024 10:04:05 Memory impairment 401434320 R41.3 - 6CIT score of 2 and [...] improving on duloxetine Chronic pain syndrome 37 3696599 G89.4 - pt has chronic headaches and [...] is doing better Major depr essive disorder 706555936 F32.1 - pt was started on duloxetine ER 30mg QD -> there has been improvemen t on the medication , will hold increase at this time until memory testing is done- concerned that memory problems and inattentio n are more due to depression and anxiety- pt referred to psychiatry - kyrie BARRAGAN/DANIS- maribel roman [id number] Andrea Montana MD Main Office [address] [facility] [place] [address] [facility] [place] [address] 05/26/2024 09:27:32 05/26/2024 10:15:01 Localized eruption of skin 535623884 R21 Non infectious rash, ore looking like possibly inflammato ry in nature and is now resolving. Pt. has planned bone marrow procedure. NO contraindi cation is present to proceed in terms of this rash. [id number] Jamar Castle MD Main Office [address] [facility] [place] [address] [facility] [place] [address] 06/19/2024 15:18:59 06/19/2024 15:53:24 Candidiasis of vagina 47727584 B37.31 will tx with fluconazol e once daily x 7 days due to vaginitis and thrush. She declined pelvic exam today as she has her 2 children with her. She self swabbed for vaginitis. Acute vaginitis 98459465 N76.0 metrogel as directed x 5 days, will confirm via vaginitis swab Candidiasis of mouth 797 30877 B37.0 has been using clotrimazo le troches with some relief but sx continue [id number] IVY SANDOVAL MD Main Office [address] [facility] [place] [address] [facility] [place] [address] 09/22/2024 08:06:00 09/22/2024 09:00:52 Chronic pain syndrome 207241031 G89.4 - pt has chronic headaches and [...] to 60mg QD Major depr essive disorder 398688010 F32.1 - PHQ-9 score of 13 (done at previous visit)- as duloxetine is helping increased to 60mg QD- concerned that memory problems and inattentio n are more due to depression and anxiety- pt referred to psychiatry , florencia mckeon- denies SI/HI- counsellin g provided Anxiety 23245239 F41.9 - JERICA-7 score of 14 (done at last visit)- pt stopped buspar- pt was previously following with psych- increased duloxetine to 60mg- due to uncontroll ed migraines for now will continue with propanolol ER 120mg- counsellin g provided Seizure disorder 6200554 02 G40.909 - occurred 2 years ago while on the wellbutrin - after seizures patient developed chronic pain- pt is currently off all seizures meds, was on keppra 750mg BID Migraine without aura 56 840171 G43.009 - pt has started vestibular therapy to help with this- has been following with neurology: given sumatripta n 100mg QD- pt will take zofran as needed for nausea and vomiting Attention deficit hyperactivity disorder, 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 [place] [address] [facility] [place], [place] [address] 10/08/2024 15:00:34 10/08/2024 16:01:37 Migraine 44146631 G43.909 ? SE of sumatripta n and propanolol causing Raynauds - advised to f/u c neurosee below re: rheum evalmeanwh ile, rec slow taper off propanolol - lower dose to 80mg, and use sumatripta n sparinglyi f no sig help c reduction of sxs, could consider low dose amlodipine to help c raynauds - but await rheum input Raynaud's phenomenon 266 878013 I73.00 see above - will get rheum eval Essential hypertension 24874882 I10 for migraines above - lowering dose from 120mg ER to 80mg ER Paronychia of toe 480605 002 L03.031 ? has this as wellwill rx c keflexreco mmend probiotics while on abx Chilblains 53800932 T69. 1XXA ? has this - will get vascular eval Health Concerns Section Related Observation LastModified by Organization Detai ls LastModified Time None Recorded Concern Status LastModified by Organization Details LastModified Time None Recorded Advance Directives Directive N: Payers Insurance Date Sequence Insurance Name Policy Number Policy Garcia Covered Member ID Garcia Member ID Guarantor Name 10/21/2024 1 [facility] ([facility]) [id number] Clayton Bellamy Sierra [id number] Tania Sierra 06/13/2021 1 [employer] [place] [place] [id number] Tania Singh Mariscal [id number] Tania Sierra Notes Date Note Type Note Provider Name [...] due to uncontrolled mood. IVY SANDOVAL MD [address] [address], [place], [address], [facility] 05/16/2024 11:04:13 05/26/2024 text/html 44 year old [...] chills, vesicular presentation. Deana Rabago PA-C [address] [address], [place], [address], [facility] 05/26/2024 10:29:45 06/19/2024 text/html Generic HPI TemplateReported bypatient.Notes:Patien t was on dexamethasone for SI joint pain. Developed thrush and is taking clotrimazole but she also has sx of vaginitis now, itching, discharge. denies urinary sx. WILL Rasmussen [address] [address], [place], [address], [facility] 06/19/2024 15:58:29 09/22/2024 text/html Anxiety/Depressi onRepo rted [...] a 44 F who was seen over for discussion on anxiety and depression. Pt was recently seen by [facility] psychiatry (one-time program). Some other updates:> pt is currently looking for a psychiatrist to be able to do adult testing for ADHD> will be starting behavioral therapy within the next week> continues to follow pain management, getting nerve blocks for facial pain IVY SANDOVAL MD [address] [address], [place], [address], [facility] 09/22/2024 09:00:22 10/08/2024 text/html pt experiencing a burning pain, hands and feet and right big toe nail is coming off. rev chart - h/o chronic pain, fol by [facility] - used to take gbn, now on duloxetine she c/o cold toes, wears wool socks - noticed increased pain over past few weeks - she wonders if d/t sumatriptan -- looked up on epocrates - does have SE of Raynaud'slooked up propanolol on epocrates - it also has SE of Raynaud's Carol bernabe MA - [facility] 10/21/2024 15:03:39 OBGyn Episode No OBEpisode recorded.
== END 2024-12-17 06:15 | disposition home or self-care (01) ==
LOC: CF 06:14
PROVIDERS: Visit Provider Internal Medicine
DX: M53.3 Sacrococcygeal disorders, not elsewhere classified (principal)
CPT/HCPCS: 27096; J2003; J2795

== ENCOUNTER 2024-12-17 09:16 | Outpatient (AMB) | payer BC, SELFPAY ==
--- NOTE | 2024-12-17 09:18 | MHC.OFFVIS ---
Vital Signs 12/17/24 09:22 12/17/24 10:11 BP 129/84 134/86 Blood Pressure Location Lt brachial Lt brachial Position Sitting Sitting Respiration 16 16 Pulse 98 106 H Pulse Source Pulse Oximeter Pulse Oximeter Pulse Oximetry (%) 100 99 Oxygen Delivery Method Room Air Room Air Intake Visit Reasons: right Dx SIJ inj Allergies bupropion [From Wellbutrin] Allergy (Severe, Verified 11/18/24 09:24) Seizure HPI HPI right Dx SIJ inj: Details: Patient presents for scheduled procedure. Denies any recent cough, cold, infection, fever or other significant changes in medical history since last office visit. [facility] Medical History (Updated 11/18/24 @ 09:54 by Marck Orantes MD) Depression Rosacea Neck pain Lyme disease Anxiety Surgical History [place] teeth removed Family History Mother Heart disease Father Lung disease, chronic obstructive Social History (Updated 07/19/22 @ 15:55 by Britney Newman) Alcohol intake: current Alcohol intake frequency: holidays/special occasions only Patient Tobacco Use Status: Never used Tobacco Physical Exam Vital Signs: Last Vital Signs Pulse 106 H 12/17/24 10:11 Resp 16 12/17/24 10:11 BP 134/86 12/17/24 10:11 Pulse Ox 99 12/17/24 10:11 Oxygen Delivery Method Room Air 12/17/24 10:11 Office Procedures AMB Joint Injection/Aspiration Joint Injection/Aspiration Details: Sacroiliac Joint Injection, Right The procedure, its benefits, and its risks were explained and written informed consent was obtained from the patient. Immediately prior to starting the procedure, a time-out safety check was conducted. The patient's identification, procedure name, procedure site, and procedure laterality were confirmed with the patient. ? Patient was placed prone on the fluoroscopy table and the lumbosacral area was prepped using ChloraPrep and draped with sterile drapein standard fashion. The C-arm was rotated in a contralateral oblique fashion until the medial border of the iliac crest no longer foreshadowed the posterior sacroiliac joint line. The skin and subcutaneous tissue was anesthetized using 1 mL of 0.75% plain lidocaine with 1.5-inch 25-gauge needle in the middle region of the joint line.?A 3.5-inch 22-gauge spinal needle with small bend on the tip was slowly advanced towards the joint line, coaxial to the x-ray beam. Once bony content was obtained, the needle was easily slid into the intra-articular space.? Intra-articular needle position was confirmed using lateral fluoroscopy.? A total volume of 2.5mL of solution containing 0.5% of ropivacaine was injected intra-articularly. The stylet was reinserted and needle was removed. The patient tolerated the procedure well. Patient denied any lower extremity weakness or numbness. Patient was observed for 30 min and was discharged after fulfilling the standard discharge criteria. Coding 77803 - Sacroiliac Procedure code (CPT) selection complete Assessment & Plan Assessment & Plan (1) Sacroiliac dysfunction: Code(s): M53.3 - Sacrococcygeal disorders, not elsewhere classified Category: Medical Plan Patient is status post diagnostic sacroiliac joint injection. Patient tolerated procedure well and was discharged home in stable condition with discharge instructions. All questions were answered. We will follow-up via telephone or in clinic to assess response to therapy. A follow-up appointment was made during today's visit. Orders: Orders FL guidance in treatment room Today Paz Zhu APRN, GENERAL ACTIVITIES THERAPIST M53.3 - Sacrococcygeal disorders, not elsewhere classified AMB Joint Injection/Aspiration Today Marck Orantes MD M53.3 - Sacrococcygeal disorders, not elsewhere classified Coding Level of Care Code Procedure Only Diagnoses Sacroiliac dysfunction M53.3 CPT Codes Coding - Joint 9: 21136 - Sacroiliac ([id number])
[2024-12-17 09:22] VITALS: BP 129/84; PULSE 98; RESP 16; O2SAT 100
[2024-12-17 10:11] VITALS: BP 134/86; PULSE 106; RESP 16; O2SAT 99
== END 2024-12-17 10:28 | disposition home or self-care (01) ==
LOC: HO.PMCPRC 09:16
PROVIDERS: PCP Student in an Organized Health Care Education/Training Program; Visit Provider Internal Medicine
DX: M53.3 Sacrococcygeal disorders, not elsewhere classified (principal)
CPT/HCPCS: 27096

== ENCOUNTER → 2024-12-24 19:30 | Outpatient (REF) | payer BC, SELFPAY ==
--- OUTSIDE RECORDS SUMMARY | 2024-12-24 20:58 | XMS_ITS | Data Portability ---
Author Organization [facility], Main Office Address [address] [facility] [address] [place] [address] Care Team Providers Care Custodial Supervisor Name Role Phone KARON NICK Leasing Sales Consultant GEOVANNY SANTORO Urologist IVY SANDOVAL Primary Care Provider BETTIE ULLOA Referring Provider Assessment Encounter Date Assessment Date Assessment LastModified by Organization Details LastModified Time 09/22/2024 09/22/2024 This service was provided using telemedicine. Patient consented to telephone visit Patient was located in the [facility]. Provider was located in the office. [...] Go To The Location Of Their Choice, [id number] 06/24/2024 12:06:19 Referral vascular surgeon referral 2024 025 devora [facility], [address] , [facility] [address], [place], [address], 11/04/2024 10:43:22 rheumatol ogist referral 2024 025 [facility], [address] , [place], [address], 10/09/2024 10:40:55 Procedures None recorded. Surgeries None recorded. Imaging None recorded. Medication Orders cephalexi n 500 mg capsule 2024 025 [email or web address] [facility], [address] [facility], [place], [address], 10/21/2024 15:03:35 propranol ol ER 80 mg capsule,2 4 hr,extend ed release 2024 025 [email or web address] [facility], [address] [facility], [place], [address], 11/04/2024 14:26:25 duloxetin e 60 mg capsule,d elayed release 2024 025 [facility], [address] [facility], [place], [address], 09/22/2024 08:59:55 ondansetr on 4 mg disintegr ating tablet 2024 025 [facility], [address] , [facility], [place], [address], 10/09/2024 05:01:09 atomoxeti ne 40 mg capsule 2024 025 [facility], [address] [facility], [place], [address], 10/15/2024 12:03:07 fluconazo le 200 mg tablet 2023 025 [facility], [address] , [facility], [place], [address], 09/22/2024 08:29:27 Metrogel Vaginal 0.75 % (37.5 mg/5 gram) 2023 025 [facility], [address] [facility], [place], [address], 09/22/2024 08:31:12 Patient TargetsNo targets recorded. Patient Instructions Encounter Date Encounter Id Patient Instructions Last Modified By Organization Details Last Modified Time 05/16/2024 [id number] Preventing Depression From Coming Back: Care Instructions Not available 05/16/2024 10:00:50 06/19/2024 [id number] To call or retur n for worsening or concerns [email or web address] Not available 06/19/2024 15:43:27 09/22/2024 [id number] epilepsy: care instructions Not available 09/22/2024 08:57:37 learning about stress Not available 09/22/2024 08:57:37 Mental Health Information Not available 09/22/2024 08:57:37 10/08/2024 [id number] paronychia: care instructions [email or web address] Not available 10/21/2024 15:03:35 Medications (OTC , herbal therapies, supplements) reviewed and reconciled with patient and or caregiver, including potential side effects, drug interactions, instructions, and the consequences of not taking medication. Reviewed potential barriers to medication adherence, such as side effects from medication or cost of medication. [email or web address] Not available 10/09/2024 09:31:56 Reason for Referral Transcriber Referral for Raynaud's phenomenon Referring Physician: Jac [...] /uL 3.4-10 .8 normal Not Available [facility] ([facility]) [address] [facility], [place], [address], 06/18/2024 10:06:13 06/16/20 24 06/17/2024 CBC WITH DIFFE RENTI AL/PL ATELE T RBC 4.95 x10e6 /uL 3.77-5 .28 normal Not Available [facility] ([facility]) [address] [facility], [place], [address], 06/18/2024 10:06:13 06/16/20 24 06/17/2024 CBC WITH DIFFE RENTI AL/PL ATELE T hemoglobin 14.9 g/dL 11.1-1 5.9 normal Not Available [facility] ([facility]) [address] [facility], [place], [address], 06/18/2024 10:06:13 06/16/20 24 06/17/2024 CBC WITH DIFFE RENTI AL/PL ATELE T hematocrit 46.4 % 34.0-4 6.6 normal Not Available [facility] ([facility]) [address] [facility] [facility], [place], [address], 06/18/2024 10:06:13 06/16/20 24 06/17/2024 CBC WITH DIFFE RENTI AL/PL ATELE T MCV 94 fL 79-97 normal Not Available [facility] ([facility]) [address] [facility], [place], [address], 06/18/2024 10:06:13 06/16/20 24 06/17/2024 CBC WITH DIFFE RENTI AL/PL ATELE T MCH 30.1 pg 26.6-3 3.0 normal Not Available [facility] ([facility]) [address] [facility] [facility], [place], [address], 06/18/2024 10:06:13 06/16/20 24 06/17/2024 CBC WITH DIFFE RENTI AL/PL ATELE T MCHC 32.1 g/dL 31.5-3 5.7 normal Not Available [facility] ([facility]) [address] [facility], [place], [address], 06/18/2024 10:06:13 06/16/20 24 06/17/2024 CBC WITH DIFFE RENTI AL/PL ATELE T RDW 12.8 % 11.7-1 5.4 Not Available [facility] ([facility]) [address] [facility], [place], [address], 06/18/2024 10:06:13 06/16/20 24 06/17/2024 CBC WITH DIFFE RENTI AL/PL ATELE T platelets 284 x10e3 /uL 150-45 0 normal Not Available [facility] ([facility]) [address] [facility] [facility] [address], [place], [address], 06/18/2024 10:06:13 06/16/20 24 06/17/2024 CBC WITH DIFFE RENTI AL/PL ATELE T neutrophils 68 % not estab. normal Not Available [facility] ([facility]) [address] [facility], [place], [address], 06/18/2024 10:06:13 06/16/20 24 06/17/2024 CBC WITH DIFFE RENTI AL/PL ATELE T lymphs 21 % not estab. normal Not Available [facility] ([facility]) [address] [facility], [place], [address], 06/18/2024 10:06:13 06/16/20 24 06/17/2024 CBC WITH DIFFE RENTI AL/PL ATELE T monocytes 9 % not estab. normal Not Available [facility] ([facility]) [address] [facility], [place], [address], 06/18/2024 10:06:13 06/16/20 24 06/17/2024 CBC WITH DIFFE RENTI AL/PL ATELE T eos 1 % not estab. normal Not Available [facility] ([facility]) [address] [facility], [place], [address], 06/18/2024 10:06:13 06/16/20 24 06/17/2024 CBC WITH DIFFE RENTI AL/PL ATELE T basos 1 % not estab. normal Not Available [facility] ([facility]) [address] [facility], [place], [address], 06/18/2024 10:06:13 06/16/20 24 06/17/2024 CBC WITH DIFFE RENTI AL/PL ATELE T immature cells DERRICK HAND Not Available [facility] ([facility]) [address] [place], [address], 06/18/2024 10:06:13 06/16/20 24 06/17/2024 CBC WITH DIFFE RENTI AL/PL ATELE T neutrophils (absolute) 2.9 x10e3 /uL 1.4-7. 0 normal Not Available [facility] ([facility]) [address] [place], [address], 06/18/2024 10:06:13 06/16/20 24 06/17/2024 CBC WITH DIFFE RENTI AL/PL ATELE T lymphs (absolute) 0.9 x10e3 /uL 0.7-3. 1 normal Not Available [facility] ([facility]) [address] [place], [address], 06/18/2024 10:06:13 06/16/20 24 06/17/2024 CBC WITH DIFFE RENTI AL/PL ATELE T monocytes(ab solute) 0.4 x10e3 /uL 0.1-0. 9 normal Not Available [facility] ([facility]) [address] [place], [address], 06/18/2024 10:06:13 06/16/20 24 06/17/2024 CBC WITH DIFFE RENTI AL/PL ATELE T eos (absolute) 0.1 x10e3 /uL 0.0-0. 4 normal Not Available [facility] ([facility]) [address] [place], [address], 06/18/2024 10:06:13 06/16/20 24 06/17/2024 CBC WITH DIFFE RENTI AL/PL ATELE T baso (absolute) 0.0 x10e3 /uL 0.0-0. 2 normal Not Available [facility] ([facility]) [address] [facility], [place], [address], 06/18/2024 10:06:13 06/16/20 24 06/17/2024 CBC WITH DIFFE RENTI AL/PL ATELE T immature granulocytes 0 % not estab. Not Available [facility] ([facility]) [address] [facility], [place], [address], 06/18/2024 10:06:13 06/16/20 24 06/17/2024 CBC WITH DIFFE RENTI AL/PL ATELE T immature grans (abs) 0.0 x10e3 /uL 0.0-0. 1 Not Available [facility] ([facility]) [address] [facility], [place], [address], 06/18/2024 10:06:13 06/16/20 24 06/17/2024 CBC WITH DIFFE RENTI AL/PL ATELE T NRBC DERRICK HAND Not Available [facility] ([facility]) [address] [facility], [place], [address], 06/18/2024 10:06:13 06/16/20 24 06/17/2024 CBC WITH DIFFE RENTI AL/PL ATELE T hematology comments: DERRICK HAND Not Available [facility] ([facility]) [address] [facility], [place], [address], 06/18/2024 10:06:13 06/16/20 24 06/18/2024 BASIC METAB OLIC PANEL (8) glucose 101 mg/dL 70-99 above high normal Not Available [facility] ([facility]) [address], [place], [address], 06/18/2024 10:06:14 06/16/20 24 06/18/2024 BASIC METAB OLIC PANEL (8) BUN 15 mg/dL 6-24 normal Not Available [facility] ([facility]) [address] [place], [address], 06/18/2024 10:06:14 06/16/20 24 06/18/2024 BASIC METAB OLIC PANEL (8) creatinine 0.74 mg/dL 0.57-1 .00 normal Not Available [facility] ([facility]) [address] [place], [address], 06/18/2024 10:06:14 06/16/20 24 06/18/2024 BASIC METAB OLIC PANEL (8) eGFR 101 mL/mi n/1.7 3 >59 normal Not Available [facility] ([facility]) [address] [place], [address], 06/18/2024 10:06:14 06/16/20 24 06/18/2024 BASIC METAB OLIC PANEL (8) BUN/creatini ne ratio 20 9-23 normal Not Available [facility] ([facility]) [address] [place], [address], 06/18/2024 10:06:14 06/16/20 24 06/18/2024 BASIC METAB OLIC PANEL (8) sodium 140 mmol/ L 134-14 4 normal Not Available [facility] ([facility]) [address] [place], [address], 06/18/2024 10:06:14 06/16/20 24 06/18/2024 BASIC METAB OLIC PANEL (8) potassium 4.2 mmol/ L 3.5-5. 2 normal Not Available [facility] ([facility]) [address] [place], [address], 06/18/2024 10:06:14 06/16/20 24 06/18/2024 BASIC METAB OLIC PANEL (8) chloride 100 mmol/ L 96-106 normal Not Available [facility] ([facility]) [address] [place], [address], 06/18/2024 10:06:14 06/16/20 24 06/18/2024 BASIC METAB OLIC PANEL (8) carbon dioxide, total 27 mmol/ L 20-29 normal Not Available [facility] ([facility]) [address] [place], [address], 06/18/2024 10:06:14 06/16/20 24 06/18/2024 BASIC METAB OLIC PANEL (8) calcium 9.1 mg/dL 8.7-10 .2 normal Not Available [facility] ([facility]) [address] [facility], [place], [address], 06/18/2024 10:06:14 06/16/20 24 06/18/2024 LIPID PANEL cholesterol, total 150 mg/dL 100-19 9 normal Not Available [facility] ([facility]) [address] [place], [address], 06/18/2024 10:06:15 06/16/20 24 06/18/2024 LIPID PANEL triglyceride s 103 mg/dL 0-149 normal Not Available [facility] ([facility]) [address] [place], [address], 06/18/2024 10:06:15 06/16/20 24 06/18/2024 LIPID PANEL HDL cholesterol 55 mg/dL >39 normal Not Available [facility] ([facility]) [address] [place], [address], 06/18/2024 10:06:15 06/16/20 24 06/18/2024 LIPID PANEL VLDL cholesterol robyn 19 mg/dL 5-40 Not Available [facility] ([facility]) [address] [place], [address], 06/18/2024 10:06:15 06/16/20 24 06/18/2024 LIPID PANEL LDL chol calc ([facility]) 76 mg/dL 0-99 Not Available [facility] ([facility]) [address], [place], [address], 06/18/2024 10:06:15 06/16/20 24 06/18/2024 LIPID PANEL LDL calc comment: DERRICK HAND Not Available [facility] ([facility]) [address] [facility], [place], [address], 06/18/2024 10:06:15 06/16/20 24 06/18/2024 HCV ANTIB JOSE DE JESUS RFX TO QUANT PCR HCV Ab Non Reacti ve non reacti ve Not Available [facility] ([facility]) [address] [facility], [place], [address], 06/18/2024 10:06:15 06/16/20 24 06/18/2024 HCV ANTIB JOSE DE JESUS RFX TO QUANT PCR interpretati on: Commen t Not infec facundo with HCV unles s early or acute infec tion is suspe cted (whic h may be delay ed in an immun ocomp romis ed indiv idual ), or other evide nce exist s to indic ate HCV infec tion. Not Available [facility] ([facility]) [address] [facility], [place], [address], 06/18/2024 10:06:15 06/16/20 24 06/17/2024 FOLAT E (FOLI C ACID) , SERUM folate (folic acid), serum 16.7 NG/mL >3.0 normal A serum folat e blake ntrat ion of less than 3.1 ng/mL is consi dered to repre sent clini robyn defic iency . Not Available [facility] ([facility]) [address], [place], [address], 06/18/2024 10:06:16 06/16/20 24 06/17/2024 RPR, RFX QN RPR/C ONFIR M TP RPR Non Reacti ve non reacti ve Not Available [facility] ([facility]) [address], [place], [address], 06/18/2024 10:06:17 06/16/20 24 06/17/2024 VITAM IN [...] Wilberto cleaning [place]: [facility] . 2. Mayank cano MF, Michelle ey [place], Marcus off-F errar i HUERTA, et al. Evalu ation , treat ment, and preve ntion of vitam in D defic iency : an Endoc rine Socie ty clini robyn pract ice guide line. JCEM. 2010; 96(7) :1911 -30. Not Available [facility] ([facility]) [address], [place], [address], 06/18/2024 10:06:18 06/16/20 24 06/17/2024 HIV AB/P2 4 AG WITH REFLE X HIV Ab/P24 Ag screen Non Reacti ve non reacti ve HIV-1 /HIV- 2 antib odies and HIV-1 p24 antig en were NOT detec facundo. There is no labor atory evide nce of HIV infec tion. HIV Negat amer[place] Not Available [facility] ([facility]) [address], [place], [address], 06/18/2024 10:06:19 06/16/20 24 06/18/2024 TSH RFX ON ABNOR MAL TO FREE T4 TSH 1.180 uIU/m L 0.450- 4.500 normal Not Available [facility] ([facility]) [address], [place], [address], 06/18/2024 10:06:19 06/16/20 24 06/17/2024 SEDIM ENTAT ION RATE- WESTE RGREN sedimentatio n rate-westerg allison 9 mm/HR 0-32 normal Not Available [facility] ([facility]) [address], [place], [address], 06/18/2024 10:06:21 06/16/20 24 06/17/2024 VITAM IN B12 vitamin B12 578 pg/mL 232-12 45 normal Not Available [facility] ([facility]) [address], [place], [address], 06/18/2024 10:06:22 06/19/20 24 06/20/2024 NUSWA B BV SRI+C AND6+ CT/GC /T... atopobium vaginae Low - 0 score Not Available [facility] ([facility]) [address], [place], [address], 06/24/2024 12:06:19 06/19/20 24 06/20/2024 NUSWA B BV SRI+C AND6+ CT/GC /T... bvab 2 Low - 0 score Not Available [facility] ([facility]) [address] [place], [address], 06/24/2024 12:06:19 06/19/20 24 06/20/2024 NUSWA B [...] prese nce of BV. Not Available [facility] ([facility]) [address] [place], [address], 06/24/2024 12:06:19 06/19/20 24 06/20/2024 NUSWA B BV SRI+C AND6+ CT/GC /T... nilton albicans, SRI Negati ve negati ve Not Available [facility] ([facility]) [address] [place], [address], 06/24/2024 12:06:19 06/19/2006/20/2024 NUSWA B BV SRI+C AND6+ CT/GC /T... inlton glabrata, SRI Negati ve negati ve Not Available [facility] ([facility]) [address] [place], [address], 06/24/2024 12:06:19 06/19/20 24 06/20/2024 NUSWA B BV SRI+C AND6+ CT/GC /T... C parapsilosis /tropicalis Negati ve negati ve This assay does not diffe renti ate C. tropi calis and C. parap ajit is. Not Available [facility] ([facility]) [address] [place], [address], 06/24/2024 12:06:19 06/19/20 24 06/20/2024 NUSWA B BV SRI+C AND6+ CT/GC /T... nilton lusitaniae, SRI Negati ve negati ve Not Available [facility] ([facility]) [address] [place], [address], 06/24/2024 12:06:19 1206/20/2024 NUSWA B BV SRI+C AND6+ CT/GC /T... nilton krusei, SRI Negati ve negati ve Not Available [facility] ([facility]) [address] [place], [address], 06/24/2024 12:06:19 06/19/2006/21/2024 NUSWA B BV SRI+C AND6+ CT/GC /T... hsv 1 SRI Negati ve negati ve Not Available [facility] ([facility]) [address] [place], [address], 06/24/2024 12:06:19 06/19/2006/21/2024 NUSWA B BV SRI+C AND6+ CT/GC /T... hsv 2 SRI Negati ve negati ve Not Available [facility] ([facility]) [address] [place], [address], 06/24/2024 12:06:19 06/19/20 24 06/24/2024 NUSWA B BV SRI+C AND6+ CT/GC /T... trich vag by SRI Negati ve negati ve Not Available [facility] ([facility]) [address] [place], [address], 06/24/2024 12:06:19 06/19/2006/24/2024 NUSWA B BV SRI+C AND6+ CT/GC /T... chlamydia trachomatis, SRI Negati ve negati ve Not Available [facility] ([facility]) [address] [place], [address], 06/24/2024 12:06:19 06/19/2006/24/2024 NUSWA B BV SRI+C AND6+ CT/GC /T... neisseria gonorrhoeae, SRI Negati ve negati ve Not Available [facility] ([facility]) [address] [place], [address], 06/24/2024 12:06:19 Result Notes None recorded. Problems Name Problem SNOMED Code Status Onset Date Resolution Date Notes Provider Name and Address Organization Details Recorded Time Allergic rhinitis [id number] Completed 201001/19/2014 RECORDED 10/28/19 11 1:57PM BY FER ANTHONY MA, ANNOTATI ON/ADDEN DUM Not Available [facility] 4 15:27:43 Backache [id number] Completed 201201/19/2014 IMPRESSI ON: CHRONIC, MILD. MAY PURSUE CHIRO CARE. NO RED FLAG SXS OF CONCERN. ; RECORDED 10/24/19 13 9:14AM BY ZENAIDA MUIR MA, ANNOTATI ON/ADDEN DUM Not Available [facility] 4 15:27:44 Contrace ption care manageme nt Completed 201101/19/2014 IMPRESSI ON: PT TO CONSIDER CHANGING TO LOWER DOSE HORMONE PILL. WILL LET ME KNOW, HAPPY TO FAX TO THE PHARMACY FOR HER.; RECORDED 02/08/20 12 10:43AM BY YAZMIN GAMBLE MA, ANNOTATI ON/ADDEN DUM Not Available [facility] 4 15:27:44 Dysuria [id number] Completed 201101/19/2014 RECORDED 02/08/20 12 10:43AM BY YAZMIN GAMBLE MA, ANNOTATI ON/ADDEN DUM Yvette bernabe [facility] 8 14:01:36 Follow-u p encounte r Completed 201201/19/2014 RECORDED 03/05/20 13 8:58AM BY YAZMIN GAMBLE MA, ANNOTATI ON/ADDEN DUM Not Available [facility] 4 15:27:44 Malaise and fatigue [id number] Completed 10/31/2017 Yvette bernabe [facility] 8 14:01:24 Malaise and fatigue [id number] Completed 201101/19/2014 IMPRESSI ON: DOING WELL ON MEDICATI ON. WILL TRY TO TAKE IN THE AMS TO AVOID EARLY DAY H/. ALSO DOING BETTER WITH REG EXERCISE WHICH I ENCOURAG ED HER TO CONTINUE . WILL TOUCH BASE IN THE NEXT 3-4 MONTHS RE PROGRESS .; RECORDED 02/08/20 12 10:43AM BY YAZMIN GAMBLE MA, MEGANATI ON/ADDEN DUM Yvette bernabe, [facility] 8 14:01:24 Influenz a vaccine needed [id number] Completed 200701/19/2014 RECORDED 05/26/20 08 9:46AM BY NEIL COOPER, OFFICE VISIT Not Available [facility] 4 15:27:44 General examinat ion of patient Completed 200801/19/2014 RESOLVED DATE: 11/23/19 09; RECORDED 11/23/19 09 2:02PM BY TARA ANTHONY, TIFFANIE ON/ADDEN DUM Not Available [facility] 4 15:27:44 Well child [id number] Completed 201101/19/2014 RECORDED 02/08/20 12 10:43AM BY YAZMIN GAMBLE MA, TIFFANIE ON/ADDEN DUM Not Available [facility] 4 15:27:45 Psychoge orly headache 49792768 Completed 200801/19/2014 RECORDED 11/23/19 09 2:02PM BY TARA ANTHONY, TIFFANIE ON/ADDEN DUM Not Available [facility] 4 15:27:45 Hyperlip idemia 34093197 Completed 201101/19/2014 RECORDED 02/08/20 12 11:23AM BY ALFREDO LOAIZA, PAOpal, TIFFANIE ON/ADDEN DUM Not Available [facility] 4 15:27:45 Neck pain 52236390 Completed 10/31/2017 Kiki bernabe [facility] 1 15:24:44 Administ ration of bacteria l and viral vaccine Completed 200701/19/2014 RECORDED 06/02/20 08 11:14AM BY CYNDEE PATIÑOP, HISTORIC AL SUMMARY Not Available [facility] 4 15:27:45 Non-neop lastic nevus [id number] Completed 201201/19/2014 STORY: MAINLY OVER BACK, FOLLOWED BY [facility] ANNUALLY .; RECORDED 10/24/19 13 9:14AM BY ZENAIDA MUIR MA, MEGANATI ON/ADDEN DUM Not Available [facility] 4 15:27:45 Patient status finding [id number] Completed 201201/19/2014 RECORDED 05/21/20 13 2:38PM BY YAZMIN GAMBLE MA, TIFFANIE ON/ADDEN DUM Yvette bernabe MA - [facility] 8 14:01:20 Noninfla mmatory disorder of the vagina [id number] Completed 201101/19/2014 IMPRESSI ON: UNLIKELY STD, TX TOPICALL Y FOR YEAST, IF POSITIVE FOR GARDNERE LLA WILL CALL AND TREAT, ALREADY TOOK 2 DIFLUCAN ; RECORDED 02/08/20 12 10:43AM BY YAZMIN GAMBLE MA, TIFFANIE ON/ADDEN DUM Not Available [facility] 4 15:27:46 Atypical squamous cells of undeterm ined signific ance on vaginal Papanico laou smear [id number] Completed 201101/19/2014 RECORDED 02/08/20 12 10:42AM BY YAZMIN GAMBLE MA, ANNOTATI ON/ADDEN DUM Not Available [facility] 4 15:27:46 Cellulit is of digit [id number] Completed 201201/19/2014 IMPRESSI ON: START ABX, WARM SOAKS, IBU FOR DAY AND PAIN MED AT NIGHT. MONITOR CLOSELY, CALL OFFICE FOR WORSENIN G/PRN; RECORDED 03/05/20 13 8:58AM BY YAZMIN GAMBLE MA, ANNOTATI ON/ADDEN DUM Not Available [facility] 4 15:27:46 Adult health examinat ion Completed 201201/19/2014 RECORDED 05/21/20 13 2:38PM BY YAZMIN GAMBLE MA, ANNOTATI ON/ADDEN DUM Not Available [facility] 4 15:27:46 Seborrhe ic dermatit is [id number] Completed 201201/19/2014 RECORDED 07/30/19 13 1:17AM BY FER ANTHONY MA, ANNOTATI ON/ADDEN DUM Not Available [facility] 4 15:27:46 Breast finding [id number] Completed 200801/19/2014 RECORDED 02/09/20 09 9:10AM BY FER ANTHONY MA, ANNOTATI ON/ADDEN DUM Not Available [facility] 4 15:27:46 Administ ration of diphther ia, pertussi s, and tetanus vaccine Completed 201201/19/2014 RECORDED 03/05/20 13 8:58AM BY YAZMIN GAMBLE MA, ANNOTATI ON/ADDEN DUM Not Available [facility] 4 15:27:46 Temporom andibula r joint disorder 69156219 Active Rachel Kohler MA [facility], [facility] 1 09:34:16 Urinary tract infectio us disease [id number] Completed 10/31/2017 Yvette bernabe, [facility] 8 14:01:39 Allergic rhinitis 67581313 Completed 201002/15/2014 RECORDED 10/28/19 11 1:57PM BY FER ANTHONY MA, ANNOTATI ON/ADDEN DUM Not Available [facility] 4 06:27:20 Anxiety state 612766643 Completed 201302/15/2014 IMPRESSI ON: NEVER TRIED SERTRALI NE WILL START AT 25MG AND INCREASE TO 50MG; RECORDED 12/19/19 14 2:56PM BY YAZMIN GAMBLE MA, ANNOTATI ON/ADDEN DUM IVY SANDOVAL MD [address] [facility] [address], [place], [address] , [facility] 4 17:46:47 Backache [id number] Completed 201202/15/2014 IMPRESSI ON: CHRONIC, MILD. MAY PURSUE CHIRO CARE. NO RED FLAG SXS OF CONCERN. ; RECORDED 10/24/19 13 9:14AM BY ZENAIDA MUIR MA, ANNOTATI ON/ADDEN DUM Not Available [facility] 4 06:27:20 Contact dermatit is 72753810 Active RADHA Diop, [facility] 1 09:34:16 Contrace ption care manageme nt Completed 201102/15/2014 IMPRESSI ON: PT TO CONSIDER CHANGING TO LOWER DOSE HORMONE PILL. WILL LET ME KNOW, HAPPY TO FAX TO THE PHARMACY FOR HER.; RECORDED 02/08/20 12 10:43AM BY YAZMIN GAMBLE MA, TIFFANIE ON/ADDEN DUM Not Available [facility] 4 06:27:20 Dysuria 61840464 Completed 201102/15/2014 RECORDED 02/08/20 12 10:43AM BY YAZMIN GAMBLE MA, TIFFANIE ON/ADDEN DUM Yvette bernabe, [facility] 8 14:01:36 Follow-u p encounte r Completed 201202/15/2014 RECORDED 03/05/20 13 8:58AM BY YAZMIN GAMBLE MA, TIFFANIE ON/ADDEN DUM Not Available [facility] 4 06:27:21 Influenz a vaccine needed [id number] 06 Completed 200702/15/2014 RECORDED 05/26/20 08 9:46AM BY NEIL COOPER, OFFICE VISIT Not Available [facility] 4 06:27:21 General examinat ion of patient Completed 200802/15/2014 RESOLVED DATE: 11/23/19 09; RECORDED 11/23/19 09 2:02PM BY TIFFANIE GALINDO ON/ADDEN DUM Not Available [facility] 4 06:27:21 Well child 689590183 Completed 201102/15/2014 RECORDED 02/08/20 12 10:43AM BY YAZMIN GAMBLE MA, TIFFANIE ON/ADDEN DUM Not Available [facility] 4 06:27:21 Psychoge orly headache 32049082 Completed 200802/15/2014 RECORDED 11/23/19 09 2:02PM BY TARA RAJ, ANNOTATI ON/ADDEN DUM Not Available [facility] 4 06:27:21 Hyperlip idemia 27789001 Completed 201102/15/2014 RECORDED 02/08/20 12 11:23AM BY ALFREDO LOAIZA PA-C, ANNOTATI ON/ADDEN DUM Not Available [facility] 4 06:27:21 Neck pain 90981684 Completed 201302/15/2014 IMPRESSI ON: CHRONIC, PT IS INTEREST ED IN PT, SHE WILL MAKE APPT; RECORDED 12/19/19 14 2:56PM BY YAZMIN GAMBLE MA, MEGANATI ON/ADDEN DUM Kiki bernabe [facility] 1 15:24:44 Administ ration of bacteria l and viral vaccine Completed 200702/15/2014 RECORDED 06/02/20 08 11:14AM BY LASHAE WARNER, LATANYA, HISTORIC AL SUMMARY Not Available [facility] 4 06:27:21 Non-neop lastic nevus 332801161 Completed 201202/15/2014 STORY: MAINLY OVER BACK, FOLLOWED BY NEW ADOLFO DERM ANNUALLY .; RECORDED 10/24/19 13 9:14AM BY ZENAIDA MUIR MA, ANNOTATI ON/ADDEN DUM Not Available [facility] 4 06:27:21 Patient status finding 061556650 Completed 10/31/2017 Yvette bernabe [facility] 8 14:01:20 Noninfla mmatory disorder of the vagina 06067891 Completed 201102/15/2014 IMPRESSI ON: UNLIKELY STD, TX TOPICALL Y FOR YEAST, IF POSITIVE FOR GARDNERE LLA WILL CALL AND TREAT, ALREADY TOOK 2 DIFLUCAN ; RECORDED 02/08/20 12 10:43AM BY YAZMIN GAMBLE MA, ANNOTATI ON/ADDEN DUM Not Available [facility] 4 06:27:21 Otitis media 48620101 Completed 10/31/2017 Yvette bernabe [facility] 8 14:01:32 Atypical squamous cells of undeterm ined signific ance on vaginal Papanico laou smear 373219795 Completed 201102/15/2014 RECORDED 02/08/20 12 10:42AM BY YAZMIN GAMBLE MA, ANNOTATI ON/ADDEN DUM Not Available [facility] 4 06:27:21 Cellulit is of digit 48481648 Completed 201202/15/2014 IMPRESSI ON: START ABX, WARM SOAKS, IBU FOR DAY AND PAIN MED AT NIGHT. MONITOR CLOSELY, CALL OFFICE FOR WORSENIN G/PRN; RECORDED 03/05/20 13 8:58AM BY YAZMIN GAMBLE MA, TIFFANIE ON/ADDEN DUM Not Available [facility] 4 06:27:21 Adult health examinat ion Completed 201202/15/2014 RECORDED 05/21/20 13 2:38PM BY YAZMIN GAMBLE MA, TIFFANIE ON/ADDEN DUM Not Available [facility] 4 06:27:21 Seborrhe ic dermatit is 84808472 Completed 201202/15/2014 RECORDED 07/30/19 13 1:17AM BY FER ANTHONY MA, TIFFANIE ON/ADDEN DUM Not Available [facility] 4 06:27:21 Breast finding 981023198 Completed 200802/15/2014 RECORDED 02/09/20 09 9:10AM BY FER ANTHONY MA, ANNOTATI ON/ADDEN DUM Not Available [facility] 4 06:27:21 Administ ration of diphther ia, pertussi s, and tetanus vaccine Completed 201202/15/2014 RECORDED 03/05/20 13 8:58AM BY YAZMIN GAMBLE MA, ANNOTMERVIN ON/ADDEN DUM Not Available [facility] 4 06:27:21 Urinary tract infectio us disease 38809272 Completed 201302/15/2014 RECORDED 12/19/19 14 2:56PM BY YAZMIN GAMBLE MA, TIFFANIE ON/ADDEN DUM Yvette Bigby MA null, [facility] 8 14:01:39 Dysuria 08660152 Completed 10/31/2017 Yvette bernabe, [facility] 8 14:01:36 Anxiety 57156234 Active RADHA Diop, [facility] 1 09:34:16 Otitis externa 1018062 Completed 10/31/2017 Yvette bernabe, [facility] 8 14:01:43 Acute vaginiti s 77063615 Completed 04/22/2024 Santino Herman [facility] [place] [address] [facility] [address], [place], [address] , [facility] 4 15:40:42 Suspecte d COVID-19 178111600 Completed 12/14/2020 Removal Reason: Problem added by user [email or web address] from the COVID-19 watch flag Silva Mcguire null, [facility] 1 11:41:37 Neck pain 69305922 Active 2020 Kiki boyle null, [facility] 1 15:24:44 Seizure disorder 208444434 Active 2022 [facility], [facility] 3 00:22:31 Elevated blood-pr essure reading without diagnosi s of hyperten chi 249937470 Completed 202204/23/2024 IVY SANDOVAL MD [address], [place], [address] , [facility] 4 10:42:18 Chronic pain syndrome 781626057 Active 2023 Jac Rabago PA-C [address], [place], [address] , [facility] 4 14:14:36 Major depressi ve disorder 186485386 Active 2023 Jac Rabago PA-C [address] [facility] [address], [place], [address] , [facility] 4 14:14:51 History of Lyme disease 269233764 Active 2023 Jac Rabago PA-C [address] [facility] [address], [place], [address] , [facility] 4 14:16:35 Vitamin D deficien cy 68331784 Active 2023 IVY SANDOVAL MD [address] [facility] [address], [place], [address] , [facility] 4 10:41:52 Candidia sis of vagina 41897893 Active 2023 WILL Rasmussen [address] [facility] [address], [place], [address] , [facility] 4 15:39:31 Acute vaginiti s 16004830 Active 2023 WILL Rasmussen [address] [facility] [address], [place], [address] , [facility] 4 15:40:42 Candidia sis of mouth 75326154 Active 2023 WILL Rasmussen [address] [facility] [address], [place], [address] , [facility] 4 15:57:51 Raynaud' s disease 802382759 Active 2024 IVY SANDOVAL MD [address] [facility] [address], [place], [address] , [facility] 5 06:54:21 Problem Notes None recorded. Procedures Surgical History Date Name Laterality Status Provider Name and Address Organization Details Recorded Time 3 injection of facet joint completed Kacy Salamanca [facility] 02/01/2023 11:39:25 4 Date of Last Pap Smear completed Rachel Kohler MA [facility] 04/01/2014 12:57:30 Imaging Results None recorded. Procedure Notes None recorded. Medical Equipment None Reported. Allergies Allergen ID Allergen Name Allergen Category Reaction Reaction Severity Criticality Documentation Date Start Date Code Code System Note Provider Name and Address Organization Details Recorded Time 24372 Wellbutri n medicatio n seizure severe unabletoasse ss 04/03/20222021 03543 RxNorm belie celestino to have contr ibute d to new onset grand mal seizu re - if other cause found , this charles rgy can be d/c Gertrude Mcdaniels RN [facility], [facility] 14:59:40 Medications Name Sig Start Date Stop [...] RECORDED 11/06/19 14 2:47PM [facility];SHE GOT IT FROM HER UROLOGIS [...] BY MOUTH EVERY DAY FOR 90 DAYS 2024 active Not Available Not Available Not Avai lable carbamaze pine ER 100 mg capsule,e xtended release [id number] r TAKE 2 CAPSULES BY MOUTH TWICE [...] completed RECORDED 10/31/19 13 1:52PM BY ALFREDO PISANO CZ, PA-C, MEDICATI ON AUTO-JUNI CTIVATIO N; Not Available Not Available Not Available d-mannose oral powder Take 2 g every day by oral route. 09/20 completed Not Available Not Available Not Available Fluzone 3233-8366 45 mcg (15 mcg x 3)/0.5 mL intramusc ular suspensio n active Not Available Not Available Not Available Flucelvax Quad [id number] (PF) 60 mcg (15 mcg x 4)/0.5 [...] DateTime 09/22/2024 170.18 cm Rachel Kohler MA [facility] 09/22/2024 08:28:38 Date Recorded Body height Body mass index (BMI) Body weight Heart rate Oxygen saturation Oxygen saturation in Arterial blood by Pulse oximetry Body temperature Systolic blood pressure Diastolic blood pressure Provider Name and Address Organization Details Last Updated DateTime 5 170.18 cm 23 kg/m2 62430.0 8 g 72 /min 96 % 96 % 98.2 [degF] 121 mm[Hg] 74 mm[Hg] Briseida Nguyen LPN [facility] 5 15:09:49 Date Recorded Body height Body mass index (BMI) Body weight Heart rate Oxygen saturation Oxygen saturation in Arterial blood by Pulse oximetry Body temperature Systolic blood pressure Diastolic blood pressure Provider Name and Address Organization Details Last Updated DateTime 4 170.18 cm 21.9 kg/m2 42171.9 3 g 62 /min 100 % 100 % 97.8 [degF] 107 mm[Hg] 68 mm[Hg] Chandra mackay MA [facility] 4 09:43:03 Date Recorded Body height Body mass index (BMI) Body weight Heart rate Oxygen saturation Oxygen saturation in Arterial blood by Pulse oximetry Body temperature Systolic blood pressure Diastolic blood pressure Provider Name and Address Organization Details Last Updated DateTime 4 170.18 cm 22.7 kg/m2 99002.8 9 g 76 /min 98 % 98 % 98.3 [degF] 125 mm[Hg] 74 mm[Hg] Danielle Novoa MA [facility] 4 09:46:42 Date Recorded Body height Body mass index (BMI) Body weight Oxygen saturation Oxygen saturation in Arterial blood by Pulse oximetry Heart rate Body temperature Systolic blood pressure Diastolic blood pressure Provider Name and Address Organization Details Last Updated DateTime 4 170.18 cm 22.7 kg/m2 72368.8 9 g 100 % 100 % 75 /min 98.3 [degF] 126 mm[Hg] 80 mm[Hg] Rachel Kohler MA [facility] 4 15:30:03 Social History Question Answer Notes LastModified by Organizat ion Details LastModified Time Tobacco Smoking Status [facility]2014 13:45:04 Do You Have An Advance Directive? No [email or web address] Information not available 05/11/2022 Animal Exposure? Yes [email or web address] Information not available 05/11/2022 Do You Wear A Helmet When Biking? Yes [email or web address] Information not available 05/11/2022 Is Blood Transfusion Acceptable In An Emergency? Yes [email or web address] Information not available 04/01/2014 What Is Your Level Of Caffeine Consumption? Occasional Every Other Day, Coffee X 1 Information not available 09/20/2016 How Much Tobacco Do You Chew? None [email or web address] Information not available 04/01/2014 What Type Of Diet Are You Following? REGULAR Information not available 02/18/2014 Which Illicit Or Recreational Drugs Have You Used? NONE Information not available 09/20/2016 Education Post Graduate [email or web address] Information not available 05/11/2022 Have There Been Any Changes To Your Family Or Social Situation? No [email or web address] Information not available 05/11/2022 How Many Days In The Past Year Have You Had A Heavy Drinking Consumption (4+ Female, 5+ Male)? 10 [email or web address] Information not available 05/11/2022 Are There Any Guns Present In Your Home? No [email or web address] Information not available 05/11/2022 What Is Your Home Situation? Other [email or web address] Information not available 05/11/2022 Legally Blind In One Or Both Eyes? No [email or web address] Information not available 05/11/2022 Do You Take Precautions To Prevent Distracted Driving? Yes [email or web address] Information not available 04/23/2024 How Often Do You Need To Have Someone Help You When You Read Instructions, Pamphlets, Or Other Written Material From Your Doctor Or Pharmacy? Never Information not available 09/20/2016 Have You Served In The ? No Information not available 09/20/2016 Marital Status Domestic Partner [email or web address] Information not available 05/11/2022 Total Number Of Stairs In Home 14 [email or web address] Information not available 05/11/2022 How Many Children Do You Have? 2 Information not available 06/19/2024 Do You Use Protection During Sex? No [email or web address] Information not available 04/01/2014 Difficulty Reading? No [email or web address] Information not available 05/11/2022 What Is Your Relationship Status? [place] Information not available 06/19/2024 Seat Belts Used Routinely Yes [email or web address] Information not available 05/11/2022 Are You Sexually Active? Yes [email or web address] Information not available 04/01/2014 Are You Passively Exposed To Smoke? No Information not available 09/20/2016 How Much Tobacco Do You Smoke? No Information not available 09/20/2016 What Types Of Sporting Activities Do You Participate In? Running, Hiking, Kayaking, Rock Climbing [email or web address] Information not available 05/11/2022 Do You Use Sunscreen Routinely? Yes [email or web address] Information not available 02/18/2014 Do You Have Difficulty Walking Or Climbing Stairs? No [email or web address] Information not available 05/11/2022 Sex: Unknown Functional Status Question Answer Note LastModified by Organizat ion Details LastModified Time Do you use any illicit or recreational drugs? No [email or web address] Information not available 05/11/2022 What is your level of alcohol consumption? Occasional [email or web address] Information not available 02/18/2014 Are you currently employed? Yes [email or web address] Information not available 02/18/2014 Difficulty driving at night? No [email or web address] Information not available 05/11/2022 Are you able to walk? [email or web address] Information not available 08/10/2022 Are you able to care for yourself? 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 No [email or web address] Information not available 05/11/2022 What is your exercise level? Moderate treadmill 1-2/week Information not available 09/20/2016 Mental Status Question Answer Note LastModified by Organization D etails LastModified Time Do you have difficulty concentrating, remembering or making decisions? Yes [email or web address] Information no t available 05/11/2022 Family History [...] available 2016 11:39:58 Father Interstitial lung disease [email or web address] Not available 09:46:25 Father Cerebrovascu lar accident [email or web address] Not available 10:32:40 Mother Heart disease 65 abolcun Not available 2014 10:22:50 Mother Myocardial infarction [email or web address] Not available 10/2021 09:46:25 Mother Coronary [email or web address] sis Not available 05/11 09:46:25 Brother Obesity [email or web address] Not available 09/20/2016 11:40:32 Sister Obesity [email or web address] Not available 0 09/20/2016 11:40:35 Medical History Condition Response Other N Gout N Blood Diseases N Kidney Stones N Hyperthyroidism N Breast Cancer N Lung Disease N COPD N Depression Y Hypothyroidism N Defects or Inherited Disease N [...] Problems N GI Problems N Acne N Skin Problems Y Eating Disorder N Anemia N Constipation N Bladder Problems Y Mental Illness N Ovarian Cancer N Diabetes N Blood Transfusions N Seizures/Epilepsy N Tuberculosis N AIDS/HIV N Congestive Heart Failure (CHF) N Eczema N Diverticulitis N Abuse/Domestic Violence N Allergies Y Asthma N Reflux/GERD N Hepatitis N Pulmonary Embolism N Hypertension N Osteoporosis N Chicken Pox N Autism Spectrum Disorder (ASD) N Gynecological History Statement/Question Response Abnormal Pap [...] high-dose, trivalent, PF 4 completed Not Available [facility] 12/19/2020 20:02:54 Influenza, split virus, trivalent, preservative 6 completed Gertrude Mcdaniels RN null, [facility] 04/03/2022 15:18:11 COVID-19, mRNA, LNP-S, PF, 30 mcg/0.3 mL dose 1 completed RADHA Rosa, [facility] 04/11/2022 12:54:47 Influenza, split virus, quadrivalent, preservative 1 completed RADHA Diop, [facility] 06/19/2021 14:49:17 COVID-19, mRNA, LNP-S, PF, 30 mcg/0.3 mL dose 0 completed RADHA Diop, [facility] 06/19/2021 14:50:39 COVID-19, mRNA, LNP-S, PF, 30 mcg/0.3 mL dose 1 completed RADHA Diop, [facility] 06/19/2021 14:51:22 Influenza, MDCK, quadrivalent, PF 7 completed Gertrude Mcdaniels RN null, [facility] 04/03/2022 15:18:10 Influenza, split virus, quadrivalent, PF 8 completed Gertrude Mcdaniels RN null, [facility] 04/03/2022 15:18:10 Influenza, split virus, quadrivalent, PF 9 completed Gertrude Mcdaniels RN null, [facility] 04/03/2022 15:18:10 Influenza, split virus, quadrivalent, PF 1 completed Gertrude Mcdaniels RN null, [facility] 04/03/2022 15:18:10 Tdap 9 completed Gertrude Mcdaniels RN null, [facility] 04/03/2022 15:18:10 Influenza, split virus, quadrivalent, PF 0 completed Gertrude Mcdaniels RN null, [facility] 04/03/2022 15:18:11 Influenza, split virus, quadrivalent, PF 2 completed RADHA Diop, [facility] 08/10/2022 10:14:13 influenza, unspecified formulation 2 completed RADHA Diop, [facility] 08/10/2022 10:20:47 COVID-19, mRNA, LNP-S, bivalent, PF, 50 mcg/0.5 mL or 25mcg/0.25 mL dose 3 completed RADHA Jansen, [facility] 11/16/2022 11:24:09 COVID-19, mRNA, LNP-S, PF, prasanth-sucrose, 30 mcg/0.3 mL 4 completed RADHA Diop, [facility] 04/02/2024 13:26:29 COVID-19, mRNA, LNP-S, PF, 50 mcg/0.5 mL 3 completed Rachel Kohler RADHA florecita, [facility] 04/02/2024 13:26:29 Influenza, split virus, quadrivalent, PF 3 completed Rachel Kohler RADHA florecita, [facility] 04/02/2024 13:26:29 Influenza, split virus, trivalent, PF 4 completed Dnaielle Vargas RADHA Novoa, [facility] 05/26/2024 09:46:11 Tdap 6 completed Not Available [facility] 12/19/2020 20:02:54 Influenza, split virus, trivalent, preservative 8 completed Not Available [facility] 12/19/2020 20:02:54 Tdap 3 completed Not Available [facility] 12/19/2020 20:02:54 Influenza, split virus, trivalent, preservative 3 completed Not Available [facility] 12/19/2020 20:02:54 Past Encounters Encounter ID Performer Location Encounter Start Date Encounter Closed Date Diagnosis/Indication Diagnosis SNOMED-CT Code Diagnosis ICD10 Code Diagnosis Note [id number] autoEComm erce [address] [facility] [place] [address] 12/30/2006 00:00:00 [id number] autoEComm erce [address] [facility] [place] [address] 05/06/2007 00:00:00 [id number] autoEComm erce [address] [facility] [place] [address] 05/20/2007 00:00:00 [id number] autoEComm erce [address] [place] [address] 05/26/2008 00:00:00 [id number] autoEComm erce [address] [place] [address] 11/22/2008 00:00:00 [id number] autoEComm erce [address] [facility] [place] [address] 02/08/2009 00:00:00 [id number] autoEComm erce [address] [facility] [place] [address] 07/28/2009 00:00:00 [id number] autoEComm erce [address] [facility] [place] [address] 10/20/2009 00:00:00 [id number] autoEComm erce [address] [facility] [place] [address] 01/28/2010 00:00:00 [id number] autoEComm erce [address] [facility] [place] [address] 10/27/2010 00:00:00 [id number] autoEComm erce [address] [facility] [place] [address] 11/28/2010 00:00:00 [id number] autoEComm erce [address] [facility] [place] [address] 02/08/2012 00:00:00 [id number] autoEComm erce [address] [facility] [place] [address] 10/23/2012 00:00:00 [id number] autoEComm erce [address] [facility] [place] [address] 11/05/2013 00:00:00 [id number] autoEComm erce [address] [facility] [place] [address] 12/19/2013 00:00:00 [id number] Kiki boyle MD Main Office [address] [facility] [address] [place] [address] 02/18/2014 13:31:24 02/18/2014 14:23:02 Urinary tract infectious disease 08164436 see hx multiple UTI's, unclear if there could be an element of interstiti al cystitis. Pt green et up appt [facility] urologist, hydrate, void after intercours e and gather her urine culture and sensitivit ies so she can show to urology to help if going to go on preventive med. PT to call if feels more ill, if any abdominal pain needs to do a test, no concern now for ectopic Dysuria 35066980 [id number] Kiki boyle MD Main Office [address] [facility] [address] [place] [address] 04/01/2014 12:52:55 04/01/2014 13:38:04 Adult health examination 694928777 pap smear is utd, pt is active, eats well, pt will start a one a day vitamin. Urinary tr act infectious disease 77804890 having workup for recurrent UTI, stresse to pt hydration is so important, followup with urology Anxiety 68161683 pt feel s so well on zoloft 50mg, it really helpps, has sexual side effects, pt is trying to get so will not change to wellbutrin . Pt will call gas producer and discuss meds for anxiety [id number] Jamar Castle MD Main Office [address] [facility] [address] [place] [address] 10/14/2014 10:12:14 10/14/2014 11:06:31 Neck pain 73112927 chronic problem and looking for a referral to a specialist . Otitis externa 0632222 p roblem on the left. Currently no signs of infection. Possible eustachion tube dysfunctio n. Already using a nasal spray and has Sudafed at home. The symptoms are manageable and she wanted to be sure that she had cleared the infection. [id number] WILL Rasmussen Main Office [address] [facility] [address] [place] [address] 09/20/2016 11:00:09 09/20/2016 12:06:43 Adult health examination 210963635 Z00.00 HM UTD, flu vaccine in march, TDAP in 2015, pap UTD. Doing well. Anxiety 03920960 F41.9 Mild anxiety disorder, JERICA shows mild anxiety. Discussed sertraline which is safe with breastfeed ing, she is still a bit uncomforta ble with taking it while breastfeed ing. She would like the prescripti on and will call back for f/u in 1 month for recheck if she does decide to start med. SSRIs discussed with patient. Impacted cerumen [id number] 6 H61.22 Left, lavaged. [id number] Kiki boyle MD Main Office [address] [facility] 207 [facility] [place] [address] 12/14/2020 15:02:43 12/14/2020 15:56:04 Suspected Lyme disease 614896507 Z03.89 Pt appears to have lyme disease clinically , although test neg in ED, will repeat tests in 2 week, finish doxycyclin e . Rest, hydration, call if not continuing to improve, ED if worse with back pain or headache. Labs today Spasm of m uscle of lower back [id number] 9320907 M62.830 Rest, try flexeril, call or ED if acutely worse or focal neuro sx. Likely muscle spasm [id number] Kiki boyle MD Main Office [address] [facility] 207 [facility] [place] [address] 12/26/2020 09:29:27 12/26/2020 10:11:22 Lyme disease 69750115 A69.20 Pt has been taking doxycyclin e and is finally starting to improve; will continue for another week. 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 Mild neck discomfort , back pain better. 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 [id number] 6785728 G51.0 better today, stopped prednisone , motor weakness improved, able to close eyelid Pain of right eye 212752 4794 78599 H57.11 Due to change, will have her see opthalmolo gy [id number] Kiki boyle MD [facility] [address] [facility] [address] 06/19/2021 09:26:28 06/19/2021 15:29:41 Fatigue 00875093 R53.83 see HPI for 4 years, check labs and have pt come in for a PE Tension-type headache 39 2944350 G44.209 will check sed rate due to transient (improved) left shinto pain and throbbing, she has TMJ. will refer to PT for therapy to help with muscle tension HUERTA and pt to come in for a PE in a month with /Nova Neck pain 65546906 M54.2 see above [id number] Kiki boyle MD Main Office [address] [facility] 207 [place] [address] 04/03/2022 14:32:14 04/03/2022 15:13:13 [id number] Katy Lynn MD Main Office [address] [facility] 207 [place] [address] 04/11/2022 09:14:26 04/11/2022 14:07:10 Seizure disorder 586993898 G40.909 New onset, see discharge summary. Pt [...] by neurology for RTW and driving. Fatigue 82510322 R53.83 feeling achy in neck with fatigue? lyme again, will do testing for this. Discussed possibilit y positive might be related to old lyme from last year, pt wants to do test. Might be related to side effect coming off of wellbutrin and stress. Anxiety 13337961 F41.9 Huerta med prescriber Dee Ocampo, has appt upcoming to discuss meds. Suggested counseling . [id number] Kiki boyle MD Main Office [address] [facility] [address] [place] [address] 05/11/2022 09:45:56 05/11/2022 15:50:55 Seizure disorder 004247574 G40.909 New onset Pt is on Keppra [...] RTW and driving. History of Lyme disease 771682519 Z86.19 ? new infection vs reactivati on, put on doxycyclin e, has followup planned Neuralgia 07800346 M79.2 Korey try adding at night, call if not helping [id number] Kiki boyle MD Main Office [address] [facility] 207 [place] [address] 07/13/2022 13:48:30 07/13/2022 15:14:10 Headache 03164395 R51.9 on gabapentin 300 mg tid, will be getting right occipital nerve injection soon, has in person visit with headache specialist at in 2 weeks. Neck pain 65052586 M54.2 Try PT consider MRI if not better. Short term followup Stretching an heat, meds as listed Seizure disorder 5521613 02 G40.909 Pt is off Keppra 750 mg bid, no further seizures. She had followup with neurology at the seizure clinic on 05/22/22 and had a second opinion. Awaiting notes. An MRI has been ordered by seizure clinic and pt is waiting for a date. She will need to be cleared by neurology for RTW and driving. [id number] Kiki boyle MD Main Office [address] [facility] 207 [place] [address] 08/10/2022 10:05:49 08/10/2022 11:41:46 Adult health examination 328167240 Z00.00 Pt in good general health. He sees the dentist and will see eye provider to followup on eye pain. HCM screenings up to date, Tdap up to date, had covid and flu vaccines Diet is balanced, see history for lifestyle choices Anxiety state 008536257 F41.1 ok on current meds, will check into counseling /family counseling , likely needs to be on additional meds other than buspar Neck pain 82116193 M54.2 MRi done bulging disc C5-6, could consider EDSI with [facility], starting PT next week for this Seizure disorder 3182410 02 G40.909 Pt is off Keppra 750 [...] resume in 2 months Cervico-oc cipital neuralgia 32709400 M54.81 will be getting injection through [facility] Major depr essive disorder 430263131 F32.9 see above, doing will try tapping, try to reach out for counseling and kids evaluation at school History of Lyme disease 267715683 Z86.19 Treated for this x2 , has been discharged from infectious disease provider. Pain of right eye 114392 5436 88684 H57.11 Due to ongoing pain , will have her see opthamolog y [id number] Nova Cavazos us, DERRICK HAND Main Office [address] [facility] [place], [place] [address] 09/07/2022 10:03:40 09/10/2022 10:43:56 Essential hypertension 62536045 I10 Pt likely has some hypertensi on now, she will start treatment and monitor BP, call with readings next week Chronic da rolly headache 3097034103 15888 R51.9 Headache since seizure disorder, has had negative imaging and only temporary relief with otc meds. ? if this is related to blood pressure. She had some occipital nerve injections which were of limited help. Pain of right eye 138585 4393 61291 H57.11 Has continued posterior eye pain with negative evaluation s, Elevated blood-pressure reading without diagnosis of hypertension 863993447 R03.0 Pt does not have a history of HTN but readings lately elevated consistent ly. She would like to try BB to see if this helps for BP and possibly headache prevention . Will monitor her blood pressure and symptoms closely Neck pain 84709708 M54.2 Acute pain with elevate blood pressure, pt is concerned about a issue with blood vessels in the head and neck causing the triad of neck pain, headache and eye pain. Will do CTA of head and neck [id number] Nova dominique, DERRICK HAND Main Office [address] [place] [address] 11/16/2022 10:48:45 11/16/2022 14:56:30 Chronic daily headache 7432495160 08202 R51.9 better now with BB, will continue Pain of right eye 824580 0902 18853 H57.11 eye pain better, nomral exams Neck pain 14012379 M54.2 Having EDSI upcoming, better. We were going to do a CTA of head and neck but she decided against it for now. Call if anyworseni ng. Essential hypertension 07241718 I10 Pt doing well on current treatment with propranolo l, no changes, pulse > 60, BP good [id number] Katy Lynn MD [facility] [address] [place] [address] 12/10/2022 09:37:47 12/10/2022 10:52:51 Dysuria-frequency syndrome 5575579 R30.0 Pt with past h/o interstiti al cystitis. WE will check U/A and culture and treat per results. PT. is advised to increase hydration. [id number] Andrea Montana MD Main Office [address] [place] [address] 04/02/2024 13:12:50 04/02/2024 14:15:22 Chronic pain syndrome 904533431 G89.4 chronic pain - huerta, R eye, back, RLE - fol by neuro - cont f/u c them, had mri, pending repeat lumbar punctureco nt gbn as dirsee below Major depr essive disorder 474679377 F32.1 mod dep on phq - ? has psychosoma tic c/o aboveconsi cathy trial of duloxetine - start c 30mg qd - if tolerates but no sig improvemen t then increase to 60mg qd History of Lyme disease 651732005 Z86.19 2021 - had meningitis - [facility] - seen by ID, never seen by rheum = will get eval Anxiety 37326071 F41.9 stopped buspar acutely recently - was rx'd by [facility] - discharged , no longer sees themsee aboveno see therapist - consider it [id number] IVY SANDOVAL MD Main Office [address] [facility] [address] [place] [address] 04/23/2024 10:23:44 04/23/2024 11:10:41 Chronic pain syndrome 217446694 G89.4 - pt has chronic headaches and [...] this medication ) Major depr essive disorder 604742621 F32.1 - PHQ-9 score of 13- pt was started on duloxetine ER 30mg QD -> there has been improvemen t on the medication , will hold increase at this time until memory testing is done- concerned that memory problems and inattentio n are more due to depression and anxiety- pt referred to psychiatry - denies SI/HI- maribel esquivel provided History of Lyme disease 519464647 Z86.19 - pt has been referred to infectious disease Anxiety 09035010 F41.9 - JERICA-7 score of 14- pt stopped buspar- pt was previously following with psych- pt is currently on duloxetine 30mg QD and propanolol ER 120mg> has noticed some improvemen t with the duloxetine (started on 04/02/2024) > not change at this time- maribel esquivel provided- RTC in 4 weeks Seizure disorder 2435914 02 G40.909 - occurred 2 years ago while on the wellbutrin - after seizures patient developed chronic pain- pt is currently off all seizures meds, was on keppra 750mg BID Adult heal th examination 933206449 Z00.00 Health Maintenanc e FemaleA) Patient was [...] nfluenza: 03/31/2024T dAP: 08/20/2018Z oren: due at 65CNV37: due at 53JTVQ94: due at 84MMC85:PC V15:COVID: 06/23/2020 , 07/14/2020, 04/05/2021, 10/08/2022, 04/11/2023, 03/31/2024 D) Routine blood work orderedE) Updated patient's history RTC in one year for annual exam or sooner if any acute complaints Screening for malignant neoplasm of cervix 625337082 Z12.4 Screening for malignant neoplasm of colon 535054190 Z12.11 Fatigue 99772874 R53.83 Hyperlipidemia 63920310 E78.5 HIV screening 752929719 Z11.4 Hepatitis C screening 41 9223728 Z11.59 Vitamin D deficiency 347 08643 E55.9 Memory impairment 339876 006 R41.3 - pt concerned about her memory loss- has spoke to neurology about this however per patient her concerns were dismissed- MRI completed and was normal- blood work ordered- feel as symptoms are more due to mood/anxie ty compoment- RTC in 3 weeks for memory impairment Venereal d isease screening 605042136 Z11.3 Z72.89 F03.90 [id number] IVY SANDOVAL MD Main Office [address] [place] [address] 05/16/2024 09:35:35 05/16/2024 10:04:05 Memory impairment 991073401 R41.3 - 6CIT score of 2 and [...] improving on duloxetine Chronic pain syndrome 37 3360798 G89.4 - pt has chronic headaches and [...] is doing better Major depr essive disorder 817423374 F32.1 - pt was started on duloxetine ER 30mg QD -> there has been improvemen t on the medication , will hold increase at this time until memory testing is done- concerned that memory problems and inattentio n are more due to depression and anxiety- pt referred to psychiatry - [facility] SI/HI- maribel esquivel provided [id number] Andrea Montana MD Main Office [address] [place] [address] 05/26/2024 09:27:32 05/26/2024 10:15:01 Localized eruption of skin 185075030 R21 Non infectious rash, ore looking like possibly inflammato ry in nature and is now resolving. Pt. has planned bone marrow procedure. NO contraindi cation is present to proceed in terms of this rash. [id number] Jamar Castle MD Main Office [address] [place] [address] 06/19/2024 15:18:59 06/19/2024 15:53:24 Candidiasis of vagina 41286096 B37.31 will tx with fluconazol e once daily x 7 days due to vaginitis and thrush. She declined pelvic exam today as she has her 2 children with her. She self swabbed for vaginitis. Acute vaginitis 83595995 N76.0 metrogel as directed x 5 days, will confirm via vaginitis swab Candidiasis of mouth 797 65882 B37.0 has been using clotrimazo le troches with some relief but sx continue [id number] IVY SANDOVAL MD Main Office [address] [place] [address] 09/22/2024 08:06:00 09/22/2024 09:00:52 Chronic pain syndrome 515070362 G89.4 - pt has chronic headaches and [...] to 60mg QD Major depr essive disorder 723893355 F32.1 - PHQ-9 score of 13 (done at previous visit)- as duloxetine is helping increased to 60mg QD- concerned that memory problems and inattentio n are more due to depression and anxiety- pt referred to psychiatry , florencia mckeon- denies SI/HI- counsellin g provided Anxiety 01142033 F41.9 - JERICA-7 score of 14 (done at last visit)- pt stopped buspar- pt was previously following with psych- increased duloxetine to 60mg- due to uncontroll ed migraines for now will continue with propanolol ER 120mg- counsellin g provided Seizure disorder 7399654 02 G40.909 - occurred 2 years ago while on the wellbutrin - after seizures patient developed chronic pain- pt is currently off all seizures meds, was on keppra 750mg BID Migraine without aura 56 493073 G43.009 - pt has started vestibular therapy to help with this- has been following with neurology: given sumatripta n 100mg QD- pt will take zofran as needed for nausea and vomiting Attention deficit hyperactivity disorder, 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 SE of sumatripta n and propanolol causing Raynauds - advised to f/u c neurosee below re: rheum evalmeanwh ile, rec slow taper off propanolol - lower dose to 80mg, and use sumatripta n sparinglyi f no sig help c reduction of sxs, could consider low dose amlodipine to help c raynauds - but await rheum input Raynaud's phenomenon 266 413940 I73.00 see above - will get rheum eval Essential hypertension 29987044 I10 for migraines above - lowering dose from 120mg ER to 80mg ER Paronychia of toe 146468 002 L03.031 ? has this as wellwill rx c keflexreco mmend probiotics while on abx Chilblains 72804716 T69. 1XXA ? has this - will get vascular eval Health Concerns Section Related Observation LastModified by Organization Detai ls LastModified Time None Recorded Concern Status LastModified by Organization Details LastModified Time None Recorded Advance Directives Directive N: Payers Insurance Date Sequence Insurance Name Policy Number Policy Garcia Covered Member ID Garcia Member ID Guarantor Name 10/21/2024 1 [facility] [id number] Clayton Esquivel [id number] Tania Sukhjinderqasim 06/13/2021 1 [employer] [place] [facility] [id number] Tania Singh Mariscal [id number] Tania Esquivel Notes Date Note Type Note [...] due to uncontrolled mood. IVY SANDOVAL MD [address] [address], [place], [address], [facility] 05/16/2024 11:04:13 05/26/2024 text/html 44 year old [...] chills, vesicular presentation. Deana Rabago PA-C [address] [address], [place], [address], [facility] 05/26/2024 10:29:45 06/19/2024 text/html Generic HPI TemplateReported bypatient.Notes:Patien t was on dexamethasone for SI joint pain. Developed thrush and is taking clotrimazole but she also has sx of vaginitis now, itching, discharge. denies urinary sx. WILL Rasmussen [address] [address], [place], [address], [facility] 06/19/2024 15:58:29 09/22/2024 text/html Anxiety/Depressi onRepo rted [...] depression. Pt was recently seen by [facility] psychiatry (one-time program). Some other updates:> pt is currently looking for a psychiatrist to be able to do adult testing for ADHD> will be starting behavioral therapy within the next week> continues to follow pain management, getting nerve blocks for facial pain IVY SANDOVAL MD [address] [address], [place], [address], [facility] 09/22/2024 09:00:22 10/08/2024 text/html pt experiencing a burning pain, hands and feet and right big toe nail is coming off. rev chart - h/o chronic pain, fol by [facility] pain - used to take gbn, now on duloxetine she c/o cold toes, wears wool socks - noticed increased pain over past few weeks - she wonders if d/t sumatriptan -- looked up on epocrates - does have SE of Raynaud'slooked up propanolol on epocrates - it also has SE of Raynaud's Carol bernabe MA - [facility] 10/21/2024 15:03:39 OBGyn Episode No OBEpisode recorded.
== END ==
LOC: HO.SL 19:30
PROVIDERS: PCP Student in an Organized Health Care Education/Training Program; Visit Provider Nurse Practitioner Family
DX: R06.83 Snoring (principal); G47.10 Hypersomnia, unspecified; G47.9 Sleep disorder, unspecified
CPT/HCPCS: 95810

== ENCOUNTER → 2024-12-24 22:10 | Outpatient (BNV) | payer BC, SELFPAY | PROVIDERS: PCP Student in an Organized Health Care Education/Training Program; Visit Provider Psychiatry & Neurology Neurology | DX: G47.10 Hypersomnia, unspecified (principal) | CPT/HCPCS: 95810 ==

== ENCOUNTER 2025-01-01 10:07 | Outpatient (AMB) | payer BC, SELFPAY ==
[2025-01-01 10:14] VITALS: BP 140/80; PULSE 94; O2SAT 100; BMI 22.1
--- NOTE | 2025-01-01 10:14 | MHC.OFFVIS ---
Vital Signs 01/01/25 10:14 Height 5 ft 6 in Weight 137 lb BMI 22.1 BP 140/80 H Blood Pressure Location Rt brachial Position Sitting Pulse 94 Pulse Source Pulse Oximeter Pulse Oximetry (%) 100 Oxygen Delivery Method Room Air Intake Visit Reasons: Follow Up Intake Note: Patient presents follow up for migraines Motor Coach Operator Required: No Accompanied by: Self / Same As Patient Allergies bupropion (From Wellbutrin) Allergy (Severe, Verified 01/01/25 10:21) Seizure Medication List - Last Reconciled 01/01/25 by LATANYA Martinez atomoxetine (Strattera) 40 mg PO DAILY azelaic acid 15% 1 appl topical BID carbamazepine ER 200 mg PO BID cholecalciferol (vitamin D3) 10 mcg PO DAILY cyclobenzaprine 5 mg PO DAILY PRN duloxetine 60 mg PO DAILY galcanezumab-gnlm (Emgality Pen) 120 mg subcut ONCE 30 days magnesium oxide 400 mg PO DAILY meclizine 12.5 mg PO TID PRN nifedipine ER 30 mg PO DAILY ondansetron 4 mg PO Q8H PRN riboflavin (vitamin B2) 400 mg PO DAILY sumatriptan succinate 50 - 100 mg orally at onset of headache, may repeat in 2 hrs PRN; max 2 tabs per day or 4 tabs/week (may take with naproxen) 30 days HPI Comments Details: 44 y/o female to reestablish care for follow up of neuralgias and migraine. She started vestibular tx- but has not had a acute episode of vertigo. 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 She started CBT tx through [facility]-which she thinks is helpful, giving her strategies to help her manage/cope with the pain symptoms better. She notes her insurance would not cover ACT therapy. She started yoga, which is helpful. Wearing mouth guard at night. Using heat appications as needed. She did see pain management- has done a couple of trochlear, supraorbital injections, and feels the occipital inj is most effective. She did start and increase Tegretol 100mg then 200mg bid. She continues to have nerve discomfort in the bridge of nose, trochlear pain, and sacral pain. She wonders if she can increase this to 300 mg twice a day. She started Emgality about 4 months ago- has noticed approx a 75% reduction in monthly migraine days. In the early Spring, she was having increased mouth, hands, feet tingling/blue discoloration, discomfort. So she stopped propranolol and sumatriptan. Was also started on Nifedipine about a month ago- per vascular- has not noticed an increase in headaches. Around the time that her Raynaud's symptoms were worse, she did notice right 1st toe and left toenail infection. The left toenail infection self cleared. However the right 1st toe male ended up lifting, and is now not growing in. She has seen her usual provider, and they gave her antifungal treatment-however she plans to follow back up with them prior to starting this. Tried Ubrelvy x's 1 dose but this caused prolonged constipation. So she resumed sumatriptan- but notes that she is not needing In general, she feels her headache and neuralgia symptoms tend to be better in the spring/summer, and worse in the winter. She also had a SI injection through pain management as well- not sure of effectiveness yet. She plans to f/u w/ pain management. She continues to have sacral/low back burning pain which can move into right anterior thigh- which when flared up can interfere with activities. She had HST- was inconclusive. She underwent in-lab PSG about 1-2 weeks ago. Initial HPI, initial 08/03/2024: She reports she has facial neuralgia as since having an acute Lyme infection in 2019. 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 She was treated with a course of doxycycline at that time. Since she has had right facial neuralgias. Then 2021, she had 2 seizure episodes, which were thought to be due to another bout of acute Lyme infection. She was treated with another course of doxycycline. Brain MRI w/wo, LP-CSF-CSF Lyme PCR at the time was unremarkable. Seizures were managed with levetiracetam 750 mg p.o. b.i.d., which she has since been weaned off of. She was also taken off of bupropion, as it was thought it may have contributed to seizure activity. Since however she has had ongoing right facial and right sided neuralgias, paresthesias and episodes of weakness, as well as migraine headache. She has also had bouts of vertigo, which have increased in intensity and duration more recently. She is also having sleep difficulties. She developed nerve pain following a seizure in 2021. She has right occipital, right neck pinching squeezing sensation, which radiates into the anterior neck into her tongue as a tingling sensation, sometimes into the right ear as a pulling sensation. She also has constatnt burning pain in the right trochlear region distribution. She has had new episodes where the tingling moves into her right chest region. When this is worse, may see a right facial droop. She does have known cervical disc herniations. In Jun 2024, she has a had a burning rash over right SI joint a/w worsening of sciatica type pain. Saw PCP, who did not feel this was HSV/VZV. Now, notes hse was started on dexamethasone prior to rash appearing. She is also prone to headaches- will have 1-2 weeks with headcahe then 1-2 weeks w/o headache.. Has right sided tightness at the spiritism sometimes a/w flare-up of her nerve pain, photophobia, phonophobia, nausea- more with the tightness in her neck/throat, irritability, concentration difficulties, activity intolerance. She has positional external spinning vertigo- triggered by doing yoga. She uses meclizine and zofran prn. Has never done vestibular PT. Current tx: Propranolol ER 120mg- also for supine HTN. Riboflavin 400mg qam Mag 400mg qhs Cyclobenzaprine 5mg as needed- can help at times Duloxetine 30mg- started a few months bk- has helped her mood Gabapentin- dulls the pain, but affects her concentration and focus. Naproxen 440mg/500mg at onset of headache. Previous trials: She has had some benefot from right supraorbital and right occipital-cervical steroid injections. She had cervical Botox injections- caused neck weakness- and was not helpful. Sumatriptan 25mg- ineffective. She has never tried amitriptyline, topiramate. She also endorses snoring, excessive daytime sleepiness, sleep difficulties. She is interested in undergoing a HST further evaluate. She is sleeping 10-11 hours per day when she is not in pain. On days when she is not in pain, she can be physically active- as long as she is not bouncing. 05/09/2022, LP showed normal opening pressure of 12 cm H2O, normal CSF studies, negative CSF Lyme PCR. 07/27/2022,MR/MR cervical spine wo con - At C5-C6, there is a broad-based central disc extrusion that resultsin mild to moderate central canal stenosis and mild flattening of thecervical cord. A left lateral disc protrusion at this level that is inpart disc osteophyte results in moderate left-sided foraminal stenosis. - Additional mild spondylitic changes throughout the cervical spine 04/28/2022, brain MRI w/wo contrast, at [facility]: ?Normal MRI of the brain without evidence of an epileptic focus.? Small left nasopharynx Aracelis submucosal T2 hyperintense lesion likely a simple mucous retention cysts. 07/19/2022, HPI per Dr. Lomeli: Mar she was at home , her heard her cry out and found her having generalized tonic clonic movements , gazing towards the right, had fallen off the chair , unresponsive lasting less than a minute. She was drowsy and confused after that. She was awake in 20 min but was very tired. It was around 10-11pm and she was working on her computer. she denies urinary incontinence , tongue biting. she has h/o TMJ tension headaches and since this episode her headaches are almost everyday. In the ER she was loaded with keppra and is on keppra 750mg bid , CT head was normal , routine EEG was normal, her wellbutrin was stopped as it can lower seizure threshold and discharged.she also reports neck pain on her right side since then. she had neck pain intermittently for many years now. she reports that it was a rough week due to her work and her kids , was sleep deprived . In February 2022- she recalls another episode while working on the computer , she felt down and was confused after that - but not witnessed - 4pm at work. 1 1/2 years ago she had Lyme disease - meningitis ? radiculitis- had bells palsy , headaches neck pain. 3 nights ago she started with severe right neck pain , she went to [place] [facility] - says its similar to when she had the lyme ,weird sensation in her right eye, tongue, tingling and numbness in her right fingers and leg.she was treated with toradol Her anxiety have worsened in the past 2 weeks . She reports daily headaches for past 2 weeks - with light and noise sensitivity with nausea, pressure. she has neck pain and tongue tingling . she has an appointment with her behavioral health nurse for reviewing medications. [facility] Medical History (Updated 01/01/25 @ 14:34 by LATANYA Martinez) Depression Rosacea Neck pain Lyme disease Anxiety Surgical History Vancleve teeth removed Family History Mother Heart disease Father Lung disease, chronic obstructive Social History (Updated 07/19/22 @ 15:55 by Britney Newman) Alcohol intake: current Alcohol intake frequency: holidays/special occasions only Patient Tobacco Use Status: Never used Tobacco Physical Exam Vital Signs: Last Vital Signs Pulse 94 01/01/25 10:14 BP 140/80 H 01/01/25 10:14 Pulse Ox 100 01/01/25 10:14 Oxygen Delivery Method Room Air 01/01/25 10:14 BMI result Body Mass Index 22.1 Const General: cooperative and no acute distress Orientation/consciousness: patient oriented x3 Resp Effort & Inspection: normal respiratory effort and able to speak in complete sentences Neuro General: patient oriented x3 Cranial nerves: Yes CN's II-XII intact bilaterally Cognition (Neuro): normal cognition Psych Appearance: grossly normal Mental Status: mental status grossly normal Speech and movement: Normal speech and movement present Affect: normal affect Attitude: cooperative Assessment & Plan Assessment & Plan (1) Chronic migraine with aura: Code(s): G43.109 - Migraine with aura, not intractable, without status migrainosus Category: Medical Qualifiers: Status migrainosus presence: without status migrainosus Intractability: not intractable Qualified Code(s): G43.E09 - Chronic migraine with aura, not intractable, without status migrainosus (2) Cervicalgia: Code(s): M54.2 - Cervicalgia Category: Medical (3) Vertigo: Code(s): R42 - Dizziness and giddiness Category: Medical (4) Snoring: Code(s): R06.83 - Snoring Category: Medical (5) Hypersomnia: Code(s): G47.10 - Hypersomnia, unspecified Category: Medical (6) Sleep difficulties: Code(s): G47.9 - Sleep disorder, unspecified Category: Medical (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 chart. If not done, check CBC, CMP, and carbamazepine level. If levels within normal limits, may increase carbamazepine ER from 200 mg p.o. b.i.d to 300 mg twice a day (or alternatively 200 mg 3 times a day) Then in 1 month, CBC, CMP, carbamazepine level Follow-up with pain management as scheduled. O- patient will consider is wants to continue to pursue trochlear or occipital nerve blocks. Alternatively, patient may benefit from trialing a neuromodulation device such as external trigeminal nerve stimulator- Cefaly or Head-a-term, or a trigeminal occipital nerve stimulator- Relivion. Patient will review in no. For vertigo: Continue vestibular eval and treat For sleep difficulties: HST was inconclusive. We will review In-lab PSG results when available. For acute headache treatment: Continue Sumatriptan 100mg tab, 1/2 - 1 tab (50-100mg) at onset of headache, may repeat in 2 hours. Max of 2 tabs (200mg) per 24 hours. May take sumatriptan with OTC Tylenol 650-1,000mg every 4-6 hours, Ibuprofen (liquid gels) 600mg every 6 hours, or Naproxen (liquid gels) 440mg q 12 hrs prn. Previous acute migraine medication trials: Sumatriptan 25 mg ineffective. Ubrelvy sample caused rule out constipation. Acute migraine medication contraindications: None other For headache prevention medication: Continue magnesium 400 mg q.h.s. Patient has discontinued propranolol ER 120 mg daily Continue duloxetine 30 mg daily Continue gabapentin- would not increase as it has already negatively affecting her cognition. Continue Emgality 120mg/ml auto-injection maintenance dose: 120mg (120mg/ml autoinjector) subcutaneous injection every month. Previous migraine prevention medication trials: None other Migraine prevention medication contraindications: Would avoid topiramate due to risk for worsening paresthesias. Would avoid adding a TCA in setting of history of seizure activity and patient already on duloxetine. Would avoid Aimovig and Qulipta due to risk for worsening constipation and Raynaud's. Future considerations, weaning off gabapentin Orders: Orders Comprehensive Met. Panel Today H49.10 - Fourth [trochlear] nerve palsy, unspecified eye, R51.9 - Headache, unspecified Carbamazepine Tegretol Today G40.909 - Epilepsy, unspecified, not intractable, without status epilepticus Complete Blood Count Auto Diff Today A69.20 - Lyme disease, unspecified, H49.10 - Fourth [trochlear] nerve palsy, unspecified eye, R42 - Dizziness and giddiness Coding Level of Care Code Est Pt Level 4 ([id number]) Diagnoses Chronic migraine with aura without status migrainosus, not intractable G43.E09 Status migrainosus presence: without status migrainosus Intractability: not intractable Cervicalgia M54.2 Vertigo R42 Snoring R06.83 Hypersomnia G47.10 Sleep difficulties G47.9 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
--- OUTSIDE RECORDS SUMMARY | 2025-01-01 10:46 | XMS_ITS | Data Portability ---
Author Organization [facility], Main Office Address [address] [place] [address] Care Team Providers Care Hot Mill Worker Name Role Phone KARON NICK Front Loader Residential Driver GEOVANNY SANTORO Urologist [phone] IVY SANDOVAL Primary Care Provider BETTIE ULLOA Referring Provider Assessment Encounter Date Assessment Date Assessment LastModified by Organization Details LastModified Time 09/22/2024 09/22/2024 This service was provided using telemedicine. Patient consented to telephone visit Patient was located in the [facility]. Provider was located in the office. [...] Go To The Location Of Their Choice, [id number] 06/24/2024 12:06:19 Referral vascular surgeon referral 2024 025 [facility], [address] , [facility] [address], [place], [address], 11/04/2024 10:43:22 rheumatol ogist referral 2024 025 [facility], [address] , [place], [address], 10/09/2024 10:40:55 Procedures None recorded. Surgeries None recorded. Imaging None recorded. Medication Orders cephalexi n 500 mg capsule 2024 025 [email or web address] [facility], [address] , [facility], [place], [address], 10/21/2024 15:03:35 propranol ol ER 80 mg capsule,2 4 hr,extend ed release 2024 025 [id number] [facility], [address] , [facility], [place], [address], 11/04/2024 14:26:25 duloxetin e 60 mg capsule,d elayed release 2024 025 [facility], [address] , [facility], [place], [address], 09/22/2024 08:59:55 ondansetr on 4 mg disintegr ating tablet 2024 025 [facility], [address] , [facility], [place], [address], 10/09/2024 05:01:09 atomoxeti ne 40 mg capsule 2024 025 [facility], [address] , [facility], [place], [address], 10/15/2024 12:03:07 fluconazo le 200 mg tablet 2023 025 [facility], [address] , [facility], [place], [address], 09/22/2024 08:29:27 Metrogel Vaginal 0.75 % (37.5 mg/5 gram) 2023 025 [facility], [address] [facility], [place], [address], 09/22/2024 08:31:12 Patient TargetsNo targets recorded. Patient Instructions Encounter Date Encounter Id Patient Instructions Last Modified By Organization Details Last Modified Time 05/16/2024 [id number] Preventing Depression From Coming Back: Care Instructions Not available 05/16/2024 10:00:50 06/19/2024 [id number] To call or retur n for worsening or concerns [email or web address] Not available 06/19/2024 15:43:27 09/22/2024 [id number] epilepsy: care instructions Not available 09/22/2024 08:57:37 learning about stress Not available 09/22/2024 08:57:37 Mental Health Information Not available 09/22/2024 08:57:37 10/08/2024 [id number] paronychia: care instructions nbarrows Not available 10/21/2024 15:03:35 Medications (OTC , herbal therapies, supplements) reviewed and reconciled with patient and or caregiver, including potential side effects, drug interactions, instructions, and the consequences of not taking medication. Reviewed potential barriers to medication adherence, such as side effects from medication or cost of medication. 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 Referral for Raynaud's phenomenon Referring Physician: Jac [...] /uL 3.4-10 .8 normal Not Available [facility] ([facility]) [address] [facility], [place], [address], 06/18/2024 10:06:13 06/16/20 24 06/17/2024 CBC WITH DIFFE RENTI AL/PL ATELE T RBC 4.95 x10e6 /uL 3.77-5 .28 normal Not Available [facility] ([facility]) [address] [facility], [place], [address], 06/18/2024 10:06:13 06/16/20 24 06/17/2024 CBC WITH DIFFE RENTI AL/PL ATELE T hemoglobin 14.9 g/dL 11.1-1 5.9 normal Not Available [facility] ([facility]) [address] [facility], [place], [address], 06/18/2024 10:06:13 06/16/20 24 06/17/2024 CBC WITH DIFFE RENTI AL/PL ATELE T hematocrit 46.4 % 34.0-4 6.6 normal Not Available [facility] ([facility]) [address] [place], [address], 06/18/2024 10:06:13 06/16/20 24 06/17/2024 CBC WITH DIFFE RENTI AL/PL ATELE T MCV 94 fL 79-97 normal Not Available [facility] ([facility]) [address] [place], [address], 06/18/2024 10:06:13 06/16/20 24 06/17/2024 CBC WITH DIFFE RENTI AL/PL ATELE T MCH 30.1 pg 26.6-3 3.0 normal Not Available [facility] ([facility]) [address] [place], [address], 06/18/2024 10:06:13 06/16/20 24 06/17/2024 CBC WITH DIFFE RENTI AL/PL ATELE T MCHC 32.1 g/dL 31.5-3 5.7 normal Not Available [facility] ([facility]) [address] [facility], [place], [address], 06/18/2024 10:06:13 06/16/20 24 06/17/2024 CBC WITH DIFFE RENTI AL/PL ATELE T RDW 12.8 % 11.7-1 5.4 Not Available [facility] ([facility]) [address] [facility], [place], [address], 06/18/2024 10:06:13 06/16/20 24 06/17/2024 CBC WITH DIFFE RENTI AL/PL ATELE T platelets 284 x10e3 /uL 150-45 0 normal Not Available [facility] ([facility]) [address] [facility], [place], [address], 06/18/2024 10:06:13 06/16/20 24 06/17/2024 CBC WITH DIFFE RENTI AL/PL ATELE T neutrophils 68 % not estab. normal Not Available [facility] ([facility]) [address] [facility], [place], [address], 06/18/2024 10:06:13 06/16/20 24 06/17/2024 CBC WITH DIFFE RENTI AL/PL ATELE T lymphs 21 % not estab. normal Not Available [facility] ([facility]) [address] [facility], [place], [address], 06/18/2024 10:06:13 06/16/20 24 06/17/2024 CBC WITH DIFFE RENTI AL/PL ATELE T monocytes 9 % not estab. normal Not Available [facility] ([facility]) [address] [facility], [place], [address], 06/18/2024 10:06:13 06/16/20 24 06/17/2024 CBC WITH DIFFE RENTI AL/PL ATELE T eos 1 % not estab. normal Not Available [facility] ([facility]) [address] [facility], [place], [address], 06/18/2024 10:06:13 06/16/20 24 06/17/2024 CBC WITH DIFFE RENTI AL/PL ATELE T basos 1 % not estab. normal Not Available [facility] ([facility]) [address] [facility], [place], [address], 06/18/2024 10:06:13 06/16/20 24 06/17/2024 CBC WITH DIFFE RENTI AL/PL ATELE T immature cells REGISTERED ART THERAPIST Not Available [facility] ([facility]) [address] [facility], [place], [address], 06/18/2024 10:06:13 06/16/20 24 06/17/2024 CBC WITH DIFFE RENTI AL/PL ATELE T neutrophils (absolute) 2.9 x10e3 /uL 1.4-7. 0 normal Not Available [facility] ([facility]) [address] [place], [address], 06/18/2024 10:06:13 06/16/20 24 06/17/2024 CBC WITH DIFFE RENTI AL/PL ATELE T lymphs (absolute) 0.9 x10e3 /uL 0.7-3. 1 normal Not Available [facility] ([facility]) [address] [place], [address], 06/18/2024 10:06:13 06/16/20 24 06/17/2024 CBC WITH DIFFE RENTI AL/PL ATELE T monocytes(ab solute) 0.4 x10e3 /uL 0.1-0. 9 normal Not Available [facility] ([facility]) [address] [place], [address], 06/18/2024 10:06:13 06/16/20 24 06/17/2024 CBC WITH DIFFE RENTI AL/PL ATELE T eos (absolute) 0.1 x10e3 /uL 0.0-0. 4 normal Not Available [facility] ([facility]) [address] [facility], [place], [address], 06/18/2024 10:06:13 06/16/20 24 06/17/2024 CBC WITH DIFFE RENTI AL/PL ATELE T baso (absolute) 0.0 x10e3 /uL 0.0-0. 2 normal Not Available [facility] ([facility]) [address] [facility], [place], [address], 06/18/2024 10:06:13 06/16/20 24 06/17/2024 CBC WITH DIFFE RENTI AL/PL ATELE T immature granulocytes 0 % not estab. Not Available [facility] ([facility]) [address] [facility], [place], [address], 06/18/2024 10:06:13 06/16/20 24 06/17/2024 CBC WITH DIFFE RENTI AL/PL ATELE T immature grans (abs) 0.0 x10e3 /uL 0.0-0. 1 Not Available [facility] ([facility]) [address] [facility], [place], [address], 06/18/2024 10:06:13 06/16/20 24 06/17/2024 CBC WITH DIFFE RENTI AL/PL ATELE T NRBC REGISTERED ART THERAPIST Not Available [facility] ([facility]) [address] [facility], [place], [address], 06/18/2024 10:06:13 06/16/20 24 06/17/2024 CBC WITH DIFFE RENTI AL/PL ATELE T hematology comments: REGISTERED ART THERAPIST Not Available [facility] ([facility]) [address] [facility], [place], [address], 06/18/2024 10:06:13 06/16/20 24 06/18/2024 BASIC METAB OLIC PANEL (8) glucose 101 mg/dL 70-99 above high normal Not Available [facility] ([facility]) [address] [facility], [place], [address], 06/18/2024 10:06:14 06/16/20 24 06/18/2024 BASIC METAB OLIC PANEL (8) BUN 15 mg/dL 6-24 normal Not Available [facility] ([facility]) [address] [facility], [place], [address], 06/18/2024 10:06:14 06/16/20 24 06/18/2024 BASIC METAB OLIC PANEL (8) creatinine 0.74 mg/dL 0.57-1 .00 normal Not Available [facility] ([facility]) [address] [facility], [place], [address], 06/18/2024 10:06:14 06/16/20 24 06/18/2024 BASIC METAB OLIC PANEL (8) eGFR 101 mL/mi n/1.7 3 >59 normal Not Available [facility] ([facility]) [address] [facility], [place], [address], 06/18/2024 10:06:14 06/16/20 24 06/18/2024 BASIC METAB OLIC PANEL (8) BUN/creatini ne ratio 20 9-23 normal Not Available [facility] ([facility]) [address] [place], [address], 06/18/2024 10:06:14 06/16/20 24 06/18/2024 BASIC METAB OLIC PANEL (8) sodium 140 mmol/ L 134-14 4 normal Not Available [facility] ([facility]) [address] [place], [address], 06/18/2024 10:06:14 06/16/20 24 06/18/2024 BASIC METAB OLIC PANEL (8) potassium 4.2 mmol/ L 3.5-5. 2 normal Not Available [facility] ([facility]) [address] [place], [address], 06/18/2024 10:06:14 06/16/20 24 06/18/2024 BASIC METAB OLIC PANEL (8) chloride 100 mmol/ L 96-106 normal Not Available [facility] ([facility]) [address] [place], [address], 06/18/2024 10:06:14 06/16/20 24 06/18/2024 BASIC METAB OLIC PANEL (8) carbon dioxide, total 27 mmol/ L 20-29 normal Not Available [facility] ([facility]) [address] [facility] [place], [address], 06/18/2024 10:06:14 06/16/20 24 06/18/2024 BASIC METAB OLIC PANEL (8) calcium 9.1 mg/dL 8.7-10 .2 normal Not Available [facility] ([facility]) [address] [facility] [place], [address], 06/18/2024 10:06:14 06/16/20 24 06/18/2024 LIPID PANEL cholesterol, total 150 mg/dL 100-19 9 normal Not Available [facility] ([facility]) [address] [facility] [place], [address], 06/18/2024 10:06:15 06/16/20 24 06/18/2024 LIPID PANEL triglyceride s 103 mg/dL 0-149 normal Not Available [facility] ([facility]) [address] [facility] [place], [address], 06/18/2024 10:06:15 06/16/20 24 06/18/2024 LIPID PANEL HDL cholesterol 55 mg/dL >39 normal Not Available [facility] ([facility]) [address] [facility] [place], [address], 06/18/2024 10:06:15 06/16/20 24 06/18/2024 LIPID PANEL VLDL cholesterol robyn 19 mg/dL 5-40 Not Available [facility] ([facility]) [address] [facility] [place], [address], 06/18/2024 10:06:15 06/16/20 24 06/18/2024 LIPID PANEL LDL chol calc ([facility]) 76 mg/dL 0-99 Not Available [facility] ([facility]) [address] [facility], [place], [address], 06/18/2024 10:06:15 06/16/20 24 06/18/2024 LIPID PANEL LDL calc comment: REGISTERED ART THERAPIST Not Available [facility] ([facility]) [address] [facility], [place], [address], 06/18/2024 10:06:15 06/16/20 24 06/18/2024 HCV ANTIB JOSE DE JESUS RFX TO QUANT PCR HCV Ab Non Reacti ve non reacti ve Not Available [facility] ([facility]) [address] [facility], [place], [address], 06/18/2024 10:06:15 06/16/20 24 06/18/2024 HCV ANTIB JOSE DE JESUS RFX TO QUANT PCR interpretati on: Commen t Not infec facundo with HCV unles s early or acute infec tion is suspe cted (whic h may be delay ed in an immun ocomp romis ed indiv idual ), or other evide nce exist s to indic ate HCV infec tion. Not Available [facility] ([facility]) [address] [facility], [place], [address], 06/18/2024 10:06:15 06/16/20 24 06/17/2024 FOLAT E (FOLI C ACID) , SERUM folate (folic acid), serum 16.7 NG/mL >3.0 normal A serum folat e blake ntrat ion of less than 3.1 ng/mL is consi dered to repre sent clini robyn defic iency . Not Available [facility] ([facility]) [address] [facility], [place], [address], 06/18/2024 10:06:16 06/16/20 24 06/17/2024 RPR, RFX QN RPR/C ONFIR M TP RPR Non Reacti ve non reacti ve Not Available [facility] ([facility]) [address] [facility], [place], [address], 06/18/2024 10:06:17 06/16/20 24 06/17/2024 VITAM IN [...] Medic ine). 2009. Todd ry refer ence edv es for calci um and D. Wilberto cleaning [place]: [facility] . 2. Mayank cano [place], Michelle courtney [place], Marcus off-F errar i HUERTA, et al. Evalu ation , treat ment, and preve ntion of vitam in D defic iency : an Endoc rine Socie ty clini robyn pract ice guide line. JCEM. 2010; 96(7) :1911 -30. Not Available [facility] ([facility]) [address] [facility], [place], [address], 06/18/2024 10:06:18 06/16/20 24 06/17/2024 HIV AB/P2 4 AG WITH REFLE X HIV Ab/P24 Ag screen Non Reacti ve non reacti ve HIV-1 /HIV- 2 antib odies and HIV-1 p24 antig en were NOT detec facundo. There is no labor atory evide nce of HIV infec tion. HIV Negat amer[place] Not Available [facility] ([facility]) [address] [facility], [place], [address], 06/18/2024 10:06:19 06/16/20 24 06/18/2024 TSH RFX ON ABNOR MAL TO FREE T4 TSH 1.180 uIU/m L 0.450- 4.500 normal Not Available [facility] ([facility]) [address] [facility], [place], [address], 06/18/2024 10:06:19 06/16/20 24 06/17/2024 SEDIM ENTAT ION RATE- WESTE RGREN sedimentatio n rate-westerg allison 9 mm/HR 0-32 normal Not Available [facility] ([facility]) [address] [facility], [place], [address], 06/18/2024 10:06:21 06/16/20 24 06/17/2024 VITAM IN B12 vitamin B12 578 pg/mL 232-12 45 normal Not Available [facility] ([facility]) [address] [facility], [place], [address], 06/18/2024 10:06:22 06/19/20 24 06/20/2024 NUSWA B BV SRI+C AND6+ CT/GC /T... atopobium vaginae Low - 0 score Not Available [facility] ([facility]) [address] [facility], [place], [address], 06/24/2024 12:06:19 06/19/20 24 06/20/2024 NUSWA B BV SRI+C AND6+ CT/GC /T... bvab 2 Low - 0 score Not Available [facility] ([facility]) [address] [facility], [place], [address], 06/24/2024 12:06:19 06/19/20 24 06/20/2024 NUSWA B BV SRI+C AND6+ CT/GC /T... megasphaera 1 Low - 0 score Calcu late total score by jackie esquivel the 3 indiv idual bacte rial vagin osis (BV) donnae r score s toget her. Total score is inter prete d as follo ws: Total score 0-1: Indic ates the absen ce of BV. Total score 2: Indet ermin ate for BV. Addit ional clini robyn data shoul d be evalu ated to estab riky a diagn osis. Total score 3-6: Indic ates the prese nce of BV. Not Available [facility] ([facility]) [address] [facility], [place], [address], 06/24/2024 12:06:19 06/19/20 24 06/20/2024 NUSWA B BV SRI+C AND6+ CT/GC /T... nilton albicans, SRI Negati ve negati ve Not Available [facility] ([facility]) [address] [facility], [place], [address], 06/24/2024 12:06:19 06/19/2006/20/2024 NUSWA B BV SRI+C AND6+ CT/GC /T... nilton glabrata, SRI Negati ve negati ve Not Available [facility] ([facility]) [address] [facility], [place], [address], 06/24/2024 12:06:19 06/19/2006/20/2024 NUSWA B BV SRI+C AND6+ CT/GC /T... C parapsilosis /tropicalis Negati ve negati ve This assay does not diffe renti ate C. tropi calis and C. parap ajit is. Not Available [facility] ([facility]) [address] [place], [address], 06/24/2024 12:06:19 06/19/2006/20/2024 NUSWA B BV SRI+C AND6+ CT/GC /T... nilton lusitaniae, SIR Negati ve negati ve Not Available [facility] ([facility]) [address] [place], [address], 06/24/2024 12:06:19 06/19/2006/20/2024 NUSWA B BV SRI+C AND6+ CT/GC /T... nilton krusei, SRI Negati ve negati ve Not Available [facility] ([facility]) [address] [facility], [place], [address], 06/24/2024 12:06:19 06/19/2006/21/2024 NUSWA B BV SRI+C AND6+ CT/GC /T... hsv 1 SRI Negati ve negati ve Not Available [facility] ([facility]) [address] [place], [address], 06/24/2024 12:06:19 06/19/2006/21/2024 NUSWA B BV SRI+C AND6+ CT/GC /T... hsv 2 SRI Negati ve negati ve Not Available [facility] ([facility]) [address] [place], [address], 06/24/2024 12:06:19 06/19/20 24 06/24/2024 NUSWA B BV SRI+C AND6+ CT/GC /T... trich vag by SRI Negati ve negati ve Not Available [facility] ([facility]) [address] [place], [address], 06/24/2024 12:06:19 06/19/2006/24/2024 NUSWA B BV SRI+C AND6+ CT/GC /T... chlamydia trachomatis, SRI Negati ve negati ve Not Available [facility] ([facility]) [address] [place], [address], 06/24/2024 12:06:19 06/19/20 24 06/24/2024 NUSWA B BV SRI+C AND6+ CT/GC /T... neisseria gonorrhoeae, SRI Negati ve negati ve Not Available [facility] ([facility]) [address] [place], [address], 06/24/2024 12:06:19 Result Notes None recorded. Problems Name Problem SNOMED Code Status Onset Date Resolution Date Notes Provider Name and Address Organization Details Recorded Time Allergic rhinitis 00708736 Completed 201001/19/2014 RECORDED 10/28/19 11 1:57PM BY FER ANTHONY MA, ANNOTATI ON/ADDEN DUM Not Available [facility] 4 15:27:43 Backache [id number] Completed 201201/19/2014 IMPRESSI ON: CHRONIC, MILD. MAY PURSUE CHIRO CARE. NO RED FLAG SXS OF CONCERN. ; RECORDED 10/24/19 13 9:14AM BY ZENAIDA MUIR MA, ANNOTATI ON/ADDEN DUM Not Available [facility] 4 15:27:44 Contrace ption care manageme nt Completed 201101/19/2014 IMPRESSI ON: PT TO CONSIDER CHANGING TO LOWER DOSE HORMONE PILL. WILL LET ME KNOW, HAPPY TO FAX TO THE PHARMACY FOR HER.; RECORDED 02/08/20 12 10:43AM BY YAZMIN GAMBLE MA, ANNOTATI ON/ADDEN DUM Not Available [facility] 4 15:27:44 Dysuria [id number] Completed 201101/19/2014 RECORDED 02/08/20 12 10:43AM BY YAZMIN GAMBLE MA, ANNOTATI ON/ADDEN DUM Yvette bernabe [facility] 8 14:01:36 Follow-u p encounte r Completed 201201/19/2014 RECORDED 03/05/20 13 8:58AM BY YAZMIN GAMBLE MA, ANNOTATI ON/ADDEN DUM Not Available [facility] 4 15:27:44 Malaise and fatigue [id number] Completed 10/31/2017 Yvette bernabe [facility] 8 14:01:24 Malaise and fatigue 545463937 Completed 201101/19/2014 IMPRESSI ON: DOING WELL ON MEDICATI ON. WILL TRY TO TAKE IN THE AMS TO AVOID EARLY DAY H/. ALSO DOING BETTER WITH REG EXERCISE WHICH I ENCOURAG ED HER TO CONTINUE . WILL TOUCH BASE IN THE NEXT 3-4 MONTHS RE PROGRESS .; RECORDED 02/08/20 12 10:43AM BY YAZMIN GAMBLE MA, ANNOTATI ON/ADDEN DUM Yvette bernabe, [facility] 8 14:01:24 Influenz a vaccine needed [id number] 06 Completed 200701/19/2014 RECORDED 05/26/20 08 9:46AM BY NEIL COOPER, OFFICE VISIT Not Available [facility] 4 15:27:44 General examinat ion of patient Completed 200801/19/2014 RESOLVED DATE: 11/23/19 09; RECORDED 11/23/19 09 2:02PM BY TARA ANTHONY, TIFFANIE ON/ADDEN DUM Not Available [facility] 4 15:27:44 Well child [id number] Completed 201101/19/2014 RECORDED 02/08/20 12 10:43AM BY YAZMIN GAMBLE MA, MEGANATI ON/ADDEN DUM Not Available [facility] 4 15:27:45 Psychoge orly headache [id number] Completed 200801/19/2014 RECORDED 11/23/19 09 2:02PM BY TARA ANTHONY, MEGANATI ON/ADDEN DUM Not Available [facility] 4 15:27:45 Hyperlip idemia 86184051 Completed 201101/19/2014 RECORDED 02/08/20 12 11:23AM BY ALFREDO LOAIZA PA-C, MEGANATI ON/ADDEN DUM Not Available [facility] 4 15:27:45 Neck pain [id number] Completed 10/31/2017 Kiki bernabe [facility] 1 15:24:44 Administ ration of bacteria l and viral vaccine Completed 200701/19/2014 RECORDED 06/02/20 08 11:14AM BY LATANYA PATIÑO, HISTORIC AL SUMMARY Not Available [facility] 4 15:27:45 Non-neop lastic nevus [id number] Completed 201201/19/2014 STORY: MAINLY OVER BACK, FOLLOWED BY NEW ADOLFO DERM ANNUALLY .; RECORDED 10/24/19 13 9:14AM BY ZENAIDA MUIR MA, ANNOTATI ON/ADDEN DUM Not Available [facility] 4 15:27:45 Patient status finding [id number] Completed 201201/19/2014 RECORDED 05/21/20 13 2:38PM BY YAZMIN GAMBLE MA, ANNOTATI ON/ADDEN DUM Yvette bernabe MA - [facility] 8 14:01:20 Noninfla mmatory disorder of the vagina [id number] Completed 201101/19/2014 IMPRESSI ON: UNLIKELY STD, TX TOPICALL Y FOR YEAST, IF POSITIVE FOR GARDNERE LLA WILL CALL AND TREAT, ALREADY TOOK 2 DIFLUCAN ; RECORDED 02/08/20 12 10:43AM BY YAZMIN GAMBLE MA, ANNOTATI ON/ADDEN DUM Not Available [facility] 4 15:27:46 Atypical squamous cells of undeterm ined signific ance on vaginal Papanico laou smear [id number] Completed 201101/19/2014 RECORDED 02/08/20 12 10:42AM BY YAZMIN GAMBLE MA, ANNOTATI ON/ADDEN DUM Not Available [facility] 4 15:27:46 Cellulit is of digit [id number] Completed 201201/19/2014 IMPRESSI ON: START ABX, WARM SOAKS, IBU FOR DAY AND PAIN MED AT NIGHT. MONITOR CLOSELY, CALL OFFICE FOR WORSENIN G/PRN; RECORDED 03/05/20 13 8:58AM BY YAZMIN GAMBLE MA, ANNOTATI ON/ADDEN DUM Not Available [facility] 4 15:27:46 Adult health examinat ion Completed 201201/19/2014 RECORDED 05/21/20 13 2:38PM BY YAZMIN GAMBLE MA, ANNOTATI ON/ADDEN DUM Not Available [facility] 4 15:27:46 Seborrhe ic dermatit is [id number] Completed 201201/19/2014 RECORDED 07/30/19 13 1:17AM BY FER ANTHONY MA, ANNOTATI ON/ADDEN DUM Not Available [facility] 4 15:27:46 Breast finding [id number] Completed 200801/19/2014 RECORDED 02/09/20 09 9:10AM BY FER ANTHONY MA, ANNOTATI ON/ADDEN DUM Not Available [facility] 4 15:27:46 Administ ration of diphther ia, pertussi s, and tetanus vaccine Completed 201201/19/2014 RECORDED 03/05/20 13 8:58AM BY YAZMIN GAMBLE MA, ANNOTATI ON/ADDEN DUM Not Available [facility] 4 15:27:46 Temporom andibula r joint disorder 41597545 Active Rachel Kohler MA [facility], [facility] 1 09:34:16 Urinary tract infectio us disease [id number] Completed 10/31/2017 Yvette Yip MA [facility], [facility] 8 14:01:39 Allergic rhinitis 66791712 Completed 201002/15/2014 RECORDED 10/28/19 11 1:57PM BY FER ANTHONY MA, ANNOTATI ON/ADDEN DUM Not Available [facility] 4 06:27:20 Anxiety state [id number] Completed 201302/15/2014 IMPRESSI ON: NEVER TRIED SERTRALI NE WILL START AT 25MG AND INCREASE TO 50MG; RECORDED 12/19/19 14 2:56PM BY YAZMIN GAMBLE MA, ANNOTATI ON/ADDEN DUM IVY SANDOVAL MD [address] [facility] [address], [place], [address] , [facility] 4 17:46:47 Backache [id number] Completed 201202/15/2014 IMPRESSI ON: CHRONIC, MILD. MAY PURSUE CHIRO CARE. NO RED FLAG SXS OF CONCERN. ; RECORDED 10/24/19 13 9:14AM BY ZENAIDA MUIR MA, MEGANATI ON/ADDEN DUM Not Available [facility] 4 06:27:20 Contact dermatit is [id number] Active Rachel Kohler MA [facility] 1 09:34:16 Contrace ption care manageme nt Completed 201102/15/2014 IMPRESSI ON: PT TO CONSIDER CHANGING TO LOWER DOSE HORMONE PILL. WILL LET ME KNOW, HAPPY TO FAX TO THE PHARMACY FOR HER.; RECORDED 02/08/20 12 10:43AM BY YAZMIN GAMBLE MA, TIFFANIE ON/ADDEN DUM Not Available [facility] 4 06:27:20 Dysuria 06472019 Completed 201102/15/2014 RECORDED 02/08/20 12 10:43AM BY YAZMIN GAMBLE MA, TIFFANIE ON/ADDEN DUM Yvette Yip MA [facility] 8 14:01:36 Follow-u p encounte r Completed 201202/15/2014 RECORDED 03/05/20 13 8:58AM BY YAZMIN GAMBLE MA, MEGANATI ON/ADDEN DUM Not Available [facility] 4 06:27:21 Influenz a vaccine needed [id number] 06 Completed 200702/15/2014 RECORDED 05/26/20 08 9:46AM BY NEIL COOPER, OFFICE VISIT Not Available [facility] 4 06:27:21 General examinat ion of patient Completed 200802/15/2014 RESOLVED DATE: 11/23/19 09; RECORDED 11/23/19 09 2:02PM BY TIFFANIE GALINDO ON/ADDEN DUM Not Available [facility] 4 06:27:21 Well child 257259691 Completed 201102/15/2014 RECORDED 02/08/20 12 10:43AM BY YAZMIN GAMBLE MA, ANNOTATI ON/ADDEN DUM Not Available [facility] 4 06:27:21 Psychoge orly headache 20209887 Completed 200802/15/2014 RECORDED 11/23/19 09 2:02PM BY TARA ANTHONY, MEGANATI ON/ADDEN DUM Not Available [facility] 4 06:27:21 Hyperlip idemia 37249246 Completed 201102/15/2014 RECORDED 02/08/20 12 11:23AM BY ALFREDO LOAIZA PA-C, ANNOTATI ON/ADDEN DUM Not Available [facility] 4 06:27:21 Neck pain 37784437 Completed 201302/15/2014 IMPRESSI ON: CHRONIC, PT IS INTEREST ED IN PT, SHE WILL MAKE APPT; RECORDED 12/19/19 14 2:56PM BY YAZMIN GAMBLE MA, MEGANATI ON/ADDEN DUM Kiki bernabe [facility] 1 15:24:44 Administ ration of bacteria l and viral vaccine Completed 200702/15/2014 RECORDED 06/02/20 08 11:14AM BY LASHAE WARNER, LATANYA, HISTORIC AL SUMMARY Not Available [facility] 4 06:27:21 Non-neop lastic nevus 659952187 Completed 201202/15/2014 STORY: MAINLY OVER BACK, FOLLOWED BY [place] [facility] ANNUALLY .; RECORDED 10/24/19 13 9:14AM BY ZENAIDA MUIR MA, TIFFANIE ON/ADDEN DUM Not Available [facility] 4 06:27:21 Patient status finding [id number] Completed 10/31/2017 Yvette bernabe [facility] 8 14:01:20 Noninfla mmatory disorder of the vagina 68027077 Completed 201102/15/2014 IMPRESSI ON: UNLIKELY STD, [place] TOPICALL Y FOR YEAST, IF POSITIVE FOR GARDNERE LLA WILL CALL AND TREAT, ALREADY TOOK 2 DIFLUCAN ; RECORDED 02/08/20 12 10:43AM BY YAZMIN GAMBLE MA, ANNOTATI ON/ADDEN DUM Not Available [facility] 4 06:27:21 Otitis media 91088042 Completed 10/31/2017 Yvette bernabe [facility] 8 14:01:32 Atypical squamous cells of undeterm ined signific ance on vaginal Papanico laou smear 036598402 Completed 201102/15/2014 RECORDED 02/08/20 12 10:42AM BY YAZMIN GAMBLE MA, ANNOTATI ON/ADDEN DUM Not Available [facility] 4 06:27:21 Cellulit is of digit 51411167 Completed 201202/15/2014 IMPRESSI ON: START ABX, WARM SOAKS, IBU FOR DAY AND PAIN MED AT NIGHT. MONITOR CLOSELY, CALL OFFICE FOR WORSENIN G/PRN; RECORDED 03/05/20 13 8:58AM BY YAZMIN GAMBLE MA, TIFFANIE ON/ADDEN DUM Not Available [facility] 4 06:27:21 Adult health examinat ion Completed 201202/15/2014 RECORDED 05/21/20 13 2:38PM BY YAZMIN GAMBLE MA, TIFFANIE ON/ADDEN DUM Not Available [facility] 4 06:27:21 Seborrhe ic dermatit is 78333628 Completed 201202/15/2014 RECORDED 07/30/19 13 1:17AM BY FER ANTHONY MA, MEGANATI ON/ADDEN DUM Not Available [facility] 4 06:27:21 Breast finding 651542373 Completed 200802/15/2014 RECORDED 02/09/20 09 9:10AM BY FER ANTHONY MA, ANNOTATI ON/ADDEN DUM Not Available [facility] 4 06:27:21 Administ ration of diphther ia, pertussi s, and tetanus vaccine Completed 201202/15/2014 RECORDED 03/05/20 13 8:58AM BY YAZMIN GAMBLE MA, ANNOTATI ON/ADDEN DUM Not Available [facility] 4 06:27:21 Urinary tract infectio us disease 40535525 Completed 201302/15/2014 RECORDED 12/19/19 14 2:56PM BY YAZMIN GAMBLE MA, TIFFANIE ON/ADDEN DUM Yvette Bigby MA null, [facility] 8 14:01:39 Dysuria 38032475 Completed 10/31/2017 Yvette bernabe, [facility] 8 14:01:36 Anxiety 31387146 Active RADHA Diop, [facility] 1 09:34:16 Otitis externa 2186304 Completed 10/31/2017 Yvette bernabe, [facility] 8 14:01:43 Acute vaginiti s 29733778 Completed 04/22/2024 WILL Rasmussen [address], [place], [address] , [facility] 4 15:40:42 Suspecte d COVID-19 767573600 Completed 12/14/2020 Removal Reason: Problem added by user [email or web address] from the COVID-19 watch flag Silva Mcguire [facility], [facility] 1 11:41:37 Neck pain 06426330 Active 2020 Kiki boyle [facility] 1 15:24:44 Seizure disorder 115753970 Active 2022 Nova Cavazos [facility] 3 00:22:31 Elevated blood-pr essure reading without diagnosi s of hyperten chi 337620099 Completed 202204/23/2024 IVY SANDOVAL MD [address], [place], [address] , [facility] 4 10:42:18 Chronic pain syndrome 065370758 Active 2023 Jac Rabago PA-C [address], [place], [address] , [facility] 4 14:14:36 Major depressi ve disorder 088011643 Active 2023 Jac Rabago PA-C [address] [facility] [address], [place], [address] , [facility] 4 14:14:51 History of Lyme disease 071327715 Active 2023 Jac Rabago PA-C [address] [facility] [address], [place], [address] , [facility] 4 14:16:35 Vitamin D deficien cy 22156312 Active 2023 IVY SANDOVAL MD [address] [facility] [address], [place], [address] , [facility] 4 10:41:52 Candidia sis of vagina 82228787 Active 2023 WILL Rasmussen [address] [facility] [address], [place], [address] , [facility] 4 15:39:31 Acute vaginiti s 76814761 Active 2023 WILL Rasmussen [address] [facility] [address], [place], [address] , [facility] 4 15:40:42 Candidia sis of mouth 63642290 Active 2023 WILL Rasmussen [address] [facility] [address], [place], [address] , [facility] 4 15:57:51 Raynaud' s disease 465641802 Active 2024 IVY SANDOVAL MD [address] [facility] [address], [place], [address] , [facility] 5 06:54:21 Problem Notes None recorded. Procedures Surgical History Date Name Laterality Status Provider Name and Address Organization Details Recorded Time 3 injection of facet joint completed Kacy Salamanca [facility] 02/01/2023 11:39:25 4 Date of Last Pap Smear completed Rachel Kohler MA [facility] 04/01/2014 12:57:30 Imaging Results None recorded. Procedure Notes None recorded. Medical Equipment None Reported. Allergies Allergen ID Allergen Name Allergen Category Reaction Reaction Severity Criticality Documentation Date Start Date Code Code System Note Provider Name and Address Organization Details Recorded Time 96205 Wellbutri n medicatio n seizure severe unabletoasse ss 04/03/20222021 86032 RxNorm belie celestino to have contr ibute d to new onset grand mal seizu re - if other cause found , this charles rgy can be d/c Gertrude Mcdaniels RN [facility], [facility] 14:59:40 Medications Name Sig Start Date [...] BY MOUTH EVERY DAY FOR 30 DAYS 2024 active Not Available Not Available Not Avai lable ciproflox acin 250 mg tablet BID 05/31 [...] RECORDED 11/06/19 14 2:47PM BY RACHEL KOHLER BANNERMERVIN ON/MEGHNA AMARO;SHE GOT IT FROM HER UROLOGIS [...] completed RECORDED 12/28/19 10 11:48AM BY ALFREDO LOAZIA PA-C, MEDICATI ON AUTO-JUNI CTIVATIO N;ONE DROP [...] pine ER 100 mg capsule,e xtended release [email or web address] r TAKE 2 CAPSULES BY MOUTH TWICE [...] 10/31/19 13 1:52PM BY ALFREDO PISANO CZ, PAChiaraC, MEDICATI ON AUTO-JUNI CTIVATIO N; Not [...] mg tablet TAKE 1 TABLET BY MOUTH DAILY,RADHA Armendariz REPEAT DOSE IN 2 HOURS, DO NOT EXCEED 2 DOSES IN 24 HOURS active Not Available Not Available No t Available [employer] COVID-19 Antigen Home Test kit FOLLOW INSTRUCT IONS INCLUDED WITH THE PACKAGE. 11/16 completed Not Available Not Available Not Available Vitals Date Recorded Body height Provider Name an d Address Organization Details Last Updated DateTime 09/22/2024 170.18 cm Rachel Kohler MA [facility] 09/22/2024 08:28:38 Date Recorded Body height Body mass index (BMI) Body weight Heart rate Oxygen saturation Oxygen saturation in Arterial blood by Pulse oximetry Body temperature Systolic blood pressure Diastolic blood pressure Provider Name and Address Organization Details Last Updated DateTime 5 170.18 cm 23 kg/m2 88290.0 8 g 72 /min 96 % 96 % 98.2 [degF] 121 mm[Hg] 74 mm[Hg] Briseida Nguyen LPN [facility] 5 15:09:49 Date Recorded Body height Body mass index (BMI) Body weight Heart rate Oxygen saturation Oxygen saturation in Arterial blood by Pulse oximetry Body temperature Systolic blood pressure Diastolic blood pressure Provider Name and Address Organization Details Last Updated DateTime 4 170.18 cm 21.9 kg/m2 34413.9 3 g 62 /min 100 % 100 % 97.8 [degF] 107 mm[Hg] 68 mm[Hg] Chandra mackay MA [facility] 4 09:43:03 Date Recorded Body height Body mass index (BMI) Body weight Heart rate Oxygen saturation Oxygen saturation in Arterial blood by Pulse oximetry Body temperature Systolic blood pressure Diastolic blood pressure Provider Name and Address Organization Details Last Updated DateTime 4 170.18 cm 22.7 kg/m2 11210.8 9 g 76 /min 98 % 98 % 98.3 [degF] 125 mm[Hg] 74 mm[Hg] Danielle Novoa MA [facility] 4 09:46:42 Date Recorded Body height Body mass index (BMI) Body weight Oxygen saturation Oxygen saturation in Arterial blood by Pulse oximetry Heart rate Body temperature Systolic blood pressure Diastolic blood pressure Provider Name and Address Organization Details Last Updated DateTime 4 170.18 cm 22.7 kg/m2 56269.8 9 g 100 % 100 % 75 /min 98.3 [degF] 126 mm[Hg] 80 mm[Hg] Rachel Kohler MA [facility] 4 15:30:03 Social History Question Answer Notes LastModified by Organizat ion Details LastModified Time Tobacco Smoking Status Never Smoker Rachel Kohler MA [facility] 02/18/2014 13:45:04 Do You Have An Advance Directive? No [email or web address] Information not available 05/11/2022 Animal Exposure? Yes [email or web address] Information not available 05/11/2022 Do You Wear A Helmet When Biking? Yes [email or web address] Information not available 05/11/2022 Is Blood Transfusion Acceptable In An Emergency? Yes [email or web address] Information not available 04/01/2014 What Is Your Level Of Caffeine Consumption? Occasional Every Other Day, Coffee X 1 Information not available 09/20/2016 How Much Tobacco Do You Chew? None [email or web address] Information not available 04/01/2014 What Type Of Diet Are You Following? REGULAR [email or web address] Information not available 02/18/2014 Which Illicit Or Recreational Drugs Have You Used? NONE Information not available 09/20/2016 Education Post Graduate [email or web address] Information not available 05/11/2022 Have There Been Any Changes To Your Family Or Social Situation? No [email or web address] Information not available 05/11/2022 How Many Days In The Past Year Have You Had A Heavy Drinking Consumption (4+ Female, 5+ Male)? 10 [email or web address] Information not available 05/11/2022 Are There Any Guns Present In Your Home? No [email or web address] Information not available 05/11/2022 What Is Your Home Situation? Other [email or web address] Information not available 05/11/2022 Legally Blind In One Or Both Eyes? No [email or web address] Information not available 05/11/2022 Do You Take Precautions To Prevent Distracted Driving? Yes [email or web address] Information not available 04/23/2024 How Often Do You Need To Have Someone Help You When You Read Instructions, Pamphlets, Or Other Written Material From Your Doctor Or Pharmacy? Never Information not available 09/20/2016 Have You Served In The ? No Information not available 09/20/2016 Marital Status Domestic Partner Information not available 05/11/2022 Total Number Of Stairs In Home 14 Information not available 05/11/2022 How Many Children Do You Have? 2 Information not available 06/19/2024 Do You Use Protection During Sex? No [email or web address] Information not available 04/01/2014 Difficulty Reading? No [email or web address] Information not available 05/11/2022 What Is Your Relationship Status? [place] Information not available 06/19/2024 Seat Belts Used Routinely Yes [email or web address] Information not available 05/11/2022 Are You Sexually Active? Yes [email or web address] Information not available 04/01/2014 Are You Passively Exposed To Smoke? No Information not available 09/20/2016 How Much Tobacco Do You Smoke? No Information not available 09/20/2016 What Types Of Sporting Activities Do You Participate In? Running, Hiking, Kayaking, Rock Climbing [email or web address] Information not available 05/11/2022 Do You Use Sunscreen Routinely? Yes [email or web address] Information not available 02/18/2014 Do You Have Difficulty Walking Or Climbing Stairs? No [email or web address] Information not available 05/11/2022 Sex: Unknown Functional Status Question Answer Note LastModified by Organizat ion Details LastModified Time Do you use any illicit or recreational drugs? No [email or web address] Information not available 05/11/2022 What is your level of alcohol consumption? Occasional [email or web address] Information not available 02/18/2014 Are you currently employed? Yes [email or web address] Information not available 02/18/2014 Difficulty driving at night? No [email or web address] Information not available 05/11/2022 Are you able to walk? YESWOREST [email or web address] Information not available 08/10/2022 Are you able to care for yourself? 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 No [email or web address] Information not available 05/11/2022 What is your exercise level? Moderate treadmill 1-2/week Information not available 09/20/2016 Mental Status Question Answer Note LastModified by Organization D etails LastModified Time Do you have difficulty concentrating, remembering or making decisions? Yes [email or web address] Information no t available 05/11/2022 Family History [...] available 2016 11:39:58 Father Interstitial lung disease [email or web address] Not available 09:46:25 Father Cerebrovascu lar accident Not available 10:32:40 Mother Heart disease 65 abolcun Not available 2014 10:22:50 Mother Myocardial infarction [email or web address] Not available 10/2021 09:46:25 Mother Coronary atherosclero sis [email or web address] Not available 05/11 09:46:25 Brother Obesity [email or web address] [...] high-dose, trivalent, PF 4 completed Not Available [facility] 12/19/2020 20:02:54 Influenza, split virus, trivalent, preservative 6 completed SARTHAK Ching [facility] 04/03/2022 15:18:11 COVID-19, mRNA, LNP-S, PF, 30 mcg/0.3 mL dose 1 completed RADHA Rosa, [facility] 04/11/2022 12:54:47 Influenza, split virus, quadrivalent, preservative 1 completed RADHA Diop [facility] 06/19/2021 14:49:17 COVID-19, mRNA, LNP-S, PF, 30 mcg/0.3 mL dose 0 completed RADHA Diop, [facility] 06/19/2021 14:50:39 COVID-19, mRNA, LNP-S, PF, 30 mcg/0.3 mL dose 1 completed Rachel Kohler MA null, [facility] 06/19/2021 14:51:22 Influenza, MDCK, quadrivalent, PF 7 completed Gertrude Mcdaniels RN null, [facility] 04/03/2022 15:18:10 Influenza, split virus, quadrivalent, PF 8 completed Gertrude Mcdaniels RN null, [facility] 04/03/2022 15:18:10 Influenza, split virus, quadrivalent, PF 9 completed Gertrude Mcdaniels RN null, [facility] 04/03/2022 15:18:10 Influenza, split virus, quadrivalent, PF 1 completed Gertrude Mcdaniels RN null, [facility] 04/03/2022 15:18:10 Tdap 9 completed Gertrude Mcdaniels RN null, [facility] 04/03/2022 15:18:10 Influenza, split virus, quadrivalent, PF 0 completed Gertrude Mcdaniels RN null, [facility] 04/03/2022 15:18:11 Influenza, split virus, quadrivalent, PF 2 completed RADHA Diop, [facility] 08/10/2022 10:14:13 influenza, unspecified formulation 2 completed RADHA Diop, [facility] 08/10/2022 10:20:47 COVID-19, mRNA, LNP-S, bivalent, PF, 50 mcg/0.5 mL or 25mcg/0.25 mL dose 3 completed Danielle Venturarosa RADHA florecita [facility] 11/16/2022 11:24:09 COVID-19, mRNA, LNP-S, PF, prasanth-sucrose, 30 mcg/0.3 mL 4 completed RADHA Diop, [facility] 04/02/2024 13:26:29 COVID-19, mRNA, LNP-S, PF, 50 mcg/0.5 mL 3 completed RADHA Diop, [facility] 04/02/2024 13:26:29 Influenza, split virus, quadrivalent, PF 3 completed RADHA Diop, [facility] 04/02/2024 13:26:29 Influenza, split virus, trivalent, PF 4 completed RADHA Jansen [facility] 05/26/2024 09:46:11 Tdap 6 completed Not Available [facility] 12/19/2020 20:02:54 Influenza, split virus, trivalent, preservative 8 completed Not Available [facility] 12/19/2020 20:02:54 Tdap 3 completed Not Available [facility] 12/19/2020 20:02:54 Influenza, split virus, trivalent, preservative 3 completed Not Available [facility] 12/19/2020 20:02:54 Past Encounters Encounter ID Performer Location Encounter Start Date Encounter Closed Date Diagnosis/Indication Diagnosis SNOMED-CT Code Diagnosis ICD10 Code Diagnosis Note [id number] [facility] [address] [facility] [place] [address] 12/30/2006 00:00:00 [id number] [facility] er[facility] [address] [facility],[address] [place] [address] 05/06/2007 00:00:00 [id number] [facility] er[facility] [address] [facility] [place] [address] 05/20/2007 00:00:00 [id number] [facility] [facility] [address] [place] [address] 05/26/2008 00:00:00 [id number] auto[facility] [facility] [address] [place] [address] 11/22/2008 00:00:00 [id number] auto[facility] erce [address] [place] [address] 02/08/2009 00:00:00 [id number] [facility] [facility] [address] [place] [address] 07/28/2009 00:00:00 [id number] [facility] erce [address] [facility],[address] [place] [address] 10/20/2009 00:00:00 [id number] [facility] [facility] [address] [facility],[address] [place] [address] 01/28/2010 00:00:00 [id number] auto[facility] erce [address] [facility],[address] [place] [address] 10/27/2010 00:00:00 [id number] [employer] [facility] [address] [facility] [place] [address] 11/28/2010 00:00:00 [id number] [facility] [facility] [address] [facility],[address] [place] [address] 02/08/2012 00:00:00 [id number] [facility] erce [address] [place],[address] [place] [address] 10/23/2012 00:00:00 [id number] [facility] [facility] [address] [facility],[address] [place] [address] 11/05/2013 00:00:00 [id number] auto[facility] erce [address] [facility],[address] [place] [address] 12/19/2013 00:00:00 [id number] Kiki boyle MD Main Office [address] [address] [place] [address] 02/18/2014 13:31:24 02/18/2014 14:23:02 Urinary tract infectious disease 17995973 see hx multiple UTI's, unclear if there could be an element of interstiti al cystitis. Pt green et up appt [facility] urologist, hydrate, void after intercours e and gather her urine culture and sensitivit ies so she can show to urology to help if going to go on preventive med. PT to call if feels more ill, if any abdominal pain needs to do a test, no concern now for ectopic Dysuria 66804129 [id number] Kiki boyle MD Main Office [address] [place] [address] 04/01/2014 12:52:55 04/01/2014 13:38:04 Adult health examination 211798793 pap smear is utd, pt is active, eats well, pt will start a one a day vitamin. Urinary tr act infectious disease 88403846 having workup for recurrent UTI, stresse to pt hydration is so important, followup with urology Anxiety 12239844 pt feel s so well on zoloft 50mg, it really helpps, has sexual side effects, pt is trying to get so will not change to wellbutrin . Pt will call presser automatic and discuss meds for anxiety [id number] Jamar Castle MD Main Office [address] [place] [address] 10/14/2014 10:12:14 10/14/2014 11:06:31 Neck pain 25200840 chronic problem and looking for a referral to a specialist . Otitis externa 0236835 p roblem on the left. Currently no signs of infection. Possible eustachion tube dysfunctio n. Already using a nasal spray and has Sudafed at home. The symptoms are manageable and she wanted to be sure that she had cleared the infection. [id number] WILL Rasmussen Main Office [address] [place] [address] 09/20/2016 11:00:09 09/20/2016 12:06:43 Adult health examination 338498991 Z00.00 HM UTD, flu vaccine in march, TDAP in 2015, pap UTD. Doing well. Anxiety 68085783 F41.9 Mild anxiety disorder, JERICA shows mild anxiety. Discussed sertraline which is safe with breastfeed ing, she is still a bit uncomforta ble with taking it while breastfeed ing. She would like the prescripti on and will call back for f/u in 1 month for recheck if she does decide to start med. SSRIs discussed with patient. Impacted cerumen 1296035 6 H61.22 Left, lavaged. [id number] Kiki boyle MD Main Office [address] [facility] [address] [place] [address] 12/14/2020 15:02:43 12/14/2020 15:56:04 Suspected Lyme disease 634552156 Z03.89 Pt appears to have lyme disease clinically , although test neg in ED, will repeat tests in 2 week, finish doxycyclin e . Rest, hydration, call if not continuing to improve, ED if worse with back pain or headache. Labs today Spasm of m uscle of lower back 7347239892 4827316 M62.830 Rest, try flexeril, call or ED if acutely worse or focal neuro sx. Likely muscle spasm [id number] Kiki boyle MD Main Office [address] [facility] [address] [facility] [place] [address] 12/26/2020 09:29:27 12/26/2020 10:11:22 Lyme disease 68136919 A69.20 Pt has been taking doxycyclin e and is finally starting to improve; will continue for another week. 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 Mild neck discomfort , back pain better. 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 8788725789 3240399 G51.0 better today, stopped prednisone , motor weakness improved, able to close eyelid Pain of right eye 988778 1868 96480 H57.11 Due to change, will have her see opthalmolo gy [id number] [facility] [address] [facility] [address] [place] [address] 06/19/2021 09:26:28 06/19/2021 15:29:41 Fatigue 67241054 R53.83 see HPI for 4 years, check labs and have pt come in for a PE Tension-type headache 39 5820503 G44.209 will check sed rate due to transient (improved) left rastafari pain and throbbing, she has TMJ. will refer to PT for therapy to help with muscle tension HUERTA and pt to come in for a PE in a month with /Nova Neck pain 24008112 M54.2 see above [id number] Kiki boyle MD Main Office [address] [facility] [address] [facility] [place] [address] 04/03/2022 14:32:14 04/03/2022 15:13:13 [id number] Katy Lynn MD Main Office [address] [facility] [address] [facility] [place] [address] 04/11/2022 09:14:26 04/11/2022 14:07:10 Seizure disorder 934272440 G40.909 New onset, see discharge summary. Pt [...] by neurology for RTW and driving. Fatigue 42978943 R53.83 feeling achy in neck with fatigue? lyme again, will do testing for this. Discussed possibilit y positive might be related to old lyme from last year, pt wants to do test. Might be related to side effect coming off of wellbutrin and stress. Anxiety 62533373 F41.9 [facility] med prescriber Dee Ocampo, has appt upcoming to discuss meds. Suggested counseling . [id number] Kiki boyle MD Main Office [address] [facility] [address] [facility] [place] [address] 05/11/2022 09:45:56 05/11/2022 15:50:55 Seizure disorder [id number] G40.909 New onset Pt is on Keppra [...] RTW and driving. History of Lyme disease 885306120 Z86.19 ? new infection vs reactivati on, put on doxycyclin e, has followup planned Neuralgia 48270869 M79.2 Korey try adding at night, call if not helping [id number] Kiki boyle MD Main Office [address] [facility] [address] [facility] [place] [address] 07/13/2022 13:48:30 07/13/2022 15:14:10 Headache 85472021 R51.9 on gabapentin 300 mg tid, will be getting right occipital nerve injection soon, has in person visit with headache specialist at in 2 weeks. Neck pain 79752621 M54.2 Try PT consider MRI if not better. Short term followup Stretching an heat, meds as listed Seizure disorder 9766379 02 G40.909 Pt is off Keppra 750 mg bid, no further seizures. She had followup with neurology at the seizure clinic on 05/22/22 and had a second opinion. Awaiting notes. An MRI has been ordered by seizure clinic and pt is waiting for a date. She will need to be cleared by neurology for RTW and driving. [id number] Kiki boyle MD Main Office [address] [facility] [address] [facility] [place] [address] 08/10/2022 10:05:49 08/10/2022 11:41:46 Adult health examination 546770885 Z00.00 Pt in good general health. He sees the dentist and will see eye provider to followup on eye pain. HCM screenings up to date, Tdap up to date, had covid and flu vaccines Diet is balanced, see history for lifestyle choices Anxiety state 195214618 F41.1 ok on current meds, will check into counseling /family counseling , likely needs to be on additional meds other than buspar Neck pain 86668823 M54.2 MRi done bulging disc C5-6, could consider EDSI with [facility], starting PT next week for this Seizure disorder 1544966 02 G40.909 Pt is off Keppra 750 [...] resume in 2 months Cervico-oc cipital neuralgia 15452688 M54.81 will be getting injection through [facility] Major depr essive disorder 330705761 F32.9 see above, doing will try tapping, try to reach out for counseling and kids evaluation at school History of Lyme disease 151346192 Z86.19 Treated for this x2 , has been discharged from infectious disease provider. Pain of right eye 432170 5376 43962 H57.11 Due to ongoing pain , will have her see opthamolog y [id number] Nova dominique, REGISTERED ART THERAPIST Main Office [address] [facility] [place], [place] [address] 09/07/2022 10:03:40 09/10/2022 10:43:56 Essential hypertension 31311900 I10 Pt likely has some hypertensi on now, she will start treatment and monitor BP, call with readings next week Chronic da rolly headache [id number] 26069 R51.9 Headache since seizure disorder, has had negative imaging and only temporary relief with otc meds. ? if this is related to blood pressure. She had some occipital nerve injections which were of limited help. Pain of right eye 745334 3724 46758 H57.11 Has continued posterior eye pain with negative evaluation s, Elevated blood-pressure reading without diagnosis of hypertension 847361901 R03.0 Pt does not have a history of HTN but readings lately elevated consistent ly. She would like to try BB to see if this helps for BP and possibly headache prevention . Will monitor her blood pressure and symptoms closely Neck pain 40019860 M54.2 Acute pain with elevate blood pressure, pt is concerned about a issue with blood vessels in the head and neck causing the triad of neck pain, headache and eye pain. Will do CTA of head and neck [id number] Nova dominique, REGISTERED ART THERAPIST Main Office [address] [place] [address] 11/16/2022 10:48:45 11/16/2022 14:56:30 Chronic daily headache 4926441576 42065 R51.9 better now with BB, will continue Pain of right eye 269836 6718 50808 H57.11 eye pain better, nomral exams Neck pain 84361467 M54.2 Having EDSI upcoming, better. We were going to do a CTA of head and neck but she decided against it for now. Call if anyworseni ng. Essential hypertension 25687140 I10 Pt doing well on current treatment with propranolo l, no changes, pulse > 60, BP good [id number] Katy Lynn MD Telehealt h [address] [place] [address] 12/10/2022 09:37:47 12/10/2022 10:52:51 Dysuria-frequency syndrome 0319205 R30.0 Pt with past h/o interstiti al cystitis. WE will check U/A and culture and treat per results. PT. is advised to increase hydration. [id number] Andrea Montana MD Main Office [address] [place] [address] 04/02/2024 13:12:50 04/02/2024 14:15:22 Chronic pain syndrome 200604180 G89.4 chronic pain - huerta, R eye, back, RLE - fol by neuro - cont f/u c them, had mri, pending repeat lumbar punctureco nt gbn as dirsee below Major depr essive disorder 785621205 F32.1 mod dep on phq - ? has psychosoma tic c/o aboveconsi cathy trial of duloxetine - start c 30mg qd - if tolerates but no sig improvemen t then increase to 60mg qd History of Lyme disease 799917282 Z86.19 2021 - had meningitis - [facility] - seen by ID, never seen by rheum = will get eval Anxiety 13088617 F41.9 stopped buspar acutely recently - was rx'd by [facility] - discharged , no longer sees themsee aboveno see therapist - consider it [id number] IVY SANDOVAL MD Main Office [address] [facility] [address] [facility] [place] [address] 04/23/2024 10:23:44 04/23/2024 11:10:41 Chronic pain syndrome 359767014 G89.4 - pt has chronic headaches and [...] this medication ) Major depr essive disorder 046256930 F32.1 - PHQ-9 score of 13- pt was started on duloxetine ER 30mg QD -> there has been improvemen t on the medication , will hold increase at this time until memory testing is done- concerned that memory problems and inattentio n are more due to depression and anxiety- pt referred to psychiatry - denies SI/HI- maribel esquivel provided History of Lyme disease 697697980 Z86.19 - pt has been referred to infectious disease Anxiety 67239537 F41.9 - JERICA-7 score of 14- pt stopped buspar- pt was previously following with psych- pt is currently on duloxetine 30mg QD and propanolol ER 120mg> has noticed some improvemen t with the duloxetine (started on 04/02/2024) > not change at this time- maribel esquivel provided- RTC in 4 weeks Seizure disorder 3576596 02 G40.909 - occurred 2 years ago while on the wellbutrin - after seizures patient developed chronic pain- pt is currently off all seizures meds, was on keppra 750mg BID Adult heal th examination 331465992 Z00.00 Health Maintenanc e FemaleA) Patient was [...] nfluenza: 03/31/2024T dAP: 08/20/2018Z oren: due at 11TID36: due at 23RZBD17: due at 02WVQ96:PC V15:COVID: 06/23/2020 , 07/14/2020, 04/05/2021, 10/08/2022, 04/11/2023, 03/31/2024 D) Routine blood work orderedE) Updated patient's history RTC in one year for annual exam or sooner if any acute complaints Screening for malignant neoplasm of cervix 766015194 Z12.4 Screening for malignant neoplasm of colon 044951290 Z12.11 Fatigue 51583586 R53.83 Hyperlipidemia 40442159 E78.5 HIV screening 739822809 Z11.4 Hepatitis C screening 41 7140152 Z11.59 Vitamin D deficiency 347 51800 E55.9 Memory impairment 766111 006 R41.3 - pt concerned about her memory loss- has spoke to neurology about this however per patient her concerns were dismissed- MRI completed and was normal- blood work ordered- feel as symptoms are more due to mood/anxie ty compoment- RTC in 3 weeks for memory impairment Venereal d isease screening 723202210 Z11.3 Z72.89 F03.90 [id number] IVY SANDOVAL MD Main Office [address] [facility] [address] [facility] [address] 05/16/2024 09:35:35 05/16/2024 10:04:05 Memory impairment 203150429 R41.3 - 6CIT score of 2 and [...] improving on duloxetine Chronic pain syndrome 37 2762146 G89.4 - pt has chronic headaches and [...] is doing better Major depr essive disorder 600244708 F32.1 - pt was started on duloxetine ER 30mg QD -> there has been improvemen t on the medication , will hold increase at this time until memory testing is done- concerned that memory problems and inattentio n are more due to depression and anxiety- pt referred to psychiatry - [facility] SI/HI- maribel esquivel provided [id number] Andrea Montana MD Main Office [address] [facility] [address] [facility] [place] [address] 05/26/2024 09:27:32 05/26/2024 10:15:01 Localized eruption of skin 074481321 R21 Non infectious rash, ore looking like possibly inflammato ry in nature and is now resolving. Pt. has planned bone marrow procedure. NO contraindi cation is present to proceed in terms of this rash. [id number] Jamar Castle MD Main Office [address] [facility] [address] [place] [address] 06/19/2024 15:18:59 06/19/2024 15:53:24 Candidiasis of vagina 33240944 B37.31 will tx with fluconazol e once daily x 7 days due to vaginitis and thrush. She declined pelvic exam today as she has her 2 children with her. She self swabbed for vaginitis. Acute vaginitis 04918446 N76.0 metrogel as directed x 5 days, will confirm via vaginitis swab Candidiasis of mouth 797 35583 B37.0 has been using clotrimazo le troches with some relief but sx continue [id number] IVY SANDOVAL MD Main Office [address] [facility] [address] [facility] [place] [address] 09/22/2024 08:06:00 09/22/2024 09:00:52 Chronic pain syndrome 897502908 G89.4 - pt has chronic headaches and [...] to 60mg QD Major depr essive disorder 586759158 F32.1 - PHQ-9 score of 13 (done at previous visit)- as duloxetine is helping increased to 60mg QD- concerned that memory problems and inattentio n are more due to depression and anxiety- pt referred to psychiatry , toa linda- denies SI/HI- counsellin g provided Anxiety 56727871 F41.9 - JERICA-7 score of 14 (done at last visit)- pt stopped buspar- pt was previously following with psych- increased duloxetine to 60mg- due to uncontroll ed migraines for now will continue with propanolol ER 120mg- counsellin g provided Seizure disorder 4671865 02 G40.909 - occurred 2 years ago while on the wellbutrin - after seizures patient developed chronic pain- pt is currently off all seizures meds, was on keppra 750mg BID Migraine without aura 56 610419 G43.009 - pt has started vestibular therapy to help with this- has been following with neurology: given sumatripta n 100mg QD- pt will take zofran as needed for nausea and vomiting Attention deficit hyperactivity disorder, 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 SE of sumatripta n and propanolol causing Raynauds - advised to f/u c neurosee below re: rheum evalmeanwh ile, rec slow taper off propanolol - lower dose to 80mg, and use sumatripta n sparinglyi f no sig help c reduction of sxs, could consider low dose amlodipine to help c raynauds - but await rheum input Raynaud's phenomenon 266 339453 I73.00 see above - will get rheum eval Essential hypertension 45729837 I10 for migraines above - lowering dose from 120mg ER to 80mg ER Paronychia of toe 789012 002 L03.031 ? has this as wellwill rx c keflexreco mmend probiotics while on abx Chilblains 93724453 T69. 1XXA ? has this - will get vascular eval Health Concerns Section Related Observation LastModified by Organization Detai ls LastModified Time None Recorded Concern Status LastModified by Organization Details LastModified Time None Recorded Advance Directives Directive N: Payers Insurance Date Sequence Insurance Name Policy Number Policy Garcia Covered Member ID Garcia Member ID Guarantor Name 10/21/2024 1 [facility] [id number] Clayton Esquivel [id number] Tania Sierra 06/13/2021 1 [facility] [id number] Tania Singh Mariscal [id number] Tania Esquivel Notes Date Note Type Note [...] due to uncontrolled mood. IVY SANDOVAL MD [address] [address], [place], [address], [facility] 05/16/2024 11:04:13 05/26/2024 text/html 44 year old [...] chills, vesicular presentation. Deana Rabago PA-C [address] [address], [place], [address], [facility] 05/26/2024 10:29:45 06/19/2024 text/html Generic HPI TemplateReported bypatient.Notes:Neftaly leavitt was on dexamethasone for SI joint pain. Developed thrush and is taking clotrimazole but she also has sx of vaginitis now, itching, discharge. denies urinary sx. WILL Rasmussen [address] [address], [place], [address], [facility] 06/19/2024 15:58:29 09/22/2024 text/html Anxiety/Depressi onRepo rted [...] and depression. Pt was recently seen by [facility] psychiatry (one-time program). Some other updates:> pt is currently looking for a psychiatrist to be able to do adult testing for ADHD> will be starting behavioral therapy within the next week> continues to follow pain management, getting nerve blocks for facial pain IVY SANDOVAL MD [address] [address], [place], [address], [facility] 09/22/2024 09:00:22 10/08/2024 text/html pt experiencing a burning pain, hands and feet and right big toe nail is coming off. rev chart - h/o chronic pain, fol [facility] - used to take gbn, now on duloxetine she c/o cold toes, wears wool socks - noticed increased pain over past few weeks - she wonders if d/t sumatriptan -- looked up on epocrates - does have SE of Raynaud'slooked up propanolol on epocrates - it also has SE of Raynaud's Carol bernabe [place] - [facility] 10/21/2024 15:03:39 OBGyn Episode No OBEpisode recorded.
== END 2025-01-01 11:19 | disposition home or self-care (01) ==
LOC: HO.HSMS 10:08
PROVIDERS: PCP Internal Medicine; Visit Provider Nurse Practitioner Family
DX: G43.E09 Chronic migraine with aura, not intractable, without status migrainosus (principal); M54.2 Cervicalgia; R42 Dizziness and giddiness; R06.83 Snoring; G47.10 Hypersomnia, unspecified; G47.9 Sleep disorder, unspecified; H49.10 Fourth [trochlear] nerve palsy, unspecified eye
CPT/HCPCS: 99214

== ENCOUNTER 2025-01-18 11:31 | Outpatient (REF) | payer BC, SELFPAY ==
[2025-01-18 16:53] LABS: MANUAL DIFF FLAG NO
[2025-01-18 17:19] LABS: Hematocrit 42.8 % (37.0-47.0); Hemoglobin 14.3 g/dl (12.0-16.0); Imm Gran Abs Auto 0.03 X10*3/uL (0.00-0.03); Imm Gran Pct Auto 0.4 % (0.0-0.4); Lymphocytes Absolute Auto 2.2 X10*3/uL (1.2-4.9); Mean Corpuscular HGB Conc 33.4 g/dl (31.0-35.0); Mean Corpuscular Hemoglobin 30.1 pg (27.0-33.0); Mean Corpuscular Volume 90.1 fL (80.0-98.0); NRBC Abs Auto 0.000 X10*3/uL (0.0-0.012); NRBC Pct Auto 0.0 /100WBC (0.0-0.2); Platelet Count 274 X10*3/uL (160-400); Red Blood Count 4.75 X10*6/uL (4.20-5.50); White Blood Count 7.2 X10*3/uL (4.8-10.8)
[2025-01-18 17:56] LABS: Alanine Aminotransferase 31 U/L (0-31); Albumin Level 4.6 g/dL (3.5-5.0); Alkaline Phosphatase 98 U/L (39-117); Anion Gap 11 (12-20); Aspartate Amino Transferase 24 U/L (5-31); Blood Urea Nitrogen 10 mg/dL (9-16); Calcium 9.0 mg/dL (8.4-10.2); Carbon Dioxide 30 mmol/L (22-29); Chloride 101 mmol/L (96-108); Estimated Glomerular Filt Rate > 60; Potassium 3.8 mmol/L (3.3-5.1); Sodium 138 mmol/L (135-145); Total Protein 7.0 g/dL (6.5-8.0)
[2025-01-18 18:01] LABS: Carbamazepine Tegretol 6.5 mcg/mL (5.0-12.0)
== END 2025-01-18 11:32 | disposition home or self-care (01) ==
LOC: HO.LAB 11:31
PROVIDERS: Absent Provider Nurse Practitioner Family; PCP Student in an Organized Health Care Education/Training Program; Visit Provider Internal Medicine
DX: M53.3 Sacrococcygeal disorders, not elsewhere classified (principal); M54.16 Radiculopathy, lumbar region; G40.909 Epilepsy, unspecified, not intractable, without status epilepticus; H49.10 Fourth [trochlear] nerve palsy, unspecified eye; A69.20 Lyme disease, unspecified; R51.9 Headache, unspecified; R42 Dizziness and giddiness; Z79.899 Other long term (current) drug therapy
CPT/HCPCS: 36415; 80053; 80156; 85025

== ENCOUNTER 2025-01-18 11:31 | Outpatient (AMB) | payer BC, SELFPAY ==
--- NOTE | 2025-01-18 11:32 | MHC.OFFVIS ---
Vital Signs 01/18/25 11:33 Height 5 ft 6 in Weight 137 lb BMI 22.1 BP 143/94 H Blood Pressure Location Lt brachial Position Sitting Respiration 16 Pulse 97 Pulse Source Pulse Oximeter Pulse Oximetry (%) 100 Oxygen Delivery Method Room Air Intake Visit Reasons: s/p right Dx SIJ inj Financial Reporting Advisor Required: No Ladies' Locker Room Attendant: Ladies' Locker Room Attendant Present Accompanied by: Roderick Phillips Allergies bupropion (From Wellbutrin) Allergy (Severe, Verified 01/18/25 11:34) Seizure Medication List - Last Reconciled 01/18/25 by Zoey Frost, STEVEN atomoxetine (Strattera) 40 mg PO DAILY azelaic acid 15% 1 appl topical BID carbamazepine ER 200 mg PO BID cholecalciferol (vitamin D3) 10 mcg PO DAILY cyclobenzaprine 5 mg PO DAILY PRN duloxetine 60 mg PO DAILY galcanezumab-gnlm (Emgality Pen) 120 mg subcut ONCE 30 days magnesium oxide 400 mg PO DAILY meclizine 12.5 mg PO TID PRN nifedipine ER 30 mg PO DAILY ondansetron 4 mg PO Q8H PRN riboflavin (vitamin B2) 400 mg PO DAILY sumatriptan succinate 50 - 100 mg orally at onset of headache, may repeat in 2 hrs PRN; max 2 tabs per day or 4 tabs/week (may take with naproxen) 30 days HPI HPI s/p right Dx SIJ inj: Details: History of Present Illness The patient is a 44-year-old female presenting with sacroiliac joint dysfunction and headaches. The sacroiliac joint dysfunction was initially managed with an injection, which provided temporary relief from burning sensations over the joint but did not alleviate skin sensitivity or neuralgias. The patient experiences occasional flares with right-sided pubic symphysis burning, exacerbated by activities such as driving. Physical therapy has been considered but not yet initiated for the back, although it is ongoing for vertigo associated with headaches. The patient reports a history of headaches, which have persisted for six days, and are associated with neuralgias and vertigo. She has attempted using a TENS unit for trigeminal neuralgia, but it was ineffective due to pain on the right side. Previous MRIs of the neck and brain have shown no structural abnormalities, and an EMG of the leg was negative. The patient has a suspected diagnosis of small fiber neuropathy, with a biopsy planned to confirm this. She is currently undergoing cognitive behavioral therapy for pain management, which includes resonance breathing techniques. Pain Description - Onset: Pain flares occasionally, particularly after physical activities such as biking or driving. - Quality: Burning sensation over the right sacroiliac joint and right-sided pubic symphysis. - Location: Right sacroiliac joint, right-sided pubic symphysis. - Radiation: Pain does not radiate beyond the described areas. - Exacerbating factors: Driving, prolonged standing, and holding positions for extended periods. - Relieving factors: Temporary relief noted after sacroiliac joint injection. - Interference: Pain interferes with driving and daily activities. Physical Exam - Appears afebrile. - Alert and oriented. - Mood and affect appropriate. - Follows and participates in conversation appropriately. - Respiratory effort is unlabored. - Able to transition from sit to stand unassisted. - Ambulates with bilaterally normal heel strike and toe off. - Able to stand and walk on toes and heels. Results - MRI of the neck: No structural abnormalities noted. - MRI of the brain: No structural abnormalities noted. - EMG of the leg: Negative for abnormalities. Pain Management - Affect: Pain impacts daily activities and mood, particularly when exacerbated by physical activities. - Analgesia: Sacroiliac joint injection provided temporary relief; TENS unit was ineffective due to pain on the right side. - Adverse Effects: No adverse effects from current pain management strategies were discussed. - Activities of Daily Living: Pain interferes with driving and maintaining certain positions, impacting daily functioning. - Aberrant Drug Related Behaviors: No aberrant behaviors reported. [facility] Medical History (Updated 01/18/25 @ 11:54 by Marck Orantes MD) Depression Rosacea Neck pain Lyme disease Anxiety Surgical History [place] teeth removed Family History Mother Heart disease Father Lung disease, chronic obstructive Social History (Updated 07/19/22 @ 15:55 by Britney Newman) Alcohol intake: current Alcohol intake frequency: holidays/special occasions only Patient Tobacco Use Status: Never used Tobacco Physical Exam Vital Signs: Last Vital Signs Pulse 97 01/18/25 11:33 Resp 16 01/18/25 11:33 BP 143/94 H 01/18/25 11:33 Pulse Ox 100 01/18/25 11:33 Oxygen Delivery Method Room Air 01/18/25 11:33 BMI result Body Mass Index 22.1 Assessment & Plan Assessment & Plan (1) Sacroiliac dysfunction: Code(s): M53.3 - Sacrococcygeal disorders, not elsewhere classified Category: Medical (2) Lumbar radicular pain: Code(s): M54.16 - Radiculopathy, lumbar region Category: Medical Plan Plan - Order an MRI of the lumbar spine to assess for any structural issues contributing to pain. - Consider physical therapy for back pain management, with orders placed for patient discretion. - Agree with biopsy to confirm suspected small fiber neuropathy. - Discuss non-invasive neuromodulation options for headache management, with trial and error approach suggested. - Consider occipital nerve block for headache relief if symptoms persist. Patient was informed and verbally consented to the use of an ambient scribe for clinic note documentation during this visit. Discussion Notes I discussed with the patient the plan to order an MRI of the back to evaluate for structural issues, and the potential benefits of physical therapy for managing back pain. We also talked about the possibility of a biopsy to confirm small fiber neuropathy and the use of non-invasive neuromodulation options for headache management. The patient was informed about the option of an occipital nerve block for headache relief if symptoms persist. Patient Instructions - Schedule an MRI of the back as discussed. - Consider starting physical therapy for back pain management when convenient. - Follow up with the neurologist for a biopsy to confirm small fiber neuropathy. - Explore non-invasive neuromodulation options for headache management. - Contact the office if interested in an occipital nerve block for headache relief. Orders: Orders PT Evaluation and Treatment 01/18/25 M53.3 - Sacrococcygeal disorders, not elsewhere classified, M54.16 - Radiculopathy, lumbar region MR lumbar spine wo con 01/18/25 M54.16 - Radiculopathy, lumbar region Coding Level of Care Code Est Pt Level 4 (84434) Diagnoses Sacroiliac dysfunction M53.3 Lumbar radicular pain M54.16
[2025-01-18 11:33] VITALS: BP 143/94; PULSE 97; RESP 16; O2SAT 100; BMI 22.1
--- OUTSIDE RECORDS SUMMARY | 2025-01-18 12:41 | XMS_ITS | Encounter Summary ---
Author Organization [facility] Address [address] [place] [address] Care Team Providers Care Supervisor Sewer Maintenance Name Role Phone Deisy Dennis MD Primary Care Provider Unavailable Aaliyah Rodriguez MD Unavailable Unavailab le Encounter Details Date Type Department Care Team Description 04/10/2023 Orders Only Medical Records [address] [place] [id number] Abstract, Provider Social History Tobacco Use Types [...] on filedocumented in this encounter Care Teams Supervisor Sewer Maintenance Relationship Specialty Start Date End Date Deisy Denins MD PCP - General Internal Medicine 01/26/16 Aaliyah Rodriguez MD Internal Medicine 01/26/16 documented as of this encounter
--- OUTSIDE RECORDS SUMMARY | 2025-01-18 12:41 | XMS_ITS | Data Portability ---
Author Organization [facility], [place], Main Office Address [address] [place] [address] Care Team Providers Care Meat Selector Name Role Phone KARON NICK Injection Mold Tooling Technician GEOVANNY SANTORO Urologist [phone] IVY SANDOVAL Primary Care Provider BETTIE ULLOA Referring Provider Assessment Encounter Date Assessment Date Assessment LastModified by Organization Details LastModified Time 09/22/2024 09/22/2024 This service was provided using telemedicine. Patient consented to telephone visit Patient was located in the [facility]. Provider was located in the office. No [...] Go To The Location Of Their Choice, [id number] 06/24/2024 12:06:19 Referral vascular surgeon referral 2024 025 devora [facility], [address] , [facility] [address], [place], [address], 11/04/2024 10:43:22 rheumatol ogist referral 2024 025 [facility], [address] , [place], [address], 10/09/2024 10:40:55 Procedures None recorded. Surgeries None recorded. Imaging None recorded. Medication Orders cephalexi n 500 mg capsule 2024 025 [email or web address] [facility], [address] , [facility], [place], [address], 10/21/2024 15:03:35 propranol ol ER 80 mg capsule,2 4 hr,extend ed release 2024 025 [email or web address] [facility], [address] , [facility], [place], [address], 11/04/2024 14:26:25 duloxetin e 60 mg capsule,d elayed release 2024 025 [facility], [address] , [facility], [place], [address], 09/22/2024 08:59:55 ondansetr on 4 mg disintegr ating tablet 2024 025 [facility], [address] , [facility], [place], [address], 10/09/2024 05:01:09 atomoxeti ne 40 mg capsule 2024 025 [facility], [address] , [facility], [place], [address], 10/15/2024 12:03:07 fluconazo le 200 mg tablet 2023 025 [facility], [address] , [facility], [place], [address], 09/22/2024 08:29:27 Metrogel Vaginal 0.75 % (37.5 mg/5 gram) 2023 025 [facility], [address], [place], [address], 09/22/2024 08:31:12 Patient TargetsNo targets recorded. Patient Instructions Encounter Date Encounter Id Patient Instructions Last Modified By Organization Details Last Modified Time 05/16/2024 [id number] Preventing Depression From Coming Back: Care Instructions Not available 05/16/2024 10:00:50 06/19/2024 [id number] To call or retur n for worsening or concerns [email or web address] Not available 06/19/2024 15:43:27 09/22/2024 [id number] epilepsy: care instructions Not available 09/22/2024 08:57:37 learning about stress Not available 09/22/2024 08:57:37 Mental Health Information Not available 09/22/2024 08:57:37 10/08/2024 [id number] paronychia: care instructions [email or web address] Not available 10/21/2024 15:03:35 Medications (OTC , herbal therapies, supplements) reviewed and reconciled with patient and or caregiver, including potential side effects, drug interactions, instructions, and the consequences of not taking medication. Reviewed potential barriers to medication adherence, such as side effects from medication or cost of medication. [email or web address] Not available 10/09/2024 09:31:56 Reason for Referral College Associate Referral for Raynaud's phenomenon Referring Physician: Jac [...] 3.4-10 .8 normal Not Available [facility] ([facility]) [address] [facility] [facility], [place], [address], 06/18/2024 10:06:13 06/16/20 24 06/17/2024 CBC WITH DIFFE RENTI AL/PL ATELE T RBC 4.95 x10e6 /uL 3.77-5 .28 normal Not Available [facility] ([facility]) [address] [facility], [place], [address], 06/18/2024 10:06:13 06/16/20 24 06/17/2024 CBC WITH DIFFE RENTI AL/PL ATELE T hemoglobin 14.9 g/dL 11.1-1 5.9 normal Not Available [facility] ([facility]) [address] [facility], [place], [address], 06/18/2024 10:06:13 06/16/20 24 06/17/2024 CBC WITH DIFFE RENTI AL/PL ATELE T hematocrit 46.4 % 34.0-4 6.6 normal Not Available [facility] ([facility]) [address] [place], [address], 06/18/2024 10:06:13 06/16/20 24 06/17/2024 CBC WITH DIFFE RENTI AL/PL ATELE T MCV 94 fL 79-97 normal Not Available [facility] ([facility]) [address] [place], [address], 06/18/2024 10:06:13 06/16/20 24 06/17/2024 CBC WITH DIFFE RENTI AL/PL ATELE T MCH 30.1 pg 26.6-3 3.0 normal Not Available [facility] ([facility]) [address] [place], [address], 06/18/2024 10:06:13 06/16/20 24 06/17/2024 CBC WITH DIFFE RENTI AL/PL ATELE T MCHC 32.1 g/dL 31.5-3 5.7 normal Not Available [facility] ([facility]) [address] [facility], [place], [address], 06/18/2024 10:06:13 06/16/20 24 06/17/2024 CBC WITH DIFFE RENTI AL/PL ATELE T RDW 12.8 % 11.7-1 5.4 Not Available [facility] ([facility]) [address] [facility], [place], [address], 06/18/2024 10:06:13 06/16/20 24 06/17/2024 CBC WITH DIFFE RENTI AL/PL ATELE T platelets 284 x10e3 /uL 150-45 0 normal Not Available [facility] ([facility]) [address] [facility], [place], [address], 06/18/2024 10:06:13 06/16/20 24 06/17/2024 CBC WITH DIFFE RENTI AL/PL ATELE T neutrophils 68 % not estab. normal Not Available [facility] ([facility]) [address] [facility], [place], [address], 06/18/2024 10:06:13 06/16/20 24 06/17/2024 CBC WITH DIFFE RENTI AL/PL ATELE T lymphs 21 % not estab. normal Not Available [facility] ([facility]) [address] [facility], [place], [address], 06/18/2024 10:06:13 06/16/20 24 06/17/2024 CBC WITH DIFFE RENTI AL/PL ATELE T monocytes 9 % not estab. normal Not Available [facility] ([facility]) [address] [facility], [place], [address], 06/18/2024 10:06:13 06/16/20 24 06/17/2024 CBC WITH DIFFE RENTI AL/PL ATELE T eos 1 % not estab. normal Not Available [facility] ([facility]) [address] [facility], [place], [address], 06/18/2024 10:06:13 06/16/20 24 06/17/2024 CBC WITH DIFFE RENTI AL/PL ATELE T basos 1 % not estab. normal Not Available [facility] ([facility]) [address] [facility], [place], [address], 06/18/2024 10:06:13 06/16/20 24 06/17/2024 CBC WITH DIFFE RENTI AL/PL ATELE T immature cells EXTRUDING PRESS OPERATOR Not Available [facility] ([facility]) [address] [facility], [place], [address], 06/18/2024 10:06:13 06/16/20 24 06/17/2024 CBC WITH DIFFE RENTI AL/PL ATELE T neutrophils (absolute) 2.9 x10e3 /uL 1.4-7. 0 normal Not Available [facility] ([facility]) [address] [place], [address], 06/18/2024 10:06:13 06/16/20 24 06/17/2024 CBC WITH DIFFE RENTI AL/PL ATELE T lymphs (absolute) 0.9 x10e3 /uL 0.7-3. 1 normal Not Available [facility] ([facility]) [address] [place], [address], 06/18/2024 10:06:13 06/16/20 24 06/17/2024 CBC WITH DIFFE RENTI AL/PL ATELE T monocytes(ab solute) 0.4 x10e3 /uL 0.1-0. 9 normal Not Available [facility] ([facility]) [address] [place], [address], 06/18/2024 10:06:13 06/16/20 24 06/17/2024 CBC WITH DIFFE RENTI AL/PL ATELE T eos (absolute) 0.1 x10e3 /uL 0.0-0. 4 normal Not Available [facility] ([facility]) [address] [facility], [place], [address], 06/18/2024 10:06:13 06/16/20 24 06/17/2024 CBC WITH DIFFE RENTI AL/PL ATELE T baso (absolute) 0.0 x10e3 /uL 0.0-0. 2 normal Not Available [facility] ([facility]) [address] [facility], [place], [address], 06/18/2024 10:06:13 06/16/20 24 06/17/2024 CBC WITH DIFFE RENTI AL/PL ATELE T immature granulocytes 0 % not estab. Not Available [facility] ([facility]) [address] [facility], [place], [address], 06/18/2024 10:06:13 06/16/20 24 06/17/2024 CBC WITH DIFFE RENTI AL/PL ATELE T immature grans (abs) 0.0 x10e3 /uL 0.0-0. 1 Not Available [facility] ([facility]) [address] [facility], [place], [address], 06/18/2024 10:06:13 06/16/20 24 06/17/2024 CBC WITH DIFFE RENTI AL/PL ATELE T NRBC EXTRUDING PRESS OPERATOR Not Available [facility] ([facility]) [address] [facility], [place], [address], 06/18/2024 10:06:13 06/16/20 24 06/17/2024 CBC WITH DIFFE RENTI AL/PL ATELE T hematology comments: EXTRUDING PRESS OPERATOR Not Available [facility] ([facility]) [address] [facility], [place], [address], 06/18/2024 10:06:13 06/16/20 24 06/18/2024 BASIC METAB OLIC PANEL (8) glucose 101 mg/dL 70-99 above high normal Not Available [facility] ([facility]) [address], [place], [address], 06/18/2024 10:06:14 06/16/20 24 06/18/2024 BASIC METAB OLIC PANEL (8) BUN 15 mg/dL 6-24 normal Not Available [facility] ([facility]) [address], [place], [address], 06/18/2024 10:06:14 06/16/20 24 06/18/2024 BASIC METAB OLIC PANEL (8) creatinine 0.74 mg/dL 0.57-1 .00 normal Not Available [facility] ([facility]) [address], [place], [address], 06/18/2024 10:06:14 06/16/20 24 06/18/2024 BASIC METAB OLIC PANEL (8) eGFR 101 mL/mi n/1.7 3 >59 normal Not Available [facility] ([facility]) [address] [facility], [place], [address], 06/18/2024 10:06:14 06/16/20 24 06/18/2024 BASIC METAB OLIC PANEL (8) BUN/creatini ne ratio 20 9-23 normal Not Available [facility] ([facility]) [address] [place], [address], 06/18/2024 10:06:14 06/16/20 24 06/18/2024 BASIC METAB OLIC PANEL (8) sodium 140 mmol/ L 134-14 4 normal Not Available [facility] ([facility]) [address] [place], [address], 06/18/2024 10:06:14 06/16/20 24 06/18/2024 BASIC METAB OLIC PANEL (8) potassium 4.2 mmol/ L 3.5-5. 2 normal Not Available [facility] ([facility]) [address] [place], [address], 06/18/2024 10:06:14 06/16/20 24 06/18/2024 BASIC METAB OLIC PANEL (8) chloride 100 mmol/ L 96-106 normal Not Available [facility] ([facility]) [address] [place], [address], 06/18/2024 10:06:14 06/16/20 24 06/18/2024 BASIC METAB OLIC PANEL (8) carbon dioxide, total 27 mmol/ L 20-29 normal Not Available [facility] ([facility]) [address] [facility] [place], [address], 06/18/2024 10:06:14 06/16/20 24 06/18/2024 BASIC METAB OLIC PANEL (8) calcium 9.1 mg/dL 8.7-10 .2 normal Not Available [facility] ([facility]) [address] [facility] [place], [address], 06/18/2024 10:06:14 06/16/20 24 06/18/2024 LIPID PANEL cholesterol, total 150 mg/dL 100-19 9 normal Not Available [facility] ([facility]) [address] [facility] [place], [address], 06/18/2024 10:06:15 06/16/20 24 06/18/2024 LIPID PANEL triglyceride s 103 mg/dL 0-149 normal Not Available [facility] ([facility]) [address] [facility] [place], [address], 06/18/2024 10:06:15 06/16/20 24 06/18/2024 LIPID PANEL HDL cholesterol 55 mg/dL >39 normal Not Available [facility] ([facility]) [address] [facility] [place], [address], 06/18/2024 10:06:15 06/16/20 24 06/18/2024 LIPID PANEL VLDL cholesterol robyn 19 mg/dL 5-40 Not Available [facility] ([facility]) [address] [facility] [place], [address], 06/18/2024 10:06:15 06/16/20 24 06/18/2024 LIPID PANEL LDL chol calc ([facility]) 76 mg/dL 0-99 Not Available [facility] ([facility]) [address] [facility], [place], [address], 06/18/2024 10:06:15 06/16/20 24 06/18/2024 LIPID PANEL LDL calc comment: EXTRUDING PRESS OPERATOR Not Available [facility] ([facility]) [address] [facility], [place], [address], 06/18/2024 10:06:15 06/16/20 24 06/18/2024 HCV ANTIB JOSE DE JESUS RFX TO QUANT PCR HCV Ab Non Reacti ve non reacti ve Not Available [facility] ([facility]) [address], [place], [address], 06/18/2024 10:06:15 06/16/20 24 06/18/2024 HCV ANTIB JOSE DE JESUS RFX TO QUANT PCR interpretati on: Commen t Not infec facundo with HCV unles s early or acute infec tion is suspe cted (whic h may be delay ed in an immun ocomp romis ed indiv idual ), or other evide nce exist s to indic ate HCV infec tion. Not Available [facility] ([facility]) [address], [place], [address], 06/18/2024 10:06:15 06/16/20 24 06/17/2024 FOLAT E (FOLI C ACID) , SERUM folate (folic acid), serum 16.7 NG/mL >3.0 normal A serum folat e blake ntrat ion of less than 3.1 ng/mL is consi dered to repre sent clini robyn defic iency . Not Available [facility] ([facility]) [address], [place], [address], 06/18/2024 10:06:16 06/16/20 24 06/17/2024 RPR, RFX QN RPR/C ONFIR M TP RPR Non Reacti ve non reacti ve Not Available [facility] ([facility]) [address] [facility], [place], [address], 06/18/2024 10:06:17 06/16/20 24 06/17/2024 VITAM IN [...] DC: The Natio n[facility] . 2. Mayank cano MF, Michelle courtney [place], Marcus off-F errar i HUERTA, et al. Evalu ation , treat ment, and preve ntion of vitam in D defic iency : an Endoc rine Socie ty clini robyn pract ice guide line. JCEM. 2010; 96(7) :1911 -30. Not Available [facility] ([facility]) [address], [place], [address], 06/18/2024 10:06:18 06/16/20 24 06/17/2024 HIV AB/P2 4 AG WITH REFLE X HIV Ab/P24 Ag screen Non Reacti ve non reacti ve HIV-1 /HIV- 2 antib odies and HIV-1 p24 antig en were NOT detec facundo. There is no labor atory evide nce of HIV infec tion. HIV Negat america Not Available [facility] ([facility]) [address] [facility], [place], [address], 06/18/2024 10:06:19 06/16/20 24 06/18/2024 TSH RFX ON ABNOR MAL TO FREE T4 TSH 1.180 uIU/m L 0.450- 4.500 normal Not Available [facility] ([facility]) [address], [place], [address], 06/18/2024 10:06:19 06/16/20 24 06/17/2024 SEDIM ENTAT ION RATE- WESTE RGREN sedimentatio n rate-westerg allison 9 mm/HR 0-32 normal Not Available [facility] ([facility]) [address] [facility], [place], [address], 06/18/2024 10:06:21 06/16/20 24 06/17/2024 VITAM IN B12 vitamin B12 578 pg/mL 232-12 45 normal Not Available [facility] ([facility]) [address] [facility], [place], [address], 06/18/2024 10:06:22 06/19/20 24 06/20/2024 NUSWA B BV SRI+C AND6+ CT/GC /T... atopobium vaginae Low - 0 score Not Available [facility] ([facility]) [address] [facility], [place], [address], 06/24/2024 12:06:19 06/19/20 24 06/20/2024 NUSWA B BV SRI+C AND6+ CT/GC /T... bvab 2 Low - 0 score Not Available [facility] ([facility]) [address] [facility], [place], [address], 06/24/2024 12:06:19 06/19/20 24 06/20/2024 NUSWA B [...] prese nce of BV. Not Available [facility] ([facility]) [address] [facility], [place], [address], 06/24/2024 12:06:19 06/19/20 24 06/20/2024 NUSWA B BV SRI+C AND6+ CT/GC /T... nilton albicans, SRI Negati ve negati ve Not Available [facility] ([facility]) [address] [facility], [place], [address], 06/24/2024 12:06:19 06/19/2006/20/2024 NUSWA B BV SRI+C AND6+ CT/GC /T... nilton glabrata, SRI Negati ve negati ve Not Available [facility] ([facility]) [address] [facility] [facility], [place], [address], 06/24/2024 12:06:19 06/19/2006/20/2024 NUSWA B BV SRI+C AND6+ CT/GC /T... C parapsilosis /tropicalis Negati ve negati ve This assay does not diffe renti ate C. tropi calis and C. parap ajit is. Not Available [facility] ([facility]) [address] [place], [address], 06/24/2024 12:06:19 06/19/2006/20/2024 NUSWA B BV SRI+C AND6+ CT/GC /T... nilton lusitaniae, SRI Negati ve negati ve Not Available [facility] ([facility]) [address] [place], [address], 06/24/2024 12:06:19 06/19/2006/20/2024 NUSWA B BV SRI+C AND6+ CT/GC /T... nilton krusei, SRI Negati ve negati ve Not Available [facility] ([facility]) [address] [facility], [place], [address], 06/24/2024 12:06:19 06/19/2006/21/2024 NUSWA B BV SRI+C AND6+ CT/GC /T... hsv 1 SRI Negati ve negati ve Not Available [facility] ([facility]) [address] [place], [address], 06/24/2024 12:06:19 06/19/2006/21/2024 NUSWA B BV SRI+C AND6+ CT/GC /T... hsv 2 SRI Negati ve negati ve Not Available [facility] ([facility]) [address] [place], [address], 06/24/2024 12:06:19 06/19/20 24 06/24/2024 NUSWA B BV SRI+C AND6+ CT/GC /T... trich vag by SRI Negati ve negati ve Not Available [facility] ([facility]) [address] [place], [address], 06/24/2024 12:06:19 06/19/2006/24/2024 NUSWA B BV SRI+C AND6+ CT/GC /T... chlamydia trachomatis, SRI Negati ve negati ve Not Available [facility] ([facility]) [address] [place], [address], 06/24/2024 12:06:19 06/19/20 24 06/24/2024 NUSWA B BV SRI+C AND6+ CT/GC /T... neisseria gonorrhoeae, SRI Negati ve negati ve Not Available [facility] ([facility]) [address] [place], [address], 06/24/2024 12:06:19 Result Notes None recorded. Problems Name Problem SNOMED Code Status Onset Date Resolution Date Notes Provider Name and Address Organization Details Recorded Time Allergic rhinitis 81008572 Completed 201001/19/2014 RECORDED 10/28/19 11 1:57PM BY FER ANTHONY MA, ANNOTATI ON/ADDEN DUM Not Available [facility] 4 15:27:43 Backache [id number] Completed 201201/19/2014 IMPRESSI ON: CHRONIC, MILD. MAY PURSUE CHIRO CARE. NO RED FLAG SXS OF CONCERN. ; RECORDED 10/24/19 13 9:14AM BY ZENAIDA MUIR MA, ANNOTATI ON/ADDEN DUM Not Available [facility] 4 15:27:44 Contrace ption care manageme nt Completed 201101/19/2014 IMPRESSI ON: PT TO CONSIDER CHANGING TO LOWER DOSE HORMONE PILL. WILL LET ME KNOW, HAPPY TO FAX TO THE PHARMACY FOR HER.; RECORDED 02/08/20 12 10:43AM BY YAZMIN GAMBLE MA, ANNOTATI ON/ADDEN DUM Not Available [facility] 4 15:27:44 Dysuria [id number] Completed 201101/19/2014 RECORDED 02/08/20 12 10:43AM BY YAZMIN GAMBLE MA, ANNOTATI ON/ADDEN DUM Yvette bernabe [facility] [place] 8 14:01:36 Follow-u p encounte r Completed 201201/19/2014 RECORDED 03/05/20 13 8:58AM BY YAZMIN GAMBLE MA, ANNOTATI ON/ADDEN DUM Not Available [facility] 4 15:27:44 Malaise and fatigue [id number] Completed 10/31/2017 Yvette bernabe [facility] [place] 8 14:01:24 Malaise and fatigue [id number] Completed 201101/19/2014 IMPRESSI ON: DOING WELL ON MEDICATI ON. WILL TRY TO TAKE IN THE AMS TO AVOID EARLY DAY H/. ALSO DOING BETTER WITH REG EXERCISE WHICH I ENCOURAG ED HER TO CONTINUE . WILL TOUCH BASE IN THE NEXT 3-4 MONTHS RE PROGRESS .; RECORDED 02/08/20 12 10:43AM BY YAZMIN GAMBLE MA, ANNOTATI ON/ADDEN DUM Yvette bernabe, [facility] [place] 8 14:01:24 Influenz a vaccine needed [id number] Completed 200701/19/2014 RECORDED 05/26/20 08 9:46AM BY NEIL COOPER, OFFICE VISIT Not Available [facility] 4 15:27:44 General examinat ion of patient Completed 200801/19/2014 RESOLVED DATE: 11/23/19 09; RECORDED 11/23/19 09 2:02PM BY TARA ANTHONY, TIFFANIE ON/ADDEN DUM Not Available [facility] 4 15:27:44 Well child [id number] Completed 201101/19/2014 RECORDED 02/08/20 12 10:43AM BY YAZMIN GAMBLE MA, MEGANATI ON/ADDEN DUM Not Available [facility] 4 15:27:45 Psychoge orly headache 52150638 Completed 200801/19/2014 RECORDED 11/23/19 09 2:02PM BY TARA ANTHONY, MEGANATI ON/ADDEN DUM Not Available [facility] 4 15:27:45 Hyperlip idemia 77738894 Completed 201101/19/2014 RECORDED 02/08/20 12 11:23AM BY ALFREDO LOAIZA PA-C, MEGANATI ON/ADDEN DUM Not Available [facility] 4 15:27:45 Neck pain 02242079 Completed 10/31/2017 Kiki bernabe [facility] [place] 1 15:24:44 Administ ration of bacteria l and viral vaccine Completed 200701/19/2014 RECORDED 06/02/20 08 11:14AM BY LATANYA PATIÑO, HISTORIC AL SUMMARY Not Available [facility] 4 15:27:45 Non-neop lastic nevus [id number] Completed 201201/19/2014 STORY: MAINLY OVER BACK, FOLLOWED BY NEW ADOLFO DERM ANNUALLY .; RECORDED 10/24/19 13 9:14AM BY ZENAIDA MUIR MA, ANNOTATI ON/ADDEN DUM Not Available [facility] 4 15:27:45 Patient status finding [id number] Completed 201201/19/2014 RECORDED 05/21/20 13 2:38PM BY YAZMIN GAMBLE MA, ANNOTATI ON/ADDEN DUM Yvette bernabe MA - [facility] 8 14:01:20 Noninfla mmatory disorder of the vagina [id number] Completed 201101/19/2014 IMPRESSI ON: UNLIKELY STD, TX TOPICALL Y FOR YEAST, IF POSITIVE FOR GARDNERE LLA WILL CALL AND TREAT, ALREADY TOOK 2 DIFLUCAN ; RECORDED 02/08/20 12 10:43AM BY YAZMIN GAMBLE MA, ANNOTATI ON/ADDEN DUM Not Available [facility] 4 15:27:46 Atypical squamous cells of undeterm ined signific ance on vaginal Papanico laou smear 066468671 Completed 201101/19/2014 RECORDED 02/08/20 12 10:42AM BY YAZMIN GAMBLE MA, ANNOTATI ON/ADDEN DUM Not Available [facility] 4 15:27:46 Cellulit is of digit [id number] Completed 201201/19/2014 IMPRESSI ON: START ABX, WARM SOAKS, IBU FOR DAY AND PAIN MED AT NIGHT. MONITOR CLOSELY, CALL OFFICE FOR WORSENIN G/PRN; RECORDED 03/05/20 13 8:58AM BY YAZMIN GAMBLE MA, ANNOTATI ON/ADDEN DUM Not Available [facility] 4 15:27:46 Adult health examinat ion Completed 201201/19/2014 RECORDED 05/21/20 13 2:38PM BY YAZMIN GAMBLE MA, ANNOTATI ON/ADDEN DUM Not Available [facility] 4 15:27:46 Seborrhe ic dermatit is [id number] Completed 201201/19/2014 RECORDED 07/30/19 13 1:17AM BY FER ANTHONY MA, ANNOTATI ON/ADDEN DUM Not Available [facility] 4 15:27:46 Breast finding [id number] Completed 200801/19/2014 RECORDED 02/09/20 09 9:10AM BY FER ANTHONY MA, ANNOTATI ON/ADDEN DUM Not Available [facility] 4 15:27:46 Administ ration of diphther ia, pertussi s, and tetanus vaccine Completed 201201/19/2014 RECORDED 03/05/20 13 8:58AM BY YAZMIN GAMBLE MA, ANNOTATI ON/ADDEN DUM Not Available [facility] 4 15:27:46 Temporom andibula r joint disorder [id number] Active Rachel Kohler MA [facility], [facility] 1 09:34:16 Urinary tract infectio us disease [id number] Completed 10/31/2017 Yvette Yip MA [facility], [facility] 8 14:01:39 Allergic rhinitis 77410230 Completed 201002/15/2014 RECORDED 10/28/19 11 1:57PM BY FER ANTHONY MA, ANNOTATI ON/ADDEN DUM Not Available [facility] 4 06:27:20 Anxiety state 740710207 Completed 201302/15/2014 IMPRESSI ON: NEVER TRIED SERTRALI NE WILL START AT 25MG AND INCREASE TO 50MG; RECORDED 12/19/19 14 2:56PM BY YAZMIN GAMBLE MA, ANNOTATI ON/ADDEN DUM IVY SANDOVAL MD [address] [facility] [address], [place], [address] , [facility] 4 17:46:47 Backache [id number] Completed 201202/15/2014 IMPRESSI ON: CHRONIC, MILD. MAY PURSUE CHIRO CARE. NO RED FLAG SXS OF CONCERN. ; RECORDED 10/24/19 13 9:14AM BY ZENAIDA MUIR MA, MEGANATI ON/ADDEN DUM Not Available [facility] 4 06:27:20 Contact dermatit is [id number] Active Rachel Kohler MA [facility] 1 09:34:16 Contrace ption care manageme nt Completed 201102/15/2014 IMPRESSI ON: PT TO CONSIDER CHANGING TO LOWER DOSE HORMONE PILL. WILL LET ME KNOW, HAPPY TO FAX TO THE PHARMACY FOR HER.; RECORDED 02/08/20 12 10:43AM BY YAZMIN GAMBLE MA, TIFFANIE ON/ADDEN DUM Not Available [facility] 4 06:27:20 Dysuria [id number] Completed 201102/15/2014 RECORDED 02/08/20 12 10:43AM BY YAZMIN GAMBLE MA, TIFFANIE ON/ADDEN DUM Yvette Yip MA [facility] 8 14:01:36 Follow-u p encounte r Completed 201202/15/2014 RECORDED 03/05/20 13 8:58AM BY YAZMIN GAMBLE MA, MEGANATI ON/ADDEN DUM Not Available [facility] 4 06:27:21 Influenz a vaccine needed [id number] Completed 200702/15/2014 RECORDED 05/26/20 08 9:46AM BY NEIL COOPER, OFFICE VISIT Not Available [facility] 4 06:27:21 General examinat ion of patient Completed 200802/15/2014 RESOLVED DATE: 11/23/19 09; RECORDED 11/23/19 09 2:02PM BY TIFFANIE GALINDO ON/ADDEN DUM Not Available [facility] 4 06:27:21 Well child 738938594 Completed 201102/15/2014 RECORDED 02/08/20 12 10:43AM BY YAZMIN GAMBLE MA, ANNOTATI ON/ADDEN DUM Not Available [facility] 4 06:27:21 Psychoge orly headache 10106503 Completed 200802/15/2014 RECORDED 11/23/19 09 2:02PM BY TARA ANTHONY, MEGANATI ON/ADDEN DUM Not Available [facility] 4 06:27:21 Hyperlip idemia 70690131 Completed 201102/15/2014 RECORDED 02/08/20 12 11:23AM BY ALFREDO LOAIZA PA-C, ANNOTATI ON/ADDEN DUM Not Available [facility] 4 06:27:21 Neck pain 21499103 Completed 201302/15/2014 IMPRESSI ON: CHRONIC, PT IS INTEREST ED IN PT, SHE WILL MAKE APPT; RECORDED 12/19/19 14 2:56PM BY YAZMIN GAMBLE MA, MEGANATI ON/ADDEN DUM Kiki bernabe [facility] [place] 1 15:24:44 Administ ration of bacteria l and viral vaccine Completed 200702/15/2014 RECORDED 06/02/20 08 11:14AM BY LASHAE WARNER, LATANYA, HISTORIC AL SUMMARY Not Available [facility] 4 06:27:21 Non-neop lastic nevus 479081391 Completed 201202/15/2014 STORY: MAINLY OVER BACK, FOLLOWED BY CORN DERM ANNUALLY .; RECORDED 10/24/19 13 9:14AM BY ZENAIDA MUIR MA, TIFFANIE ON/ADDEN DUM Not Available [facility] 4 06:27:21 Patient status finding 615660939 Completed 10/31/2017 Yvette bernabe [facility] [place] 8 14:01:20 Noninfla mmatory disorder of the vagina 93378819 Completed 201102/15/2014 IMPRESSI ON: UNLIKELY STD, TX TOPICALL Y FOR YEAST, IF POSITIVE FOR GARDNERE LLA WILL CALL AND TREAT, ALREADY TOOK 2 DIFLUCAN ; RECORDED 02/08/20 12 10:43AM BY YAZMIN GAMBLE MA, ANNOTATI ON/ADDEN DUM Not Available [facility] 4 06:27:21 Otitis media 33624921 Completed 10/31/2017 Yvette bernabe [facility] 8 14:01:32 Atypical squamous cells of undeterm ined signific ance on vaginal Papanico laou smear 820246366 Completed 201102/15/2014 RECORDED 02/08/20 12 10:42AM BY YAZMIN GAMBLE MA, ANNOTATI ON/ADDEN DUM Not Available [facility] 4 06:27:21 Cellulit is of digit 90493653 Completed 201202/15/2014 IMPRESSI ON: START ABX, WARM [...] Center 4 06:27:21 Seborrhe ic dermatit is 07885494 Completed 201202/15/2014 RECORDED 07/30/19 13 1:17AM BY FER ANTHONY MA, MEGANATI ON/ADDEN DUM Not Available [facility] 4 06:27:21 Breast finding 800243687 Completed 200802/15/2014 RECORDED 02/09/20 09 9:10AM BY FER ANTHONY MA, ANNOTATI ON/ADDEN DUM Not Available [facility] 4 06:27:21 Administ ration of diphther ia, pertussi s, and tetanus vaccine Completed 201202/15/2014 RECORDED 03/05/20 13 8:58AM BY YAZMIN GAMBLE MA, ANNOTATI ON/ADDEN DUM Not Available [facility] 4 06:27:21 Urinary tract infectio us disease 03058408 Completed 201302/15/2014 RECORDED 12/19/19 14 2:56PM BY YAZMIN GAMBLE MA, TIFFANIE ON/ADDEN DUM Yvette Bigby MA null, [facility] [place] 8 14:01:39 Dysuria 83473883 Completed 10/31/2017 Yvette bernabe, [facility] [place] 8 14:01:36 Anxiety 57527703 Active RADHA Diop, [facility] [place] 1 09:34:16 Otitis externa 5761237 Completed 10/31/2017 Yvette ebrnabe, [facility] [place] 8 14:01:43 Acute vaginiti s 69275553 Completed 04/22/2024 WILL Rasmussen [address], [place], [address] , [facility] 4 15:40:42 Suspecte d COVID-19 251202376 Completed 12/14/2020 Removal Reason: Problem added by user [email or web address] from the COVID-19 watch flag Silva Mcguire [facility], [facility] [place] 1 11:41:37 Neck pain 12483662 Active 2020 Kiki boyle [facility] 1 15:24:44 Seizure disorder 680963674 Active [address] [facility] 3 00:22:31 Elevated blood-pr essure reading without diagnosi s of hyperten chi 713458371 Completed 202204/23/2024 IVY SANDOVAL MD [address], [place], [address] , [facility] 4 10:42:18 Chronic pain syndrome 400627444 Active 2023 Jac Rabago PA-C [address], [place], [address] , [facility] 4 14:14:36 Major depressi ve disorder 654965255 Active 2023 Jac Rabago PA-C [address] [facility] [address], [place], [address] , [facility] 4 14:14:51 History of Lyme disease 466476781 Active 2023 Jac Rabago PA-C [address] [facility] [address], [place], [address] , [facility] 4 14:16:35 Vitamin D deficien cy 61912939 Active 2023 IVY SANDOVAL MD [address] [facility] [address], [place], [address] , [facility] 4 10:41:52 Candidia sis of vagina 80932655 Active 2023 WILL Rasmussen [address] [facility] [address], [place], [address] , [facility] 4 15:39:31 Acute vaginiti s 50108490 Active 2023 WILL Rasmussen [address] [facility] [address], [place], [address] , [facility] 4 15:40:42 Candidia sis of mouth 92197765 Active 2023 WILL Rasmussen [address] [facility] [address], [place], [address] , [facility] 4 15:57:51 Raynaud' s disease 908931315 Active 2024 IVY SANDOVAL MD [address] [facility] [address], [place], [address] , [facility] 5 06:54:21 Problem Notes None recorded. Procedures Surgical History Date Name Laterality Status Provider Name and Address Organization Details Recorded Time 3 injection of facet joint completed Kacy Salamanca [facility] [place] 02/01/2023 11:39:25 4 Date of Last Pap Smear completed Rachel Kohler MA [facility] [place] 04/01/2014 12:57:30 Imaging Results None recorded. Procedure Notes None recorded. Medical Equipment None Reported. Allergies Allergen ID Allergen Name Allergen Category Reaction Reaction Severity Criticality Documentation Date Start Date Code Code System Note Provider Name and Address Organization Details Recorded Time 82926 Wellbutri n medicatio n seizure severe unabletoasse ss 04/03/20222021 74390 RxNorm belie celestino to have contr ibute d to new onset grand mal seizu re - if other cause found , this charles rgy can be d/c Gertrude Mcdaniels RN [facility], [facility] [place] 14:59:40 Medications Name Sig Start Date Stop [...] RECORDED 11/06/19 14 2:47PM BY RACHEL [facility]ER [facility]NA [facility];SHE GOT IT FROM HER UROLOGIS [...] pine ER 100 mg capsule,e xtended release [id number] r TAKE 2 CAPSULES BY MOUTH TWICE [...] DateTime 09/22/2024 170.18 cm Rachel Kohler MA [facility] [place] 09/22/2024 08:28:38 Date Recorded Body height Body mass index (BMI) Body weight Heart rate Oxygen saturation Oxygen saturation in Arterial blood by Pulse oximetry Body temperature Systolic And Diastolic Provider Name and Address Organization Details Last Updated DateTime 5 170.18 cm 23 kg/m2 06087.0 8 g 72 /min 96 % 96 % 98.2 [degF] 121/74 mm[Hg] Br[facility]ida [facility] 5 15:09:49 Date Recorded Body height Body mass index (BMI) Body weight Heart rate Oxygen saturation Oxygen saturation in Arterial blood by Pulse oximetry Body temperature Systolic And Diastolic Provider Name and Address Organization Details Last Updated DateTime 4 170.18 cm 21.9 kg/m2 12068.9 3 g 62 /min 100 % 100 % 97.8 [degF] 107/68 mm[Hg] Chandra mackay MA [facility] 4 09:43:03 Date Recorded Body height Body mass index (BMI) Body weight Heart rate Oxygen saturation Oxygen saturation in Arterial blood by Pulse oximetry Body temperature Systolic And Diastolic Provider Name and Address Organization Details Last Updated DateTime 4 170.18 cm 22.7 kg/m2 56992.8 9 g 76 /min 98 % 98 % 98.3 [degF] 125/74 mm[Hg] Danielle Novoa MA [facility] [place] 4 09:46:42 Date Recorded Body height Body mass index (BMI) Body weight Oxygen saturation Oxygen saturation in Arterial blood by Pulse oximetry Heart rate Body temperature Systolic And Diastolic Provider Name and Address Organization Details Last Updated DateTime 4 170.18 cm 22.7 kg/m2 79163.8 9 g 100 % 100 % 75 /min 98.3 [degF] 126/80 mm[Hg] Rachel Kohler MA [facility] [place] 4 15:30:03 Social History Question Answer Notes LastModified by Organizat ion Details LastModified Time Tobacco Smoking Status Never Smoker Rachel Kohler MA [facility] 02/18/2014 13:45:04 Do You Have An Advance Directive? No [email or web address] Information not available 05/11/2022 Animal Exposure? Yes [email or web address] Information not available 05/11/2022 Do You Wear A Helmet When Biking? Yes [email or web address] Information not available 05/11/2022 Is Blood Transfusion Acceptable In An Emergency? Yes [email or web address] Information not available 04/01/2014 What Is Your Level Of Caffeine Consumption? Occasional Every Other Day, Coffee X 1 Information not available 09/20/2016 How Much Tobacco Do You Chew? None [email or web address] Information not available 04/01/2014 What Type Of Diet Are You Following? REGULAR [email or web address] Information not available 02/18/2014 Which Illicit Or Recreational Drugs Have You Used? NONE Information not available 09/20/2016 Education Post Graduate [email or web address] Information not available 05/11/2022 Have There Been Any Changes To Your Family Or Social Situation? No [email or web address] Information not available 05/11/2022 How Many Days In The Past Year Have You Had A Heavy Drinking Consumption (4+ Female, 5+ Male)? 10 [email or web address] Information not available 05/11/2022 Are There Any Guns Present In Your Home? No [email or web address] Information not available 05/11/2022 What Is Your Home Situation? Other Information not available 05/11/2022 Legally Blind In One Or Both Eyes? No [email or web address] Information not available 05/11/2022 Do You Take Precautions To Prevent Distracted Driving? Yes [email or web address] Information not available 04/23/2024 How Often Do You Need To Have Someone Help You When You Read Instructions, Pamphlets, Or Other Written Material From Your Doctor Or Pharmacy? Never Information not available 09/20/2016 Have You Served In The ? No Information not available 09/20/2016 Marital Status Domestic Partner [email or web address] Information not available 05/11/2022 Total Number Of Stairs In Home 14 [email or web address] Information not available 05/11/2022 How Many Children Do You Have? 2 Information not available 06/19/2024 Do You Use Protection During Sex? No [email or web address] Information not available 04/01/2014 Difficulty Reading? No Information not available 05/11/2022 What Is Your Relationship Status? [place] Information not available 06/19/2024 Seat Belts Used Routinely Yes [email or web address] Information not available 05/11/2022 Are You Sexually Active? Yes Information not available 04/01/2014 Are You Passively Exposed To Smoke? No Information not available 09/20/2016 How Much Tobacco Do You Smoke? No Information not available 09/20/2016 What Types Of Sporting Activities Do You Participate In? Running, Hiking, Kayaking, Rock Climbing [email or web address] Information not available 05/11/2022 Do You Use Sunscreen Routinely? Yes [email or web address] Information not available 02/18/2014 Do You Have Difficulty Walking Or Climbing Stairs? No [email or web address] Information not available 05/11/2022 Sex: Unknown Functional Status Question Answer Note LastModified by Organizat ion Details LastModified Time Do you use any illicit or recreational drugs? No [email or web address] Information not available 05/11/2022 What is your level of alcohol consumption? Occasional [email or web address] Information not available 02/18/2014 Are you currently employed? Yes [email or web address] Information not available 02/18/2014 Difficulty driving at night? No [email or web address] Information not available 05/11/2022 Are you able to walk? YESWOREST [email or web address] Information not available 08/10/2022 Are you able to care for yourself? 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 No [email or web address] Information not available 05/11/2022 What is your exercise level? Moderate treadmill 1-2/week Information not available 09/20/2016 Mental Status Question Answer Note LastModified by Organization D etails LastModified Time Do you have difficulty concentrating, remembering or making decisions? Yes [email or web address] Information no t available 05/11/2022 Family History [...] available 2016 11:39:58 Father Interstitial lung disease [email or web address] Not available 09:46:25 Father Cerebrovascu lar accident [email or web address] Not available 10:32:40 Mother Heart disease 65 [email or web address] Not available 2014 10:22:50 Mother Myocardial infarction [email or web address] Not available 10/2021 09:46:25 Mother Coronary atherosclero sis [email or web address] Not available 05/11 09:46:25 Brother Obesity [email or web address] Not available 09/20/2016 11:40:32 Sister Obesity [email or web address] Not available 0 09/20/2016 11:40:35 Medical History Condition Response Other N Gout N Kidney Stones N Blood Diseases N Hyperthyroidism N Breast Cancer N Lung Disease N Hypothyroidism N Depression Y COPD N Defects or [...] virus, trivalent, preservative 6 completed SARTHAK Ching, [facility] [place] 04/03/2022 15:18:11 COVID-19, mRNA, LNP-S, PF, 30 mcg/0.3 mL dose 1 completed RADHA Rosa, [facility] [place] 04/11/2022 12:54:47 Influenza, split virus, quadrivalent, preservative 1 completed RADHA Diop, [facility] [place] 06/19/2021 14:49:17 COVID-19, mRNA, LNP-S, PF, 30 mcg/0.3 mL dose 0 completed Rachel Kohler MA null, [facility] [place] 06/19/2021 14:50:39 COVID-19, mRNA, LNP-S, PF, 30 mcg/0.3 mL dose 1 completed Rachel Kohler MA null, [facility] [place] 06/19/2021 14:51:22 Influenza, MDCK, quadrivalent, PF 7 completed Gertrude Mcdaniels RN null, [facility] [place] 04/03/2022 15:18:10 Influenza, split virus, quadrivalent, PF 8 completed Gertrude Mcdaniels RN null, [facility] [place] 04/03/2022 15:18:10 Influenza, split virus, quadrivalent, PF 9 completed Gertrude Mcdaniels RN null, [facility] [place] 04/03/2022 15:18:10 Influenza, split virus, quadrivalent, PF 1 completed Gertrude Mcdaniels RN null, [facility] [place] 04/03/2022 15:18:10 Tdap 9 completed Gertrude Mcdaniels RN null, [facility] [place] 04/03/2022 15:18:10 Influenza, split virus, quadrivalent, PF 0 completed Gertrude Mcdaniels RN null, [facility] [place] 04/03/2022 15:18:11 Influenza, split virus, quadrivalent, PF 2 completed Rachel Kohler MA null, [facility] [place] 08/10/2022 10:14:13 influenza, unspecified formulation 2 completed RADHA Diop, [facility] [place] 08/10/2022 10:20:47 COVID-19, mRNA, LNP-S, bivalent, PF, 50 mcg/0.5 mL or 25mcg/0.25 mL dose 3 completed RADHA Jansen, [facility] [place] 11/16/2022 11:24:09 COVID-19, mRNA, LNP-S, PF, prasanth-sucrose, 30 mcg/0.3 mL 4 completed RADHA Diop, [facility] [place] 04/02/2024 13:26:29 COVID-19, mRNA, LNP-S, PF, 50 mcg/0.5 mL 3 completed RADHA Diop, [facility] [place] 04/02/2024 13:26:29 Influenza, split virus, quadrivalent, PF 3 completed RADHA Diop, [facility] [place] 04/02/2024 13:26:29 Influenza, split virus, trivalent, PF 4 completed RADHA Jansen, [facility] [place] 05/26/2024 09:46:11 Tdap 6 completed Not Available [facility] 12/19/2020 20:02:54 Influenza, split virus, trivalent, preservative 8 completed Not Available [facility] 12/19/2020 20:02:54 Tdap 3 completed Not Available [facility] 12/19/2020 20:02:54 Influenza, split virus, trivalent, preservative 3 completed Not Available [facility] 12/19/2020 20:02:54 Past Encounters Encounter ID Performer Location Encounter Start Date Encounter Closed Date Diagnosis/Indication Diagnosis SNOMED-CT Code Diagnosis ICD10 Code Diagnosis Note [id number] auto[facility]Comm erce [address] [facility] [place] [address] 12/30/2006 00:00:00 [id number] autoEComm erce [address] [facility] [place] [address] 05/06/2007 00:00:00 [id number] auto[facility]Comm erce [address] [facility] [place] [address] 05/20/2007 00:00:00 [id number] auto[facility] erce [address] [place] [address] 05/26/2008 00:00:00 [id number] auto[facility] erce [address] [place] [address] 11/22/2008 00:00:00 [id number] auto[facility]Comm erce [address] [place] [address] 02/08/2009 00:00:00 [id number] auto[facility] erce [address] [place] [address] 07/28/2009 00:00:00 [id number] auto[facility]Comm erce [address] [facility] [place] [address] 10/20/2009 00:00:00 [id number] auto[facility]Comm erce [address] [facility] [place] [address] 01/28/2010 00:00:00 [id number] autoEComm erce [address] [facility] [place] [address] 10/27/2010 00:00:00 [id number] autoEComm erce [address] [facility] [place] [address] 11/28/2010 00:00:00 [id number] autoEComm erce [address] [facility] [place] [address] 02/08/2012 00:00:00 [id number] auto[facility]Comm erce [address] [facility] [place] [address] 10/23/2012 00:00:00 [id number] auto[facility]Comm erce [address] [facility] [place] [address] 11/05/2013 00:00:00 [id number] autoEComm erce [address] [facility] [place] [address] 12/19/2013 00:00:00 [id number] Kiki boyle MD Main Office [address] [place] [address] 02/18/2014 13:31:24 02/18/2014 14:23:02 Urinary tract infectious disease 44267499 see hx multiple UTI's, unclear if there could be an element of interstiti al cystitis. Pt green et up appt [facility] urologist, hydrate, void after intercours e and gather her urine culture and sensitivit ies so she can show to urology to help if going to go on preventive med. PT to call if feels more ill, if any abdominal pain needs to do a test, no concern now for ectopic Dysuria [id number] Kiki boyle MD Main Office [address] [address] 04/01/2014 12:52:55 04/01/2014 13:38:04 Adult health examination 986526732 pap smear is utd, pt is active, eats well, pt will start a one a day vitamin. Urinary tr act infectious disease 43741452 having workup for recurrent UTI, stresse to pt hydration is so important, followup with urology Anxiety 27704760 pt feel s so well on zoloft 50mg, it really helpps, has sexual side effects, pt is trying to get so will not change to wellbutrin . Pt will call bag hanger and discuss meds for anxiety [id number] Jamar Castle MD Main Office [address] [address] 10/14/2014 10:12:14 10/14/2014 11:06:31 Neck pain 95515466 chronic problem and looking for a referral to a specialist . Otitis externa 6305614 p roblem on the left. Currently no signs of infection. Possible eustachion tube dysfunctio n. Already using a nasal spray and has Sudafed at home. The symptoms are manageable and she wanted to be sure that she had cleared the infection. [id number] WILL Rasmussen Main Office [address] [address] 09/20/2016 11:00:09 09/20/2016 12:06:43 Adult health examination 853130598 Z00.00 HM UTD, flu vaccine in march, TDAP in 2015, pap UTD. Doing well. Anxiety 69668308 F41.9 Mild anxiety disorder, JERICA shows mild anxiety. Discussed sertraline which is safe with breastfeed ing, she is still a bit uncomforta ble with taking it while breastfeed ing. She would like the prescripti on and will call back for f/u in 1 month for recheck if she does decide to start med. SSRIs discussed with patient. Impacted cerumen 2115257 6 H61.22 Left, lavaged. [id number] Kiki boyle MD Main Office [address] [facility] [address] [facility] RADHA [place]AMILL[place] [address] 12/14/2020 15:02:43 12/14/2020 15:56:04 Suspected Lyme disease 392325761 Z03.89 Pt appears to have lyme disease clinically , although test neg in ED, will repeat tests in 2 week, finish doxycyclin e . Rest, hydration, call if not continuing to improve, ED if worse with back pain or headache. Labs today Spasm of m uscle of lower back 5094482575 7545174 M62.830 Rest, try flexeril, call or ED if acutely worse or focal neuro sx. Likely muscle spasm [id number] Kiki boyle MD Main Office [address] [facility] [address] [facility] [place] [address] 12/26/2020 09:29:27 12/26/2020 10:11:22 Lyme disease 44142854 A69.20 Pt has been taking doxycyclin e and is finally starting to improve; will continue for another week. 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 Mild neck discomfort , back pain better. 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 5128602400 2994424 G51.0 better today, stopped prednisone , motor weakness improved, able to close eyelid Pain of right eye 183803 5288 54085 H57.11 Due to change, will have her see opthalmolo gy [id number] Kiki boyle MD Telehealt h [address] [facility] [address] [facility] [place] [address] 06/19/2021 09:26:28 06/19/2021 15:29:41 Fatigue 47372224 R53.83 see HPI for 4 years, check labs and have pt come in for a PE Tension-type headache 39 0598391 G44.209 will check sed rate due to transient (improved) left alevism pain and throbbing, she has TMJ. will refer to PT for therapy to help with muscle tension HUERTA and pt to come in for a PE in a month with /Nova Neck pain 19440507 M54.2 see above [id number] Kiki boyle MD Main Office [address] [facility] [address] [facility] [place] [address] 04/03/2022 14:32:14 04/03/2022 15:13:13 [id number] Katy Lynn MD Main Office [address] [facility] [address] [facility] [place] [address] 04/11/2022 09:14:26 04/11/2022 14:07:10 Seizure disorder 111737520 G40.909 New onset, see discharge summary. Pt [...] by neurology for RTW and driving. Fatigue 70906008 R53.83 feeling achy in neck with fatigue? lyme again, will do testing for this. Discussed possibilit y positive might be related to old lyme from last year, pt wants to do test. Might be related to side effect coming off of wellbutrin and stress. Anxiety 40555435 F41.9 [facility] med prescriber Dee Ocampo, has appt upcoming to discuss meds. Suggested counseling . [id number] Kiki boyle MD Main Office [address] [facility] [address] [facility] [place] [address] 05/11/2022 09:45:56 05/11/2022 15:50:55 Seizure disorder [id number] G40.909 New onset Pt is on Keppra [...] RTW and driving. History of Lyme disease 029403046 Z86.19 ? new infection vs reactivati on, put on doxycyclin e, has followup planned Neuralgia 60406387 M79.2 Korey try adding at night, call if not helping [id number] Kiki boyle MD Main Office [address] [facility] 207 [facility] [place] [address] 07/13/2022 13:48:30 07/13/2022 15:14:10 Headache 12972454 R51.9 on gabapentin 300 mg tid, will be getting right occipital nerve injection soon, has in person visit with headache specialist at in 2 weeks. Neck pain 82673965 M54.2 Try PT consider MRI if not better. Short term followup Stretching an heat, meds as listed Seizure disorder 7090584 02 G40.909 Pt is off Keppra 750 mg bid, no further seizures. She had followup with neurology at the seizure clinic on 05/22/22 and had a second opinion. Awaiting notes. An MRI has been ordered by seizure clinic and pt is waiting for a date. She will need to be cleared by neurology for RTW and driving. [id number] Kiki boyle MD Main Office [address] [facility] [address] [place] [address] 08/10/2022 10:05:49 08/10/2022 11:41:46 Adult health examination 462294466 Z00.00 Pt in good general health. He sees the dentist and will see eye provider to followup on eye pain. HCM screenings up to date, Tdap up to date, had covid and flu vaccines Diet is balanced, see history for lifestyle choices Anxiety state 043723481 F41.1 ok on current meds, will check into counseling /family counseling , likely needs to be on additional meds other than buspar Neck pain 72875489 M54.2 MRi done bulging disc C5-6, could consider EDSI with [facility], starting PT next week for this Seizure disorder 3133935 02 G40.909 Pt is off Keppra 750 [...] resume in 2 months Cervico-oc cipital neuralgia 83591801 M54.81 will be getting injection through [facility] Major depr essive disorder 529871765 F32.9 see above, doing will try tapping, try to reach out for counseling and kids evaluation at school History of Lyme disease 399635774 Z86.19 Treated for this x2 , has been discharged from infectious disease provider. Pain of right eye 457679 1209 71975 H57.11 Due to ongoing pain , will have her see opthamolog y [id number] Nova Cavazos us, [employer] Main Office [address] [facility] [address] [facility] [place] [address] 09/07/2022 10:03:40 09/10/2022 10:43:56 Essential hypertension 19849325 I10 Pt likely has some hypertensi on now, she will start treatment and monitor BP, call with readings next week Chronic da rolly headache 1955061940 42580 R51.9 Headache since seizure disorder, has had negative imaging and only temporary relief with otc meds. ? if this is related to blood pressure. She had some occipital nerve injections which were of limited help. Pain of right eye 847932 2382 75535 H57.11 Has continued posterior eye pain with negative evaluation s, Elevated blood-pressure reading without diagnosis of hypertension 631318244 R03.0 Pt does not have a history of HTN but readings lately elevated consistent ly. She would like to try BB to see if this helps for BP and possibly headache prevention . Will monitor her blood pressure and symptoms closely Neck pain 03271279 M54.2 Acute pain with elevate blood pressure, pt is concerned about a issue with blood vessels in the head and neck causing the triad of neck pain, headache and eye pain. 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 We were going to do a CTA of head and neck but she decided against it for now. Call if anyworseni ng. 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 WE will check U/A and culture and treat per results. PT. is advised to increase hydration. [id number] Andrea Montana MD Main Office [address] [place] [address] 04/02/2024 13:12:50 04/02/2024 14:15:22 Chronic pain syndrome 461968875 G89.4 chronic pain - huerta, R eye, back, RLE - fol by neuro - cont f/u c them, had mri, pending repeat lumbar punctureco nt gbn as dirsee below Major depr essive disorder 919746476 F32.1 mod dep on phq - ? has psychosoma tic c/o aboveconsi cathy trial of duloxetine - start c 30mg qd - if tolerates but no sig improvemen t then increase to 60mg qd History of Lyme disease 874027373 Z86.19 2021 - had meningitis - [facility] - seen by ID, never seen by rheum = will get eval Anxiety 55336627 F41.9 stopped buspar acutely recently - was rx'd by [facility] - discharged , no longer sees themsee aboveno see therapist - consider it [id number] IVY SANDOVAL MD Main Office [address] [facility] [address] [facility] [place] [address] 04/23/2024 10:23:44 04/23/2024 11:10:41 Chronic pain syndrome 750165722 G89.4 - pt has chronic headaches and [...] this medication ) Major depr essive disorder 911034931 F32.1 - PHQ-9 score of 13- pt was started on duloxetine ER 30mg QD -> there has been improvemen t on the medication , will hold increase at this time until memory testing is done- concerned that memory problems and inattentio n are more due to depression and anxiety- pt referred to psychiatry - [facility]- maribel esquivel provided History of Lyme disease 850174316 Z86.19 - pt has been referred to infectious disease Anxiety 66868985 F41.9 - JERICA-7 score of 14- pt stopped buspar- pt was previously following with psych- pt is currently on duloxetine 30mg QD and propanolol ER 120mg> has noticed some improvemen t with the duloxetine (started on 04/02/2024) > not change at this time- maribel esquivel provided- RTC in 4 weeks Seizure disorder 5370025 02 G40.909 - occurred 2 years ago while on the wellbutrin - after seizures patient developed chronic pain- pt is currently off all seizures meds, was on keppra 750mg BID Adult heal th examination 673241127 Z00.00 Health Maintenanc e FemaleA) Patient was [...] nfluenza: 03/31/2024T dAP: 08/20/2018Z oren: due at 56CSW36: due at 31AQOL78: due at 62CFQ48:PC V15:COVID: 06/23/2020 , 07/14/2020, 04/05/2021, 10/08/2022, 04/11/2023, 03/31/2024 D) Routine blood work orderedE) Updated patient's history RTC in one year for annual exam or sooner if any acute complaints Screening for malignant neoplasm of cervix 008253151 Z12.4 Screening for malignant neoplasm of colon 008124571 Z12.11 Fatigue 26638505 R53.83 Hyperlipidemia 78684967 E78.5 HIV screening 784000932 Z11.4 Hepatitis C screening 41 6263545 Z11.59 Vitamin D deficiency 347 94271 E55.9 Memory impairment 261268 006 R41.3 - pt concerned about her memory loss- has spoke to neurology about this however per patient her concerns were dismissed- MRI completed and was normal- blood work ordered- feel as symptoms are more due to mood/anxie ty compoment- RTC in 3 weeks for memory impairment Venereal d isease screening 828320299 Z11.3 Z72.89 F03.90 [id number] IVY SANDOVAL MD Main Office [address] [address] 05/16/2024 09:35:35 05/16/2024 10:04:05 Memory impairment 842014062 R41.3 - 6CIT score of 2 and [...] improving on duloxetine Chronic pain syndrome 37 5552196 G89.4 - pt has chronic headaches and [...] is doing better Major depr essive disorder 849473451 F32.1 - pt was started on duloxetine ER 30mg QD -> there has been improvemen t on the medication , will hold increase at this time until memory testing is done- concerned that memory problems and inattentio n are more due to depression and anxiety- pt referred to psychiatry - [facility]- maribel roman [id number] Andrea Montana MD Main Office [address] [facility] [address] [facility] [place] [address] 05/26/2024 09:27:32 05/26/2024 10:15:01 Localized eruption of skin 632555033 R21 Non infectious rash, ore looking like possibly inflammato ry in nature and is now resolving. Pt. has planned bone marrow procedure. NO contraindi cation is present to proceed in terms of this rash. [id number] Jamar Castle MD Main Office [address] [facility] [address] [facility] [place] [address] 06/19/2024 15:18:59 06/19/2024 15:53:24 Candidiasis of vagina 68780254 B37.31 will tx with fluconazol e once daily x 7 days due to vaginitis and thrush. She declined pelvic exam today as she has her 2 children with her. She self swabbed for vaginitis. Acute vaginitis 23290852 N76.0 metrogel as directed x 5 days, will confirm via vaginitis swab Candidiasis of mouth 797 88593 B37.0 has been using clotrimazo le troches with some relief but sx continue [id number] IVY SANDOVAL MD Main Office [address] [facility] [address] [facility] [place] [address] 09/22/2024 08:06:00 09/22/2024 09:00:52 Chronic pain syndrome 364587060 G89.4 - pt has chronic headaches and [...] to 60mg QD Major depr essive disorder 049457981 F32.1 - PHQ-9 score of 13 (done at previous visit)- as duloxetine is helping increased to 60mg QD- concerned that memory problems and inattentio n are more due to depression and anxiety- pt referred to psychiatry , florencia mckeon- denies SI/HI- counsellin g provided Anxiety 48407747 F41.9 - JERICA-7 score of 14 (done at last visit)- pt stopped buspar- pt was previously following with psych- increased duloxetine to 60mg- due to uncontroll ed migraines for now will continue with propanolol ER 120mg- counsellin g provided Seizure disorder 2790688 02 G40.909 - occurred 2 years ago while on the wellbutrin - after seizures patient developed chronic pain- pt is currently off all seizures meds, was on keppra 750mg BID Migraine without aura 56 022366 G43.009 - pt has started vestibular therapy to help with this- has been following with neurology: given sumatripta n 100mg QD- pt will take zofran as needed for nausea and vomiting Attention deficit hyperactivity disorder, 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 SE of sumatripta n and propanolol causing Raynauds - advised to f/u c neurosee below re: rheum evalmeanwh ile, rec slow taper off propanolol - lower dose to 80mg, and use sumatripta n sparinglyi f no sig help c reduction of sxs, could consider low dose amlodipine to help c raynauds - but await rheum input Raynaud's phenomenon 266 735689 I73.00 see above - will get rheum eval Essential hypertension 55095693 I10 for migraines above - lowering dose from 120mg ER to 80mg ER Paronychia of toe 604271 002 L03.031 ? has this as wellwill rx c keflexreco mmend probiotics while on abx Chilblains 50122011 T69. 1XXA ? has this - will get vascular eval Health Concerns Section Related Observation LastModified by Organization Detai ls LastModified Time None Recorded Concern Status LastModified by Organization Details LastModified Time None Recorded Advance Directives Directive N: Payers Insurance Date Sequence Insurance Name Policy Number Policy Garcia Covered Member ID Garcia Member ID Guarantor Name 10/21/2024 1 [facility] ([facility]) [id number] Clayton Bellamy Sierra [id number] Tania Sierra 06/13/2021 1 [employer] ([facility] [place] [id number] Tania Singh Mariscal [id number] Tania Esquivel Notes Date Note Type Note [...] due to uncontrolled mood. IVY SANDOVAL MD [address] [address], [place], [address], [facility] 05/16/2024 11:04:13 [...] chills, vesicular presentation. Deana Rabago PA-C [address] [address], [place], [phone], [facility] 05/26/2024 10:29:45 06/19/2024 text/html Generic HPI TemplateReported bypatient.Notes:Patien t was on dexamethasone for SI joint pain. Developed thrush and is taking clotrimazole but she also has sx of vaginitis now, itching, discharge. denies urinary sx. WILL Rasmussen [address] [address], [place], [address], [facility] 06/19/2024 15:58:29 09/22/2024 text/html Anxiety/Depressi onRepo rted [...] and depression. Pt was recently seen by [facility] psychiatry (one-time program). Some other updates:> pt is currently looking for a psychiatrist to be able to do adult testing for ADHD> will be starting behavioral therapy within the next week> continues to follow pain management, getting nerve blocks for facial pain IVY SANDOVAL MD [address] [address], [place], [address], [facility] 09/22/2024 09:00:22 10/08/2024 text/html pt experiencing a burning pain, hands and feet and right big toe nail is coming off. rev chart - h/o chronic pain, fol by [facility] pain - used to take gbn, now on duloxetine she c/o cold toes, wears wool socks - noticed increased pain over past few weeks - she wonders if d/t sumatriptan -- looked up on epocrates - does have SE of Raynaud'slooked up propanolol on epocrates - it also has SE of Raynaud's Carol bernabe [place] - [facility] 10/21/2024 15:03:39 OBGyn Episode No OBEpisode recorded.
== END 2025-01-18 12:15 | disposition home or self-care (01) ==
LOC: HO.PMC 11:31
PROVIDERS: PCP Student in an Organized Health Care Education/Training Program; Visit Provider Internal Medicine
DX: M53.3 Sacrococcygeal disorders, not elsewhere classified (principal); M54.16 Radiculopathy, lumbar region
CPT/HCPCS: 99214

== ENCOUNTER 2025-01-26 14:24 | Outpatient (RCR) | payer BC, SELFPAY ==
--- NOTE | 2024-12-04 16:00 | MHC.PT.EP ---
[facility] [place] Office [place] [facility] [place] [facility] [address] [phone] F: [phone] F: [phone] F: [phone] F: [phone] Physical Therapy Plan of Care Date of Evaluation: 12/02/24 Date of Surgery: Diagnosis: Benign paroxysmal vertigo, unspecified ear Assessment: Pt is a pleasant and motivated 44yo F who presents to PT with vertigo. Pt was negative for BPPV upon assessment. She did have mild dizziness with R roll test however no nystagmus noted. She demonstrates improved balance with static assessment. She had (+) Fakuda test. She is a good candidate for skilled PT in order to address current impairments to facilitate return to PLOF. She is recommended to be seen 2x/week for 5 weeks and will be reassessed Frequency and Duration: The patient will be seen 1x/week for 5 weeks Short Term Goals: Pt will be I with HEP to promote self management of symptoms Pt will roll in bed without dizziness or instability consistently Mcfp Goals: Pt will go 5 consecutive days without dizziness or headaches to improve tolerance to work related tasks such as documentation Pt will return to exercise routine including yoga without dizziness or instability Treatment Plan: Modalities to reduce pain, spasms and effusion. Manual therapy to restore motion and function. Therapeutic exercise to improve strength and flexibility. Neuromuscular re-education for posture and balance. Therapeutic activities to return to functional activities of daily living. Electronically signed by: Ana Chang, PT, DPT Please sign and return to therapist. Thank you for your referral.
--- NOTE | 2025-04-20 14:38 | MHC.PT.DC ---
[place] Office [place] Office [place] Office [address] Dunia Rey [address] [phone] F: [phone] F: [phone] F: [phone] F: [phone] Physical Therapy Discharge Report Diagnosis: Benign paroxysmal vertigo, unspecified ear Date of Surgery: Date of Evaluation: 12/02/24 Date of Discharge: 04/20/25 Treatments to Date: 3 Cancellations to Date: No Shows to Date: Discharge Status: Discharge Summary: Pt was seen for skilled PT from 12/02/24-12/30/24. Her last attended appointment was 12/30/24. She is being D/C as she has not attended or called to reschedule in > 30 days. Pt current level of function unknown at this time Electronically signed by: Ana Quezada, PT, DPT Please sign and return to therapist. Thank you for your referral.
== END 2025-04-20 14:37 | disposition home or self-care (01) ==
LOC: HO.PT 14:24
PROVIDERS: PCP Student in an Organized Health Care Education/Training Program; Visit Provider Nurse Practitioner Family
DX: H81.10 Benign paroxysmal vertigo, unspecified ear (principal)
CPT/HCPCS: 97112; 97140; 97161

== ENCOUNTER 2025-02-04 09:04 | Outpatient (REF) | payer BC, SELFPAY ==
--- OUTSIDE RECORDS SUMMARY | 2025-02-04 09:23 | XMS_ITS | Clinical Summary ---
Author Organization [facility] Address [address] [facility] [address] [place] [phone] Phone Care Team Providers Care Student Officer Name Role Phone Deisy Dennis MD Primary Care Prov ider Allergies Active Allergy Reactions Criticality Noted Date Comments Adhesive Tape-Silicones 05/22/2020 Medications vit,wbyp25-jjps- folic (PRENATABS RX) 29 mg iron- 1 mg [...] with a working camera? Not on file Comments Unknown Sex and Gender Information Value Date Recorded Sex Assigned at Not on file Legal Sex Female 9:24 PM EDT Gender Identity Not on file Sexual Orientation Not on file Last Filed Vital Signs Vital Sign Reading Time Taken Comments Blood Pressure 136/82 12/19/2020 10:23 AM EDT Pulse 115 12/19/2020 10:23 AM EDT Temperature 36.4 C (97.6 F) 12/19/2020 10:23 AM EDT Respiratory Rate 16 12/19/2020 10:23 AM EDT Oxygen Saturation 99% 12/19/2020 10:23 AM EDT Inhaled Oxygen Concentration - - Weight 54.4 kg (120 lb) 12/19/2020 10:23 AM EDT Height 167.6 cm (5' 6 ) 12/19/2020 10:23 AM EDT Body Mass Index 19.37 12/19/2020 10:23 AM EDT Plan of Treatment Health Maintenance Due Date Last Done Comments LIPID PANEL 1978 DEPRESSION SCREENING 1990 HEPATITIS C SCREENING 1996 HIV ONE-TIME SCREENING (18-6 5 YEARS) 1996 PAP SMEAR 1999 MAMMOGRAM 2018 COLOGUARD 2023 COLONOSCOPY 2023 COLORECTAL CANCER SCREENING 2023 FIT TEST 2023 FOBT 2023 SIGMOIDOSCOPY 2023 VIRTUAL COLONOSCOPY 2023 COVID-19 VACCINE (3 - 2023-2 5 season) 2024 07/14/2020, 06/23/2020 Adult Td,Tdap Booster 08/20/2028 08/20/2018 SMOKING STATUS SCREENING (On ce After 26 Yrs) Completed 12/19/2020 HEPATITIS A VACCINES Aged Out No long er eligible based on patient's age to complete this topic HIB VACCINES Aged Out No longer eligi ble based on patient's age to complete this topic MENINGOCOCCAL VACCINES (ACWY) Aged Out No longer eligible based on patient's age to complete this topic MENINGOCOCCAL VACCINES (B) Aged Out N o longer eligible based on patient's age to complete this topic PNEUMOCOCCAL VACCINES (0-49 years) Aged Out No longer eligible b ased on patient's age to complete this topic Medical Devices Not on file Insurance [facility] [place] [facility] PPO EPO [facility] [place] [id number] [facility] PPO EPO [facility] PPO [facility]PO [facility] PPO EPO 27 María [facility] Mcgowan [facility] PPO EPO Care Teams Student Officer Relationship Specialty Start Date End Date Deisy Dennis MD [address] [phone] PCP - General Internal Medicine 05/22/20 Additional Source Comments The information contained in this document represents components of the legal health record. It is not the complete legal health record.[facility]
[2025-02-04 10:34] LABS: Iron 91 mcg/dL (30-160); Percent Iron Saturation 45 % (15-50); Total Iron Binding Capacity 203 mcg/dL (228-428); Unsaturated Iron Binding 112 ug/dL
[2025-02-04 10:54] LABS: Ferritin 57 ng/mL (10-250)
[2025-02-04 10:59] LABS: Folate 13.8 ng/mL (> or = 4.0); Vitamin B12 570 pg/mL (200-900)
[2025-02-08 13:47] LABS: Vitamin D 25-OH, D2 <4 ng/mL; Vitamin D 25-OH, D3 39 ng/mL; Vitamin D 25-OH, Total 39 ng/mL (30-100)
== END 2025-02-04 09:05 | disposition home or self-care (01) ==
LOC: HO.LAB 09:04
PROVIDERS: PCP Student in an Organized Health Care Education/Training Program; Visit Provider Nurse Practitioner Family
DX: D64.9 Anemia, unspecified (principal); G47.61 Periodic limb movement disorder; F41.9 Anxiety disorder, unspecified; M47.812 Spondylosis without myelopathy or radiculopathy, cervical region; G47.10 Hypersomnia, unspecified; R20.2 Paresthesia of skin
CPT/HCPCS: 36415; 82306; 82607; 82728; 82746; 83540; 84207; 84443

== ENCOUNTER 2025-02-05 12:29 | Outpatient (AMB) | payer BC, SELFPAY ==
--- NOTE | 2025-02-05 12:25 | MHC.OFFVIS ---
Intake Visit Reasons: FU per Vidhya Intake Note: Patient presents follow up for migraines Admission Specialist Required: No Accompanied by: Self / Same As Patient Allergies bupropion (From Wellbutrin) Allergy (Severe, Verified 02/05/25 12:26) Seizure HPI Comments Details: 44 y/o female presents for tele video follow-up of recent sleep study results, in setting of neuralgias and migraine. Interval sleep study, did not show any evidence for sleep apnea, however did show periodic limb movements of sleep occurring 37 per hour, of which 12 per hour were associated with arousals.? Upon review, patient was advised to undergo follow-up lab results. Labs are notable for ferritin 57, which is below therapeutic goal of 75-100 in setting of restless legs/periodic limb movement of sleep symptoms. Patient endorses restlessness, related to her neuralgia symptoms, states she wakes up approximately 4 times per night. Previous trials of gabapentin, left her feeling more tired and caused some brain fog Patient has previously tolerated oral vitamins with iron without difficulty. Vitamin-D and vitamin B6 levels are pending-patient does take supplements for these at home. Patient also notes that she recently underwent neuropsych evaluation, and she was diagnosed with ADHD mixed type. There were a number of recommendations, including treating periodic limb movement of sleep, optimizing ADHD treatment, possibly adjusting Tegretol 2 lamotrigine for mood stabilization due to possible presence of comorbid bipolar disorder. Patient is currently being treated with Strattera managed by her PCP. 01/18/25 02/04/25 16:53 09:16 Hgb 14.3 Hct 42.8 MCV 90.1 Iron 91 TIBC 203 L % Saturation 45 Unsat Iron Binding 112 Ferritin 57 Vitamin B12 570 Folate 13.8 TSH 1.07 01/01/25, Previous HPI: She started vestibular tx- but has not had a acute episode of vertigo. 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 She started CBT tx through [facility]-which she thinks is helpful, giving her strategies to help her manage/cope with the pain symptoms better. She notes her insurance would not cover ACT therapy. She started yoga, which is helpful. Wearing mouth guard at night. Using heat appications as needed. She did see pain management- has done a couple of trochlear, supraorbital injections, and feels the occipital inj is most effective. She did start and increase Tegretol 100mg then 200mg bid. She continues to have nerve discomfort in the bridge of nose, trochlear pain, and sacral pain. She wonders if she can increase this to 300 mg twice a day. She started Emgality about 4 months ago- has noticed approx a 75% reduction in monthly migraine days. In the early Spring, she was having increased mouth, hands, feet tingling/blue discoloration, discomfort. So she stopped propranolol and sumatriptan. Was also started on Nifedipine about a month ago- per vascular- has not noticed an increase in headaches. Around the time that her Raynaud's symptoms were worse, she did notice right 1st toe and left toenail infection. The left toenail infection self cleared. However the right 1st toe male ended up lifting, and is now not growing in. She has seen her usual provider, and they gave her antifungal treatment-however she plans to follow back up with them prior to starting this. Tried Ubrelvy x's 1 dose but this caused prolonged constipation. So she resumed sumatriptan- but notes that she is not needing In general, she feels her headache and neuralgia symptoms tend to be better in the spring/summer, and worse in the winter. She also had a SI injection through pain management as well- not sure of effectiveness yet. She plans to f/u w/ pain management. She continues to have sacral/low back burning pain which can move into right anterior thigh- which when flared up can interfere with activities. She had HST- was inconclusive. She underwent in-lab PSG about 1-2 weeks ago. Initial HPI, initial 08/03/2024: She reports she has facial neuralgia as since having an acute Lyme infection in 2019. 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 She was treated with a course of doxycycline at that time. Since she has had right facial neuralgias. Then 2021, she had 2 seizure episodes, which were thought to be due to another bout of acute Lyme infection. She was treated with another course of doxycycline. Brain MRI w/wo, LP-CSF-CSF Lyme PCR at the time was unremarkable. Seizures were managed with levetiracetam 750 mg p.o. b.i.d., which she has since been weaned off of. She was also taken off of bupropion, as it was thought it may have contributed to seizure activity. Since however she has had ongoing right facial and right sided neuralgias, paresthesias and episodes of weakness, as well as migraine headache. She has also had bouts of vertigo, which have increased in intensity and duration more recently. She is also having sleep difficulties. She developed nerve pain following a seizure in 2021. She has right occipital, right neck pinching squeezing sensation, which radiates into the anterior neck into her tongue as a tingling sensation, sometimes into the right ear as a pulling sensation. She also has constatnt burning pain in the right trochlear region distribution. She has had new episodes where the tingling moves into her right chest region. When this is worse, may see a right facial droop. She does have known cervical disc herniations. In Jun 2024, she has a had a burning rash over right SI joint a/w worsening of sciatica type pain. Saw PCP, who did not feel this was HSV/VZV. Now, notes hse was started on dexamethasone prior to rash appearing. She is also prone to headaches- will have 1-2 weeks with headcahe then 1-2 weeks w/o headache.. Has right sided tightness at the amish sometimes a/w flare-up of her nerve pain, photophobia, phonophobia, nausea- more with the tightness in her neck/throat, irritability, concentration difficulties, activity intolerance. She has positional external spinning vertigo- triggered by doing yoga. She uses meclizine and zofran prn. Has never done vestibular PT. Current tx: Propranolol ER 120mg- also for supine HTN. Riboflavin 400mg qam Mag 400mg qhs Cyclobenzaprine 5mg as needed- can help at times Duloxetine 30mg- started a few months bk- has helped her mood Gabapentin- dulls the pain, but affects her concentration and focus. Naproxen 440mg/500mg at onset of headache. Previous trials: She has had some benefot from right supraorbital and right occipital-cervical steroid injections. She had cervical Botox injections- caused neck weakness- and was not helpful. Sumatriptan 25mg- ineffective. She has never tried amitriptyline, topiramate. She also endorses snoring, excessive daytime sleepiness, sleep difficulties. She is interested in undergoing a HST further evaluate. She is sleeping 10-11 hours per day when she is not in pain. On days when she is not in pain, she can be physically active- as long as she is not bouncing. 05/09/2022, LP showed normal opening pressure of 12 cm H2O, normal CSF studies, negative CSF Lyme PCR. 07/27/2022,MR/MR cervical spine wo con - At C5-C6, there is a broad-based central disc extrusion that resultsin mild to moderate central canal stenosis and mild flattening of thecervical cord. A left lateral disc protrusion at this level that is inpart disc osteophyte results in moderate left-sided foraminal stenosis. - Additional mild spondylitic changes throughout the cervical spine 04/28/2022, brain MRI w/wo contrast, at [facility]: ?Normal MRI of the brain without evidence of an epileptic focus.? Small left nasopharynx Aracelis submucosal T2 hyperintense lesion likely a simple mucous retention cysts. 07/19/2022, HPI per Dr. Lomeli: Mar she was at home , her heard her cry out and found her having generalized tonic clonic movements , gazing towards the right, had fallen off the chair , unresponsive lasting less than a minute. She was drowsy and confused after that. She was awake in 20 min but was very tired. It was around 10-11pm and she was working on her computer. she denies urinary incontinence , tongue biting. she has h/o TMJ tension headaches and since this episode her headaches are almost everyday. In the ER she was loaded with keppra and is on keppra 750mg bid , CT head was normal , routine EEG was normal, her wellbutrin was stopped as it can lower seizure threshold and discharged.she also reports neck pain on her right side since then. she had neck pain intermittently for many years now. she reports that it was a rough week due to her work and her kids , was sleep deprived . In February 2022- she recalls another episode while working on the computer , she felt down and was confused after that - but not witnessed - 4pm at work. 1 1/2 years ago she had Lyme disease - meningitis ? radiculitis- had bells palsy , headaches neck pain. 3 nights ago she started with severe right neck pain , she went to [facility] - says its similar to when she had the lyme ,weird sensation in her right eye, tongue, tingling and numbness in her right fingers and leg.she was treated with toradol Her anxiety have worsened in the past 2 weeks . She reports daily headaches for past 2 weeks - with light and noise sensitivity with nausea, pressure. she has neck pain and tongue tingling . she has an appointment with her behavioral health nurse for reviewing medications. [facility] Medical History (Updated 02/05/25 @ 13:34 by LATANYA Martinez) Anemia Depression Rosacea Neck pain Lyme disease Anxiety Surgical History [place] teeth removed Family History Mother Heart disease Father Lung disease, chronic obstructive Social History (Updated 07/19/22 @ 15:55 by Britney Newman) Alcohol intake: current Alcohol intake frequency: holidays/special occasions only Patient Tobacco Use Status: Never used Tobacco Physical Exam Const General: cooperative and no acute distress Orientation/consciousness: patient oriented x3 Resp Effort & Inspection: normal respiratory effort and able to speak in complete sentences Neuro General: patient oriented x3 Cranial nerves: Yes CN's II-XII intact bilaterally Cognition (Neuro): normal cognition Psych Appearance: grossly normal Mental Status: mental status grossly normal Affect: normal affect Attitude: cooperative Telehealth Telehealth Telehealth Platform: [facility] Location of provider rendering services: practice address Location of patient: address on file Patient Identification confirmed using: Name, : Yes Telehealth method: video Patient verbally consented to treatment: Yes Patient verbally consented to billing insurance company: Yes Patient informed of any privacy concerns related to visit: Yes Minutes spent on Phone/Video with Pt.: 25 Assessment & Plan Assessment & Plan (1) Periodic limb movements of sleep: Code(s): G47.61 - Periodic limb movement disorder Category: Medical (2) Sleep difficulties: Code(s): G47.9 - Sleep disorder, unspecified Category: Medical (3) ADHD (attention deficit hyperactivity disorder), combined type: Code(s): F90.2 - Attention-deficit hyperactivity disorder, combined type Category: Medical (4) Chronic migraine with aura: Code(s): G43.109 - Migraine with aura, not intractable, without status migrainosus Category: Medical Qualifiers: Status migrainosus presence: without status migrainosus Intractability: not intractable Qualified Code(s): G43.E09 - Chronic migraine with aura, not intractable, without status migrainosus (5) Cervicalgia: Code(s): M54.2 - Cervicalgia Category: Medical (6) Vertigo: Code(s): R42 - Dizziness and giddiness Category: Medical (7) Snoring: Code(s): R06.83 - Snoring Category: Medical (8) Hypersomnia: Code(s): G47.10 - Hypersomnia, unspecified Category: Medical (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 In-lab PSG results were consistent with periodic limb movement of sleep. Lab work revealed subtherapeutic ferritin level. Start OTC iron supplement 1 tab daily, if poorly tolerated may take 1 tab 3 times per week. Take OTC iron supplement with vitamin-C 250-500 mg per dose Review vitamin-D and vitamin B6 levels when available Start pregabalin 25 mg 3 times per day (in the evening, 1-2 hours before bedtime, and at bedtime)-this may help both periodic limb movement of sleep, and fibromyalgia/neuralgic symptoms. Patient may also benefit from reading ?navigating life with restless leg syndrome? by Dr. Joe Glover and the [place] [employer]. Previous trials: Gabapentin-not tolerated. For cognition: Reviewed neuropsych evaluation, results consistent with ADHD mixed type, and question of bipolar disorder in setting of anxiety. Advised to hold on adjusting carbamazepine, or trialing alternate AED therapy such as lamotrigine, or neuro stimulant, until we know effect of iron therapy and pregabalin as above. Patient may benefit from establishing care with an ADHD psychotherapist, such as at the [facility] in [place], [place]. Otherwise, continue the plan as below: For right facial and right-sided paresthesias: Patient states she had labs done yesterday, however the labs are not reported in her [facility] chart. If not done, check CBC, CMP, and carbamazepine level. If levels within normal limits, may increase carbamazepine ER from 200 mg p.o. b.i.d to 300 mg twice a day (or alternatively 200 mg 3 times a day) Then in 1 month, CBC, CMP, carbamazepine level Follow-up with pain management as scheduled. O- patient will consider is wants to continue to pursue trochlear or occipital nerve blocks. Alternatively, patient may benefit from trialing a neuromodulation device such as external trigeminal nerve stimulator- Cefaly or Head-a-term, or a trigeminal occipital nerve stimulator- Relivion. Patient will review in no. For vertigo: Continue vestibular eval and treat For acute headache treatment: Continue Sumatriptan 100mg tab, 1/2 - 1 tab (50-100mg) at onset of headache, may repeat in 2 hours. Max of 2 tabs (200mg) per 24 hours. May take sumatriptan with OTC Tylenol 650-1,000mg every 4-6 hours, Ibuprofen (liquid gels) 600mg every 6 hours, or Naproxen (liquid gels) 440mg q 12 hrs prn. Previous acute migraine medication trials: Sumatriptan 25 mg ineffective. Ubrelvy sample caused rule out constipation. Acute migraine medication contraindications: None other For headache prevention medication: Continue magnesium 400 mg q.h.s. Patient has discontinued propranolol ER 120 mg daily Continue duloxetine 30 mg daily Continue gabapentin- would not increase as it has already negatively affecting her cognition. Continue Emgality 120mg/ml auto-injection maintenance dose: 120mg (120mg/ml autoinjector) subcutaneous injection every month. Previous migraine prevention medication trials: None other Migraine prevention medication contraindications: Would avoid topiramate due to risk for worsening paresthesias. Would avoid adding a TCA in setting of history of seizure activity and patient already on duloxetine. Would avoid Aimovig and Qulipta due to risk for worsening constipation and Raynaud's. Future considerations, weaning off gabapentin Medications: New pregabalin 25 mg PO TID 90 caps 0RF 30 days F41.9 - Anxiety disorder, unspecified, M79.7 - Fibromyalgia Coding Level of Care Code Tele Est Pt Level 4 (85947) Diagnoses Periodic limb movements of sleep G47.61 Sleep difficulties G47.9 ADHD (attention deficit hyperactivity disorder), combined type F90.2 Chronic migraine with aura without status migrainosus, not intractable G43.E09 Status migrainosus presence: without status migrainosus Intractability: not intractable Cervicalgia M54.2 Vertigo R42 Snoring R06.83 Hypersomnia G47.10 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
--- OUTSIDE RECORDS SUMMARY | 2025-02-05 12:32 | XMS_ITS | Encounter Summary ---
Author Organization [facility] Address [address] [place] [address] Care Team Providers Care Certified Coding Specialist Name Role Phone Deisy Dennis MD Primary Care Provider Unavailable Aaliyah Rodriguez MD Unavailable Unavailab le Encounter Details Date Type Department Care Team Description 02/20/2016 Release of Information Medical Records [address] [place] [id number] Abstract, Provider Social History Tobacco Use Types [...] on filedocumented in this encounter Care Teams Certified Coding Specialist Relationship Specialty Start Date End Date Deisy Dennis MD PCP - General Internal Medicine 01/26/16 Aaliyah Rodriguez MD Internal Medicine 01/26/16 documented as of this encounter
--- OUTSIDE RECORDS SUMMARY | 2025-02-05 12:32 | XMS_ITS | Clinical Summary ---
Author Organization [facility] Address [address] [facility] [address] [place] [id number] Phone Care Team Providers Care Special Education Teachers Name Role Phone Deisy Dennis MD Primary Care Prov ider Allergies Active Allergy Reactions Criticality Noted Date Comments Adhesive Tape-Silicones 05/22/2020 Medications vit,[id number]-[id number]- folic (PRENATABS RX) 29 mg iron- 1 [...] topic Medical Devices Not on file Insurance 27 María [facility] PPO EPO [facility]ulalio [facility] PPO EPO [facility] [id number] [facility] PPO EPO [facility] PPO EPO [facility] PPO EPO Care Teams Special Education Teachers Relationship Specialty Start Date End Date Deisy Dennis MD [address] [id number] PCP - General Internal Medicine 05/22/20 Additional Source Comments The information contained in this document represents components of the legal health record. It is not the complete legal health record.[facility]
== END 2025-02-05 13:13 | disposition home or self-care (01) ==
PROVIDERS: PCP Student in an Organized Health Care Education/Training Program; Visit Provider Nurse Practitioner Family
DX: G47.61 Periodic limb movement disorder (principal); G47.9 Sleep disorder, unspecified; F90.2 Attention-deficit hyperactivity disorder, combined type; G43.E09 Chronic migraine with aura, not intractable, without status migrainosus; M54.2 Cervicalgia; R42 Dizziness and giddiness; R06.83 Snoring; G47.10 Hypersomnia, unspecified; H49.10 Fourth [trochlear] nerve palsy, unspecified eye
CPT/HCPCS: 99214

== ENCOUNTER 2025-03-11 14:05 | Outpatient (RCR) | payer BC, SELFPAY ==
--- NOTE | 2025-02-11 11:01 | MHC.PT.EP ---
[facility] [place] Office [place] Office [place] Office [address] Dunia Rey [address] [phone] F: [phone] F: [phone] F: [phone] F: [phone] Physical Therapy Plan of Care Date of Evaluation: 02/09/25 Date of Surgery: Diagnosis: Sacrococcygeal disorders Radiculopathy, lumbar region Assessment: Pt is a pleasant and motivated 44yo F who presents to PT with R low back and SI joint pain. She has occasional pain and weakness throughout RLE. She presents to PT with current impairments in pain, decreased ROM, decreased core stabilization, decreased hip/glute strength, soft tissue restrictions, and impaired posture. She is limited functionally by bending, lifting leg, ascending stairs, walking on uneven surfaces, and sleeping. She is an excellent candidate for skilled PT in order to address current impairments to facilitate return to PLOF. She is recommended to be seen 2x/week for 4 weeks and will be reassessed at that time Frequency and Duration: The patient will be seen 2x/week for 4 weeks Short Term Goals: Pt will be I with HEP to promote self management of symptoms Pt will improve R hip flexion strength to 4+/5 Etl Consultant Goals: Pt will tolerate prolonged ambulation > 1 mile on even and uneven surfaces without pain Pt will demonstrate ability to squat and cigar packer and picker object with proper mechanics and without pain Pt will ascend/descend 1 flight of stairs with reciprocal pattern without RLE weakness Treatment Plan: Modalities to reduce pain, spasms and effusion. Manual therapy to restore motion and function. Therapeutic exercise to improve strength and flexibility. Neuromuscular re-education for posture and balance. Therapeutic activities to return to functional activities of daily living. Electronically signed by: Ana Chang, PT, DPT Please sign and return to therapist. Thank you for your referral.
--- NOTE | 2025-05-13 08:44 | MHC.PT.DC ---
[facility] [place] Office [place] Office [place] Office [address] Dunia Rey [address] [phone] F: [phone] F: [phone] F: [phone] F: [phone] Physical Therapy Discharge Report Diagnosis: Sacrococcygeal disorders Radiculopathy, lumbar region Date of Surgery: Date of Evaluation: 02/09/25 Date of Discharge: 05/13/25 Treatments to Date: 6 Cancellations to Date: 1 No Shows to Date: 2 Discharge Status: Patient Elected to Stop Visit Non-compliance Discharge Summary: Pt was seen for skilled PT from 02/09/25-03/11/25. Her last attended appointment was 03/11/25. She no showed her last 2 scheduled appointments. She is being D/C from skilled PT as she has not attended or called to reschedule in > 30 days. Pt current level of function unknown Electronically signed by: Ana Quezada, PT, DPT Please sign and return to therapist. Thank you for your referral.
== END 2025-05-13 08:44 | disposition home or self-care (01) ==
LOC: HO.PT 14:05
PROVIDERS: PCP Student in an Organized Health Care Education/Training Program; Visit Provider Internal Medicine
DX: M53.3 Sacrococcygeal disorders, not elsewhere classified (principal); M54.16 Radiculopathy, lumbar region
CPT/HCPCS: 97110; 97161

== ENCOUNTER 2025-04-29 10:42 | Outpatient (REF) | payer BC, SELFPAY ==
[2025-04-29 11:08] LABS: MANUAL DIFF FLAG NO
[2025-04-29 11:22] LABS: Hematocrit 41.9 % (37.0-47.0); Hemoglobin 13.6 g/dl (12.0-16.0); Imm Gran Abs Auto 0.03 X10*3/uL (0.00-0.03); Imm Gran Pct Auto 0.3 % (0.0-0.4); Lymphocytes Absolute Auto 1.9 X10*3/uL (1.2-4.9); Mean Corpuscular HGB Conc 32.5 g/dl (31.0-35.0); Mean Corpuscular Hemoglobin 30.0 pg (27.0-33.0); Mean Corpuscular Volume 92.5 fL (80.0-98.0); NRBC Abs Auto 0.000 X10*3/uL (0.0-0.012); NRBC Pct Auto 0.0 /100WBC (0.0-0.2); Platelet Count 263 X10*3/uL (160-400); Red Blood Count 4.53 X10*6/uL (4.20-5.50); White Blood Count 10.1 X10*3/uL (4.8-10.8)
[2025-04-29 11:48] LABS: Alanine Aminotransferase 36 U/L (0-31); Albumin Level 4.5 g/dL (3.5-5.0); Alkaline Phosphatase 107 U/L (39-117); Anion Gap 9 (12-20); Aspartate Amino Transferase 33 U/L (5-31); Blood Urea Nitrogen 15 mg/dL (9-16); Calcium 9.2 mg/dL (8.4-10.2); Carbon Dioxide 30 mmol/L (22-29); Chloride 104 mmol/L (96-108); Estimated Glomerular Filt Rate > 60; Potassium 4.2 mmol/L (3.3-5.1); Sodium 139 mmol/L (135-145); Total Protein 7.0 g/dL (6.5-8.0)
--- OUTSIDE RECORDS SUMMARY | 2025-04-29 13:07 | XMS_ITS | Clinical Summary ---
Author Organization [facility] Address [address] [facility] [address] [place] [address] Phone Care Team Providers Care Signal Inspector Name Role Phone Deisy Dennis MD Primary Care Prov ider Allergies Active Allergy Reactions Criticality Noted Date Comments Adhesive Tape-Silicones 05/22/2020 Medications vit,ypap45-pshh- folic (PRENATABS RX) 29 mg iron- 1 [...] 1996 HIV ONE-TIME SCREENING (18-65 YEARS) 1996 PAP SMEAR 1999 MAMMOGRAM 2018 COLOGUARD 2023 COLONOSCOPY 2023 COLORECTAL CANCER SCREENING 2023 FIT TEST 2023 FOBT 2023 SIGMOIDOSCOPY 2023 VIRTUAL COLONOSCOPY 2023 INFLUENZA VACCINE (#1) 2025 , 04/10/2019, 04/25/2018, Additional history exists COVID-19 VACCINE ( season) 2025 07/14/2020, 06/23/2020 Adult Td,Tdap Booster 08/20/2028 08/20/2018 [...] topic Medical Devices Not on file Insurance [facility] PPO EPO Eulalio [facility] [place] [facility] PPO EPO Eulalio [facility] PPO EPO 27 María [facility] PPO EPO Care Teams Signal Inspector Relationship Specialty Start Date End Date Deisy Dennis MD [facility] [address] [id number] PCP - General Internal Medicine 05/22/20 Additional Source Comments The information contained in this document represents components of the legal health record. It is not the complete legal health record.[facility]
[2025-04-29 13:49] LABS: Carbamazepine Tegretol < 2.0 mcg/mL (5.0-12.0)
== END 2025-04-29 10:43 | disposition home or self-care (01) ==
LOC: HO.LAB 10:42
PROVIDERS: PCP Student in an Organized Health Care Education/Training Program; Visit Provider Nurse Practitioner Family
DX: G40.909 Epilepsy, unspecified, not intractable, without status epilepticus (principal); G43.E09 Chronic migraine with aura, not intractable, without status migrainosus
CPT/HCPCS: 36415; 80053; 80156; 85025

== ENCOUNTER 2025-06-29 15:01 | Outpatient (AMB) | payer BC, SELFPAY ==
--- NOTE | 2025-06-29 15:02 | A.OFFVIS_ITS ---
Vital Signs 06/29/25 15:27 Height 5 ft 6 in Weight 137 lb 4 oz BMI 22.2 BP 120/74 Blood Pressure Location Rt brachial Position Sitting Pulse 95 Pulse Source Pulse Oximeter Pulse Oximetry (%) 95 Oxygen Delivery Method Room Air Intake Visit Reasons: 6 mnts f/u Intake Note: Patient presents today for a cervicalgia follow up. [employer] Consultant Required: No Accompanied by: Self / Same As Patient Allergies bupropion (From Wellbutrin) Allergy (Severe, Verified 06/29/25 15:02) Seizure Medication List - Last Reconciled 06/29/25 by LATANYA Martinez azelaic acid 15% 1 appl topical BID cholecalciferol (vitamin D3) 10 mcg PO DAILY cyclobenzaprine 5 mg PO DAILY PRN duloxetine 30 mg PO DAILY duloxetine 60 mg PO DAILY galcanezumab-gnlm (Emgality Pen) 120 mg subcut ONCE 30 days lisdexamfetamine (Vyvanse) 40 mg PO DAILY magnesium oxide 400 mg PO DAILY meclizine 12.5 mg PO TID PRN nifedipine ER 30 mg PO DAILY ondansetron 4 mg PO Q8H PRN oxcarbazepine 300 mg (2 x 150 mg) PO TID 30 days pregabalin 25 mg PO TID 30 days riboflavin (vitamin B2) 400 mg PO DAILY sumatriptan succinate 100 mg orally at onset of headache, may repeat in 2 hrs PRN; max 2 tabs per day or 4 tabs/week 30 days HPI Comments Details: 45 y/o female presents for tele video follow-up of recent sleep study results, in setting of neuralgias and migraine. She reports that she her headaches have been overall better. Migraine attack frequency- 2 attacks per month lasting 2-3 days each Neuralgic pain w/ headache and sacral pain: constant with flare-up every 2-3 days. Both of her headaches are worse when it is colder or with weather changes. She feels that the carbamazepine increase has been helpful, however she often forgets the midday dose- so has been taking it at 300mg BID. She notes that she does have end-of-day fatigue, even with taking Vyvanse. She typically sleeping 10 hours per night. She finds that regular exercise is helpful overall, but has been having more difficulty She noticed some Emgality injection site reaction after the last dose- caused mild skin bubbling x's 1 day. The sumatriptan was not as effective for the last more severe migraine - even w/ taking w/ naproxen and repeating the dose. She notes that when she was out of work for a period, she had overall less headaches. [facility] neuro is planning ordering a SNF 02/05/2025, HPI: Interval sleep study, did not show any evidence for sleep apnea, however did show periodic limb movements of sleep occurring 37 per hour, of which 12 per hour were associated with arousals.? Upon review, patient was advised to undergo follow-up lab results. Labs are notable for ferritin 57, which is below therapeutic goal of 75-100 in setting of restless legs/periodic limb movement of sleep symptoms. Patient endorses restlessness, related to her neuralgia symptoms, states she wakes up approximately 4 times per night. Previous trials of gabapentin, left her feeling more tired and caused some brain fog Patient has previously tolerated oral vitamins with iron without difficulty. Vitamin-D and vitamin B6 levels are pending-patient does take supplements for these at home. Patient also notes that she recently underwent neuropsych evaluation, and she was diagnosed with ADHD mixed type. There were a number of recommendations, including treating periodic limb movement of sleep, optimizing ADHD treatment, possibly adjusting Tegretol 2 lamotrigine for mood stabilization due to possible presence of comorbid bipolar disorder. Patient is currently being treated with Strattera managed by her PCP. 01/18/25 02/04/25 16:53 09:16 Hgb 14.3 Hct 42.8 MCV 90.1 Iron 91 TIBC 203 L % Saturation 45 Unsat Iron Binding 112 Ferritin 57 Vitamin B12 570 Folate 13.8 TSH 1.07 01/01/25, Previous HPI: She started vestibular tx- but has not had a acute episode of vertigo. 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 She started CBT tx through [facility]-which she thinks is helpful, giving her strategies to help her manage/cope with the pain symptoms better. She notes her insurance would not cover ACT therapy. She started yoga, which is helpful. Wearing mouth guard at night. Using heat appications as needed. She did see pain management- has done a couple of trochlear, supraorbital injections, and feels the occipital inj is most effective. She did start and increase Tegretol 100mg then 200mg bid. She continues to have nerve discomfort in the bridge of nose, trochlear pain, and sacral pain. She wonders if she can increase this to 300 mg twice a day. She started Emgality about 4 months ago- has noticed approx a 75% reduction in monthly migraine days. In the early Spring, she was having increased mouth, hands, feet tingling/blue discoloration, discomfort. So she stopped propranolol and sumatriptan. Was also started on Nifedipine about a month ago- per vascular- has not noticed an increase in headaches. Around the time that her Raynaud's symptoms were worse, she did notice right 1st toe and left toenail infection. The left toenail infection self cleared. However the right 1st toe male ended up lifting, and is now not growing in. She has seen her usual provider, and they gave her antifungal treatment-however she plans to follow back up with them prior to starting this. Tried Ubrelvy x's 1 dose but this caused prolonged constipation. So she resumed sumatriptan- but notes that she is not needing In general, she feels her headache and neuralgia symptoms tend to be better in the spring/summer, and worse in the winter. She also had a SI injection through pain management as well- not sure of effectiveness yet. She plans to f/u w/ pain management. She continues to have sacral/low back burning pain which can move into right anterior thigh- which when flared up can interfere with activities. She had HST- was inconclusive. She underwent in-lab PSG about 1-2 weeks ago. Initial HPI, initial 08/03/2024: She reports she has facial neuralgia as since having an acute Lyme infection in 2019. 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 She was treated with a course of doxycycline at that time. Since she has had right facial neuralgias. Then 2021, she had 2 seizure episodes, which were thought to be due to another bout of acute Lyme infection. She was treated with another course of doxycycline. Brain MRI w/wo, LP-CSF-CSF Lyme PCR at the time was unremarkable. Seizures were managed with levetiracetam 750 mg p.o. b.i.d., which she has since been weaned off of. She was also taken off of bupropion, as it was thought it may have contributed to seizure activity. Since however she has had ongoing right facial and right sided neuralgias, paresthesias and episodes of weakness, as well as migraine headache. She has also had bouts of vertigo, which have increased in intensity and duration more recently. She is also having sleep difficulties. She developed nerve pain following a seizure in 2021. She has right occipital, right neck pinching squeezing sensation, which radiates into the anterior neck into her tongue as a tingling sensation, sometimes into the right ear as a pulling sensation. She also has constatnt burning pain in the right trochlear region distribution. She has had new episodes where the tingling moves into her right chest region. When this is worse, may see a right facial droop. She does have known cervical disc herniations. In Jun 2024, she has a had a burning rash over right SI joint a/w worsening of sciatica type pain. Saw PCP, who did not feel this was HSV/VZV. Now, notes hse was started on dexamethasone prior to rash appearing. She is also prone to headaches- will have 1-2 weeks with headcahe then 1-2 weeks w/o headache.. Has right sided tightness at the latter-day sometimes a/w flare-up of her nerve pain, photophobia, phonophobia, nausea- more with the tightness in her neck/throat, irritability, concentration difficulties, activity intolerance. She has positional external spinning vertigo- triggered by doing yoga. She uses meclizine and zofran prn. Has never done vestibular PT. Current tx: Propranolol ER 120mg- also for supine HTN. Riboflavin 400mg qam Mag 400mg qhs Cyclobenzaprine 5mg as needed- can help at times Duloxetine 30mg- started a few months bk- has helped her mood Gabapentin- dulls the pain, but affects her concentration and focus. Naproxen 440mg/500mg at onset of headache. Previous trials: She has had some benefot from right supraorbital and right occipital-cervical steroid injections. She had cervical Botox injections- caused neck weakness- and was not helpful. Sumatriptan 25mg- ineffective. She has never tried amitriptyline, topiramate. She also endorses snoring, excessive daytime sleepiness, sleep difficulties. She is interested in undergoing a HST further evaluate. She is sleeping 10-11 hours per day when she is not in pain. On days when she is not in pain, she can be physically active- as long as she is not bouncing. 05/09/2022, LP showed normal opening pressure of 12 cm H2O, normal CSF studies, negative CSF Lyme PCR. 07/27/2022,MR/MR cervical spine wo con - At C5-C6, there is a broad-based central disc extrusion that resultsin mild to moderate central canal stenosis and mild flattening of thecervical cord. A left lateral disc protrusion at this level that is inpart disc osteophyte results in moderate left-sided foraminal stenosis. - Additional mild spondylitic changes throughout the cervical spine 04/28/2022, brain MRI w/wo contrast, at [facility]: ?Normal MRI of the brain without evidence of an epileptic focus.? Small left nasopharynx Aracelis submucosal T2 hyperintense lesion likely a simple mucous re tention cysts. 07/19/2022, HPI per Dr. Lomeli: Mar she was at home , her heard her cry out and found her having generalized tonic clonic movements , gazing towards the right, had fallen off the chair , unresponsive lasting less than a minute. She was drowsy and confused after that. She was awake in 20 min but was very tired. It was around 10-11pm and she was working on her computer. she denies urinary incontinence , tongue biting. she has h/o TMJ tension headaches and since this episode her headaches are almost everyday. In the ER she was loaded with Cyantora and is on keppra 750mg bid , CT head was normal , routine EEG was normal, her wellbutrin was stopped as it can lower seizure threshold and discharged.she also reports neck pain on her right side since then. she had neck pain intermittently for many years now. she reports that it was a rough week due to her work and her kids , was sleep deprived . In February 2022- she recalls another episode while working on the computer , she felt down and was confused after that - but not witnessed - 4pm at work. 1 1/2 years ago she had Lyme disease - meningitis ? radiculitis- had bells palsy , headaches neck pain. 3 nights ago she started with severe right neck pain , she went to [facility] - says its similar to when she had the lyme ,weird sensation in her right eye, tongue, tingling and numbness in her right fingers and leg.she was treated with toradol Her anxiety have worsened in the past 2 weeks . She reports daily headaches for past 2 weeks - with light and noise sensitivity with nausea, pressure. she has neck pain and tongue tingling . she has an appointment with her behavioral health nurse for reviewing medications. [facility] Medical History Anemia Depression Rosacea Neck pain Lyme disease Anxiety Surgical History [place] teeth removed Family History Mother Heart disease Father Lung disease, chronic obstructive Social History Alcohol intake: current Alcohol intake frequency: holidays/special occasions only Patient Tobacco Use Status: Never used Tobacco Physical Exam Vital Signs: Last Vital Signs Pulse 95 06/29/25 15:27 BP 120/74 06/29/25 15:27 Pulse Ox 95 06/29/25 15:27 Oxygen Delivery Method Room Air 06/29/25 15:27 BMI result Body Mass Index 22.2 Const General: cooperative and no acute distress Orientation/consciousness: patient oriented x3 Resp Effort & Inspection: normal respiratory effort and able to speak in complete sentences Neuro General: patient oriented x3 Cranial nerves: Yes CN's II-XII intact bilaterally Cognition (Neuro): normal cognition Psych Appearance: grossly normal Mental Status: mental status grossly normal Affect: normal affect Attitude: cooperative Assessment & Plan Assessment & Plan (1) Chronic migraine with aura: Code(s): G43.109 - Migraine with aura, not intractable, without status migrainosus Category: Medical Qualifiers: Intractability: not intractable Status migrainosus presence: without status migrainosus Qualified Code(s): G43.E09 - Chronic migraine with aura, not intractable, without status migrainosus (2) Cervicalgia: Code(s): M54.2 - Cervicalgia Category: Medical (3) Periodic limb movements of sleep: Code(s): G47.61 - Periodic limb movement disorder Category: Medical (4) Sleep difficulties: Code(s): G47.9 - Sleep disorder, unspecified Category: Medical (5) ADHD (attention deficit hyperactivity disorder), combined type: Code(s): F90.2 - Attention-deficit hyperactivity disorder, combined type Category: Medical (6) Vertigo: Code(s): R42 - Dizziness and giddiness Category: Medical (7) Snoring: Code(s): R06.83 - Snoring Category: Medical (8) Hypersomnia: Code(s): G47.10 - Hypersomnia, unspecified Category: Medical (9) Trochlear nerve disorder: Code(s): H49.10 - Fourth [trochlear] nerve palsy, unspecified eye Category: Medical (10) Radicular pain of sacrum: Code(s): M54.18 - Radiculopathy, sacral and sacrococcygeal region Category: Medical Plan For sleep difficulties: HST was inconclusive. In-lab PSG results were consistent with periodic limb movement of sleep. Lab work revealed subtherapeutic ferritin level. * OTC iron supplement 1 tab daily, if poorly tolerated may take 1 tab 3 times per week. * Taken w/ OTC iron supplement with vitamin-C 250-500 mg per dose Continue pregabalin 25 mg 3 times per day (in the evening, 1-2 hours before bedtime, and at bedtime)-this may help both periodic limb movement of sleep, and fibromyalgia/neuralgic symptoms. You may benefit from reading ?navigating life with restless leg syndrome? by Dr. Joe Glover and the [place] [employer]. Previous trials: Gabapentin-not tolerated. For cognition: Previous neuropsych evaluation, results consistent with ADHD mixed type, and question of bipolar disorder in setting of anxiety. Follow-up with ADHD psychotherapist, at the [facility] in [place], [place]. For right facial and right-sided paresthesias: Continue carbamazepine ER 300 mg 3 times a day or 400 mg twice a day Check CBC, CMP, carbamazepine level Follow-up with pain management as scheduled. May consider trochlear or occipi ben nerve blocks. Alternatively, patient may benefit from trialing a neuromodulation device such as external trigeminal nerve stimulator- Cefaly or Head-a-term, or a trigeminal occipital nerve stimulator- Relivion. For back pain: XR L-spine with flexion Follow-up with [facility] Neurology as scheduled For acute headache treatment: Continue Sumatriptan 100mg tab, 1/2 - 1 tab (50-100mg) at onset of headache, may repeat in 2 hours. Max of 2 tabs (200mg) per 24 hours. Trial Sumatriptan 6 mg subcutaneous injection: * Inject 1 injection at the onset of migraine attack with nausea; you may repeat in 1 hour. Max of 2 injections per 24 hours. May take sumatriptan with OTC Tylenol 650-1,000mg every 4-6 hours, Ibuprofen (liquid gels) 600mg every 6 hours, or Naproxen (liquid gels) 440mg q 12 hrs as needed. Previous acute migraine medication trials: Sumatriptan 25 mg ineffective. Ubrelvy sample caused rule out constipation. Acute migraine medication contraindications: None other For headache prevention medication: Continue magnesium 400 mg q.h.s. Continue duloxetine 60 mg daily Continue Emgality 120mg/ml auto-injection maintenance dose: 120mg (120mg/ml autoinjector) subcutaneous injection every month. * To reduce risk for injection site reaction, may pretreated with Benadryl 25-50 mg, Zyrtec 10 mg, or Pepcid 20 mg at least an hour before injection. Previous migraine prevention medication trials: Gabapentin was not tolerated. Propranolol ER 120 mg daily- ineffective. Migraine prevention medication contraindications: Would avoid topiramate due to risk for worsening paresthesias. Would avoid adding a TCA in setting of history of seizure activity and patient already on duloxetine. Would avoid Aimovig and Qulipta due to risk for worsening constipation and Raynaud's. Orders: Orders XR lumbar spine 6V w bending 06/29/25 M54.18 - Radiculopathy, sacral and sacrococcygeal region Medications: New sumatriptan succinate Partial fill per patient request 6 mg (0.5 mL) subcut Q1H PRN 8 mL 3RF migraine headache with nausea 30 days MDD 2 Coding Level of Care Code Est Pt Level 4 (19595) Diagnoses Chronic migraine with aura without status migrainosus, not intractable G43.E09 Intractability: not intractable Status migrainosus presence: without status migrainosus Cervicalgia M54.2 Periodic limb movements of sleep G47.61 Sleep difficulties G47.9 ADHD (attention deficit hyperactivity disorder), combined type F90.2 Vertigo R42 Snoring R06.83 Hypersomnia G47.10 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 Radicular pain of sacrum M54.18
[2025-06-29 15:27] VITALS: BP 120/74; PULSE 95; O2SAT 95; BMI 22.2
--- OUTSIDE RECORDS SUMMARY | 2025-06-29 16:19 | XMS_ITS | Continuity of Care Document ---
Author Organization [facility], Main Office Address [address] [place] [address] Care Team Providers Care Pastry Wrapper Name Role Phone KARON NICK Program Administrator GEOVANNY SANTORO Urologist [phone] IVY SANDOVAL Primary Care Provider BETTIE ULLOA Referring Provider [phone] NUNO YANG Referring Provider [phone] Assessment No assessment recorded. Plan of Treatment Reminders Order Date Submit Date Provider Last Modified By Organization Details Last Modified Time Details Appointments PE EST 026 08:15AM IVY SANDOVAL MD Not available Not available Not available Lab None record ed. Referral None record ed. Procedures None record ed. Surgeries None record ed. Imaging None record ed. Medication Orders None record ed. Patient TargetsNo targets recorded. Patient Instructions Encounter Date Encounter Id Patient Instructions Last Modified By Organization Details Last Modified Time 05/13/2025 [id number] epilepsy: care instructions Not available 05/13/2025 16:42:33 temporomandibula r disorder: care instructions Not available 05/13/2025 16:42:33 Reason for Referral None Reported. Results Created Date Observation Date Name Description Value Unit Range Abnormal Flag Note LastModifiedBy Organization Detail LastModifiedTime Result Notes None recorded. Problems Name Problem SNOMED Code Status Onset Date Resolution Date Notes Provider Name and Address Organization Details Recorded Time Malaise and fatigue 133482439 Completed 10/31/2017 Yvette bernabe [facility] 8 14:01:24 Neck pain 51498331 Completed 10/31/2017 Deisy WagnerColette ruddenzalejandro bernabe [facility] 1 15:24:44 Temporom andibula r joint disorder 50142290 Active RADHA Diop, [facility] 1 09:34:16 Urinary tract infectio us disease 30449628 Completed 10/31/2017 Yvette bernabe [facility] 8 14:01:39 Contact dermatit is 73534403 Active RADHA Diop [facility] 1 09:34:16 Patient status finding 539201814 Completed 10/31/2017 Yvette bernabe [facility] 8 14:01:20 Otitis media 52086447 Completed 10/31/2017 Yvette bernabe [facility] 8 14:01:32 Dysuria 42659003 Completed 10/31/2017 Yvette bernabe [facility] 8 14:01:36 Anxiety 85126162 Active RADHA Diop [facility] 1 09:34:16 Otitis externa 0931457 Completed 10/31/2017 Yvette bernabe [facility] 8 14:01:43 Acute vaginiti s 88551485 Completed 04/22/2024 IVY SANDOVAL MD [address] [facility] [facility] [address], [place], [address] , [facility] 5 06:50:42 Suspecte d COVID-19 645938206 Completed 12/14/2020 Removal Reason: Problem added by user malena Joy from the COVID-19 watch flag Silva Mcguire florecita [facility] 1 11:41:37 Influenz a vaccine needed 96259702616 06 Completed 200701/19/2014 RECORDED 05/26/20 08 9:46AM BY NEIL COOPER, OFFICE VISIT Not Available [facility] 4 15:27:44 Influenz a vaccine needed 01618030374 06 Completed 200702/15/2014 RECORDED 05/26/20 08 9:46AM BY NEIL COOPER, OFFICE VISIT Not Available [facility] 4 06:27:21 Administ ration of bacteria l and viral vaccine Completed 200701/19/2014 RECORDED 06/02/20 08 11:14AM BY LATANYA PATIÑO, HISTORIC AL SUMMARY Not Available [facility] 4 15:27:45 Administ ration of bacteria l and viral vaccine Completed 200702/15/2014 RECORDED 06/02/20 08 11:14AM BY LATANYA PATIÑO, HISTORIC AL SUMMARY Not Available [facility] 4 06:27:21 General examinat ion of patient Completed 200801/19/2014 RESOLVED DATE: 11/23/19 09; RECORDED 11/23/19 09 2:02PM BY TIFFANIE GALINDO ON/ADDEN DUM Not Available [facility] 4 15:27:44 Psychoge orly headache 24997681 Completed 200801/19/2014 RECORDED 11/23/19 09 2:02PM BY TIFFANIE GALINDO ON/ADDEN DUM Not Available [facility] 4 15:27:45 General examinat ion of patient Completed 200802/15/2014 RESOLVED DATE: 11/23/19 09; RECORDED 11/23/19 09 2:02PM BY TIFFANIE GALINDO ON/ADDEN DUM Not Available [facility] 4 06:27:21 Psychoge orly headache 23597189 Completed 200802/15/2014 RECORDED 11/23/19 09 2:02PM BY TIFFANIE GALINDO ON/ADDEN DUM Not Available [facility] 4 06:27:21 Breast finding 021821522 Completed 200801/19/2014 RECORDED 02/09/20 09 9:10AM BY FER ANTHONY MA, ANNOTATI ON/ADDEN DUM Not Available [facility] 4 15:27:46 Breast finding 978150551 Completed 200802/15/2014 RECORDED 02/09/20 09 9:10AM BY FER ANTHONY MA, ANNOTATI ON/ADDEN DUM Not Available [facility] 4 06:27:21 Allergic rhinitis 04757419 Completed 201001/19/2014 RECORDED 10/28/19 11 1:57PM BY FER ANTHONY MA, ANNOTATI ON/ADDEN DUM Not Available [facility] 4 15:27:43 Allergic rhinitis 30749514 Completed 201002/15/2014 RECORDED 10/28/19 11 1:57PM BY FER ANTHONY MA, ANNOTATI ON/ADDEN DUM Not Available [facility] 4 06:27:20 Contrace ption care manageme nt Completed 201101/19/2014 IMPRESSI ON: PT TO CONSIDER CHANGING TO LOWER DOSE HORMONE PILL. WILL LET ME KNOW, HAPPY TO FAX TO THE PHARMACY FOR HER.; RECORDED 02/08/20 12 10:43AM BY YAZMIN GAMBLE MA, ANNOTATI ON/ADDEN DUM Not Available [facility] 4 15:27:44 Dysuria 33180273 Completed 201101/19/2014 RECORDED 02/08/20 12 10:43AM BY YAZMIN GAMBLE MA, ANNOTATI ON/ADDEN DUM Yvette bernabe [place] [facility] 8 14:01:36 Malaise and fatigue 941836002 Completed 201101/19/2014 IMPRESSI ON: DOING WELL ON MEDICATI ON. WILL TRY TO TAKE IN THE AMS TO AVOID EARLY DAY H/. ALSO DOING BETTER WITH REG EXERCISE WHICH I ENCOURAG ED HER TO CONTINUE . WILL TOUCH BASE IN THE NEXT 3-4 MONTHS RE PROGRESS .; RECORDED 02/08/20 12 10:43AM BY YAZMIN GAMBLE MA, ANNOTATI ON/ADDEN DUM Yvette bernabe [facility] 8 14:01:24 Well child 597600133 Completed 201101/19/2014 RECORDED 02/08/20 12 10:43AM BY YAZMIN GAMBLE MA, MEGANATI ON/ADDEN DUM Not Available [facility] 4 15:27:45 Hyperlip idemia 37608969 Completed 201101/19/2014 RECORDED 02/08/20 12 11:23AM BY ALFREDO LOAIZA PA-C, ANNOTATI ON/ADDEN DUM Not Available [facility] 4 15:27:45 Noninfla mmatory disorder of the vagina 66418298 Completed 201101/19/2014 IMPRESSI ON: UNLIKELY STD, TX TOPICALL Y FOR YEAST, IF POSITIVE FOR GARDNERE LLA WILL CALL AND TREAT, ALREADY TOOK 2 DIFLUCAN ; RECORDED 02/08/20 12 10:43AM BY YAZMIN GAMBLE MA, TIFFANIE ON/ADDEN DUM Not Available [facility] 4 15:27:46 Atypical squamous cells of undeterm ined signific ance on vaginal Papanico laou smear 774572765 Completed 201101/19/2014 RECORDED 02/08/20 12 10:42AM BY YAZMIN GAMBLE MA, MEGANATI ON/ADDEN DUM Not Available [facility] 4 15:27:46 Contrace ption care manageme nt Completed 201102/15/2014 IMPRESSI ON: PT TO CONSIDER CHANGING TO LOWER DOSE HORMONE PILL. WILL LET ME KNOW, HAPPY TO FAX TO THE PHARMACY FOR HER.; RECORDED 02/08/20 12 10:43AM BY YAZMIN GAMBLE MA, TIFFANIE ON/ADDEN DUM Not Available [facility] 4 06:27:20 Dysuria 63260360 Completed 201102/15/2014 RECORDED 02/08/20 12 10:43AM BY YAZMIN GAMBLE MA, TIFFANIE ON/ADDEN DUM Yvette bernabe [place] - [facility] 8 14:01:36 Well child 643274434 Completed 201102/15/2014 RECORDED 02/08/20 12 10:43AM BY YAZMIN GAMBLE MA, ANNOTATI ON/ADDEN DUM Not Available [facility] 4 06:27:21 Hyperlip idemia 99742128 Completed 201102/15/2014 RECORDED 02/08/20 12 11:23AM BY ALFREDO LOAIZA PA-C, ANNOTATI ON/ADDEN DUM Not Available [facility] 4 06:27:21 Noninfla mmatory disorder of the vagina 58833449 Completed 201102/15/2014 IMPRESSI ON: UNLIKELY STD, TX TOPICALL Y FOR YEAST, IF POSITIVE FOR GARDNERE LLA WILL CALL AND TREAT, ALREADY TOOK 2 DIFLUCAN ; RECORDED 02/08/20 12 10:43AM BY YAZMIN GAMBLE MA, ANNOTATI ON/ADDEN DUM Not Available [facility] 4 06:27:21 Atypical squamous cells of undeterm ined signific ance on vaginal Papanico laou smear 812723769 Completed 201102/15/2014 RECORDED 02/08/20 12 10:42AM BY YAZMIN GAMBLE MA, ANNOTATI ON/ADDEN DUM Not Available [facility] 4 06:27:21 Seborrhe ic dermatit is 64634366 Completed 201201/19/2014 RECORDED 07/30/19 13 1:17AM BY FER ANTHONY MA, ANNOTATI ON/ADDEN DUM Not Available [facility] 4 15:27:46 Seborrhe ic dermatit is 11000208 Completed 201202/15/2014 RECORDED 07/30/19 13 1:17AM BY FER ANTHONY MA, ANNOTATI ON/ADDEN DUM Not Available [facility] 4 06:27:21 Backache 891899206 Completed 201201/19/2014 IMPRESSI ON: CHRONIC, MILD. MAY PURSUE CHIRO CARE. NO RED FLAG SXS OF CONCERN. ; RECORDED 10/24/19 13 9:14AM BY RIANNA CHAVIRA MA, ANNOTATI ON/ADDEN DUM Not Available [facility] 4 15:27:44 Non-neop lastic nevus 709083861 Completed 201201/19/2014 STORY: MAINLY OVER BACK, FOLLOWED BY NEW ADOLFO DERM ANNUALLY .; RECORDED 10/24/19 13 9:14AM BY RIANNA CHAVIRA MA, MEGANATI ON/ADDEN DUM Not Available [facility] 4 15:27:45 Backache 699412823 Completed 201202/15/2014 IMPRESSI ON: CHRONIC, MILD. MAY PURSUE CHIRO CARE. NO RED FLAG SXS OF CONCERN. ; RECORDED 10/24/19 13 9:14AM BY RIANNA CHAVIRA MA, ANNOTATI ON/ADDEN DUM Not Available [facility] 4 06:27:20 Non-neop lastic nevus 509167535 Completed 201202/15/2014 STORY: MAINLY OVER BACK, FOLLOWED BY NEW ADOLFO DERM ANNUALLY .; RECORDED 10/24/19 13 9:14AM BY RIANNA CHAVIRA MA, MEGANATI ON/ADDEN DUM Not Available [facility] 4 06:27:21 Follow-u p encounte r Completed 201201/19/2014 RECORDED 03/05/20 13 8:58AM BY YAZMIN GAMBLE MA, ANNOTATI ON/ADDEN DUM Not Available [facility] 4 15:27:44 Cellulit is of digit 07096839 Completed 201201/19/2014 IMPRESSI ON: START ABX, WARM SOAKS, IBU FOR DAY AND PAIN MED AT NIGHT. MONITOR CLOSELY, CALL OFFICE FOR WORSENIN G/PRN; RECORDED 03/05/20 13 8:58AM BY YAZMIN GAMBLE MA, ANNOTATI ON/ADDEN DUM Not Available [facility] 4 15:27:46 Administ ration of diphther ia, pertussi s, and tetanus vaccine Completed 201201/19/2014 RECORDED 03/05/20 13 8:58AM BY YAZMIN GAMBLE MA, ANNOTATI ON/ADDEN DUM Not Available [facility] 4 15:27:46 Follow-u p encounte r Completed 201202/15/2014 RECORDED 03/05/20 13 8:58AM BY YAZMIN GAMBLE MA, ANNOTATI ON/ADDEN DUM Not Available [facility] 4 06:27:21 Cellulit is of digit 58030685 Completed 201202/15/2014 IMPRESSI ON: START ABX, WARM SOAKS, IBU FOR DAY AND PAIN MED AT NIGHT. MONITOR CLOSELY, CALL OFFICE FOR WORSENIN G/PRN; RECORDED 03/05/20 13 8:58AM BY YAZMIN GAMBLE MA, MEGANATI ON/ADDEN DUM Not Available [facility] 4 06:27:21 Administ ration of diphther ia, pertussi s, and tetanus vaccine Completed 201202/15/2014 RECORDED 03/05/20 13 8:58AM BY YAZMIN GAMBLE MA, ANNOTATI ON/ADDEN DUM Not Available [facility] 4 06:27:21 Patient status finding 231789553 Completed 201201/19/2014 RECORDED 05/21/20 13 2:38PM BY YAZMIN GAMBLE MA, MEGANATI ON/ADDEN DUM Yvette Yip [facility], [facility] 8 14:01:20 Adult health examinat ion Completed 201201/19/2014 RECORDED 05/21/20 13 2:38PM BY YAZMIN GAMBLE MA, ANNOTATI ON/ADDEN DUM Not Available [facility] 4 15:27:46 Adult health examinat ion Completed 201202/15/2014 RECORDED 05/21/20 13 2:38PM BY YAZMIN GAMBLE MA, ANNOTATI ON/ADDEN DUM Not Available [facility] 4 06:27:21 Anxiety state 487314570 Completed 201302/15/2014 IMPRESSI ON: NEVER TRIED SERTRALI NE WILL START AT 25MG AND INCREASE TO 50MG; RECORDED 12/19/19 14 2:56PM BY YAZMIN GAMBLE MA, ANNOTATI ON/ADDEN DUM IVY SANDOVAL MD [address] [address], [place], [address] , [facility] 4 17:46:47 Neck pain 76437081 Completed 201302/15/2014 IMPRESSI ON: CHRONIC, PT IS INTEREST ED IN PT, SHE WILL MAKE APPT; RECORDED 12/19/19 14 2:56PM BY YAZMIN GAMBLE MA, ANNOTATI ON/ADDEN DUM [facility] boyle null, [facility] 1 15:24:44 Urinary tract infectio us disease 91467139 Completed 201302/15/2014 RECORDED 12/19/19 14 2:56PM BY YAZMIN GAMBLE MA, ANNOTATI ON/ADDEN DUM Yvette Phi [place] null, [facility] 8 14:01:39 Neck pain 38156049 Active 2020 Deisy boyle null, [facility] 1 15:24:44 Seizure disorder 334151473 Active 2022 Nova Cavazos null, [facility] 3 00:22:31 Elevated blood-pr essure reading without diagnosi s of hyperten chi 708570682 Completed 202204/23/2024 IVY SANDOVAL MD [address] [address], [place], [address] , [facility] 4 10:42:18 Chronic pain syndrome 407210105 Active 2023 Jac Rabago PA-C [address] [address], [place], [address] , [facility] 4 14:14:36 Major depressi ve disorder 372249101 Active 2023 Jac Rabago PA-C [address] [address], [place], [address] , [facility] 4 14:14:51 History of Lyme disease 545745054 Active 2023 Jac Rabago PA-C [address] [address], [place], [address] , [facility] 4 14:16:35 Vitamin D deficien cy 36606682 Active 2023 IVY SANDOVAL MD [address] [address], [place], [address] , [facility] 4 10:41:52 Candidia sis of vagina 14159343 Completed 202302/06/2025 IVY SANDOVAL MD [address] [address], [place], [address] , [facility] 5 10:07:11 Acute vaginiti s 78119771 Completed 202301/24/2025 IVY SANDOVAL MD [address] [address], [place], [address] , [facility] 5 06:50:42 Candidia sis of mouth 44150443 Completed 202302/06/2025 IVY SANDOVAL MD [address] [address], [place], [address] , [facility] 5 10:08:40 Raynaud' s disease 530709340 Active 2024 IVY SANDOVAL MD [address] [address], [place], [address] , [facility] 5 06:54:21 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 Procedures Surgical History Date Name Laterality Status Provider Name and Address Organization Details Recorded Time 3 injection of facet joint completed Kacy Salamanca [facility] 02/01/2023 11:39:25 4 Date of Last Pap Smear completed Taras Kohler MA [facility] 04/01/2014 12:57:30 Imaging Results None recorded. Procedure Notes None recorded. Medical Equipment None Reported. Allergies Allergen ID Allergen Name Allergen Category Reaction Reaction Severity Criticality Documentation Date Start Date Code Code System Note Provider Name and Address Organization Details Recorded Time 99689 Wellbutri n medicatio n seizure severe unabletoasse ss 04/03/20222021 66442 RxNorm belie celestino to have contr ibute d to new onset grand mal seizu re - if other cause found , this charles rgy can be d/c Gertrude Mcdaniels RN [facility] [place] [facility] 14:59:40 86277 bupropion Not available Not available Not available Not available 05/27/2025 48136 RxNorm Not Available jim - External Data Service - prod 16:54:39 00557 Wellbutri n medicatio n Not available Not available Not available 05/27/20252022 89147 RxNorm Not Available jim - External Data Service - prod 16:56:36 Medications Name Sig Start Date Stop Date [...] completed Not Available Not Available Not Available oxcarbaze pine 150 mg tablet TAKE 2 TABLETS BY MOUTH 3 TIMES A DAY active Not Available Not Available No t Available doxycycli ne hyclate 100 mg capsule [...] completed RECORDED 11/06/19 14 2:47PM BY TIFFANIE DIOP/MEGHNA AMARO; Not Available Not Available Not Available [...] 2013 active RECORDED 12/20/19 14 12:14PM BY DEISY Sanchez MD, OFFICE VISIT; Not Available Not [...] TAKE 1 TABLET BY MOUTH EVERY DAY active Not Available [...] NEEDED active RECORDED 11/06/19 14 2:47PM BY TARAS KOHLER ANNOTMERVIN ON/MEGHNA AMARO;SHE GOT IT FROM HER UROLOGIS T Not Available Not Available Not Available terconazo le 80 mg vaginal supposito ry active Not Available Not Available Not Available ciclopiro x 8 % topical solution APPLY TO AFFECTED NAILS TWICE DAILY UNTIL BETTER active Not Available Not Available No t Available terbinafi ne HCl 250 mg tablet TAKE 1 PILL DAILY FOR 3 MONTHS. 02/15 completed Not Available Not Available Not Available amoxicill in 875 mg tablet BID 12/29 completed RECORDED 01/02/20 14 3:45PM BY DEISY Sanchez MD, MEDICATI ON AUTO-JUNI CTIVATIO N; Not Available Not Available Not Available dextroamp hetamine- amphetami ne ER 20 mg 24hr capsule,e xtend release Take 1 capsule every day by oral route for 10 days. 03/14 completed Not Available Not Available Not Available benzonata [...] RECORDED 12/28/19 10 11:48AM BY ALFREDO LOAIZA, PAChiaraC, MEDICATI ON AUTO-JUNI CTIVATIO N;ONE DROP IN BOTH EYES AT LEAST 6 HOURS APART. Not Available Not Available Not Available Concerta 36 mg tablet,ex tended release Take 1 tablet every day by oral route for 14 days. 04/15 completed Not Available Not Available Not Available propranol ol ER 80 mg capsule,2 4 hr,extend ed release TAKE 1 CAPSULE BY MOUTH EVERY DAY 02/15 completed Not Available Not Available Not Available indometha [...] completed Not Available Not Available Not Available dextroamp hetamine- amphetami ne ER 10 mg 24hr capsule,e xtend release Take 1 capsule every day by oral route for 10 days. 02/25 completed Not Available Not Available Not Available [...] disintegr ating tablet Place 1 tablet every day by translin gual route as needed for 15 days, for dizzines s, motion sickness . 03/19 completed Not Available Not Available Not Available [...] TAKE 1 CAPSULE BY MOUTH EVERY DAY 02/15 completed Not Available Not Available Not Available cyclobenz aprine 5 mg tablet TAKE 1 TABLET BY MOUTH EVERY DAY AT BEDTIME NEEDED FOR 30 DAYS active Not Available Not Available No t Available azelaic acid 15 % topical gel APPLY TO FACE ONCE A DAY FOR 1 WEEK, THEN TWICE A DAY FOR ROSACEA active Not Available Not Available No t Available bupropion HCl XL 300 mg 24 hr tablet, extended release Take 1 tablet every day by oral route. 04/03 completed Not Available Not Available Not Available duloxetin e 30 mg capsule,d elayed release Take by oral route for 90 days. active Not Available Not Available No t Available duloxetin e 60 mg capsule,d elayed release Take by oral route for 90 days. active Not Available Not Available No t Available carbamaze pine ER 100 mg capsule,e xtended release [email or web address] TAKE 1 CAPSULE ORALLY 2 TIMES A DAY FOR 30 DAYS 05/13 completed 03/25/25 200mg bid Not Available Not Available Not Available pregabali n 25 mg capsule TAKE 1 CAPSULE BY MOUTH THREE TIMES A DAY FOR 30 DAYS active Not Available Not Available No t Available calcium active Not Available Not Avail able Not Available biotin one po daily 12/14 completed Not Available Not Available Not Available riboflavi n (vitamin B2) 400 mg 1 po qd active Not Available Not Available No t Available Vitamin D 400 mg pt thinks po qd active Not Available Not Available No t Available 2 tabs daily po 12/14 completed Not Available Not Available Not Available [email or web address] ine NEEDED 09/30 completed RECORDED 10/01/19 12 9:37AM BY TIFFANIE CHOW ON/ADDEN DUM; Not Available Not Available Not Available Calcium + D take 1 tab daily po 12/25 completed Not Available Not Available Not Available lisdexamf etamine 20 mg capsule TAKE 1 CAPSULE BY MOUTH EVERY DAY 05/12 completed Not Available Not Available Not Available lisdexamf etamine 40 mg capsule Take 1 capsule every day by oral route for 14 days. 05/31 completed Not Available Not Available Not Available [facility] 10 billion cell-200 mg [...] completed Not Available Not Available Not Available melatonin 5 mg capsule Take 1 capsule every day by oral route. active Not Available Not Available No t Available Sofia Allergy 60 mg tablet DAILY [...] Not Available Not Available Not Available Fluzone 5467-2272 45 mcg (15 mcg x 3)/0.5 mL intramusc ular suspensio n active Not Available Not Available Not Available dextroamp hetamine sulfate 20 mg tablet Take 1 tablet every day by oral route. 03/25 completed Not Available Not Available Not Available Flucelvax Quad 5048-6725 (PF) 60 mcg (15 mcg x 4)/0.5 mL IM syringe 10/31 completed Not Available Not Available Not Available Emgality Pen 120 mg/mL subcutane ous pen injector INJECT THE CONTENTS OF ONE PEN ONCE MONTHLY active Not Available Not Available No t Available duloxetin e 30 mg capsule,d elayed release sprinkle Take 1 capsule every day by oral route for 90 days. 03/11 completed Not Available Not Available Not Available Ubrelvy 50 mg tablet TAKE 1 TABLET BY MOUTH DAILY,RADHA Armendariz REPEAT DOSE IN 2 HOURS, DO NOT EXCEED 2 DOSES IN 24 HOURS 02/15 completed Not Available Not Available Not Available Flowflex COVID-19 Antigen Home Test kit FOLLOW INSTRUCT IONS INCLUDED WITH THE PACKAGE. 11/16 completed Not Available Not Available Not Available Vitals Date Recorded Body height Body weight Body mass index (BMI) Heart rate Oxygen saturation Body temperature Systolic And Diastolic Systolic And Diastolic Provider Name and Address Organization Details Last Updated DateTime 5 170.18 cm 52052.6 5 g 22 kg/m2 89 /min 100 % 98.1 [degF] 154/84 mm[Hg] 120/82 mm[Hg] Mari Castillo [facility] 5 13:45:45 Social History Question Answer Notes LastModified by Organizat ion Details LastModified Time Tobacco Smoking Status Never Smoker RADHA Diop, [facility] 02/18/2014 13:45:04 Do You Have An Advance Directive? No [email or web address] Information not available 05/11/2022 Animal Exposure? Yes [email or web address] Information not available 05/11/2022 Do You Wear A Helmet When Biking? Yes [email or web address] Information not available 05/11/2022 Is Blood Transfusion Acceptable In An Emergency? Yes [email or web address] Information not available 04/01/2014 What Is Your Level Of Caffeine Consumption? Occasional Every Other Day, Coffee X 1 Information not available 09/20/2016 How Much Tobacco Do You Chew? None [email or web address] Information not available 04/01/2014 What Type Of Diet Are You Following? REGULAR [email or web address] Information not available 02/18/2014 Which Illicit Or Recreational Drugs Have You Used? NONE Information not available 09/20/2016 Education Post Graduate [email or web address] Information not available 05/11/2022 Have There Been Any Changes To Your Family Or Social Situation? No [email or web address] Information not available 05/11/2022 How Many Days In The Past Year Have You Had A Heavy Drinking Consumption (4+ Female, 5+ Male)? 10 [email or web address] Information not available 05/11/2022 Are There Any Guns Present In Your Home? No [email or web address] Information not available 05/11/2022 What Is Your Home Situation? Other [email or web address] Information not available 05/11/2022 Legally Blind In One Or Both Eyes? No [email or web address] Information not available 05/11/2022 Do You Take Precautions To Prevent Distracted Driving? Yes [email or web address] Information not available 04/23/2024 How Often Do You Need To Have Someone Help You When You Read Instructions, Pamphlets, Or Other Written Material From Your Doctor Or Pharmacy? Never Information not available 09/20/2016 Have You Served In The ? No Information not available 09/20/2016 Marital Status Domestic Partner [email or web address] Information not available 05/11/2022 Total Number Of Stairs In Home 14 [email or web address] Information not available 05/11/2022 How Many Children Do You Have? 2 Information not available 06/19/2024 Do You Use Protection During Sex? No [email or web address] Information not available 04/01/2014 Difficulty Reading? No [email or web address] Information not available 05/11/2022 What Is Your Relationship Status? Clayton Information not available 06/19/2024 Seat Belts Used Routinely Yes [email or web address] Information not available 05/11/2022 Are You Sexually Active? Yes [email or web address] Information not available 04/01/2014 Are You Passively Exposed To Smoke? No Information not available 09/20/2016 How Much Tobacco Do You Smoke? No Information not available 09/20/2016 What Types Of Sporting Activities Do You Participate In? Running, Hiking, Kayaking, Rock Climbing [email or web address] Information not available 05/11/2022 Do You Use Sunscreen Routinely? Yes Information not available 02/18/2014 Do You Have Difficulty Walking Or Climbing Stairs? No [email or web address] Information not available 05/11/2022 Sex: Unknown Functional Status Question Answer Note LastModified by Organizat ion Details LastModified Time Do you use any illicit or recreational drugs? No Information not available 05/11/2022 What is your level of alcohol consumption? Occasional [email or web address] Information not available 02/18/2014 Are you currently employed? Yes [email or web address] Information not available 02/18/2014 Difficulty driving at night? No [email or web address] Information not available 05/11/2022 Are you able to walk independently without assistance or assistive devices? [email or web address] Information not available 08/10/2022 Are you able to care for yourself independently? 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 No [email or web address] Information not available 05/11/2022 What is your exercise level? Moderate treadmill 1-2/week Information not available 09/20/2016 Mental Status Question Answer Note LastModified by Organization D etails LastModified Time Do you have difficulty concentrating, remembering or making decisions? Yes [email or web address] Information no t available 05/11/2022 Family History [...] available 2016 11:39:58 Father Interstitial lung disease [email or web address] Not available 09:46:25 Father Cerebrovascu lar accident [email or web address] Not available 10:32:40 Mother Heart disease 65 [email or web address] Not available 2014 10:22:50 Mother Myocardial infarction [email or web address] Not available 10/2021 09:46:25 Mother Coronary atherosclero sis [email or web address] Not available 05/11 09:46:25 Brother Obesity [email or web address] [...] Immunizations Vaccine Type Date Status Note Provider Lyndon salgado and Address Organization Details Recorded Time Influenza, high-dose, trivalent, PF 4 completed Not Available [facility] 12/19/2020 20:02:54 Influenza, split virus, trivalent, preservative 6 completed Gertrude Mcdaniels RN null, [facility] 04/03/2022 15:18:11 COVID-19, mRNA, LNP-S, PF, 30 mcg/0.3 mL dose 1 completed Rianna Chavira MA null, [facility] 04/11/2022 12:54:47 Influenza, split virus, quadrivalent, preservative 1 completed Taras Kohler MA null, [facility] 06/19/2021 14:49:17 COVID-19, mRNA, LNP-S, PF, 30 mcg/0.3 mL dose 0 completed Taras Kohler MA null, [facility] 06/19/2021 14:50:39 COVID-19, mRNA, LNP-S, PF, 30 mcg/0.3 mL dose 1 completed Taras Kohler MA null, [facility] 06/19/2021 14:51:22 Influenza, MDCK, quadrivalent, PF 7 completed Gertrude Mcdaniels RN null, [facility] 04/03/2022 15:18:10 Influenza, split virus, quadrivalent, PF 8 completed Gertrude Mcdaniels RN null, [facility] 04/03/2022 15:18:10 Influenza, split virus, quadrivalent, PF 9 completed Gertrude Mcdaniels RN null, [facility] 04/03/2022 15:18:10 Influenza, split virus, quadrivalent, PF 1 completed Gertrude Mcdaniels RN null, [facility] 04/03/2022 15:18:10 Tdap 9 completed Gertrude Mcdaniels RN null, [facility] 04/03/2022 15:18:10 Influenza, split virus, quadrivalent, PF 0 completed Gertrude Mcdaniels RN null, [facility] 04/03/2022 15:18:11 Influenza, split virus, quadrivalent, PF 2 completed RADHA Diop [facility] 08/10/2022 10:14:13 influenza, unspecified formulation 2 completed RADHA Diop, [facility] 08/10/2022 10:20:47 COVID-19, mRNA, LNP-S, bivalent, PF, 50 mcg/0.5 mL or 25mcg/0.25 mL dose 3 completed RADHA Jansen, [facility] 11/16/2022 11:24:09 COVID-19, mRNA, LNP-S, PF, prasanth-sucrose, 30 mcg/0.3 mL 4 completed RADHA Diop, [facility] 04/02/2024 13:26:29 COVID-19, mRNA, LNP-S, PF, 50 mcg/0.5 mL 3 completed RADHA Diop [facility] 04/02/2024 13:26:29 Influenza, split virus, quadrivalent, PF 3 completed RADHA Diop, [facility] 04/02/2024 13:26:29 Influenza, split virus, trivalent, PF 4 completed RADHA Jansen, [facility] 05/26/2024 09:46:11 Influenza, MDCK, trivalent, PF 5 completed Marely bernabe, [facility] 06/18/2025 14:54:15 Tdap 6 completed Not Available [facility] 12/19/2020 20:02:54 Influenza, split virus, trivalent, preservative 8 completed Not Available [facility] 12/19/2020 20:02:54 Tdap 3 completed Not Available [facility] 12/19/2020 20:02:54 Influenza, split virus, trivalent, preservative 3 completed Not Available [facility] 12/19/2020 20:02:54 Past Encounters Encounter ID Performer Location Encounter Start Date Encounter Closed Date Diagnosis/Indication Diagnosis SNOMED-CT Code Diagnosis ICD10 Code Diagnosis IMO Codes Diagnosis Note [id number] IVY SANDOVAL MD Main Office [address] [facility] [address] [facility] RADHA ESCAMILLA [id number] 05/13/2025 13:37:23 05/13/2025 14:07:18 Attention deficit hyperactivity disorder, combined type 92679495 F90.2 48272043 - newly diagnosed, pt underwent testing, report dated 01/15- tried atomoxetin e, adderral and concerta with little relief- increased vyvanse from 20mg to 40mg- with specialise d ADHD therapy with Dr. 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 [id number] - started after lyme- currently following with neurology- c/w magnesium 400mg QD and riboflavin 400mg QD- tried medication s: ubrelvy (caused constipati on), propanolol ER 80mg QD- c/w sumatripta n 100mg QD- currently on emgality 120mg SQ once a month Temporoman dibular joint disorder 19075108 M26.609 - pt is currently on oxcarbazep ine 300mg TID- pt is also on duloxetine 90mg QD Seizure disorder 9004696 02 G40.909 - occurred 2 years ago while on the wellbutrin - after seizures patient developed chronic pain- was on keppra 750mg BID- currently on oxcarbazep ine 300mg TID Major depr essive disorder [id number] F32.1 - c/w duloxetine 90mg QD- reviewed recommenda tions of psychiatry - denies SI/HI- counsellin g provided Health Concerns Section Related Observation LastModified by Organization Detai ls LastModified Time None Recorded Concern Status LastModified by Organization Details LastModified Time None Recorded Payers Encounter Date Sequence Insurance Name Policy Number Policy Garcia Covered Member ID Garcia Member ID Guarantor Name 05/13/2025 1 [employer] [id number] Clayton Esquivel [id number] Tania Esquivel Notes Date Note Type Note Provider Name and Address Organization Details Recorded Time 05/13/2025 text/html ROS as noted in the HPI Tania Esquivel is a 44 year old F who seen in the office to see if she ready to go back to work. Patient mentions she needs to back to work from a financial perspective. Symptoms were improving until she ran out of duloxetine and now symptoms of headache and neuropathy have worsened. She was given a script from a friend (venlafaxine) to tie her over until her medication comes in. Based on chart review the duloxetine has been sent but PA needs to be done. Patient continues to work closely with her neurologist and her ADHD therapist. Tania will started on lyrica at night to reduce her night time awakenings due to the pain. She also started Trileptal by the neurologist. ADHD: Adderall has been helping patient however not significantly. The effects do not last long and she finds herself to continue to be easily distracted. Recently increased vyvanse from 20mg to 40mg. IVY SANDOVAL MD [address] [address], [place], [address], [facility] 05/13/2025 16:44:13 OBGyn Episode No OBEpisode recorded.
--- OUTSIDE RECORDS SUMMARY | 2025-06-29 16:19 | XMS_ITS | Clinical Summary ---
Author Organization [facility] Address [address] [facility] [address] [place] [phone] Phone Care Team Providers Care Case Preparer And Liner Name Role Phone Deisy Dennis MD Primary Care Prov ider Allergies Active Allergy Reactions Criticality Noted Date Comments Adhesive Tape-Silicones 05/22/2020 Medications vit,rpvw67-dzew- folic (PRENATABS RX) 29 mg iron- 1 [...] topic Medical Devices Not on file Insurance [facility] PPO EPO [facility] [place] [facility] PPO EPO [facility]ITAL[facility]YRADHA Mcgowan [facility] PPO EPO 27 [facility] PPO EPO Care Teams Case Preparer And Liner Relationship Specialty Start Date End Date Deisy Dennis MD [facility] [address] [address] PCP - General Internal Medicine 05/22/20 Additional Source Comments The information contained in this document represents components of the legal health record. It is not the complete legal health record.[facility]
--- OUTSIDE RECORDS SUMMARY | 2025-06-29 16:19 | XMS_ITS | Data Portability ---
[facility] Organization [facility], Main Office Address [address] [place] [address] Care Team Providers Care Train Conductor Name Role Phone KARON NICK Remote Recruiter GEOVANNY SANTORO Urologist [phone] IVY SANDOVAL Primary Care Provider BETTIE ULLOA Referring Provider [phone] NUNO YANG Referring Provider Assessment Encounter Date Assessment Date Assessment LastModified by Organization Details LastModified Time 09/22/2024 09/22/2024 This service was provided using telemedicine. Patient consented to telephone visit Patient was located in the [facility]. Provider was located in the office. No other persons participated in the telemedicine visit except for the patient unless otherwise indicated here. Total time of visit was 20 minutes. Not available 09/22/2024 08:51:39 03/25/2025 03/25/2025 This service was provided using telemedicine. Patient consented to video & audio visit Patient was located at home in the [facility]. Provider was located in the office. No other persons participated in the telemedicine visit except for the patient unless otherwise indicated here. Total time of visit was 30 minutes. Not available 03/25/2025 10:18:02 Plan of Treatment Reminders Order Date Submit Date Provider Last Modified By Organization Details Last Modified Time Details Appointments PE EST 2025 08:15A M IVY SANDOVAL MD Not available Not available Not available Lab None record ed. Referral vascul ar surgeo n referr al 2024 025 [email or web address] [facility], [address], [place], [address], 11/04/2024 10:43:[address] referr al 2024 025 [facility], [address] , [place], [address], 04/07/2025 11:11:59 Procedures None record ed. Surgeries None record ed. Imaging None record ed. Medication Orders Concer ta 36 mg tablet ,exten ded releas e 2024 025 [facility]armacy #1230, [address] [place], [address], 04/15/2025 05:01:45 cyclob enzapr ine 5 mg tablet 2024 025 [facility]1230, [address] [place], [address], 02/15/2025 13:56:11 dextro amphet amine- amphet amine ER 10 mg 24hr capsul e,exte nd releas e 2024 025 [facility]1230, [address] [place], [address], 02/25/2025 07:45:41 duloxe gudelia 30 mg capsul e,felipe yed releas e sprink le 2024 025 [facility]1230, [address] [place], [address], 03/11/2025 11:31:48 cephal exin 500 mg capsul e 2024 025 [facility] [address] [place], [address], 10/21/2024 15:03:35 propra nolol ER 80 mg capsul e,24 hr,ext ended releas e 2024 025 [email or web address] [facility]/Pharmacy #1230, [address], [place], [address], 02/15/2025 13:14:56 duloxe gudelia 60 mg capsul e,felipe yed releas e 2024 025 [facility]acy [facility]1230, [address], [facility], [place], [address], 09/22/2024 08:59:55 ondans etron 4 mg disint egrati ng tablet 2024 025 [facility] #1230, [address], [place], [address], 03/19/2025 05:01:42 atomox etine 40 mg capsul e 2024 025 [facility]acy #1230, [address], [place], [address], 02/15/2025 13:35:44 Patient TargetsNo targets recorded. Patient Instructions Encounter Date Encounter Id Patient Instructions Last Modified By Organization Details Last Modified Time 09/22/2024 [id number] epilepsy: care instructions Not available 09/22/2024 08:57:37 learning about stress Not lavern ilable 09/22/2024 08:57:37 Mental Health Information Not available 09/22/2024 08:57:37 10/08/2024 [id number] paronychia: care instructions nbarrows Not available 10/21/2024 15:03:35 Medications (OTC , herbal therapies, supplements) reviewed and reconciled with patient and or caregiver, including potential side effects, drug interactions, instructions, and the consequences of not taking medication. Reviewed potential barriers to medication adherence, such as side effects from medication or cost of medication. 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 [facility] [address] [place], [address], 04/10/2025 09:03:14 Result Notes None recorded. Problems Name Problem SNOMED Code Status Onset Date Resolution Date Notes Provider Name and Address Organization Details Recorded Time Malaise and fatigue 095265264 Completed 10/31/2017 Yvette bernabe [facility] 8 14:01:24 Neck pain 03960341 Completed 10/31/[address] [facility] 1 15:24:44 Temporom andibula r joint disorder 33438716 Active RADHA Diop [facility] 1 09:34:16 Urinary tract infectio us disease 89366413 Completed 10/31/2017 Yvette bernabe [facility] 8 14:01:39 Contact dermatit is 84431190 Active RADHA Diop [facility] 1 09:34:16 Patient status finding 411641726 Completed 10/31/2017 Yvette Yip RADHA bernbae, [facility] 8 14:01:20 Otitis media 29314109 Completed 10/31/2017 Yvette Phi RADHA bernabe, [facility] 8 14:01:32 Dysuria 80962614 Completed 10/31/2017 Yvette Mcneillclare RADHA bernabe, [facility] 8 14:01:36 Anxiety 11044708 Active Rachel Begum [place] florecita, [facility] 1 09:34:16 Otitis externa 9668898 Completed 10/31/2017 Yvette Mcneillclare RADHA bernabe, [facility] 8 14:01:43 Acute vaginiti s 59287199 Completed 04/22/2024 IVY SANDOVAL MD [address], [facility] [place], [address] , [facility] 5 06:50:42 Suspecte d COVID-19 415755653 Completed 12/14/2020 Removal Reason: Problem added by user [email or web address] 5 from the COVID-19 watch flag [facility] 1 11:41:37 Influenz a vaccine needed 39141182222 06 Completed 200701/19/2014 RECORDED 05/26/20 08 9:46AM BY NEIL COOPER, OFFICE VISIT Not Available [facility] 4 15:27:44 Influenz a vaccine needed 83414481083 06 Completed 200702/15/2014 RECORDED 05/26/20 08 9:46AM BY NEIL COOPER, OFFICE VISIT Not Available [facility] 4 06:27:21 Administ ration of bacteria l and viral vaccine Completed 200701/19/2014 RECORDED 06/02/20 08 11:14AM BY LATANYA PATIÑO, HISTORIC AL SUMMARY Not Available [facility] 4 15:27:45 Administ ration of bacteria l and viral vaccine Completed 200702/15/2014 RECORDED 06/02/20 08 11:14AM BY LATANYA PATIÑO, HISTORIC AL SUMMARY Not Available [facility] 4 06:27:21 General examinat ion of patient Completed 200801/19/2014 RESOLVED DATE: 11/23/19 09; RECORDED 11/23/19 09 2:02PM BY TIFFANIE GALINDO ON/ADDEN DUM Not Available [facility] 4 15:27:44 Psychoge orly headache 07467776 Completed 200801/19/2014 RECORDED 11/23/19 09 2:02PM BY MEGAN GALINDOATI ON/ADDEN DUM Not Available [facility] 4 15:27:45 General examinat ion of patient Completed 200802/15/2014 RESOLVED DATE: 11/23/19 09; RECORDED 11/23/19 09 2:02PM BY TIFFANIE GALINDO ON/ADDEN DUM Not Available [facility] 4 06:27:21 Psychoge orly headache 34011584 Completed 200802/15/2014 RECORDED 11/23/19 09 2:02PM BY TIFFANIE GALINDO ON/ADDEN DUM Not Available [facility] 4 06:27:21 Breast finding 269121859 Completed 200801/19/2014 RECORDED 02/09/20 09 9:10AM BY FER ANTHONY MA, TIFFANIE ON/ADDEN DUM Not Available [facility] 4 15:27:46 Breast finding 034487762 Completed 200802/15/2014 RECORDED 02/09/20 09 9:10AM BY FER ANTHONY MA, TIFFANIE ON/ADDEN DUM Not Available [facility] 4 06:27:21 Allergic rhinitis 35784942 Completed 201001/19/2014 RECORDED 10/28/19 11 1:57PM BY FER ANTHONY MA, TIFFANIE ON/ADDEN DUM Not Available [facility] 4 15:27:43 Allergic rhinitis 35914529 Completed 201002/15/2014 RECORDED 10/28/19 11 1:57PM BY FER ANTHONY MA, ANNOTATI ON/ADDEN DUM Not Available [facility] 4 06:27:20 Contrace ption care manageme nt Completed 201101/19/2014 IMPRESSI ON: PT TO CONSIDER CHANGING TO LOWER DOSE HORMONE PILL. WILL LET ME KNOW, HAPPY TO FAX TO THE PHARMACY FOR HER.; RECORDED 02/08/20 12 10:43AM BY YAZMIN GAMBLE MA, MEGANATI ON/ADDEN DUM Not Available [facility] 4 15:27:44 Dysuria 90594269 Completed 201101/19/2014 RECORDED 02/08/20 12 10:43AM BY YAZMIN GAMBLE MA, MEGANATI ON/ADDEN DUM [facility] 8 14:01:36 Malaise and fatigue 075191184 Completed 201101/19/2014 IMPRESSI ON: DOING WELL ON MEDICATI ON. WILL TRY TO TAKE IN THE AMS TO AVOID EARLY DAY H/. ALSO DOING BETTER WITH REG EXERCISE WHICH I ENCOURAG ED HER TO CONTINUE . WILL TOUCH BASE IN THE NEXT 3-4 MONTHS RE PROGRESS .; RECORDED 02/08/20 12 10:43AM BY YAZMIN GAMBLE MA, MEGANATI ON/ADDEN DUM [facility] 8 14:01:24 Well child 477956675 Completed 201101/19/2014 RECORDED 02/08/20 12 10:43AM BY YAZMIN GAMBLE MA, MEGANATI ON/ADDEN DUM Not Available [facility] 4 15:27:45 Hyperlip idemia 01406881 Completed 201101/19/2014 RECORDED 02/08/20 12 11:23AM BY ALFREDO LOAIZA PA-C, ANNOTATI ON/ADDEN DUM Not Available [facility] 4 15:27:45 Noninfla mmatory disorder of the vagina 00463525 Completed 201101/19/2014 IMPRESSI ON: UNLIKELY STD, TX TOPICALL Y FOR YEAST, IF POSITIVE FOR GARDNERE LLA WILL CALL AND TREAT, ALREADY TOOK 2 DIFLUCAN ; RECORDED 02/08/20 12 10:43AM BY YAZMIN GAMBLE MA, ANNOTATI ON/ADDEN DUM Not Available [facility] 4 15:27:46 Atypical squamous cells of undeterm ined signific ance on vaginal Papanico laou smear 208469085 Completed 201101/19/2014 RECORDED 02/08/20 12 10:42AM BY YAZMIN GAMBLE MA, MEGANATI ON/ADDEN DUM [facility] Available [facility] 4 15:27:46 Contrace ption care manageme nt Completed 201102/15/2014 IMPRESSI ON: PT TO CONSIDER CHANGING TO LOWER DOSE HORMONE PILL. WILL LET ME KNOW, HAPPY TO FAX TO THE PHARMACY FOR HER.; RECORDED 02/08/20 12 10:43AM BY YAZMIN GAMBLE MA, TIFFANIE ON/ADDEN DUM Not Available [facility] 4 06:27:20 Dysuria 76628414 Completed 201102/15/2014 RECORDED 02/08/20 12 10:43AM BY YAZMIN GAMBLE MA, MEGANATI ON/ADDEN DUM Yvette bernabe [facility] 8 14:01:36 Well child 426754759 Completed 201102/15/2014 RECORDED 02/08/20 12 10:43AM BY YAZMIN GAMBLE MA, ANNOTATI ON/ADDEN DUM Not Available [facility] 4 06:27:21 Hyperlip idemia 32675918 Completed 201102/15/2014 RECORDED 02/08/20 12 11:23AM BY ALFREDO LOAIZA PA-C, ANNOTATI ON/ADDEN DUM Not Available [facility] 4 06:27:21 Noninfla mmatory disorder of the vagina 60998914 Completed 201102/15/2014 IMPRESSI ON: UNLIKELY STD, TX TOPICALL Y FOR YEAST, IF POSITIVE FOR GARDNERE LLA WILL CALL AND TREAT, ALREADY TOOK 2 DIFLUCAN ; RECORDED 02/08/20 12 10:43AM BY YAZMIN GAMBLE MA, ANNOTATI ON/ADDEN DUM Not Available [facility] 4 06:27:21 Atypical squamous cells of undeterm ined signific ance on vaginal Papanico laou smear 810795309 Completed 201102/15/2014 RECORDED 02/08/20 12 10:42AM BY YAZMIN GAMBLE MA, MEGANATI ON/ADDEN DUM Not Available [facility] 4 06:27:21 Seborrhe ic dermatit is 26213703 Completed 201201/19/2014 RECORDED 07/30/19 13 1:17AM BY FER ANTHONY MA, MEGANATI ON/ADDEN DUM Not Available [facility] 4 15:27:46 Seborrhe ic dermatit is 85823947 Completed 201202/15/2014 RECORDED 07/30/19 13 1:17AM BY FER ANTHONY MA, ANNOTATI ON/ADDEN DUM Not Available [facility] 4 06:27:21 Backache 014666769 Completed 201201/19/2014 IMPRESSI ON: CHRONIC, MILD. MAY PURSUE CHIRO CARE. NO RED FLAG SXS OF CONCERN. ; RECORDED 10/24/19 13 9:14AM BY ZENAIDA MUIR MA, TIFFANIE ON/ADDEN DUM Not Available [facility] 4 15:27:44 Non-neop lastic nevus 813655056 Completed 201201/19/2014 STORY: MAINLY OVER BACK, FOLLOWED BY NEW ADOLFO DERM ANNUALLY .; RECORDED 10/24/19 13 9:14AM BY ZENAIDA MUIR MA, MEGANATI ON/ADDEN DUM Not Available [facility] 4 15:27:45 Backache 609204376 Completed 201202/15/2014 IMPRESSI ON: CHRONIC, MILD. MAY PURSUE CHIRO CARE. NO RED FLAG SXS OF CONCERN. ; RECORDED 10/24/19 13 9:14AM BY ZENAIDA MUIR MA, ANNOTATI ON/ADDEN DUM Not Available [facility] 4 06:27:20 Non-neop lastpalma kolb 656156976 Completed 201202/15/2014 STORY: MAINLY OVER BACK, FOLLOWED BY RU COOL ANNUALLY .; RECORDED 10/24/19 13 9:14AM BY ZENAIDA MUIR MA, MEGANATI ON/ADDEN DUM Not Available [facility] 4 06:27:21 Follow-u p encounte r Completed 201201/19/2014 RECORDED 03/05/20 13 8:58AM BY YAZMIN GAMBLE MA, ANNOTATI ON/ADDEN DUM Not Available [facility] 4 15:27:44 Cellulit is of digit 48325374 Completed 201201/19/2014 IMPRESSI ON: START ABX, WARM SOAKS, IBU FOR DAY AND PAIN MED AT NIGHT. MONITOR CLOSELY, CALL OFFICE FOR WORSENIN G/PRN; RECORDED 03/05/20 13 8:58AM BY YAZMIN GAMBLE MA, TIFFANIE ON/ADDEN DUM Not Available [facility] 4 15:27:46 Administ ration of diphther ia, pertussi s, and tetanus vaccine Completed 201201/19/2014 RECORDED 03/05/20 13 8:58AM BY YAZMIN GAMBLE MA, ANNOTATI ON/ADDEN DUM Not Available [facility] 4 15:27:46 Follow-u p encounte r Completed 201202/15/2014 RECORDED 03/05/20 13 8:58AM BY YAZMIN GAMBLE MA, ANNOTATI ON/ADDEN DUM Not Available [facility] 4 06:27:21 Cellulit is of digit 44644936 Completed 201202/15/2014 IMPRESSI ON: START ABX, WARM SOAKS, IBU FOR DAY AND PAIN MED AT NIGHT. MONITOR CLOSELY, CALL OFFICE FOR WORSENIN G/PRN; RECORDED 03/05/20 13 8:58AM BY YAZMIN GAMBLE MA, ANNOTATI ON/ADDEN DUM Not Available [facility] 4 06:27:21 Administ ration of diphther ia, pertussi s, and tetanus vaccine Completed 201202/15/2014 RECORDED 03/05/20 13 8:58AM BY YAZMIN GAMBLE MA, ANNOTATI ON/ADDEN DUM Not Available [facility] 4 06:27:21 Patient status finding 394234665 Completed 201201/19/2014 RECORDED 05/21/20 13 2:38PM BY YAZMIN GAMBLE MA, ANNOTATI ON/ADDEN DUM Yvette bernabe, [facility] 8 14:01:20 Adult health examinat ion Completed 201201/19/2014 RECORDED 05/21/20 13 2:38PM BY YAZMIN GAMBLE MA, ANNOTATI ON/ADDEN DUM Not Available [facility] 4 15:27:46 Adult health examinat ion Completed 201202/15/2014 RECORDED 05/21/20 13 2:38PM BY YAZMIN GAMBLE MA, ANNOTATI ON/ADDEN DUM Not Available [facility] 4 06:27:21 Anxiety state 905773906 Completed 201302/15/2014 IMPRESSI ON: NEVER TRIED SERTRALI NE WILL START AT 25MG AND INCREASE TO 50MG; RECORDED 12/19/19 14 2:56PM BY YAZMIN GAMBLE MA, ANNOTATI ON/ADDEN DUM IVY SANDOVAL MD [address] [address], [place], [address] , [facility] 4 17:46:47 Neck pain 35178183 Completed 201302/15/2014 IMPRESSI ON: CHRONIC, PT IS INTEREST ED IN PT, SHE WILL MAKE APPT; RECORDED 12/19/19 14 2:56PM BY YAZMIN GAMBLE MA, ANNOTATI ON/ADDEN DUM Kiki bernabe [facility] 1 15:24:44 Urinary tract infectio us disease 85616569 Completed 201302/15/2014 RECORDED 12/19/19 14 2:56PM BY YAZMIN GAMBLE MA, ANNOTATI ON/ADDEN DUM Yvette bernabe [facility] 8 14:01:39 Neck pain 75104915 Active 2020 Kiki GallardoValdemar tamar null, [facility] 1 15:24:44 Seizure disorder 794010451 Active 2022 Nova Cavazos null, [facility] 3 00:22:31 Elevated blood-pr essure reading without diagnosi s of hyperten chi 695836696 Completed 202204/23/2024 IVY SANDOVAL MD [address], [place], [address] , [facility] 4 10:42:18 Chronic pain syndrome 638894785 Active 2023 Jac Rabago PA-C [address], [place], [address] , [facility] 4 14:14:36 Major depressi ve disorder 288427191 Active 2023 Jac Rabgao PA-C [address], [place], [address] , [facility] 4 14:14:51 History of Lyme disease 234255851 Active 2023 Jac Rabago PA-C [address], [place], [address] , [facility] 4 14:16:35 Vitamin D deficien cy 11479157 Active 2023 IVY SANDOVAL MD [address], [place], [address] , [facility] 4 10:41:52 Candidia sis of vagina 92364747 Completed 202302/06/2025 IVY SANDOVAL MD [address], [place], [address] , [facility] 5 10:07:11 Acute vaginiti s 74397377 Completed 202301/24/2025 IVY SANDOVAL MD [address] [facility] [address], [place], [address] , [facility] 5 06:50:42 Candidia sis of mouth 04206496 Completed 202302/06/2025 IVY SANDOVAL MD [address] [facility] [address], [place], [address] , [facility] 5 10:08:40 Raynaud' s disease 119668153 Active 2024 IVY SANDOVAL MD [address] 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 [address], [place], [address] , [facility] 5 07:45:27 Problem Notes None recorded. Procedures Surgical History Date Name Laterality Status Provider Name and Address Organization Details Recorded Time 3 injection of facet joint completed Kacy Salam[facility] 02/01/2023 11:39:25 4 Date of Last Pap Smear completed Rachel Begum [facility] 04/01/2014 12:57:30 Imaging Results None recorded. Procedure Notes None recorded. Medical Equipment None Reported. Allergies Allergen ID Allergen Name Allergen Category Reaction Reaction Severity Criticality Documentation Date Start Date Code Code System Note Provider Name and Address Organization Details Recorded Time 38764 Wellbutri n medicatio n seizure severe unabletoasse ss 04/03/20222021 65836 RxNorm belie celestino to have contr ibute d to new onset grand mal seizu re - if other cause found , this charles rgy can be d/c Gertrude Mcdaniels RN null, [facility] 2 14:59:40 83604 bupropion Not available Not available Not available Not available 05/27/2025 66335 RxNorm Not Available [facility] - External Data Service - prod 16:54:39 68228 Wellbutri n medicatio n Not available Not available Not available 05/27/20252022 21171 RxNorm Not Available [facility] External Data Service - prod 5 16:56:36 Medications Name Sig Start Date Stop [...] NEEDED active RECORDED 11/06/19 14 2:47PM BY TIFFANIE DIOP ON/MEGHNA AMARO;SHE GOT IT FROM HER UROLOGIS [...] pine ER 100 mg capsule,e xtended release [id number] r TAKE 1 CAPSULE ORALLY 2 TIMES [...] Not Available Not Available Not Available Fluzone 7680-4456 45 mcg (15 mcg x 3)/0.5 mL intramusc ular suspensio n active Not Available Not Available Not Available dextroamp hetamine sulfate 20 mg tablet Take 1 tablet every day by oral route. 03/25 completed Not Available Not Available Not Available Flucelvax Quad 8228-2657 (PF) 60 mcg (15 mcg x 4)/0.5 [...] Last Updated DateTime 09/22/2024 170.18 cm Rachel Begum [facility] 09/22/2024 08:28:38 Date Recorded Body height Body mass index (BMI) Body weight Heart rate Oxygen saturation Body temperature Systolic And Diastolic Provider Name and Address Organization Details Last Updated DateTime 170.18 cm 23 kg/m2 40360.0 8 g 72 /min 96 % 98.2 [degF] 121/74 mm[Hg] Briseida Nguyen LPN [facility] 15:09:49 Date Recorded Body height Body mass index (BMI) Body weight Oxygen saturation Heart rate Body temperature Systolic And Diastolic Provider Name and Address Organization Details Last Updated DateTime 170.18 cm 21.7 kg/m2 77590.5 5 g 98 % 102 /min 98.4 [degF] 127/78 mm[Hg] Rachel Begum [facility] 13:13:40 Date Recorded Body height Provider Name an d Address Organization Details Last Updated DateTime 03/25/2025 170.18 cm Sveta Cunningham MA [facility] 03/25/2025 08:53:31 Date Recorded Body height Body weight Body mass index (BMI) Heart rate Oxygen saturation Body temperature Systolic And Diastolic Systolic And Diastolic Provider Name and Address Organization Details Last Updated DateTime 5 170.18 cm 04421.6 5 g 22 kg/m2 89 /min 100 % 98.1 [degF] 154/84 mm[Hg] 120/82 mm[Hg] Mari Castillo [facility] 5 13:45:45 Social History Question Answer Notes LastModified by Organizat ion Details LastModified Time Tobacco Smoking Status [facility] 02/18/2014 13:45:04 Do You Have An Advance Directive? No [email or web address] Information not available 05/11/2022 Animal Exposure? Yes [email or web address] Information not available 05/11/2022 Do You Wear A Helmet When Biking? Yes [email or web address] Information not available 05/11/2022 Is Blood Transfusion Acceptable In An Emergency? Yes [email or web address] Information not available 04/01/2014 What Is Your Level Of Caffeine Consumption? Occasional Every Other Day, Coffee X 1 Information not available 09/20/2016 How Much Tobacco Do You Chew? None [email or web address] Information not available 04/01/2014 What Type Of Diet Are You Following? REGULAR [email or web address] Information not available 02/18/2014 Which Illicit Or Recreational Drugs Have You Used? NONE Information not available 09/20/2016 Education Post Graduate [email or web address] Information not available 05/11/2022 Have There Been Any Changes To Your Family Or Social Situation? No [email or web address] Information not available 05/11/2022 How Many Days In The Past Year Have You Had A Heavy Drinking Consumption (4+ Female, 5+ Male)? 10 [email or web address] Information not available 05/11/2022 Are There Any Guns Present In Your Home? No [email or web address] Information not available 05/11/2022 What Is Your Home Situation? Other [email or web address] Information not available 05/11/2022 Legally Blind In One Or Both Eyes? No [email or web address] Information not available 05/11/2022 Do You Take Precautions To Prevent Distracted Driving? Yes [email or web address] Information not available 04/23/2024 How Often Do You Need To Have Someone Help You When You Read Instructions, Pamphlets, Or Other Written Material From Your Doctor Or Pharmacy? Never Information not available 09/20/2016 Have You Served In The ? No Information not available 09/20/2016 Marital Status Domestic Partner Information not available 05/11/2022 Total Number Of Stairs In Home 14 [email or web address] Information not available 05/11/2022 How Many Children Do You Have? 2 [email or web address] Information not available 06/19/2024 Do You Use Protection During Sex? No [email or web address] Information not available 04/01/2014 Difficulty Reading? No [email or web address] Information not available 05/11/2022 What Is Your Relationship Status? Clayton [email or web address] Information not available 06/19/2024 Seat Belts Used Routinely Yes Information not available 05/11/2022 Are You Sexually Active? Yes [email or web address] Information not available 04/01/2014 Are You Passively Exposed To Smoke? No Information not available 09/20/2016 How Much Tobacco Do You Smoke? No Information not available 09/20/2016 What Types Of Sporting Activities Do You Participate In? Running, Hiking, Kayaking, Rock Climbing [email or web address] Information not available 05/11/2022 Do You Use Sunscreen Routinely? Yes Information not available 02/18/2014 Do You Have Difficulty Walking Or Climbing Stairs? No [email or web address] Information not available 05/11/2022 Sex: Unknown Functional Status Question Answer Note LastModified by Organizat ion Details LastModified Time Do you use any illicit or recreational drugs? No [email or web address] Information not available 05/11/2022 What is your level of alcohol consumption? Occasional [email or web address] Information not available 02/18/2014 Are you currently employed? Yes [email or web address] Information not available 02/18/2014 [address]y [address] at night? No Information not available 05/11/2022 Are you able to walk independently without assistance or assistive devices? YESWOREST [email or web address] Information not available 08/10/2022 Are you able to care for yourself independently? 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 No Information not available 05/11/2022 What is your exercise level? Moderate treadmill 1-2/week Information not available 09/20/2016 Mental Status Question Answer Note LastModified by Organization D etails LastModified Time Do you have difficulty concentrating, remembering or making decisions? Yes Information no t available 05/11/2022 Family History [...] available 2016 11:39:58 Father Interstitial lung disease [email or web address] Not available 09:46:25 Father Cerebrovascu lar accident [email or web address] Not available 10:32:40 Mother Heart disease 65 [email or web address] Not available 2014 10:22:50 Mother Myocardial infarction [email or web address] Not available 10/2021 09:46:25 Mother Coronary atherosclero sis [email or web address] Not available 05/11 09:46:25 Brother Obesity [email or web address] [...] high-dose, trivalent, PF 4 completed Not [facility]19[facility] 20:02:54 Influenza, split virus, trivalent, preservative 6 completed Gertrude Mcdaniels RN null, [facility] 04/03/2022 15:18:11 COVID-19, mRNA, LNP-S, PF, 30 mcg/0.3 mL dose 1 completed RADHA Rosa, [facility] 04/11/2022 12:54:47 Influenza, split virus, quadrivalent, preservative 1 completed RADHA Diop, [facility] 06/19/2021 14:49:17 COVID-19, mRNA, LNP-S, PF, 30 mcg/0.3 mL dose 0 completed RADHA Diop, [facility] 06/19/2021 14:50:39 COVID-19, mRNA, LNP-S, PF, 30 mcg/0.3 mL dose 1 completed RADHA Diop, [facility] 06/19/2021 14:51:22 Influenza, MDCK, quadrivalent, PF 7 completed Gertrude Mcdaniels RN null, [facility] 04/03/2022 15:18:10 Influenza, split virus, quadrivalent, PF 8 completed Gertrude Mcdaniels RN null, [facility] 04/03/2022 15:18:10 Influenza, split virus, quadrivalent, PF 9 completed Gertrude Mcdaniels RN null, [facility] 04/03/2022 15:18:10 Influenza, split virus, quadrivalent, PF 1 completed Gertrude Mcdnaiels RN null, [facility] 04/03/2022 15:18:10 Tdap 9 completed Gertrude Mcdaniels RN null, [facility] 04/03/2022 15:18:10 Influenza, split virus, quadrivalent, PF 0 completed Gertrude Mcdaniels RN null, [facility] 04/03/2022 15:18:11 Influenza, split virus, quadrivalent, PF 2 completed RADHA Diop, [facility] 08/10/2022 10:14:13 influenza, unspecified formulation 2 completed RADHA Diop, [facility] 08/10/2022 10:20:47 COVID-19, mRNA, LNP-S, bivalent, PF, 50 mcg/0.5 mL or 25mcg/0.25 mL dose 3 completed RADHA Jansen, [facility] 11/16/2022 11:24:09 COVID-19, mRNA, LNP-S, PF, prasanth-sucrose, 30 mcg/0.3 mL 4 completed RADHA Diop, [facility] 04/02/2024 13:26:29 COVID-19, mRNA, LNP-S, PF, 50 mcg/0.5 mL 3 completed RADHA Diop, [facility] 04/02/2024 13:26:29 Influenza, split virus, quadrivalent, PF 3 completed RADHA Diop, [facility] 04/02/2024 13:26:29 Influenza, split virus, trivalent, PF 4 completed RADHA Jansen, [facility] 05/26/2024 09:46:11 Influenza, MDCK, trivalent, PF 5 [email or web address] [place] 06/18/[facility] 14:54:15 Tdap [address] [facility] 12/19/2020 20:02:54 Influenza, split virus, trivalent, preservative 8 completed Not Available [facility] 12/19/2020 20:02:54 Tdap 3 completed Not Available [facility] 12/19/2020 20:02:54 Influenza, split virus, trivalent, preservative [address] [facility] 12/19/2020 20:02:54 Past Encounters Encounter ID Performer Location Encounter Start Date Encounter Closed Date Diagnosis/Indication Diagnosis SNOMED-CT Code Diagnosis ICD10 Code Diagnosis IMO Codes Diagnosis Note [id number] auto[facility]Comm erce [address] [facility],[address] [place] [address] 12/30/2006 00:00:00 [id number] autoEComm erce [id number] [facility],[address] [place] [address] 05/06/2007 00:00:00 [id number] autoEComm erce [address] [facility],[address] [place] [address] 05/20/2007 00:00:00 [id number] autoEComm erce [address] [facility],[address] [place] [address] 05/26/2008 00:00:00 [id number] autoEComm erce [address] [facility],[address] [place] [address] 11/22/2008 00:00:00 [id number] autoEComm erce [address] [facility],[address] [place] [address] 02/08/2009 00:00:00 [id number] autoEComm erce [address] [facility],[address] [place] [address] 07/28/2009 00:00:00 [id number] autoEComm erce [address] [facility],[address] [place] [address] 10/20/2009 00:00:00 [id number] autoEComm erce [address] [facility],[address] [place], [place] [address] 01/28/2010 00:00:00 [id number] auto[facility]Comm erce [address] [place], [place] [address] 10/27/2010 00:00:00 [id number] autoEComm erce [address] [facility],[address] [place], [place] [address] 11/28/2010 00:00:00 [id number] autoEComm erce [address] [facility],[address] [place], [place] [address] 02/08/2012 00:00:00 [id number] autoEComm erce [address] [facility],[address] [place], [place] [address] 10/23/2012 00:00:00 [id number] autoEComm erce [address] [facility],[address] [place], [place] [address] 11/05/2013 00:00:00 [id number] autoEComm erce [address] [facility],[address] [place], [place] [address] 12/19/2013 00:00:00 [id number] Kiki boyle MD Main Office [address] [address] [place], [place] [address] 02/18/2014 13:31:24 02/18/2014 14:23:02 Urinary tract infectious disease [id number] see hx multiple UTI's, unclear if there could be an element of interstiti al cystitis. Pt green et up appt [facility] urologist, hydrate, void after intercours e and gather her urine culture and sensitivit ies so she can show to urology to help if going to go on preventive med. PT to call if feels more ill, if any abdominal pain needs to do a test, no concern now for ectopic Dysuria [id number] Kiki boyle MD Main Office [address] [facility] [address] [place], [place] [address] 04/01/2014 12:52:55 04/01/2014 13:38:04 Adult health examination [id number] pap smear is utd, pt is active, eats well, pt will start a one a day vitamin. Urinary tr act infectious disease 83015196 having workup for recurrent UTI, stresse to pt hydration is so important, followup with urology Anxiety 12108665 pt feels so well on zoloft 50mg, it really helpps, has sexual side effects, pt is trying to get so will not change to wellbutrin . 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 Otitis externa 3847111 pro blem on the left. Currently no signs of infection. Possible eustachion tube dysfunctio n. Already using a nasal spray and has Sudafed at home. The symptoms are manageable and she wanted to be sure that she had cleared the infection. [id number] WILL Rasmussen Main Office [address] [facility] [address] [place] [address] 09/20/2016 11:00:09 09/20/2016 12:06:43 Adult health examination 913677223 Z00.00 HM UTD, flu vaccine in march, TDAP in 2015, pap UTD. Doing well. Anxiety 50994499 F41.9 Mild anxiety disorder, JERICA shows mild anxiety. Discussed sertraline which is safe with breastfeed ing, she is still a bit uncomforta ble with taking it while breastfeed ing. She would like the prescripti on and will call back for f/u in 1 month for recheck if she does decide to start med. SSRIs discussed with patient. Impacted cerumen 5635903 6 H61.22 Left, lavaged. [id number] Kiki boyle MD Main Office [address] [facility] [address] [place] [address] 12/14/2020 15:02:43 12/14/2020 15:56:04 Lyme disease suspected 163461101 Z03.89 Pt appears to have lyme disease clinically , although test neg in ED, will repeat tests in 2 week, finish doxycyclin e . Rest, hydration, call if not continuing to improve, ED if worse with back pain or headache. Labs today Spasm of m uscle of lower back [id number] 6295636 M62.830 Rest, try flexeril, call or ED if acutely worse or focal neuro sx. Likely muscle spasm [id number] Kiki boyle MD Main Office [address] [facility] [address] [place] [address] 12/26/2020 09:29:27 12/26/2020 10:11:22 Lyme disease 14971466 A69.20 Pt has been taking doxycyclin e and is finally starting to improve; will continue for another week. 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 Mild neck discomfort , back pain better. 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 [address] [place] [address] 06/19/2021 09:26:28 06/19/2021 15:29:41 Fatigue 30005474 R53.83 see HPI for 4 years, check labs and have pt come in for a PE Tension-type headache 39 6998533 G44.209 will check sed rate due to transient (improved) left taoist pain and throbbing, she has TMJ. will refer to PT for therapy to help with muscle tension HUERTA and pt to come in for a PE in a month with /Nova Neck pain 51721646 M54.2 see above [id number] Kiki boyle MD Main Office [address] [facility] [address] [place] [address] 04/03/2022 14:32:14 04/03/2022 15:13:13 [id number] Katy Lynn MD Main Office [address] [facility] [address] [place] [address] 04/11/2022 09:14:26 04/11/2022 14:07:10 Seizure disorder 594133211 G40.909 New onset, see discharge summary. Pt [...] by neurology for RTW and driving. Fatigue 27433159 R53.83 feeling achy in neck with fatigue? lyme again, will do testing for this. Discussed possibilit y positive might be related to old lyme from last year, pt wants to do test. Might be related to side effect coming off of wellbutrin and stress. Anxiety 12349929 F41.9 Huerta med prescriber Dee Ocampo, has appt upcoming to discuss meds. Suggested counseling . [id number] Kiki boyle MD Main Office [address] [facility] [address] [place] [address] 05/11/2022 09:45:56 05/11/2022 15:50:55 Seizure disorder 087772087 G40.909 New onset Pt is on Keppra [...] RTW and driving. History of Lyme disease 904203998 Z86.19 ? new infection vs reactivati on, put on doxycyclin e, has followup planned Neuralgia 00262105 M79.2 Korey try adding at night, call if not helping [id number] Kiki boyle MD Main Office [address] [place] [address] 07/13/2022 13:48:30 07/13/2022 15:14:10 Headache 67394655 R51.9 on gabapentin 300 mg tid, will be getting right occipital nerve injection soon, has in person visit with headache specialist at in 2 weeks. Neck pain 50107465 M54.2 Try PT consider MRI if not better. Short term followup Stretching an heat, meds as listed Seizure disorder 2548026 02 G40.909 Pt is off Keppra 750 mg bid, no further seizures. She had followup with neurology at the seizure clinic on 05/22/22 and had a second opinion. Awaiting notes. An MRI has been ordered by seizure clinic and pt is waiting for a date. She will need to be cleared by neurology for RTW and driving. [id number] Kiki boyle MD Main Office [address] [place] [address] 08/10/2022 10:05:49 08/10/2022 11:41:46 Adult health examination 170397974 Z00.00 Pt in good general health. He sees the dentist and will see eye provider to followup on eye pain. HCM screenings up to date, Tdap up to date, had covid and flu vaccines Diet is balanced, see history for lifestyle choices Anxiety state 909466112 F41.1 ok on current meds, will check into counseling /family counseling , likely needs to be on additional meds other than buspar Neck pain 72072323 M54.2 MRi done bulging disc C5-6, could consider EDSI with [facility], starting PT next week for this Seizure disorder 2867250 02 G40.909 Pt is off Keppra 750 [...] resume in 2 months Cervico-oc cipital neuralgia 35099915 M54.81 will be getting injection through [facility] Major depr essive disorder 802047860 F32.9 see above, doing will try tapping, try to reach out for counseling and kids evaluation at school History of Lyme disease 318381710 Z86.19 Treated for this x2 , has been discharged from infectious disease provider. Pain of right eye 256557 2175 05138 H57.11 Due to ongoing pain , will have her see opthamolog y [id number] Nova dominique NP Main Office [address] [facility] [address] [place] [address] 09/07/2022 10:03:40 09/10/2022 10:43:56 Essential hypertension 48524105 I10 Pt likely has some hypertensi on now, she will start treatment and monitor BP, call with readings next week Chronic da rolly headache 7120578408 35453 R51.9 Headache since seizure disorder, has had negative imaging and only temporary relief with otc meds. ? if this is related to blood pressure. She had some occipital nerve injections which were of limited help. Pain of right eye 641058 7296 35643 H57.11 Has continued posterior eye pain with negative evaluation s, Elevated blood-pressure reading without diagnosis of hypertension 390928271 R03.0 Pt does not have a history of HTN but readings lately elevated consistent ly. She would like to try BB to see if this helps for BP and possibly headache prevention . Will monitor her blood pressure and symptoms closely Neck pain 86288543 M54.2 Acute pain with elevate blood pressure, pt is concerned about a issue with blood vessels in the head and neck causing the triad of neck pain, headache and eye pain. Will do CTA of head and neck [id number] Nova dominique NP Main Office [address] [facility] [address] [place] [address] 11/16/2022 10:48:45 11/16/2022 14:56:30 Chronic daily headache 4509991900 62112 R51.9 better now with BB, will continue Pain of right eye 105369 3620 90240 H57.11 eye pain better, nomral exams Neck pain 42523764 M54.2 Having EDSI upcoming, better. We were going to do a CTA of head and neck but she decided against it for now. Call if anyworseni ng. Essential hypertension 03564145 I10 Pt doing well on current treatment with propranolo l, no changes, pulse > 60, BP good [id number] Katy Lynn MD Telehealt h [address] [facility] [address] [place] [address] 12/10/2022 09:37:47 12/10/2022 10:52:51 Dysuria-frequency syndrome 7894633 R30.0 Pt with past h/o interstiti al cystitis. WE will check U/A and culture and treat per results. PT. is advised to increase hydration. [id number] Andrea Montana MD Main Office [address] [facility] [address] [place] [address] 04/02/2024 13:12:50 04/02/2024 14:15:22 Chronic pain syndrome 356724523 G89.4 chronic pain - huerta, R eye, back, RLE - fol by neuro - cont f/u c them, had mri, pending repeat lumbar punctureco nt gbn as dirsee below Major depr essive disorder 723890349 F32.1 mod dep on phq - ? has psychosoma tic c/o aboveconsi cathy trial of duloxetine - start c 30mg qd - if tolerates but no sig improvemen t then increase to 60mg qd History of Lyme disease 921398407 Z86.19 2021 - had meningitis - [facility] - seen by ID, never seen by rheum = will get eval Anxiety 08562547 F41.9 stopped buspar acutely recently - was rx'd by [facility] - discharged , no longer sees themsee aboveno see therapist - consider it [id number] IVY SANDOVAL MD Main Office [address] [place] [address] 04/23/2024 10:23:44 04/23/2024 11:10:41 Chronic pain syndrome 223019549 G89.4 - pt has chronic headaches and [...] this medication ) Major depr essive disorder 214925862 F32.1 - PHQ-9 score of 13- pt was started on duloxetine ER 30mg QD -> there has been improvemen t on the medication , will hold increase at this time until memory testing is done- concerned that memory problems and inattentio n are more due to depression and anxiety- pt referred to psychiatry - denies SI/HI- maribel esquivel provided History of Lyme disease 880690033 Z86.19 - pt has been referred to infectious disease Anxiety 43782282 F41.9 - JERICA-7 score of 14- pt stopped buspar- pt was previously following with psych- pt is currently on duloxetine 30mg QD and propanolol ER 120mg> has noticed some improvemen t with the duloxetine (started on 04/02/2024) > not change at this time- maribel esquivel provided- RTC in 4 weeks Seizure disorder 9786749 02 G40.909 - occurred 2 years ago while on the wellbutrin - after seizures patient developed chronic pain- pt is currently off all seizures meds, was on keppra 750mg BID Adult heal th examination 965910211 Z00.00 Health Maintenanc e FemaleA) Patient was [...] nfluenza: 03/31/2024T dAP: 08/20/2018Z oren: due at 59RAP28: due at 21BUHI06: due at 63GDU29:PC V15:COVID: 06/23/2020 , 07/14/2020, 04/05/2021, 10/08/2022, 04/11/2023, 03/31/2024 D) Routine blood work orderedE) Updated patient's history RTC in one year for annual exam or sooner if any acute complaints Screening for malignant neoplasm of cervix 583799395 Z12.4 Screening for malignant neoplasm of colon 238767110 Z12.11 Fatigue 24395128 R53.83 Hyperlipidemia 02280818 E78.5 HIV screening 361745105 Z11.4 Hepatitis C screening 41 9531506 Z11.59 Vitamin D deficiency 347 66229 E55.9 Memory impairment 869734 006 R41.3 - pt concerned about her memory loss- has spoke to neurology about this however per patient her concerns were dismissed- MRI completed and was normal- blood work ordered- feel as symptoms are more due to mood/anxie ty compoment- RTC in 3 weeks for memory impairment Venereal d isease screening 178294272 Z11.3 Z72.89 F03.90 [id number] IVY SANDOVAL MD Main Office [address] [place] [address] 05/16/2024 09:35:35 05/16/2024 10:04:05 Memory impairment 786745659 R41.3 - 6CIT score of 2 and [...] improving on duloxetine Chronic pain syndrome 37 3183877 G89.4 - pt has chronic headaches and [...] is doing better Major depr essive disorder 200695180 F32.1 - pt was started on duloxetine ER 30mg QD -> there has been improvemen t on the medication , will hold increase at this time until memory testing is done- concerned that memory problems and inattentio n are more due to depression and anxiety- pt referred to psychiatry - denies SI/HI- maribel esquivel provided [id number] Andrea Montana MD Main Office [address] [facility] [address] [place] [address] 05/26/2024 09:27:32 05/26/2024 10:15:01 Localized eruption of skin 013526030 R21 Non infectious rash, ore looking like possibly inflammato ry in nature and is now resolving. Pt. has planned bone marrow procedure. NO contraindi cation is present to proceed in terms of this rash. [id number] Jamar Castle MD Main Office [address] [facility] [address] [place] [address] 06/19/2024 15:18:59 06/19/2024 15:53:24 Candidiasis of vagina 40118631 B37.31 will tx with fluconazol e once daily x 7 days due to vaginitis and thrush. She declined pelvic exam today as she has her 2 children with her. She self swabbed for vaginitis. Acute vaginitis 89811295 N76.0 metrogel as directed x 5 days, will confirm via vaginitis swab Candidiasis of mouth 797 81559 B37.0 has been using clotrimazo le troches with some relief but sx continue [id number] IVY SANDOVAL MD Main Office [address] [facility] [address] [facility] [address] 09/22/2024 08:06:00 09/22/2024 09:00:52 Chronic pain syndrome 506974325 G89.4 - pt has chronic headaches and [...] to 60mg QD Major depr essive disorder 799420972 F32.1 - PHQ-9 score of 13 (done at previous visit)- as duloxetine is helping increased to 60mg QD- concerned that memory problems and inattentio n are more due to depression and anxiety- pt referred to psychiatry , florencia mckeon- denies SI/HI- counselimmanuel esquivel provided Anxiety 96583625 F41.9 - JERICA-7 score of 14 (done at last visit)- pt stopped buspar- pt was previously following with psych- increased duloxetine to 60mg- due to uncontroll ed migraines for now will continue with propanolol ER 120mg- counselimmanuel esquivel provided Seizure disorder 9285165 02 G40.909 - occurred 2 years ago while on the wellbutrin - after seizures patient developed chronic pain- pt is currently off all seizures meds, was on keppra 750mg BID Migraine without aura 56 080795 G43.009 - pt has started vestibular therapy to help with this- has been following with neurology: given sumatripta n 100mg QD- pt will take zofran as needed for nausea and vomiting Attention deficit hyperactivity disorder, predominantly inattentive type 07183981 F90.0 - not a confirmato ry diagnosis -> pt needs to undergo testing- will start a with low dose [id number] Andrea Montana MD Main Office [address] [facility] [address] [facility] [address] 10/08/2024 15:00:34 10/08/2024 16:01:37 Migraine 02175761 G43.909 ? SE of sumatripta n and propanolol causing Raynauds - advised to f/u c neurosee below re: rheum evalmeanwh ile, rec slow taper off propanolol - lower dose to 80mg, and use sumatripta n sparinglyi f no sig help c reduction of sxs, could consider low dose amlodipine to help c raynauds - but await rheum input Raynaud's phenomenon 266 560358 I73.00 see above - will get rheum eval Essential hypertension 31721941 I10 for migraines above - lowering dose from 120mg ER to 80mg ER Paronychia of toe 119880 002 L03.031 ? has this as wellwill rx c keflexreco mmend probiotics while on abx Chilblains 20960458 T69. 1XXA ? 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 291217 - noted by neurology, last seen on 02/05- underwent testing for this- patient has sub-optima l ferritin levels therefore patient was started on iron therapy- pt was started on pregabalin 25mg TID (not yet started, working on PA)> previously tried on gabapentin -> was getting memory fog Difficulty sleeping [id number] G47.9 [id number] - patient having restless legs in the evening which worsening her sleep- was started on pregabalin (not yet started, working on PA) Attention deficit hyperactivity disorder, combined type [id number] F90.2 [id number] - newly diagnosed, pt underwent testing, report dated 01/15- patient is currently on atomoxetin e 40mg QD which is providing mild relief- now that patient has official diagnosis, can consider adding on a stimulant> stopped atomoxetin e and started on Adderral 10mg ER> patient will message MD over portal to let me know how well it is functionin g 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 [id number] - started after lyme- currently following with neurology- c/w magnesium 400mg QD and riboflavin 400mg QD- tried medication s: ubrelvy (caused constipati on), propanolol ER 80mg QD- c/w sumatripta n 100mg QD- currently on emgality 120mg SQ once a month Temporoman dibular joint disorder [id number] M26.609 - pt is currently on carbamazep ine Er 100mg BID- pt is also on duloxetine 60mg QD Seizure disorder [id number] 02 G40.909 - occurred 2 years ago while on the wellbutrin - after seizures patient developed chronic pain- pt is currently off all seizures meds, was on keppra 750mg BID Major depr essive disorder [id number] F32.1 - PHQ-9 score of 28 (done at previous visit)- as duloxetine is helping increased to 90mg QD- concerned that memory problems and inattentio n are more due to depression and anxiety- reviewed recommenda tions of psychiatry - denies SI/HI- counsellin g provided Neck pain 71383235 M54.2 - refilled, uses as needed for neck pain Bipolar af fective disorder, currently depressed, moderate [id number] F31.32 735667 - pt was seen psychiatry who was considerin g this diagnosis- will start by adding on Adderall and increasing duloxetine prior to starting lamotrigin e- patient also may be increased on carbamazap ine which is why patient was not increased [id number] IVY SANDOVAL MD Main Office [address] [address] [place] [phone] 03/25/2025 08:00:36 03/25/2025 10:01:23 Difficulty sleeping [id number] G47.9 3027193 - patient having restless legs in the evening which worsening her sleep- was started on pregabalin (not yet started, working on PA) -> planning on taking this Attention deficit hyperactivity disorder, combined type [id number] F90.2 23281207 - newly diagnosed, pt underwent testing, report dated 01/15- patient is currently on atomoxetin e 40mg QD which is providing mild relief- now that patient has official diagnosis, can consider adding on a stimulant> stopped atomoxetin e and started on Adderral- Adderral (dosage ER 20mg) has not been providing very good relief- will try concerta ER to see if improvemen t- if no improvemen t will consider starting vyvanse- with specialise d ADHD therapy with Dr. Cesar Galvan tilake reason for encounter [id number] Z02.9 790835 - will complete [facility] paperwork [id number] IVY SANDOVAL MD Main Office [address] [facility] [address] [place] [phone] 05/13/2025 13:37:23 05/13/2025 14:07:18 Attention deficit hyperactivity disorder, combined type [id number] F90.2 [id number] - newly diagnosed, pt underwent testing, report dated 01/15- tried atomoxetin e, adderral and concerta with little relief- increased vyvanse from 20mg to 40mg- with specialise d ADHD therapy with Dr. Guerrero Difficulty sleeping 3013 27335 G47.9 8858236 - patient having restless legs in the evening which worsening her sleep- c/w pregabalin 25mg TID Administra tive reason for encounter [id number] Z02.9 130536 - pt given back to work note Periodic l eg movements of sleep [id number] G47.61 063599 - noted by neurology, last seen on 02/05- underwent testing for this- patient has sub-optima l ferritin levels therefore patient was started on iron therapy- pt was started on pregabalin 25mg TID> previously tried on gabapentin -> was getting memory fog Transformed migraine 427 565648 G43.E09 [id number] - started after lyme- currently following with neurology- c/w magnesium 400mg QD and riboflavin 400mg QD- tried medication s: ubrelvy (caused constipati on), propanolol ER 80mg QD- c/w sumatripta n 100mg QD- currently on emgality 120mg SQ once a month Temporoman dibular joint disorder 70303338 M26.609 - pt is currently on oxcarbazep ine 300mg TID- pt is also on duloxetine 90mg QD Seizure disorder 2120474 02 G40.909 - occurred 2 years ago while on the wellbutrin - after seizures patient developed chronic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
== END 2025-06-30 08:53 | disposition home or self-care (01) ==
LOC: HO.HSMS 15:02
PROVIDERS: PCP Internal Medicine; Visit Provider Nurse Practitioner Family
DX: G43.E09 Chronic migraine with aura, not intractable, without status migrainosus (principal); M54.2 Cervicalgia; G47.61 Periodic limb movement disorder; G47.9 Sleep disorder, unspecified; F90.2 Attention-deficit hyperactivity disorder, combined type; R42 Dizziness and giddiness; R06.83 Snoring; G47.10 Hypersomnia, unspecified; H49.10 Fourth [trochlear] nerve palsy, unspecified eye; M54.18 Radiculopathy, sacral and sacrococcygeal region
CPT/HCPCS: 99214